=== PATIENT | female | born 1945 | race Caucasian/White ===

== ENCOUNTER 2022-08-21 11:12 | Emergency (ER) | payer OTHER, SELFPAY ==
[2022-08-21 11:15] VITALS: BP 197/92; PULSE 89; RESP 18; TEMP 36.6; O2SAT 97; BMI 41.7
--- NOTE | 2022-08-21 11:22 | ECG_ITS ---
Test Reason : ARRYTHIMA Blood Pressure : / mmHG Vent. Rate : 080 BPM Atrial Rate : 000 BPM P-R Int : 000 ms QRS Dur : 092 ms QT Int : 398 ms P-R-T Axes : 000 039 -26 degrees QTc Int : 459 ms Atrial fibrillation Nonspecific T wave abnormality Abnormal ECG When compared with ECG of 05-MAY-2017 16:01, ST no longer depressed in Anterior leads Referred By: Generic ED Physician Electronically Signed By:Tono Salter
[2022-08-21 11:54] LABS: MANUAL DIFF FLAG NO
[2022-08-21 11:56] LABS: Basophils Percent Auto 0.5 % (0-2); Eosinophils Percent Auto 0.7 % (0-4); Hematocrit 40.3 % (37.0-47.0); Hemoglobin 12.9 g/dl (12.0-16.0); Imm Gran Abs Auto 0.01 X10*3/uL (0.00-0.03); Imm Gran Pct Auto 0.2 % (0.0-0.4); Lymphocytes Absolute Auto 0.7 X10*3/uL (1.2-4.9); Lymphocytes Percent Auto 17.2 % (20-40); Mean Corpuscular Hemoglobin 26.7 pg (27.0-33.0); Mean Corpuscular Volume 83.4 fL (80.0-98.0); Mean Platelet Volume 9.4 fL (9.4-12.3); Monocytes Absolute Auto 0.5 X10*3/uL (0.1-1.2); Monocytes Percent Auto 12.6 % (2-11); Neutrophils Percent Auto 68.8 % (45-73); Platelet Count 212 X10*3/uL (160-400); Red Blood Count 4.83 X10*6/uL (4.20-5.50); Red Cell Distribution Width 15.6 % (11.0-16.0); White Blood Count 4.3 X10*3/uL (4.8-10.8)
[2022-08-21 12:16] LABS: Anion Gap 14 (12-20); Blood Urea Nitrogen 11 mg/dL (9-16); Calcium 9.2 mg/dL (8.4-10.2); Carbon Dioxide 27 mmol/L (22-29); Chloride 103 mmol/L (96-108); Creatinine Clr Calc Pharmacy 67.8; Estimated Glomerular Filt Rate > 60; Glucose Random 98 mg/dL (60-115); Potassium 4.2 mmol/L (3.3-5.1); Sodium 140 mmol/L (135-145)
[2022-08-21 12:17] LABS: Troponin-I High Sensitivity 9.2 ng/L (<3.5-17.0)
[2022-08-21 14:47] VITALS: BP 180/96; PULSE 82; RESP 18; TEMP 36.5; O2SAT 98
--- NOTE | 2022-08-21 14:53 | PC.NURSE ---
Pt alert and oriented, respirations even and unlabored. Placed on quality assurance monitor in afib 70's to 80's, reports this is chronic and normal for her. Takes coumadin for her afib. Denies any pain at this time.
--- NOTE | 2022-08-21 15:10 | ED_ITS ---
HPI - Arrhythmia/Palpitations General Chief Complaint: Arrhythmia/Palpitations Stated Complaint: HBP/Afib Time Seen by Provider: 08/21/22 14:47 Source: patient Mode of arrival: ambulatory Limitations: no limitations History of Present Illness HPI narrative: Patient is a 76-year-old female who presents to emergency department for evaluation of palpitations and hypertension. Patient reports a history of atrial fibrillation for which she is prescribed metoprolol succinate and Coumadin. She states that she is always in atrial fibrillation however she does not always ?feel it?. She reports that over the past weeks she has been having increased sensation of palpitations, she does also endorse that she has been anxious over her blood pressure. 08/08/2022 she was started on lisinopril 10 mg p.o., and that dosage was increased on 08/16/2022 given persistent hypertension, currently she is taking 20 mg p.o. daily. She states at home her blood pressures continue to be 180s systolic, 90s diastolic. She contacted her primary care office and was advised to come to the emergency department. She denies headache, vision changes, dizziness, lightheadedness, neck pain, presyncope, syncope, chest pain, shortness of breath, difficulty breathing, nausea, vomiting, abdominal pain, numbness or tingling of her extremities. Reports pedal edema at baseline, no worse than usual, resolves at night with elevation. She is also prescribed Lasix daily, however she is only taking it about 3-4 times throughout the week reporting that she does not take it when she has to leave in the morning to read [employer] as it causes her to go to the bathroom to frequently. Her primary care office is arranging for her to have a sooner follow-up with Cardiology determine whether she remain on the Lasix. She states she had echocardiogram last year which by her report was normal, denies any history of heart failure. Related Data Allergies Allergy/AdvReac Type Severity Reaction Status Date / Time No Known Allergies Allergy Verified 08/21/22 11:14 [No Known Allergies*] Review of Systems Review of Systems: Constitutional : No Weight loss, No Fever, No Chills ENT/Mouth :? No sore throat, No Rhinorrhea Eyes: No Eye Pain, No Swelling Cardiovascular : pos Chest Pain, pos SOB, no Dyspnea on Exertion, No Orthopnea, No Edema, positive Palpitations Respiratory : No Cough, No Sputum Gastrointestinal : pos Nausea, No Vomiting, No Diarrhea, No abdominal Pain, No Hematochezia, No Melena Genitourinary : No Dysuria, No Urinary Frequency Musculoskeletal : No joint pain, No Myalgias, No Joint Swelling Skin : No Skin Lesions, No rash Neuro : No Weakness, No Numbness, No Dizziness, No Headache Psych : Positive anxiety, No Depression Yes all other systems are reviewed and are negative [facility] Past Medical History Attestation statement: The following information was validated with the patient. Source: old records reviewed Social History Social History Smoked in Last 30 Days: No Advance Directives: No Advance Directives Information Provided: Yes Physical Exam Vital Signs: Vital Signs: Last Vital Signs Temp 97.7 F 08/21/22 14:47 Pulse 82 08/21/22 14:47 Resp 18 08/21/22 14:47 BP 180/96 H 08/21/22 14:47 Pulse Ox 98 08/21/22 14:47 O2 Del Method 08/21/22 14:47 BMI result Body Mass Index 41.7 Appearance: Alert.?Oriented to person, place and time. No acute distress.?Normal affect. Eyes: Pupils equal, round and reactive to light.? ENT: Pharynx normal.?? Neck: Normal inspection.? Neck supple.?? CVS: Heart sounds normal. Irregularly irregular rhythm.? Pulses normal.?? Respiratory: No respiratory distress.? Lung sounds clear to auscultation bilaterally?? Abdomen: Soft and non-tender. Normoactive bowel sounds. Skin: Skin warm and dry.? Normal skin color.? Extremities: 2+ pitting lower extremity edema bilaterally. Neuro: Moves all extremities spontaneously. Sensation intact bilaterally. Ambulates with normal steady gait. Course Reevaluation(s) Reevaluation #1: BNP is mildly elevated, no evidence of overt fluid overload. Discussed with patient plan of care she will follow-up with Cardiology outpatient as her primary care provider is arranging. She will follow-up with Coumadin Clinic in regards to dosage management. Discussed plan of care for increasing dosage of lisinopril to 20 mg twice daily, under the condition that she is keeping a log of blood pressure readings before antihypertensive medication administration and 2 hours after. Given instructions on when to hold evening lisinopril based on blood pressure reading. She is going to contact her primary care provider to arrange for further follow-up and management. Patient feels comfortable with this plan of care for discharge. Time: 17:38 Medical Decision Making Medical Decision Making [facility] Narrative: Patient with a history of atrial fibrillation, currently on Coumadin, hypertension, and ostomy presenting to emergency department for evaluation of palpitations and hypertension. As noted in HPI patient has been recently prescribed lisinopril as a new medication given hypertension despite being on metoprolol and furosemide. However she is not taking the furosemide daily as prescribed by her fitness coach through [facility]. She was advised to come to emergency department by her primary care office given persistent elevated blood pressure readings and palpitations. The palpitations are intermittent, and she also endorses anxiety over her elevated blood pressure readings. She is otherwise without any additional physical complaints. She is overall well- appearing, without evidence of end-organ dysfunction. Reviewed labs obtained from triage, and overall unremarkable CBC and BMP. Troponin 9.2, EKG revealing atrial fibrillation without RVR, no active chest pain or shortness of breath. Will add on BNP, and check INR as she does report that over the past few weeks her INR was elevated but has been coming down she is due to have this rechecked later this week. Lab Data [facility] Lab Attestation statement: I reviewed the patient's lab results. Result Diagrams: 08/21/22 11:50 08/21/22 11:50 Labs: Lab Results 08/21/22 08/21/22 08/21/22 Range/Units 11:49 11:50 11:50 WBC 4.3 L (4.8-10.8) X10*3/uL RBC 4.83 (4.20-5.50) X10*6/uL Hgb 12.9 (12.0-16.0) g/dl Hct 40.3 (37.0-47.0) % MCV 83.4 (80.0-98.0) fL MCH 26.7 L (27.0-33.0) pg MCHC 32.0 (31.0-35.0) g/dl RDW 15.6 (11.0-16.0) % Plt Count 212 (160-400) X10*3/uL MPV 9.4 (9.4-12.3) fL Immature Gran % (Auto) 0.2 (0.0-0.4) % Neut % (Auto) 68.8 (45-73) % Lymph % (Auto) 17.2 L (20-40) % [place] % (Auto) 12.6 H (2-11) % Eos % (Auto) 0.7 (0-4) % Baso % (Auto) 0.5 (0-2) % Lymph # (Auto) 0.7 L (1.2-4.9) X10*3/uL [place] # (Auto) 0.5 (0.1-1.2) X10*3/uL Eos # (Auto) 0.0 (0.0-0.4) X10*3/uL Baso # (Auto) 0.0 (0.0-0.2) X10*3/uL Abs Immat Gran (auto) 0.01 (0.00-0.03) X10*3/uL Absolute Neuts (auto) 3.0 (2.0-8.3) x10*3/uL Absolute Nucleated RBC 0.000 (0.0-0.012) X10*3/uL Nucleated RBC % (auto) 0.0 (0.0-0.2) /100WBC PT (10.0-13.1) SEC INR (0.9-1.1) Sodium 140 (135-145) mmol/L Potassium 4.2 (3.3-5.1) mmol/L Chloride 103 (96-108) mmol/L Carbon Dioxide 27 (22-29) mmol/L Anion Gap 14 (12-20) BUN 11 (9-16) mg/dL Creatinine 0.77 (0.5-1.4) mg/dL Estim Creat Clear Calc 67.8 Estimated GFR > 60 Random Glucose 98 (60-115) mg/dL Calcium 9.2 (8.4-10.2) mg/dL Troponin I High Sens 9.2 (<3.5-17.0) ng/L B-Natriuretic Peptide (<100) pg/mL 08/21/22 08/21/22 Range/Units 15:56 15:56 WBC (4.8-10.8) X10*3/uL RBC (4.20-5.50) X10*6/uL Hgb (12.0-16.0) g/dl Hct (37.0-47.0) % MCV (80.0-98.0) fL MCH (27.0-33.0) pg MCHC (31.0-35.0) g/dl RDW (11.0-16.0) % Plt Count (160-400) X10*3/uL MPV (9.4-12.3) fL Immature Gran % (Auto) (0.0-0.4) % Neut % (Auto) (45-73) % Lymph % (Auto) (20-40) % [place] % (Auto) (2-11) % Eos % (Auto) (0-4) % Baso % (Auto) (0-2) % Lymph # (Auto) (1.2-4.9) X10*3/uL [place] # (Auto) (0.1-1.2) X10*3/uL Eos # (Auto) (0.0-0.4) X10*3/uL Baso # (Auto) (0.0-0.2) X10*3/uL Abs Immat Gran (auto) (0.00-0.03) X10*3/uL Absolute Neuts (auto) (2.0-8.3) x10*3/uL Absolute Nucleated RBC (0.0-0.012) X10*3/uL Nucleated RBC % (auto) (0.0-0.2) /100WBC PT 38.6 H (10.0-13.1) SEC INR 3.2 H (0.9-1.1) Sodium (135-145) mmol/L Potassium (3.3-5.1) mmol/L Chloride (96-108) mmol/L Carbon Dioxide (22-29) mmol/L Anion Gap (12-20) BUN (9-16) mg/dL Creatinine (0.5-1.4) mg/dL Estim Creat Clear Calc Estimated GFR Random Glucose (60-115) mg/dL Calcium (8.4-10.2) mg/dL Troponin I High Sens (<3.5-17.0) ng/L B-Natriuretic Peptide 418 H (<100) pg/mL Independent Interpretation I performed an independent interpretation of an: EKG Interpretation: Rate: 80 Rhythm:? Atrial fibrillation Normal QRS complex.?? ST T wave :??No ST elevation, no ST depression qTC: 459 The study has been interpreted contemporaneously by me. Discharge Plan Discharge Clinical Impression: Atrial fibrillation, Hypertension Patient Disposition: Home, Self-Care Additional Instructions: As we discussed, your INR today is 3.2, please contact your Coumadin clinic tomorrow regarding further management. Regarding your blood pressure; Tonight you should take your lisinopril 20 mg as scheduled. Tomorrow morning check your blood pressure in the morning prior to taking antihypertensives and record this reading as well as the time Take metoprolol and Lasix as prescribed, if your blood pressure is elevated, >140, take an additional dose of lisinopril 20 mg at the same time as your metoprolol. Check your blood pressure 2 hours after taking both medications, and record this reading. At bedtime, check your blood pressure before taking the lisinopril 20 mg. If your blood pressure is greater than 140, take the 2nd dose of lisinopril 20 mg. Please contact your primary care doctor's office tomorrow to arrange for further follow-up and evaluation. Referrals: Eloisa Veronica MD [Primary Care Provider] -
[2022-08-21 16:19] LABS: INTERNATIONAL NORM RATIO 3.2 (0.9-1.1); Prothrombin Time 38.6 SEC (10.0-13.1)
[2022-08-21 16:31] LABS: B Type Natriuretic Peptide 418 pg/mL (<100)
== END 2022-08-21 17:56 | disposition home or self-care (01) ==
PROVIDERS: Nurse Practitioner Family; Emergency Provider Emergency Medicine; PCP Internal Medicine
DX: I48.91 Unspecified atrial fibrillation (principal); I10 Essential (primary) hypertension; R00.2 Palpitations; R06.02 Shortness of breath; R60.0 Localized edema; F41.9 Anxiety disorder, unspecified; Z79.01 Long term (current) use of anticoagulants; Z79.899 Other long term (current) drug therapy
CPT/HCPCS: 36415; 80048; 83880; 84484; 85025; 85610; 93005; 99284; 99285

== ENCOUNTER 2023-10-08 17:16 | Inpatient (IN) | payer OTHER, SELFPAY ==
--- NOTE | ~2023-10-08 | CT_ITS ---
EXAMINATION: CT ANGIOGRAM CHEST CLINICAL INFORMATION: SOB, dizzy, large R opacity on CXR COMPARISON: Chest x-ray from the same day TECHNIQUE: Multiple axial images were obtained through the chest after the administration of 70 mL of Omnipaque 350 intravenous contrast. Extensive vascular post-processing including two-dimensional and three-dimensional reformatted images were created and reviewed on an independent workstation. This CT examination was performed using dose optimization techniques as appropriate, variously including the following: *Automated exposure control *Adjustment of mA and/or kV according to patient size (this includes techniques or standardized protocols for targeted exams where dose is matched to indication/reason for exam; i.e. extremities or head) *Use of iterative reconstruction technique DLP: 392 mGy-cm FINDINGS: There are scattered regions of curvilinear subsegmental atelectasis bilaterally. Mild emphysema is noted. Small right and trace left pleural effusions. No pneumothorax. Thyroid gland appears diminutive. No significant mediastinal lymphadenopathy is seen. There is severe cardiomegaly, including with marked left and right atrial dilation. Mild coronary artery calcification noted. There is a small pericardial effusion. Scattered calcification along the aorta. No evidence of aortic dissection. No axillary lymphadenopathy is present. There is reflux of contrast into the IVC and hepatic veins, suggesting sequelae elevated right heart pressures. Lateral left hepatic cyst noted. Additional partially visualized hypodense lesion in the liver is also favored to represent a cyst. There is trace perisplenic fluid. Scattered degenerative changes in the spine. CT/CT angio chest aorta IMPRESSION: 1. Severe cardiomegaly, including marked left and right atrial dilation. 2. Small right and trace left pleural effusions. 3. Small pericardial effusion. 4. Trace perisplenic fluid.
--- NOTE | ~2023-10-08 | XR_ITS ---
EXAMINATION: CHEST 2 VIEWS CLINICAL INFORMATION: SOB. COMPARISON: 05/05/2017 chest x-ray and 04/18/2017 CT scan. TECHNIQUE: PA and lateral views of the chest obtained. FINDINGS: This is an abnormal study. The cardiac silhouette is significantly enlarged and is a new finding from the prior 2017 study. There is a focal opacity along the right heart border which appears to be more anterior than would be expected for a hiatal hernia. No obvious hiatal hernia seen on the prior 2017 study is either. Tiny bilateral pleural effusions and dependent airspace changes likely due to atelectasis. No overt edema or pneumothorax. Vascular calcification in aorta. XR/XR chest 2V IMPRESSION: 1. Significantly enlarged cardiac silhouette. This is a new finding from the prior 2017 study. Specifically there is now a focal opacity along the right heart border which appears to be more anterior than would be expected for a hiatal hernia. The appearance is new from the 2017 study. Uncertain if this is related to a large paraesophageal hernia, enlarged right atrium, or other masslike opacity in this location. Clinical correlation would be helpful. CT scan of the chest will likely be needed to assess this further if there is clinical concern. This critical result was discussed with Amber Barnes NP at 10/08/2023 7:01 PM and it was ascertained that the content and urgency of the report was understood at the time of direct communication.
--- NOTE | 2023-10-08 17:20 | ED_ITS ---
HPI - General Adult General Chief complaint: Dyspnea Stated complaint: sob,afib Time Seen by Provider: 10/08/23 17:35 Source: patient Mode of arrival: ambulatory Limitations: no limitations History of Present Illness HPI narrative: Patient is an 78-year-old female who presents emergency department for evaluation of shortness of breath. She reports over the past week she was noticing some mild shortness of breath particularly upon exertion. Yesterday and today symptoms were much worse. She also had associated dizziness which prompted her visit to the ED. She has been experiencing bilateral lower extremity edema for the past month that is increasingly worse. Has history of atrial fibrillation, reports compliance with her warfarin, over the past 2 and half weeks has had supratherapeutic levels following closely with her Coumadin Clinic. Denies headache, vision changes, neck pain, chest pain, nausea, vomiting, abdominal pain, numbness or tingling for extremities, dysuria, hematuria, urinary frequency, numbness or tingling of the extremities. Related Data Home Medications Medication Instructions Recorded Confirmed alendronate 70 mg tablet 70 mg PO BLUNT 10/08/23 10/08/23 amlodipine 5 mg tablet 5 mg PO BEDTIME 10/08/23 10/08/23 calcium carbonate 500 mg-vitamin 1 tab PO DAILY 10/08/23 10/08/23 D3 10 mcg (400 unit) tablet (Calcium 500 + D) furosemide 20 mg tablet 20 mg PO DAILY 10/08/23 10/08/23 lisinopril 40 mg tablet 40 mg PO BEDTIME 10/08/23 10/08/23 metoprolol succinate 100 mg 100 mg PO DAILY 10/08/23 10/08/23 tablet,extended release 24 hr potassium chloride 20 mEq 20 meq PO DAILY 10/08/23 10/08/23 tablet,extended release(part/cryst) warfarin 2.5 mg tablet 5 mg PO DAILY@1800 10/08/23 10/08/23 Allergies Allergy/AdvReac Type Severity Reaction Status Date / Time No Known Allergies Allergy Verified 08/21/22 11:14 [No Known Allergies*] Review of Systems 2 Review of Systems: Yes all other systems are reviewed and are negative [facility] Past Medical History Attestation statement: The following information was validated with the patient. Source: old records reviewed Medical History Osteoporosis Hyperlipidemia Hypertension Atrial fibrillation Social History Social History Alcohol intake: former Smoked in Last 30 Days: No Use of substances other than those prescribed or required for medical reasons: No Advance Directives: No Advance Directives Information Provided: No Physical Exam ED Vital Signs: Vital Signs - 24 hr 10/08/23 17:22 10/08/23 18:00 10/08/23 22:06 Temperature 97.1 F Pulse Rate 58 60 92 Respiratory Rate 18 18 20 Blood Pressure 128/48 L 131/65 Pulse Oximetry 95 97 95 Oxygen Delivery Method Room Air Nasal Cannula Nasal Cannula Oxygen Flow Rate 2 2 BMI result Body Mass Index 41.8 Appearance: Alert.?Oriented to person, place and time. No acute distress.?Normal affect. Eyes: Pupils equal, round and reactive to light.? ENT: Pharynx normal.?? Neck: Normal inspection.? Neck supple.?? CVS: Heart sounds normal. Irregularly irregular rhythm.? Pulses normal.?? Respiratory: No respiratory distress.? Lung sounds clear at the apices, diminished at the bases. ? Abdomen: Soft and non-tender. Normoactive bowel sounds. Large mid L abdominal hernia. Ostomy. Skin: Skin warm and dry.? Normal skin color.? Extremities: 3+ bilateral lower extremity edema? No calf ttp? Neuro: Moves all extremities spontaneously. Sensation intact bilaterally. CN II- XII intact. No focal neuro deficits. Ambulates with normal steady gait. Course Course Course Narrative: RME performed by Talya Varela PA-C. Patient is an 78 year old assigned female at presenting to the emergency department with shortness of breath and concern she is in atrial fib. Detailed physical exam and review of systems are deferred to the primary teacher. Labs, imaging, and swabs ordered. Charge nurse made aware of patient. Reevaluation(s) Reevaluation #1: CBC reveals leukopenia, microcytic anemia, mild thrombocytopenia. Electrolytes within normal range. BUN 32 with baseline creatinine 0.85, concerning for dehydration. BNP 245, lower than prior levels in 2021. High sensitive troponin within normal range at 4.7, EKG revealing atrial fibrillation without acute ischemic changes. COVID-19/influenza testing is negative. Received call from radiologist regarding critical finding on CXR, 15 cm larger opacities to the right sternal border, appears to be more anterior than expected if this were secondary to new hiatal hernia, possible enlarged right atria or pericardial effusion. Plan to obtain CT angio aorta for further evaluation, ED attending, Dr. Post at bedside to perform ultrasound, does not appear consistent with large pericardial effusion, concern for enlarged right atria. Stable at this time. Time: 18:59 Reevaluation #2: CT of the chest revealing severe cardiomegaly with marked left and right atrial dilation, small pleural effusions, small pericardial effusion, decompensated heart failure, suspect this is most likely etiology of her shortness of breath. Spoke with hospitalist, Dr. Simon, who accepts patient for admission. Time: 22:32 Medications Administered Generic Name Dose Route Start Last Admin Trade Name Freq PRN Reason Stop Dose Admin Furosemide 40 mg 10/08/23 22:25 10/08/23 22:57 Furosemide 40 Mg/4 Ml Vial IVPUSH 40 mg DAILY LENCHO Administration Protocol Sodium Chloride 3 ml 10/09/23 00:00 10/09/23 01:10 0.9 % Sodium Chloride Flush 3 Ml Syringe IVFLUSH 3 ml QSHIFT LENCHO Administration Discontinued Medications Generic Name Dose Route Start Last Admin Trade Name Freq PRN Reason Stop Dose Admin Sodium Chloride 1,000 mls @ 999 mls/hr 10/08/23 19:45 10/08/23 22:35 Ns IV 10/08/23 20:45 0 mls/hr .Q1H1M LENCHO Infusion Iohexol 70 ml 10/08/23 21:13 10/08/23 21:14 Iohexol 350 Mg/Ml 100 Ml Infus..Btl IV 10/08/23 21:14 70 ml ONCE ONE Administration Medical Decision Making Medical Decision Making MDM Narrative: Patient is an 78-year-old female with past medical history of atrial fibrillation on Coumadin, hypertension who presents emergency department for evaluation of shortness of breath. Lung sounds are clear at the apices but diminished at the bases, 3+ bilateral lower extremity pitting edema. Will obtain CBC to evaluate for leukocytosis/ anemia, CMP and lipase to evaluate for abnormal electrolytes /abnormal renal function/ abnormal hepatic/biliary function, EKG and troponin to evaluate for ischemia/ACS. Chest x-ray to evaluate for consolidation/ infiltrate/ mass/ pulmonary congestion and Urinalysis. Differential Diagnosis Differential Diagnoses: The differential diagnosis associated with the presentation includes (AFib RVR, CHF, URI. Doubt PE, chronic anticoagulation recent supratherapeutic INR.) Admission/Observation Consideration of admission/observation: Escalation of care including admission/observation considered (See course narrative for further detail) Lab Data MDM Lab Attestation statement: I reviewed the patient's lab results. (See course narrative) 10/08/23 17:46 10/08/23 17:46 Labs: Lab Results 10/08/23 Range/Units 17:46 WBC 3.6 L (4.8-10.8) X10*3/uL RBC 4.53 (4.20-5.50) X10*6/uL Hgb 11.6 L (12.0-16.0) g/dl Hct 35.8 L (37.0-47.0) % MCV 79.0 L (80.0-98.0) fL MCH 25.6 L (27.0-33.0) pg MCHC 32.4 (31.0-35.0) g/dl RDW 16.9 H (11.0-16.0) % Plt Count 143 L D (160-400) X10*3/uL MPV 10.4 (9.4-12.3) fL Immature Gran % (Auto) 0.3 (0.0-0.4) % Neut % (Auto) 67.7 (45-73) % Lymph % (Auto) 12.5 L (20-40) % [place] % (Auto) 17.5 H (2-11) % Eos % (Auto) 1.4 (0-4) % Baso % (Auto) 0.6 (0-2) % Lymph # (Auto) 0.5 L (1.2-4.9) X10*3/uL [place] # (Auto) 0.6 (0.1-1.2) X10*3/uL Eos # (Auto) 0.1 (0.0-0.4) X10*3/uL Baso # (Auto) 0.0 (0.0-0.2) X10*3/uL Abs Immat Gran (auto) 0.01 (0.00-0.03) X10*3/uL Absolute Neuts (auto) 2.5 (2.0-8.3) x10*3/uL Absolute Nucleated RBC 0.000 (0.0-0.012) X10*3/uL Nucleated RBC % (auto) 0.0 (0.0-0.2) /100WBC PT 72.0 H (11.1-13.3) SEC INR 5.9 H* D (0.9-1.1) APTT 68.1 H* (26.0-36.8) SEC Sodium 138 (135-145) mmol/L Potassium 3.8 (3.3-5.1) mmol/L Chloride 103 (96-108) mmol/L Carbon Dioxide 25 (22-29) mmol/L Anion Gap 14 (12-20) BUN 32 H (9-16) mg/dL Creatinine 0.85 (0.5-1.4) mg/dL Estim Creat Clear Calc 64.1 Estimated GFR > 60 Random Glucose 112 (60-115) mg/dL Calcium 9.6 (8.4-10.2) mg/dL Magnesium 1.9 (1.6-2.6) mg/dL Iron 33 (30-160) mcg/dL TIBC 367 (228-428) mcg/dL % Saturation 9 L (15-50) % Unsat Iron Binding 334 ug/dL Ferritin 51 (10-250) ng/mL Total Bilirubin 1.0 (0.0-1.0) mg/dL AST 36 H (5-31) U/L ALT 19 (0-31) U/L Alkaline Phosphatase 129 H (39-117) U/L Troponin I High Sens 4.7 (<3.5-17.0) ng/L B-Natriuretic Peptide 245 H (<100) pg/mL Total Protein 7.8 (6.5-8.0) g/dL Albumin 3.6 (3.5-5.0) g/dL COVID-19 (HUGO) Negative (Negative) COVID-19 Clin Com See Note Influenza Type A (LUIS) Negative (Negative) Influenza Type B (LUIS) Negative (Negative) Influenza A & B Note See Note Independent Interpretation I performed an independent interpretation of an: EKG and Plain X-Ray (Right sternal border opacity) Interpretation: Rate:62 Rhythm:? Atrial fibrillation Normal QRS complex.?? ST T wave :??No ST elevation, no ST depression qTC:507 The study has been interpreted contemporaneously by me. Radiology Impression Discussion of test interpretation with radiology: I discussed test interpretation with the radiologist (See course narrative) and I have reviewed the radiologist's reading. Radiologist Impression: XR/XR chest 2V IMPRESSION: 1. Significantly enlarged cardiac silhouette. This is a new finding from the prior 2017 study. Specifically there is now a focal opacity along the right heart border which appears to be more anterior than would be expected for a hiatal hernia. The appearance is new from the 2017 study. Uncertain if this is related to a large paraesophageal hernia, enlarged right atrium, or other masslike opacity in this location. Clinical correlation would be helpful. CT scan of the chest will likely be needed to assess this further if there is clinical concern. CT/CT angio chest aorta IMPRESSION: 1. Severe cardiomegaly, including marked left and right atrial dilation. 2. Small right and trace left pleural effusions. 3. Small pericardial effusion. 4. Trace perisplenic fluid. External Record Review External record reviewed: Outpatient record Critical Care Time Critical Care Time Critical Care Time: Yes Total Critical Care Time: 45 Attestation: I personally attest to this critical care time spent taking care of the patient exclusive of all other billable procedures was approximately 45 minutes including initial evaluation of patient, ordering tests, x-ray interpretation, EKG interpretation, medical consultation, documentation, re-evaluation. Discharge Plan Discharge Clinical Impression: Decompensated heart failure Patient Disposition: Still a Patient
[2023-10-08 17:22] VITALS: BP 128/48; PULSE 58; RESP 18; TEMP 36.2; O2SAT 95; BMI 41.8
--- NOTE | 2023-10-08 17:22 | ECG_ITS ---
Test Reason : AFIB/SOB Blood Pressure : / mmHG Vent. Rate : 062 BPM Atrial Rate : 000 BPM P-R Int : 000 ms QRS Dur : 112 ms QT Int : 500 ms P-R-T Axes : 000 060 062 degrees QTc Int : 507 ms Poor data quality Atrial fibrillation Nonspecific ST and T wave abnormality Abnormal ECG When compared with ECG of 21-AUG-2022 12:00, Poor data quality in current ECG precludes serial comparison Referred By: Talya Varela Electronically Signed By:Tono Salter
[2023-10-08 17:49] LABS: MANUAL DIFF FLAG NO
[2023-10-08 17:51] LABS: Basophils Percent Auto 0.6 % (0-2); Eosinophils Absolute Auto 0.1 X10*3/uL (0.0-0.4); Eosinophils Percent Auto 1.4 % (0-4); Hematocrit 35.8 % (37.0-47.0); Hemoglobin 11.6 g/dl (12.0-16.0); Imm Gran Abs Auto 0.01 X10*3/uL (0.00-0.03); Imm Gran Pct Auto 0.3 % (0.0-0.4); Lymphocytes Absolute Auto 0.5 X10*3/uL (1.2-4.9); Lymphocytes Percent Auto 12.5 % (20-40); Mean Corpuscular HGB Conc 32.4 g/dl (31.0-35.0); Mean Corpuscular Hemoglobin 25.6 pg (27.0-33.0); Mean Platelet Volume 10.4 fL (9.4-12.3); Monocytes Absolute Auto 0.6 X10*3/uL (0.1-1.2); Monocytes Percent Auto 17.5 % (2-11); Neutrophils Absolute Auto 2.5 x10*3/uL (2.0-8.3); Neutrophils Percent Auto 67.7 % (45-73); Platelet Count 143 X10*3/uL (160-400); Red Blood Count 4.53 X10*6/uL (4.20-5.50); Red Cell Distribution Width 16.9 % (11.0-16.0); White Blood Count 3.6 X10*3/uL (4.8-10.8)
[2023-10-08 18:00] VITALS: PULSE 60; RESP 18; O2SAT 97
[2023-10-08 18:06] LABS: Alanine Aminotransferase 19 U/L (0-31); Albumin Level 3.6 g/dL (3.5-5.0); Alkaline Phosphatase 129 U/L (39-117); Anion Gap 14 (12-20); Aspartate Amino Transferase 36 U/L (5-31); Blood Urea Nitrogen 32 mg/dL (9-16); Calcium 9.6 mg/dL (8.4-10.2); Carbon Dioxide 25 mmol/L (22-29); Chloride 103 mmol/L (96-108); Creatinine Clr Calc Pharmacy 64.1; Estimated Glomerular Filt Rate > 60; Glucose Random 112 mg/dL (60-115); Magnesium 1.9 mg/dL (1.6-2.6); Potassium 3.8 mmol/L (3.3-5.1); Sodium 138 mmol/L (135-145); Total Protein 7.8 g/dL (6.5-8.0)
[2023-10-08 18:10] LABS: COVID-19 Test Negative (Negative); IDNOW Serial# 6674DD1D
[2023-10-08 18:13] LABS: B Type Natriuretic Peptide 245 pg/mL (<100); Troponin-I High Sensitivity 4.7 ng/L (<3.5-17.0)
[2023-10-08 18:27] LABS: IDNOW Serial# 08D9AD1C; Influenza A Negative (Negative); Influenza B2 Negative (Negative)
[2023-10-08 18:47] LABS: INTERNATIONAL NORM RATIO 5.9 (0.9-1.1); Partial Thromboplastin Time 68.1 SEC (26.0-36.8)
[2023-10-08] MEDS: iohexoL 350 MG/ML 100 ML INFUS..BTL 70 ML IV (21:14)
[2023-10-08] MEDS: 0.9 % Sodium Chloride 1,000 ML 999 ML IV (21:17)
--- NOTE | 2023-10-08 21:58 | PHA.MEDREC ---
Pharmacy Consult ? Medication Reconciliation Pharmacy has completed the medication reconciliation. Patient reported medications. I kept warfarin as patient has been taking it. Patient has been taking 5 mg daily. Patient was suppose to go to [facility] clinic, if inr was still high he dose was to be decreased to 2.5 mg. While patient is here, INR will be closely monitored an adjusted. Dunia Fernandes ,PharmD
[2023-10-08 22:06] VITALS: BP 131/65; PULSE 92; RESP 20; O2SAT 95
--- NOTE | 2023-10-08 22:08 | PC.NURSE ---
upon return from ct scan ivf hung. lung sounds cta. pt denies cp/n/v/d pt reports continues to feel sob not worsening since arrival. sats 95% on 2L NC. pt has large bruise on L. elbow upon asking pt reports she had woken up from a nap on couch my foot had fallen asleep and I fell pt reports this was couple days ago -headstrike/loc. was able to get self up. pt denied reporting this to MEDICAL RECORDS ASSISTANT, Kermit notified. +ROM pt denies pain. no other complaints regarding fall.
--- NOTE | 2023-10-08 22:22 | P.HPHOSP_ITS ---
History of Present Illness Date of Service: 10/08/23 Attending physician on admission: Nakia Simon Chief Complaint: martins 78 year old with history of paroxysmal afib on coumadin (not always compliant), htn, hld, osteoporosis presented to the ED earlier today for evaluation of dyspnea on exertion and lightheadedness. She reports for the last week, she has been experiencing worsening dyspnea on exertion, greatest yesterday and today with associated lightheadedness. No associated palpitations, chest pain, syncope. She is also noted increase in bilateral lower extremity edema over the last month. She has not always compliant with her furosemide due to increased urinary frequency. She has followed with [facility], last seen 12/2022, but does not believe she has any known history of congestive heart failure. On arrival, patient noted to desaturate to the mid 80s with ambulation and when talking, placed on 2 L supplemental O2, now maintaining oximetry 94% at rest. She has a leukopenia of 3.6. There is a microcytic anemia with H/H 11.6/35.8%, MCV 79. Platelets 143. Renal function normal, electrolyte levels normal. Troponin 4.7. BNP 245. Negative for COVID-19, influenza. Chest x-ray shows significantly enlarged cardiac silhouette with new focal opacity along the right heart border appearing more anterior than would be expected for hiatal hernia new from prior studies. However, follow-up CT of the chest did not reveal any masslike abnormality but does show severe cardiomegaly including marked left and right atrial dilatation and small right and trace left pleural effusions as well as a small pericardial effusion. Review of Systems 2 Review of Systems: General: No fevers, malaise, unintentional weight loss HEENT: No blurred vision, diplopia. No sore throat, nasal congestion, rhinorrhea, sinus pain, ear pain Cardiovascular: +lightheadedness. No chest pain, palpitations, or leg edema Respiratory: +MARTINS. No shortness of breath at rest, orthopnea, PND, wheezing, cough GI: No abdominal pain, nausea, vomiting, diarrhea, constipation, melena, hematochezia : No dysuria, hematuria, increased urinary frequency, decreased urinary output MSK: No myalgia, back pain Neuro: No headaches, weakness, paresthesias Skin: No rashes or lesions PMFSH Medical History Osteoporosis Hyperlipidemia Hypertension Atrial fibrillation Social History Alcohol intake: former Smoked in Last 30 Days: No Use of substances other than those prescribed or required for medical reasons: No Advance Directives: No Advance Directives Information Provided: No Meds Allergies Allergy/AdvReac Type Severity Reaction Status Date / Time No Known Allergies Allergy Verified 08/21/22 11:14 [No Known Allergies*] Active Medications: Current Medications Acetaminophen (Acetaminophen 325 Mg Tablet) 650 mg PO Q6H PRN PRN Reason: Pain, Mild (Pain Scale 1-3) Furosemide (Furosemide 40 Mg/4 Ml Vial) 40 mg IVPUSH DAILY [facility]; Protocol Ondansetron HCl (Ondansetron Hcl 4 Mg/2 Ml Vial) 4 mg IVPUSH Q8H PRN PRN Reason: Nausea and Vomiting Senna (Sennosides 8.6 Mg Tablet) 17.2 mg PO BEDTIME PRN PRN Reason: Constipation Sodium Chloride (0.9 % Sodium Chloride Flush 3 Ml Syringe) 3 ml IVFLUSH QSHIFT [facility] Home Medications Medication Instructions Recorded Confirmed Last Taken Type alendronate 70 mg tablet 70 mg PO BLUNT 10/08/23 10/08/23 10/07/23 History amlodipine 5 mg tablet 5 mg PO BEDTIME 10/08/23 10/08/23 10/07/23 History calcium carbonate 500 mg-vitamin 1 tab PO DAILY 10/08/23 10/08/23 10/08/23 History D3 10 mcg (400 unit) tablet (Calcium 500 + D) furosemide 20 mg tablet 20 mg PO DAILY 10/08/23 10/08/23 10/08/23 History lisinopril 40 mg tablet 40 mg PO BEDTIME 10/08/23 10/08/23 10/07/23 History metoprolol succinate 100 mg 100 mg PO DAILY 10/08/23 10/08/23 10/08/23 History tablet,extended release 24 hr potassium chloride 20 mEq 20 meq PO DAILY 10/08/23 10/08/23 10/08/23 History tablet,extended release(part/cryst) warfarin 2.5 mg tablet 5 mg PO DAILY@1800 10/08/23 10/08/23 10/07/23 History Physical Exam 2 Vital Signs and Narrative: Vital Signs: Last Vital Signs Temp 97.1 F 10/08/23 17:22 Pulse 92 10/08/23 22:06 Resp 20 10/08/23 22:06 BP 131/65 10/08/23 22:06 Pulse Ox 95 10/08/23 22:06 O2 Del Method Nasal Cannula 10/08/23 22:06 O2 Flow Rate 2 10/08/23 22:06 BMI result Body Mass Index 41.8 Constitutional - Awake and Alert, No apparent distress Eyes - PERRLA, EOMI Cardiovascular - S1S2, RRR, 2+ ble edema Respiratory - Normal lung expansion, Normal respiratory effort, No respiratory distress on 2 L supplemental O2, diminished lung sounds bilateral lower lobes Gastrointestinal - NT / ND; +BS; No rebound or guarding Extremities - no calf tenderness bilaterally, no swelling Skin - Warm/Dry Neurological - Alert & oriented x3 Psychological - Appropriate affect Results Labs 10/08/23 17:46 10/08/23 17:46 Labs: Laboratory Results - last 24 hr 10/08/23 17:46 MCV 79.0 L MCH 25.6 L MCHC 32.4 RDW 16.9 H Plt Count 143 L D MPV 10.4 Immature Gran % (Auto) 0.3 Neut % (Auto) 67.7 Lymph % (Auto) 12.5 L [place] % (Auto) 17.5 H Eos % (Auto) 1.4 Baso % (Auto) 0.6 Lymph # (Auto) 0.5 L [place] # (Auto) 0.6 Eos # (Auto) 0.1 Baso # (Auto) 0.0 Abs Immat Gran (auto) 0.01 Absolute Neuts (auto) 2.5 Absolute Nucleated RBC 0.000 Nucleated RBC % (auto) 0.0 PT 72.0 H INR 5.9 H* D APTT 68.1 H* Anion Gap 14 Estim Creat Clear Calc 64.1 Estimated GFR > 60 Random Glucose 112 Calcium 9.6 Magnesium 1.9 Total Bilirubin 1.0 AST 36 H ALT 19 Alkaline Phosphatase 129 H B-Natriuretic Peptide 245 H Total Protein 7.8 Albumin 3.6 COVID-19 (HUGO) Negative COVID-19 Clin Com See Note Influenza Type A (LUIS) Negative Influenza Type B (LUIS) Negative Influenza A & B Note See Note Imaging Radiologist's Impressions: Impressions Chest X-Ray 10/08/23 18:08 IMPRESSION: 1. Significantly enlarged cardiac silhouette. This is a new finding from the prior 2017 study. Specifically there is now a focal opacity along the right heart border which appears to be more anterior than would be expected for a hiatal hernia. The appearance is new from the 2017 study. Uncertain if this is related to a large paraesophageal hernia, enlarged right atrium, or other masslike opacity in this location. Clinical correlation would be helpful. CT scan of the chest will likely be needed to assess this further if there is clinical concern. This critical result was discussed with Amber Barnes NP at 10/08/2023 7:01 PM and it was ascertained that the content and urgency of the report was understood at the time of direct communication. Chest CTA 10/08/23 21:20 IMPRESSION: 1. Severe cardiomegaly, including marked left and right atrial dilation. 2. Small right and trace left pleural effusions. 3. Small pericardial effusion. 4. Trace perisplenic fluid. Assessment and Plan (1) Decompensated heart failure: Status: Acute Plan 78 year old with history of paroxysmal afib on coumadin (not always compliant), htn, hld, osteoporosis admitted for management of decompensated congestive heart failure #Acute hypoxemic respiratory failure due to decompensated heart failure -40mg IV lasix daily -strict I&O -daily weights -cardiac diet -echo -cardiology consult -montior lytes, renal function. trend bnp -continue supplemental O2 to maintain oximetry >92%, wean as tolerated #HTN -continue metoprolol, lisinopril, amlodipine #Paroxysmal atrial fibrillation- rate controlled on admission -hold coumadin due to supratherapeutic INR, resume once therapeutic -monitor inr daily -continue metoprolol for rate dvt prophyalxis- scps due to supratheraeutic inr full code pt requires inpt stay at least 2 midnights for management of decompensated heart failure causing hypoxemic respiratory failure requiring iv diuresis, supplemental o2, I&o monitoring and expert consultation Quality Stroke Does the patient have a stroke diagnosis?: No VTE Prior VTE?: No VTE Risk Level:: Medical - moderate - high VTE Device Contraindication: N/A - Device Ordered VTE Drug Contraindication: Treatment Not Indicated
[2023-10-08] MEDS: Furosemide 40 MG/4 ML VIAL IVPUSH (22:57)
[2023-10-08 23:00] VITALS: BP 123/63; PULSE 58; RESP 18; O2SAT 95
--- NOTE | 2023-10-08 23:01 | PC.NURSE ---
pt medicated per oct. ivf stopped. alba provided to monitor i&o. pt has colostomy LLQ stoma appears beefy red. pt axox4. call [facility] within reach.
[2023-10-08 23:05] LABS: Iron 33 mcg/dL (30-160); Percent Iron Saturation 9 % (15-50); Total Iron Binding Capacity 367 mcg/dL (228-428); Unsaturated Iron Binding 334 ug/dL
[2023-10-08 23:16] LABS: Ferritin 51 ng/mL (10-250)
[2023-10-09] VITALS (9 sets, daily range): BP systolic 112–144; BP diastolic 54–72; PULSE 60–66; RESP 17–18; TEMP 33.4–36.6; O2SAT 93–97; BMI 40.9; BMI 41.8
[2023-10-09 01:04] LABS: Appearance Urine Clear; Color Urine Yellow; Glucose Urine UA Negative (Negative); Leukocyte Esterase Urine Large (3+) (Negative); Nitrite Urine Negative (Negative); UMIC TRIGGER UACC YES; Urine Blood Moderate (2+) (Negative); Urine Ketones Negative (Negative); Urine Protein Negative (Neg-Trace)
[2023-10-09] MEDS: 0.9 % Sodium Chloride Flush 3 ML SYRINGE IVFLUSH ×3 (01:10→21:24)
[2023-10-09 01:17] LABS: Bacteria Urine 1+ (None Seen); Hyaline Casts Urine 0-2 /LPF (0-2); Squamous Epithelial Cell Urine 0-2 /HPF (0-2); UACC Culture Trigger YES
[2023-10-09 05:38] LABS: MANUAL DIFF FLAG NO
[2023-10-09 05:42] LABS: Basophils Percent Auto 0.4 % (0-2); Eosinophils Absolute Auto 0.1 X10*3/uL (0.0-0.4); Eosinophils Percent Auto 2.6 % (0-4); Hematocrit 34.1 % (37.0-47.0); Hemoglobin 11.1 g/dl (12.0-16.0); Lymphocytes Absolute Auto 0.7 X10*3/uL (1.2-4.9); Lymphocytes Percent Auto 25.7 % (20-40); Mean Corpuscular HGB Conc 32.6 g/dl (31.0-35.0); Mean Corpuscular Hemoglobin 25.5 pg (27.0-33.0); Mean Corpuscular Volume 78.4 fL (80.0-98.0); Mean Platelet Volume 10.6 fL (9.4-12.3); Monocytes Absolute Auto 0.5 X10*3/uL (0.1-1.2); Monocytes Percent Auto 18.8 % (2-11); Neutrophils Absolute Auto 1.4 x10*3/uL (2.0-8.3); Neutrophils Percent Auto 52.5 % (45-73); Platelet Count 129 X10*3/uL (160-400); Red Blood Count 4.35 X10*6/uL (4.20-5.50); Red Cell Distribution Width 16.8 % (11.0-16.0); White Blood Count 2.7 X10*3/uL (4.8-10.8)
[2023-10-09 05:59] LABS: Anion Gap 12 (12-20); Blood Urea Nitrogen 27 mg/dL (9-16); Calcium 9.3 mg/dL (8.4-10.2); Carbon Dioxide 27 mmol/L (22-29); Chloride 107 mmol/L (96-108); Creatinine Clr Calc Pharmacy 69.9; Estimated Glomerular Filt Rate > 60; Glucose Random 71 mg/dL (60-115); Potassium 3.6 mmol/L (3.3-5.1); Prothrombin Time 75.7 SEC (11.1-13.3); Sodium 142 mmol/L (135-145)
[2023-10-09 06:01] LABS: INTERNATIONAL NORM RATIO 6.2 (0.9-1.1)
[2023-10-09 06:02] LABS: B Type Natriuretic Peptide 271 pg/mL (<100)
--- NOTE | 2023-10-09 07:00 | CA_ITS ---
Transthoracic Echocardiogram Patient (Last, First, Middle): Janessa Chan, Gender: Female Date of : 1945 Age: 78 Procedure Date: 10/09/2023 Procedure Type: Transthoracic Echocardiogram Location: S3E Height: 162.56 cm Weight: 110.22 kg BSA: 2.12 m2 Heart Rate: bpm BP: 120 / 59 mmHg Guidance Secretary: SB Referring MD: Rosita GIFFORD Symptoms: chf exacerbation Study Quality: Adequate ECG Rhythm: Atrial Fibrillation Conclusions: - Normal left ventricular size and systolic function. There is normal left ventricular wall thickness. The visually estimated ejection fraction is between 55-60%. - There is a flattened septum in systole and diastole consistent with right ventricular pressure and volume overload. - Moderately increased right ventricular cavity size. There is moderately decreased right ventricular systolic function. - The left atrium is severely dilated. The right atrium is severely dilated. - Significantly elevated right atrial pressure. Mild pulmonary hypertension is present. - There is mild dilatation of the ascending aorta measuring 3.50 cm. Findings Left Ventricle Normal left ventricular size and systolic function. There is normal left ventricular wall thickness. The visually estimated ejection fraction is between 55-60%. There is no evidence of regional wall motion abnormalities. There is a flattened septum in systole and diastole consistent with right ventricular pressure and volume overload. Diastolic function is indeterminate on the basis of available data. Right Ventricle Moderately increased right ventricular cavity size. There is moderately decreased right ventricular systolic function. Atria The left atrium is severely dilated. The right atrium is severely dilated. Aortic Valve There is mild calcification of the aortic valve. There is no aortic valve stenosis. There is no aortic valve regurgitation. Mitral Valve The mitral valve appears normal. There is mild mitral annular calcification. There is trace mitral valve regurgitation. There is no mitral valve stenosis. Pulmonic Valve The pulmonic valve is likely normal. There is trace pulmonic valve regurgitation. Tricuspid Valve Normal tricuspid valve structure. There is severe tricuspid valve regurgitation. Significantly elevated right atrial pressure. Mild pulmonary hypertension is present. Great Vessels There is mild dilatation of the ascending aorta measuring 3.50 cm. The visualized portions of the pulmonary artery and branches are normal. Venous The inferior vena cava is dilated and collapses less than 50% with inspiration. Pericardium/Pleural There is a trivial pericardial effusion. Prior Study Comparison No prior study available for comparison. Measurements 2D Linear Measurements IVSd: 1.13 0.6-0.9/0.6-1.0 cm LVIDd: 4.92 3.9-5.3/4.2-5.9 cm LVIDd Index: 2.32 2.4-3.2/2.2-3.1 cm/m2 LVIDs: 3.19 2.0-3.6 cm LVPWd: 0.80 0.7-1.1 cm LA Diam: 6.20 2.7-3.8/3.0-4.0 cm LAIDs Index: 2.92 1.5-2.3 cm/m2 LV Mass: 210.56 67-162/88-224 g LV Mass Index: 99.32 43-95/49-115 g/m2 LVOT Diam: 2.10 3.0+(-)1.3 cm 2D Systolic Function EF 4C: 59.70 >55% EF 2C: 54.40 >55% EF BiP: 54.60 >55% Mitral Valve MV Pk E: 1.12 MV Decel Time: 194.00 E'Lateral: 9.96 E'Medial: 7.35 E/E' Med: 15.20 E/E' Lat: 11.20 PHT: 57.00 MVA PHT: 3.86 Decel [place]: 5.75 MR VTI: 1.62 Aortic Valve AoV Pk Julio César: 1.45 AoV Mn Jul[place]ésar: 0.98 AoV VTI: 0.35 AoV Pk Grad: 8.00 Aov Mn Grad: 4.00 YODIT Cont.VTI: 2.27 LVOT LVOT Pk Julio [place]ésar: 0.96 LVOT Mn Julio César: 0.64 LVOT VTI: 0.23 LVOT Pk Grad: 4.00 LVOT Mn Grad: 2.00 LVOT Diam: 2.10 LVOT Area: 3.46 Diastolic Function MV Pk E: 1.12 E'Medial: 7.35 E/E' Med: 15.20 E' Laterial: 9.96 E/E' Lat: 11.20 Right Ventricle TAPSE (mm): 15.00 TVS' Julio César: 8.00 Tricuspid Valve TR Pk Julio César: 2.62 TR Pk Grad: 27.00 RA Press: 15.00 RVSP: 42.00 Great Vessels Aorta Sinus of Valsalva: 3.50 2.0-3.5 cm Ao Asc: 3.50 2.1-3.4 cm Pulmonary Valve PV Pk Julio César: 0.57 Peak PV Grad: 1.00 Updated in Other Vendor System with Status of Final Tono Salter MD electronically signed on 10/10/2023 11:08:42 AM with status of Final
--- NOTE | 2023-10-09 07:37 | PC.NURSE ---
admission worksheet complete. transport notified at this time.
--- NOTE | 2023-10-09 08:32 | PC.NURSE ---
pt being transported upstairs at this time.
--- NOTE | 2023-10-09 09:10 | P.PNIM_ITS ---
Subjective Subjective Date of Service: 10/09/23 Interval History: Seen and evaluated this morning Feels better overall still on 2L O2 no other overnight events Review of Systems Review of Systems: Yes all other systems are reviewed and are negative Physical Exam 2 Vital Signs: Vital Signs: Last Vital Signs Temp 96.0 F L 10/09/23 08:22 Pulse 60 10/09/23 08:57 Resp 18 10/09/23 08:57 BP 113/54 L 10/09/23 08:57 Pulse Ox 97 10/09/23 08:57 O2 Del Method Nasal Cannula 10/09/23 08:57 O2 Flow Rate 2 10/09/23 08:57 BMI result Body Mass Index 40.9 Const: Other: Constitutional : Awake, interactive, not in distress Neck : Normal inspection, Supple Cardiovascular : RRR, no JVP, trace lower extremity edema Respiratory : good bilateral air entry, no significant crackles, wheezes or rhonchi Gastrointestinal: soft, lax, Normal bowel sounds, Non tender Skin : Warm, Dry Neurological : Alert & oriented x3, No focal deficit Objective Data Active Medications Acetaminophen (Acetaminophen 325 Mg Tablet) 650 mg PO Q6H PRN PRN Reason: Pain, Mild (Pain Scale 1-3) Amlodipine Besylate (Amlodipine Besylate 5 Mg Tablet) 5 mg PO BEDTIME [facility]; Protocol Calcium Carbonate/Cholecalciferol (Calcium + Vitamin D 250 Mg Tablet) 250 mg PO DAILY [facility] Furosemide (Furosemide 40 Mg/4 Ml Vial) 40 mg IVPUSH DAILY [facility]; Protocol Last Admin: 10/08/23 22:57 Dose: 40 mg Documented By: MARCELO Lisinopril (Lisinopril 40 Mg Tablet) 40 mg PO BEDTIME [facility]; Protocol Metoprolol Succinate (Metoprolol Succinate Er 100 Mg Tab.Er.24h) 100 mg PO DAILY [facility]; Protocol Ondansetron HCl (Ondansetron Hcl 4 Mg/2 Ml Vial) 4 mg IVPUSH Q8H PRN PRN Reason: Nausea and Vomiting Potassium Chloride (Potassium Chloride Er 20 Meq Tab.Er.Prt) 20 meq PO DAILY [facility] Senna (Sennosides 8.6 Mg Tablet) 17.2 mg PO BEDTIME PRN PRN Reason: Constipation Sodium Chloride (0.9 % Sodium Chloride Flush 3 Ml Syringe) 3 ml IVFLUSH QSHIFT [facility] Last Admin: 10/09/23 07:17 Dose: Not Given Documented By: GOLDIE Non-Admin Reason: Patient Asleep Labs 10/09/23 05:16 10/09/23 05:16 Labs: Laboratory Results - last 24 hr 10/08/23 10/09/23 10/09/23 17:46 00:58 05:16 MCV 79.0 L 78.4 L MCH 25.6 L 25.5 L MCHC 32.4 32.6 RDW 16.9 H 16.8 H Plt Count 143 L D 129 L MPV 10.4 10.6 Immature Gran % (Auto) 0.3 0.0 Neut % (Auto) 67.7 52.5 Lymph % (Auto) 12.5 L 25.7 [place] % (Auto) 17.5 H 18.8 H Eos % (Auto) 1.4 2.6 Baso % (Auto) 0.6 0.4 Lymph # (Auto) 0.5 L 0.7 L [place] # (Auto) 0.6 0.5 Eos # (Auto) 0.1 0.1 Baso # (Auto) 0.0 0.0 Abs Immat Gran (auto) 0.01 0.00 Absolute Neuts (auto) 2.5 1.4 L Absolute Nucleated RBC 0.000 0.000 Nucleated RBC % (auto) 0.0 0.0 PT 72.0 H 75.7 H INR 5.9 H* D 6.2 H* APTT 68.1 H* Anion Gap 14 12 Estim Creat Clear Calc 64.1 69.9 Estimated GFR > 60 > 60 Random Glucose 112 71 Calcium 9.6 9.3 Magnesium 1.9 Iron 33 TIBC 367 % Saturation 9 L Unsat Iron Binding 334 Ferritin 51 Total Bilirubin 1.0 AST 36 H ALT 19 Alkaline Phosphatase 129 H Troponin I High Sens 4.7 B-Natriuretic Peptide 245 H Total Protein 7.8 Albumin 3.6 Urine Color Yellow Urine Appearance Clear Urine pH 5.0 Ur Specific [place] 1.010 Urine Protein Negative Urine Glucose (UA) Negative Urine Ketones Negative Urine Blood Moderate (2+) H Urine Nitrite Negative Ur Leukocyte Esterase Large (3+) H Urine RBC 3-5 H Urine WBC 11-20 H Ur Squamous Epith Cells 0-2 Urine Bacteria 1+ Hyaline Casts 0-2 COVID-19 (HUGO) Negative COVID-19 Clin Com See Note Influenza Type A (LUIS) Negative Influenza Type B (LUIS) Negative Influenza A & B Note See Note 10/09/23 05:17 MCV MCH MCHC RDW Plt Count MPV Immature Gran % (Auto) Neut % (Auto) Lymph % (Auto) [place] % (Auto) Eos % (Auto) Baso % (Auto) Lymph # (Auto) [place] # (Auto) Eos # (Auto) Baso # (Auto) Abs Immat Gran (auto) Absolute Neuts (auto) Absolute Nucleated RBC Nucleated RBC % (auto) PT INR APTT Anion Gap Estim Creat Clear Calc Estimated GFR Random Glucose Calcium Magnesium Iron TIBC % Saturation Unsat Iron Binding Ferritin Total Bilirubin AST ALT Alkaline Phosphatase Troponin I High Sens B-Natriuretic Peptide 271 H Total Protein Albumin Urine Color Urine Appearance Urine pH Ur Specific [place] Urine Protein Urine Glucose (UA) Urine Ketones Urine Blood Urine Nitrite Ur Leukocyte Esterase Urine RBC Urine WBC Ur Squamous Epith Cells Urine Bacteria Hyaline Casts COVID-19 (HUGO) COVID-19 Clin Com Influenza Type A (LUIS) Influenza Type B (LUIS) Influenza A & B Note Assessment and Plan (1) Decompensated heart failure: Status: Acute (2) Acute respiratory failure with hypoxia: Status: Acute (3) Supratherapeutic INR: Status: Acute Plan 78 year old with history of paroxysmal afib on coumadin (not always compliant), htn, hld, osteoporosis admitted for management of decompensated congestive heart failure #Acute hypoxemic respiratory failure due to decompensated heart failure Pending Echo Continue 40mg IV lasix daily strict I&O, daily weights cardiac diet Pending cardiology consult trend bnp Wean O2 down as tolerated #HTN continue metoprolol, lisinopril, amlodipine #Paroxysmal atrial fibrillation rate controlled continue metoprolol for rate # Supratherapeutic INR hold coumadin due to supratherapeutic INR, resume once therapeutic monitor inr daily dvt prophyalxis- scps due to supratheraeutic inr full code pt requires inpt stay overnight for management of decompensated heart failure causing hypoxemic respiratory failure requiring iv diuresis, supplemental o2, I&o monitoring and expert consultation Quality Stroke Does the patient have a stroke diagnosis?: No VTE Prior VTE?: No VTE Risk Level:: Medical - moderate - high VTE Device Contraindication: N/A - Device Ordered VTE Drug Contraindication: Treatment Not Indicated
[2023-10-09] MEDS: Potassium Chloride ER 20 MEQ TAB.ER.PRT PO (09:15)
[2023-10-09] MEDS: Calcium + Vitamin D 250 MG TABLET PO (09:15)
[2023-10-09] MEDS: Metoprolol Succinate ER 100 MG TAB.ER.24H PO (09:15)
[2023-10-09] MEDS: Furosemide 40 MG/4 ML VIAL IVPUSH (09:16)
--- NOTE | 2023-10-09 09:31 | MHC.CM.PN ---
pt lives alone had no previous serviues is independent, drives does not expect to need servies when dcd dc plan home no servies
--- NOTE | 2023-10-09 10:23 | P.CONCA_ITS ---
History of Present Illness History of Present Illness Date of Service: 10/09/23 Requesting physician: Andreina Vázquez Chief complaint: martins, lightheadedness Narrative: 78-year-old female who has a patient of Dr. Pérez. She is saying that she has history of an enlarged heart and persistent atrial fibrillation. She is on Coumadin and Toprol-XL 100 mg daily. INR is supratherapeutic. She is presenting for shortness of breath ongoing for more than a week but worse over the last 2 days. She is saying that she has significant edema in the lower extremities and was getting breathing problem with walking. She was also getting some dizziness. No chest discomfort. With these symptoms she presented to [facility]. Clinically she was felt to be in congestive heart failure and was admitted for IV diuretics. She is saying that her breathing is little better today. She is on IV Lasix 40 mg daily. She is significant peripheral edema. We do not have any previous echocardiography or testing on her. We will get echo on her today. [facility] Past Medical History Medical History Osteoporosis Hyperlipidemia Hypertension Atrial fibrillation Social History Social History Household Members: None Housing: House Do you presently have visiting nurse or other home services: No Alcohol intake: former Patient Tobacco Use Status: Never used Tobacco Meds Allergies Allergy/AdvReac Type Severity Reaction Status Date / Time No Known Allergies Allergy Verified 08/21/22 11:14 [No Known Allergies*] Active Medications: Current Medications Acetaminophen (Acetaminophen 325 Mg Tablet) 650 mg PO Q6H PRN PRN Reason: Pain, Mild (Pain Scale 1-3) Amlodipine Besylate (Amlodipine Besylate 5 Mg Tablet) 5 mg PO BEDTIME [facility]; Protocol Calcium Carbonate/Cholecalciferol (Calcium + Vitamin D 250 Mg Tablet) 250 mg PO DAILY [facility] Last Admin: 10/09/23 09:15 Dose: 250 mg Furosemide (Furosemide 40 Mg/4 Ml Vial) 40 mg IVPUSH DAILY [facility]; Protocol Last Admin: 10/09/23 09:16 Dose: 40 mg Lisinopril (Lisinopril 40 Mg Tablet) 40 mg PO BEDTIME [facility]; Protocol Metoprolol Succinate (Metoprolol Succinate Er 50 Mg Tab.Er.24h) 50 mg PO DAILY [facility]; Protocol Nystatin (Nystatin Powder 15 Gm Bottle) 1 appl TOPICAL BID [facility]; Protocol Ondansetron HCl (Ondansetron Hcl 4 Mg/2 Ml Vial) 4 mg IVPUSH Q8H PRN PRN Reason: Nausea and Vomiting Potassium Chloride (Potassium Chloride Er 20 Meq Tab.Er.Prt) 20 meq PO DAILY [facility] Last Admin: 10/09/23 09:15 Dose: 20 meq Senna (Sennosides 8.6 Mg Tablet) 17.2 mg PO BEDTIME PRN PRN Reason: Constipation Sodium Chloride (0.9 % Sodium Chloride Flush 3 Ml Syringe) 3 ml IVFLUSH QSHIFT [facility] Last Admin: 10/09/23 07:17 Dose: Not Given Home Medications Medication Instructions Recorded Confirmed Last Taken Type alendronate 70 mg tablet 70 mg PO BLUNT 10/08/23 10/08/23 10/07/23 History amlodipine 5 mg tablet 5 mg PO BEDTIME 10/08/23 10/08/23 10/07/23 History calcium carbonate 500 mg-vitamin 1 tab PO DAILY 10/08/23 10/08/23 10/08/23 History D3 10 mcg (400 unit) tablet (Calcium 500 + D) furosemide 20 mg tablet 20 mg PO DAILY 10/08/23 10/08/23 10/08/23 History lisinopril 40 mg tablet 40 mg PO BEDTIME 10/08/23 10/08/23 10/07/23 History metoprolol succinate 100 mg 100 mg PO DAILY 10/08/23 10/08/23 10/08/23 History tablet,extended release 24 hr potassium chloride 20 mEq 20 meq PO DAILY 10/08/23 10/08/23 10/08/23 History tablet,extended release(part/cryst) warfarin 2.5 mg tablet 5 mg PO DAILY@1800 10/08/23 10/08/23 10/07/23 History Physical Exam 2 Vital Signs: Vital Signs: Last Vital Signs Temp 96.0 F L 10/09/23 08:22 Pulse 60 10/09/23 08:57 Resp 18 10/09/23 08:57 BP 113/54 L 10/09/23 08:57 Pulse Ox 97 10/09/23 08:57 O2 Del Method Nasal Cannula 10/09/23 08:57 O2 Flow Rate 2 10/09/23 08:57 BMI result Body Mass Index 40.9 GENERAL APPEARANCE: in no acute distress, pleasant. NECK: no carotid bruit, ++ jugular venous distention. SKIN: no suspicious lesions, warm and dry. HEART: no murmurs, irregular rate and rhythm. Left parasternal heave LUNGS: clear to auscultation bilaterally. ABDOMEN: soft, nontender. EXTREMITIES: 2+ edema edema. PERIPHERAL PULSES: equal. NEUROLOGIC: No gross deficits, AAO X 3 Objective Labs and Meds 10/09/23 05:16 10/09/23 05:16 Lab results: Laboratory Results - last 24 hr 10/08/23 10/09/23 10/09/23 17:46 00:58 05:16 WBC 3.6 L 2.7 L RBC 4.53 4.35 Hgb 11.6 L 11.1 L Hct 35.8 L 34.1 L MCV 79.0 L 78.4 L MCH 25.6 L 25.5 L MCHC 32.4 32.6 RDW 16.9 H 16.8 H Plt Count 143 L D 129 L MPV 10.4 10.6 Immature Gran % (Auto) 0.3 0.0 Neut % (Auto) 67.7 52.5 Lymph % (Auto) 12.5 L 25.7 [place] % (Auto) 17.5 H 18.8 H Eos % (Auto) 1.4 2.6 Baso % (Auto) 0.6 0.4 Lymph # (Auto) 0.5 L 0.7 L [place] # (Auto) 0.6 0.5 Eos # (Auto) 0.1 0.1 Baso # (Auto) 0.0 0.0 Abs Immat Gran (auto) 0.01 0.00 Absolute Neuts (auto) 2.5 1.4 L Absolute Nucleated RBC 0.000 0.000 Nucleated RBC % (auto) 0.0 0.0 PT 72.0 H 75.7 H INR 5.9 H* D 6.2 H* APTT 68.1 H* Sodium 138 142 Potassium 3.8 3.6 Chloride 103 107 Carbon Dioxide 25 27 Anion Gap 14 12 BUN 32 H 27 H Creatinine 0.85 0.78 Estim Creat Clear Calc 64.1 69.9 Estimated GFR > 60 > 60 Random Glucose 112 71 Calcium 9.6 9.3 Magnesium 1.9 Iron 33 TIBC 367 % Saturation 9 L Unsat Iron Binding 334 Ferritin 51 Total Bilirubin 1.0 AST 36 H ALT 19 Alkaline Phosphatase 129 H Troponin I High Sens 4.7 B-Natriuretic Peptide 245 H Total Protein 7.8 Albumin 3.6 Urine Color Yellow Urine Appearance Clear Urine pH 5.0 Ur Specific [place] 1.010 Urine Protein Negative Urine Glucose (UA) Negative Urine Ketones Negative Urine Blood Moderate (2+) H Urine Nitrite Negative Ur Leukocyte Esterase Large (3+) H Urine RBC 3-5 H Urine WBC 11-20 H Ur Squamous Epith Cells 0-2 Urine Bacteria 1+ Hyaline Casts 0-2 COVID-19 (HUGO) Negative COVID-19 Clin Com See Note Influenza Type A (LUIS) Negative Influenza Type B (LUIS) Negative Influenza A & B Note See Note 10/09/23 05:17 WBC RBC Hgb Hct MCV MCH MCHC RDW Plt Count MPV Immature Gran % (Auto) Neut % (Auto) Lymph % (Auto) [place] % (Auto) Eos % (Auto) Baso % (Auto) Lymph # (Auto) [place] # (Auto) Eos # (Auto) Baso # (Auto) Abs Immat Gran (auto) Absolute Neuts (auto) Absolute Nucleated RBC Nucleated RBC % (auto) PT INR APTT Sodium Potassium Chloride Carbon Dioxide Anion Gap BUN Creatinine Estim Creat Clear Calc Estimated GFR Random Glucose Calcium Magnesium Iron TIBC % Saturation Unsat Iron Binding Ferritin Total Bilirubin AST ALT Alkaline Phosphatase Troponin I High Sens B-Natriuretic Peptide 271 H Total Protein Albumin Urine Color Urine Appearance Urine pH Ur Specific [place] Urine Protein Urine Glucose (UA) Urine Ketones Urine Blood Urine Nitrite Ur Leukocyte Esterase Urine RBC Urine WBC Ur Squamous Epith Cells Urine Bacteria Hyaline Casts COVID-19 (HUGO) COVID-19 Clin Com Influenza Type A (LUIS) Influenza Type B (LUIS) Influenza A & B Note Imaging Radiologist's impression: Impressions Chest X-Ray 10/08/23 18:08 IMPRESSION: 1. Significantly enlarged cardiac silhouette. This is a new finding from the prior 2017 study. Specifically there is now a focal opacity along the right heart border which appears to be more anterior than would be expected for a hiatal hernia. The appearance is new from the 2017 study. Uncertain if this is related to a large paraesophageal hernia, enlarged right atrium, or other masslike opacity in this location. Clinical correlation would be helpful. CT scan of the chest will likely be needed to assess this further if there is clinical concern. This critical result was discussed with Amber Barnes NP at 10/08/2023 7:01 PM and it was ascertained that the content and urgency of the report was understood at the time of direct communication. Chest CTA 10/08/23 21:20 IMPRESSION: 1. Severe cardiomegaly, including marked left and right atrial dilation. 2. Small right and trace left pleural effusions. 3. Small pericardial effusion. 4. Trace perisplenic fluid. Assessment and Plan (1) Supratherapeutic INR: Status: Acute (2) Decompensated heart failure: Status: Acute (3) Permanent atrial fibrillation: Status: Acute Plan Pleasant 78-year-old female who is presenting for shortness of breath due to congestive heart failure. On 40 mg IV Lasix once a day. Monitor I's and O's closely and she should be close to 1.5 L negative today. If urine output is not good then dose should be increased. I am decreasing the Toprol-XL to 50 mg once a day. I suspect that she has RV dysfunction based on examination but we need further assessment with echocardiography. She is saying that she is in atrial fibrillation every time she goes for office visits with Dr. Pérez. I suspect that she has permanent atrial fibrillation and AFib is not the reason she is decompensated currently. Further recommendation after the echocardiography report is back. Thank you for allowing me to participate in the care of your patient. Please feel free to contact me if you have any questions. Procedures Date of Service Date of Service: 10/09/23
[2023-10-09] MEDS: Nystatin Powder 15 GM BOTTLE 1 APPL TOPICAL ×2 (11:18→21:24)
--- NOTE | 2023-10-09 11:26 | PC.NURSE ---
Addendum entered by Debora Sparks RN 10/09/23 12:22: Pt temp recheck at 12:15, 93.6 rectally and 92.9 orally. aware, all other VSS. Warm blankets applied, pt states she feels fine . Original Note: MD Vázquez made aware via tiger text at 0:947 pt has bright red bleeding from rectum, stool in ostomy bag is brown liquid. Pt states she occasionally has bleeding at home from rectum when she wipes. also made aware of pts low temperature. at 10:31 95.6 temporal, 92.1 oral, and 92.8 axillary, attempted to do rectal temp but felt resistance so stopped, aware. Per MD apply warm blankets at this time.
[2023-10-09] MEDS: amLODIPine Besylate 5 MG TABLET PO (21:24)
[2023-10-09] MEDS: lisinopriL 40 MG TABLET PO (21:24)
[2023-10-10 03:19] VITALS: BP 132/78; PULSE 76; RESP 18; TEMP 37; O2SAT 97
[2023-10-10 07:57] VITALS: BP 125/65; PULSE 65; RESP 18; TEMP 36.4; O2SAT 94
[2023-10-10 08:06] LABS: Anion Gap 12 (12-20); Blood Urea Nitrogen 23 mg/dL (9-16); Calcium 9.3 mg/dL (8.4-10.2); Carbon Dioxide 29 mmol/L (22-29); Chloride 103 mmol/L (96-108); Creatinine Clr Calc Pharmacy 67.3; Estimated Glomerular Filt Rate > 60; Glucose Random 60 mg/dL (60-115); Potassium 3.9 mmol/L (3.3-5.1); Sodium 140 mmol/L (135-145)
[2023-10-10 08:08] LABS: B Type Natriuretic Peptide 280 pg/mL (<100)
[2023-10-10 08:22] LABS: TSH reflex Free T4 4.77 uIU/mL (0.32-4.0)
[2023-10-10] MEDS: Potassium Chloride ER 20 MEQ TAB.ER.PRT PO (08:50)
[2023-10-10] MEDS: 0.9 % Sodium Chloride Flush 3 ML SYRINGE IVFLUSH ×3 (08:50→20:35)
[2023-10-10] MEDS: Metoprolol Succinate ER 50 MG TAB.ER.24H PO (08:50)
[2023-10-10] MEDS: Calcium + Vitamin D 250 MG TABLET PO (08:51)
[2023-10-10] MEDS: Furosemide 40 MG/4 ML VIAL IVPUSH ×2 (08:51→17:27)
[2023-10-10] MEDS: Nystatin Powder 15 GM BOTTLE 1 APPL TOPICAL ×2 (08:52→20:35)
[2023-10-10 08:55] LABS: Free T4 (Free Thyroxine) 0.84 ng/dL (0.71-1.85)
--- NOTE | 2023-10-10 09:05 | P.PNIM_ITS ---
Subjective Subjective Date of Service: 10/10/23 Interval History: reports minimal change in sob Physical Exam 2 Vital Signs: Vital Signs: Last Vital Signs Temp 97.5 F 10/10/23 07:57 Pulse 65 10/10/23 07:57 Resp 18 10/10/23 07:57 BP 125/65 10/10/23 07:57 Pulse Ox 94 10/10/23 07:57 O2 Del Method Room Air 10/10/23 07:57 O2 Flow Rate 2 10/09/23 12:21 BMI result Body Mass Index 41.8 General: AO X 3, no acute distress Resp: CTA bilateral, no accessory muscles used CVS: S1,S2,RRR, 2+ bilateral le edema GI: soft, non tender, non distended Neuro: motor grossly intact, alert Psych: appropriate affect, appropriate insight Objective Data Active Medications Acetaminophen (Acetaminophen 325 Mg Tablet) 650 mg PO Q6H PRN PRN Reason: Pain, Mild (Pain Scale 1-3) Amlodipine Besylate (Amlodipine Besylate 5 Mg Tablet) 5 mg PO BEDTIME [facility]; Protocol Last Admin: 10/09/23 21:24 Dose: 5 mg Documented By: HEMANT Calcium Carbonate/Cholecalciferol (Calcium + Vitamin D 250 Mg Tablet) 250 mg PO DAILY [facility] Last Admin: 10/10/23 08:51 Dose: 250 mg Documented By: LENO Furosemide (Furosemide 40 Mg/4 Ml Vial) 40 mg IVPUSH DAILY [facility]; Protocol Last Admin: 10/10/23 08:51 Dose: 40 mg Documented By: LENO Lisinopril (Lisinopril 40 Mg Tablet) 40 mg PO BEDTIME [facility]; Protocol Last Admin: 10/09/23 21:24 Dose: 40 mg Documented By: HEMANT Metoprolol Succinate (Metoprolol Succinate Er 50 Mg Tab.Er.24h) 50 mg PO DAILY [facility]; Protocol Last Admin: 10/10/23 08:50 Dose: 50 mg Documented By: LENO Nystatin (Nystatin Powder 15 Gm Bottle) 1 appl TOPICAL BID [facility]; Protocol Last Admin: 10/10/23 08:52 Dose: 1 appl Documented By: LENO Ondansetron HCl (Ondansetron Hcl 4 Mg/2 Ml Vial) 4 mg IVPUSH Q8H PRN PRN Reason: Nausea and Vomiting Potassium Chloride (Potassium Chloride Er 20 Meq Tab.Er.Prt) 20 meq PO DAILY [facility] Last Admin: 10/10/23 08:50 Dose: 20 meq Documented By: LENO Senna (Sennosides 8.6 Mg Tablet) 17.2 mg PO BEDTIME PRN PRN Reason: Constipation Sodium Chloride (0.9 % Sodium Chloride Flush 3 Ml Syringe) 3 ml IVFLUSH QSHIFT [facility] Last Admin: 10/10/23 08:50 Dose: 3 ml Documented By: LENO Labs 10/09/23 05:16 10/10/23 05:40 Labs: Laboratory Results - last 24 hr 10/10/23 05:40 Anion Gap 12 Estim Creat Clear Calc 67.3 Estimated GFR > 60 Random Glucose 60 Calcium 9.3 B-Natriuretic Peptide 280 H TSH 4.77 H Free T4 0.84 Assessment and Plan (1) Permanent atrial fibrillation: Status: Acute (2) Decompensated heart failure: Status: Acute (3) Acute respiratory failure with hypoxia: Status: Acute (4) Supratherapeutic INR: Status: Acute Plan 78F PMH paroxysmal afib on coumadin (not always compliant), htn, hld, s/p colostomy, osteoporosis presented with sob Acute hypoxic respiratory failure due to acute decompensated heart failure unspecified Pending Echo report Continue 40mg IV lasix daily, reports adequate urine cardiology following Wean O2 down as tolerated HTN continue metoprolol, lisinopril, amlodipine Paroxysmal atrial fibrillation rate controlled continue metoprolol for rate Supratherapeutic INR hold coumadin due to supratherapeutic INR, resume once therapeutic monitor inr daily chronic iron deficiency anemia due to chronic blood loss anemia due to suspected hemorrhoids holding coumadin monitor iron supplement panctypenia ?portal htn due to right chf, follow up echo rule out nutritional deficiencies monitor obesity weight loss recommended dvt prophyalxis- on coumadin - supratheraeutic inr full code reason for continued hospitalization:ongoing iv diuresis, hypoxic Quality Stroke Does the patient have a stroke diagnosis?: No VTE Prior VTE?: No VTE Risk Level:: Medical - moderate - high VTE Device Contraindication: N/A - Device Ordered VTE Drug Contraindication: Treatment Not Indicated
[2023-10-10] MEDS: Ferrous Sulfate 324 MG TABLET.DR PO (09:41)
[2023-10-10 09:50] VITALS: BP 125/65; PULSE 65; O2SAT 94
--- NOTE | 2023-10-10 11:10 | PM.PNCARD ---
Subjective Subjective Date of Service: 10/10/23 Interval history: Seen and examined at bedside. Continues to be short of breath. She is saying she has been urinating a lot but I's and O's have not been recorded well as she is negative 180 mL. Echocardiography reviewed which showed moderate RV dilation and dysfunction with D shaped LV cavity. Physical Exam Vital Signs: Last Vital Signs Temp 97.5 F 10/10/23 07:57 Pulse 65 10/10/23 09:50 Resp 18 10/10/23 07:57 BP 125/65 10/10/23 09:50 Pulse Ox 94 10/10/23 09:50 O2 Del Method Room Air 10/10/23 07:57 O2 Flow Rate 2 10/09/23 12:21 BMI result Body Mass Index 41.8 GENERAL APPEARANCE: in no acute distress, pleasant. NECK: no carotid bruit, ++ jugular venous distention. SKIN: no suspicious lesions, warm and dry. HEART: no murmurs, irregular rate and rhythm. Left parasternal heave LUNGS: clear to auscultation bilaterally. ABDOMEN: soft, nontender. EXTREMITIES: 1+ edema. PERIPHERAL PULSES: equal. NEUROLOGIC: No gross deficits, AAO X 3 Objective Labs and Meds 10/09/23 05:16 10/10/23 05:40 Lab results: Laboratory Results - last 24 hr 10/10/23 05:40 Sodium 140 Potassium 3.9 Chloride 103 Carbon Dioxide 29 Anion Gap 12 BUN 23 H Creatinine 0.81 Estim Creat Clear Calc 67.3 Estimated GFR > 60 Random Glucose 60 Calcium 9.3 B-Natriuretic Peptide 280 H TSH 4.77 H Free T4 0.84 Progress Note: A&P Assessment and plan (1) Permanent atrial fibrillation: Status: Acute (2) Decompensated heart failure: Status: Acute Plan Pleasant 78-year-old female presenting with shortness of breath and clinical heart failure. By exam she has right-sided heart failure and echocardiography is also consistent with severe tricuspid valve regurgitation, moderate RV dilation and moderate dysfunction of the right ventricle with D shaped LV cavity. We decrease the beta-cruz on admission. I think we can continue 50 of Toprol-XL for now. Stop the up oral potassium supplements and add spironolactone 25 mg daily. Increase the Lasix to 40 mg IV b.i.d.. If blood pressure becomes an issue then amlodipine should be discontinued. She has permanent atrial fibrillation. She is on Coumadin with supratherapeutic INRs. This should be monitored closely and Coumadin should be resumed accordingly. Thank you for allowing me to participate in the care of your patient. Please feel free to contact me if you have any questions. Time Spent With Patient Time: Total time managing care of this patient today ____ minutes. Progress Note: Quality Stroke Does the patient have a stroke diagnosis?: No Procedures Date of Service Date of Service: 10/10/23
[2023-10-10] MEDS: Spironolactone 25 MG TABLET PO (11:22)
--- NOTE | 2023-10-10 12:56 | P.CDIM_ITS ---
PROVIDER RESPONSE TEXT: To clarify, the appropriate diagnosis supported by the clinical indicators: Obesity Due to excess calories QUERY TEXT: PHYSICIAN'S DOCUMENTATION REQUEST Date of Query: 10/10/2023 12:50 PM EST Patient Name: Janessa Chan Admit Date: 10/09/2023 Dear Fei Alvarez, A review of the medical record indicates additional documentation may be needed. Please review below and update the documentation accordingly. Clinical Indicators: Height: ( ) 5'4 Weight: ( ) 110.6 kg BMI: ( ) 41.9 Other Clinical Notes Supporting Significance of the BMI: Per Nutritional Risk Assessment 10/09/23: on therapeutic diet If possible, please provide an associated diagnosis related to the abnormal BMI, such as: Overweight Obesity Due to excess calories Obesity Drug induced Obesity Due to other cause Specify the other cause Severe or Morbid Obesity With alveolar hypoventilation Severe or Morbid Obesity Without alveolar hypoventilation BMI is not significant Other (explain) Clinically unable to determine (explain) Thank you, Ai Beltrán RN Use of terms such as suspected, likely, concern for, or probable (associated with a specific diagnosi s that is being evaluated, monitored, or treated as if it exists) are acceptable and can be coded in the inpatient se tting, when documented at the time of discharge. Please use your independent medical judgment in providing your response. THIS QUERY IS PART OF THE PERMANENT MEDICAL RECORD
[2023-10-10 15:28] VITALS: BP 129/67; PULSE 65; RESP 18; TEMP 36; O2SAT 94
[2023-10-10 19:50] VITALS: BP 124/60; PULSE 61; RESP 18; TEMP 36.2; O2SAT 95
[2023-10-10] MEDS: lisinopriL 40 MG TABLET PO (20:34)
[2023-10-10] MEDS: amLODIPine Besylate 5 MG TABLET PO (20:35)
[2023-10-11] VITALS (9 sets, daily range): BP systolic 107–153; BP diastolic 54–74; PULSE 55–97; RESP 16–18; TEMP 36–36.6; O2SAT 63–95; BMI 39.0
[2023-10-11 06:32] LABS: Hematocrit 34.4 % (37.0-47.0); Hemoglobin 11.5 g/dl (12.0-16.0); Mean Corpuscular HGB Conc 33.4 g/dl (31.0-35.0); Mean Corpuscular Hemoglobin 25.8 pg (27.0-33.0); Mean Corpuscular Volume 77.3 fL (80.0-98.0); Mean Platelet Volume 10.4 fL (9.4-12.3); Platelet Count 124 X10*3/uL (160-400); Red Blood Count 4.45 X10*6/uL (4.20-5.50); Red Cell Distribution Width 16.6 % (11.0-16.0); White Blood Count 3.1 X10*3/uL (4.8-10.8)
[2023-10-11 06:41] LABS: INTERNATIONAL NORM RATIO 4.8 (0.9-1.1); Prothrombin Time 58.7 SEC (11.1-13.3)
[2023-10-11 06:43] LABS: Anion Gap 13 (12-20); Blood Urea Nitrogen 20 mg/dL (9-16); Calcium 9.4 mg/dL (8.4-10.2); Carbon Dioxide 33 mmol/L (22-29); Chloride 99 mmol/L (96-108); Creatinine Clr Calc Pharmacy 59.5; Estimated Glomerular Filt Rate > 60; Glucose Fasting 75 mg/dL (60-99); Magnesium 1.6 mg/dL (1.6-2.6); Potassium 3.5 mmol/L (3.3-5.1); Sodium 141 mmol/L (135-145)
[2023-10-11 07:36] LABS: Folate 7.4 ng/mL (> or = 4.0)
[2023-10-11] MEDS: 0.9 % Sodium Chloride Flush 3 ML SYRINGE IVFLUSH ×3 (08:01→20:57)
[2023-10-11] MEDS: Metoprolol Succinate ER 50 MG TAB.ER.24H PO (08:01)
[2023-10-11] MEDS: Ferrous Sulfate 324 MG TABLET.DR PO (08:01)
[2023-10-11] MEDS: Spironolactone 25 MG TABLET PO (08:01)
[2023-10-11] MEDS: Calcium + Vitamin D 250 MG TABLET PO (08:01)
[2023-10-11] MEDS: Furosemide 40 MG/4 ML VIAL IVPUSH ×2 (08:01→17:05)
[2023-10-11] MEDS: Nystatin Powder 15 GM BOTTLE 1 APPL TOPICAL ×2 (08:03→20:59)
--- NOTE | 2023-10-11 08:37 | HO.PM.IMPN ---
Subjective Subjective Date of Service: 10/11/23 Interval History: reports minimal change in sob Physical Exam Vital Signs: Vital Signs: Last Vital Signs Temp 96.8 F 10/11/23 07:52 Pulse 66 10/11/23 07:52 Resp 17 10/11/23 07:52 BP 128/74 10/11/23 07:52 Pulse Ox 92 10/11/23 07:52 O2 Del Method Room Air 10/11/23 07:52 O2 Flow Rate 2 10/09/23 12:21 BMI result Body Mass Index 39.0 GENERAL APPEARANCE: in no acute distress, pleasant. NECK: no carotid bruit, ++ jugular venous distention. SKIN: no suspicious lesions, warm and dry. HEART: no murmurs, irregular rate and rhythm. Left parasternal heave LUNGS: clear to auscultation bilaterally. ABDOMEN: soft, nontender. EXTREMITIES: 1+ edema. PERIPHERAL PULSES: equal. NEUROLOGIC: No gross deficits, AAO X 3 Objective Data Active Medications Acetaminophen (Acetaminophen 325 Mg Tablet) 650 mg PO Q6H PRN PRN Reason: Pain, Mild (Pain Scale 1-3) Amlodipine Besylate (Amlodipine Besylate 5 Mg Tablet) 5 mg PO BEDTIME [facility]; Protocol Last Admin: 10/10/23 20:35 Dose: 5 mg Documented By: LIDIA Calcium Carbonate/Cholecalciferol (Calcium + Vitamin D 250 Mg Tablet) 250 mg PO DAILY [facility] Last Admin: 10/11/23 08:01 Dose: 250 mg Documented By: TRACE Ferrous Sulfate (Ferrous Sulfate 324 Mg Tablet.) 324 mg PO DAILY [facility] Last Admin: 10/11/23 08:01 Dose: 324 mg Documented By: TRACE Furosemide (Furosemide 40 Mg/4 Ml Vial) 40 mg IVPUSH BID@0900,1800 [facility]; Protocol Last Admin: 10/11/23 08:01 Dose: 40 mg Documented By: TRACE Lisinopril (Lisinopril 40 Mg Tablet) 40 mg PO BEDTIME [facility]; Protocol Last Admin: 10/10/23 20:34 Dose: 40 mg Documented By: LIDIA Metoprolol Succinate (Metoprolol Succinate Er 50 Mg Tab.Er.24h) 50 mg PO DAILY [facility]; Protocol Last Admin: 10/11/23 08:01 Dose: 50 mg Documented By: TRACE Nystatin (Nystatin Powder 15 Gm Bottle) 1 appl TOPICAL BID [facility]; Protocol Last Admin: 10/11/23 08:03 Dose: 1 appl Documented By: TRACE Ondansetron HCl (Ondansetron Hcl 4 Mg/2 Ml Vial) 4 mg IVPUSH Q8H PRN PRN Reason: Nausea and Vomiting Senna (Sennosides 8.6 Mg Tablet) 17.2 mg PO BEDTIME PRN PRN Reason: Constipation Sodium Chloride (0.9 % Sodium Chloride Flush 3 Ml Syringe) 3 ml IVFLUSH QSHIFT [facility] Last Admin: 10/11/23 08:01 Dose: 3 ml Documented By: TRACE Spironolactone (Spironolactone 25 Mg Tablet) 25 mg PO DAILY [facility]; Protocol Last Admin: 10/11/23 08:01 Dose: 25 mg Documented By: TRACE Labs 10/11/23 06:19 10/11/23 06:19 Labs: Laboratory Results - last 24 hr 10/10/23 10/11/23 05:40 06:19 MCV 77.3 L MCH 25.8 L MCHC 33.4 RDW 16.6 H Plt Count 124 L MPV 10.4 Absolute Nucleated RBC 0.000 Nucleated RBC % (auto) 0.0 PT 58.7 H D INR 4.8 H Anion Gap 13 Estim Creat Clear Calc 59.5 Estimated GFR > 60 Fasting Glucose 75 Calcium 9.4 Magnesium 1.6 Vitamin B12 855 Folate 7.4 Free T4 0.84 Microbiology Microbiology Results: Microbiology 10/09/23 Unknown Urine Culture - Final Urine clean catch - Urine ham top Assessment and Plan (1) Permanent atrial fibrillation: Status: Acute (2) Decompensated heart failure: Status: Acute (3) Acute respiratory failure with hypoxia: Status: Acute (4) Supratherapeutic INR: Status: Acute Plan 78F PMH paroxysmal afib on coumadin (not always compliant), htn, hld, s/p colostomy, osteoporosis presented with sob Acute hypoxic respiratory failure due to acute decompensated right sided heart failure Continue 40mg IV lasix bid cardiology following Wean O2 down as tolerated toprol decreased to 50, started aldactone 25 HTN continue metoprolol, lisinopril, amlodipine, aldactone Paroxysmal atrial fibrillation rate controlled continue metoprolol for rate Supratherapeutic INR hold coumadin due to supratherapeutic INR, resume once therapeutic monitor inr daily chronic iron deficiency anemia due to chronic blood loss anemia due to suspected hemorrhoids holding coumadin monitor iron supplement panctypenia ? portal htn from right heart failure obesity weight loss recommended dvt prophyalxis- on coumadin - supratheraeutic inr full code reason for continued hospitalization:ongoing iv diuresis, hypoxic Quality Stroke Does the patient have a stroke diagnosis?: No VTE Prior VTE?: No VTE Risk Level:: Medical - moderate - high VTE Device Contraindication: N/A - Device Ordered VTE Drug Contraindication: Treatment Not Indicated
[2023-10-11 09:33] LABS: Vitamin B12 692 pg/mL (200-900)
--- NOTE | 2023-10-11 11:29 | PM.PNCARD ---
Subjective Subjective Date of Service: 10/11/23 Interval history: Seen examined at bedside. On IV diuretics. Feeling little better but still looks quite decompensated. Echocardiography result was discussed with the patient. Physical Exam Vital Signs: Last Vital Signs Temp 96.8 F 10/11/23 07:52 Pulse 66 10/11/23 07:52 Resp 17 10/11/23 07:52 BP 128/74 10/11/23 07:52 Pulse Ox 92 10/11/23 07:52 O2 Del Method Room Air 10/11/23 07:52 O2 Flow Rate 2 10/09/23 12:21 BMI result Body Mass Index 39.0 GENERAL APPEARANCE: in no acute distress, pleasant. NECK: no carotid bruit, ++ jugular venous distention. SKIN: no suspicious lesions, warm and dry. HEART: no murmurs, irregular rate and rhythm. Left parasternal heave LUNGS: clear to auscultation bilaterally. ABDOMEN: soft, nontender. EXTREMITIES: No significant edema. PERIPHERAL PULSES: equal. NEUROLOGIC: No gross deficits, AAO X 3 Objective Labs and Meds 10/11/23 06:19 10/11/23 06:19 Lab results: Laboratory Results - last 24 hr 10/11/23 06:19 WBC 3.1 L RBC 4.45 Hgb 11.5 L Hct 34.4 L MCV 77.3 L MCH 25.8 L MCHC 33.4 RDW 16.6 H Plt Count 124 L MPV 10.4 Absolute Nucleated RBC 0.000 Nucleated RBC % (auto) 0.0 PT 58.7 H D INR 4.8 H Sodium 141 Potassium 3.5 Chloride 99 Carbon Dioxide 33 H Anion Gap 13 BUN 20 H Creatinine 0.88 Estim Creat Clear Calc 59.5 Estimated GFR > 60 Fasting Glucose 75 Calcium 9.4 Magnesium 1.6 Vitamin B12 692 Folate 7.4 Progress Note: A&P Assessment and plan (1) Permanent atrial fibrillation: Status: Acute (2) Decompensated heart failure: Status: Acute Plan Pleasant 78-year-old female with permanent atrial fibrillation and history of congestive heart failure presenting with shortness of breath and volume overload. Echocardiography is showing moderate RV dysfunction with dilation and severe tricuspid valve regurgitation. She has been on IV diuretics. She is saying she is feeling little better but overall has not felt any significant change in symptoms. I's and O's are showing a positive balance of 780 mL although she is developing some contraction alkalosis at the same time. Her BUN is improving every day. I think she is diuresing well and I's and O's are not well documented. I think she should have standing weight daily to have another parameter to monitor her fluid loss. INRs supratherapeutic. Sometimes chronic atrial fibrillation is the issue in order Women and can lead to tricuspid annular dilatation and progressive tricuspid regurgitation which eventually leads to RV dysfunction. She has severe biatrial enlargement and amyloid could be a possibility too. She is known to Dr. Pérez and would recommend further workup as outpatient. Thank you for allowing me to participate in the care of your patient. Please feel free to contact me if you have any questions. Time Spent With Patient Time: Total time managing care of this patient today ____ minutes. Progress Note: Quality Stroke Does the patient have a stroke diagnosis?: No Procedures Date of Service Date of Service: 10/11/23
[2023-10-11] MEDS: lisinopriL 40 MG TABLET PO (22:19)
[2023-10-11] MEDS: amLODIPine Besylate 5 MG TABLET PO (22:19)
[2023-10-12 03:22] VITALS: BP 136/61; PULSE 68; RESP 16; TEMP 36; O2SAT 92
[2023-10-12 05:29] LABS: Hematocrit 36.1 % (37.0-47.0); Hemoglobin 12.1 g/dl (12.0-16.0); Mean Corpuscular HGB Conc 33.5 g/dl (31.0-35.0); Mean Corpuscular Hemoglobin 25.8 pg (27.0-33.0); Mean Platelet Volume 10.6 fL (9.4-12.3); Platelet Count 123 X10*3/uL (160-400); Red Blood Count 4.69 X10*6/uL (4.20-5.50); Red Cell Distribution Width 16.5 % (11.0-16.0); White Blood Count 3.1 X10*3/uL (4.8-10.8)
[2023-10-12 05:37] LABS: INTERNATIONAL NORM RATIO 3.5 (0.9-1.1); Prothrombin Time 42.4 SEC (11.1-13.3)
[2023-10-12 05:45] LABS: Anion Gap 14 (12-20); Blood Urea Nitrogen 18 mg/dL (9-16); Calcium 9.6 mg/dL (8.4-10.2); Carbon Dioxide 35 mmol/L (22-29); Chloride 96 mmol/L (96-108); Creatinine Clr Calc Pharmacy 63.9; Estimated Glomerular Filt Rate > 60; Glucose Fasting 73 mg/dL (60-99); Magnesium 1.6 mg/dL (1.6-2.6); Potassium 3.2 mmol/L (3.3-5.1); Sodium 142 mmol/L (135-145)
[2023-10-12 06:00] VITALS: BMI 37.9
[2023-10-12] MEDS: 0.9 % Sodium Chloride Flush 3 ML SYRINGE IVFLUSH ×3 (07:34→21:12)
[2023-10-12 07:38] VITALS: BP 139/66; PULSE 59; RESP 20; TEMP 35.9; O2SAT 91
[2023-10-12] MEDS: Potassium Chloride ER 20 MEQ TAB.ER.PRT 40 MEQ PO (09:17)
[2023-10-12] MEDS: Metoprolol Succinate ER 50 MG TAB.ER.24H PO (09:18)
[2023-10-12] MEDS: Magnesium Oxide 400 MG TABLET PO ×2 (09:18→17:42)
[2023-10-12] MEDS: Spironolactone 25 MG TABLET PO (09:19)
[2023-10-12] MEDS: Furosemide 40 MG/4 ML VIAL IVPUSH ×2 (09:19→17:42)
[2023-10-12] MEDS: Calcium + Vitamin D 250 MG TABLET PO (09:19)
[2023-10-12] MEDS: Ferrous Sulfate 324 MG TABLET.DR PO (09:19)
--- NOTE | 2023-10-12 09:24 | HO.PM.IMPN ---
Subjective Subjective Date of Service: 10/12/23 Interval History: edema improving Physical Exam Vital Signs: Vital Signs: Last Vital Signs Temp 96.6 F L 10/12/23 07:38 Pulse 59 10/12/23 07:38 Resp 20 10/12/23 07:38 BP 139/66 10/12/23 07:38 Pulse Ox 91 L 10/12/23 07:38 O2 Del Method Room Air 10/12/23 07:38 O2 Flow Rate 2 10/09/23 12:21 BMI result Body Mass Index 37.9 General: AO X 3, no acute distress Resp: CTA bilateral, no accessory muscles used CVS: S1,S2,RRR, edema improved GI: soft, non tender, non distended Neuro: motor grossly intact, alert Psych: appropriate affect, appropriate insight Objective Data Active Medications Acetaminophen (Acetaminophen 325 Mg Tablet) 650 mg PO Q6H PRN PRN Reason: Pain, Mild (Pain Scale 1-3) Amlodipine Besylate (Amlodipine Besylate 5 Mg Tablet) 5 mg PO BEDTIME [facility]; Protocol Last Admin: 10/11/23 22:19 Dose: 5 mg Documented By: LIDIA Calcium Carbonate/Cholecalciferol (Calcium + Vitamin D 250 Mg Tablet) 250 mg PO DAILY [facility] Last Admin: 10/11/23 08:01 Dose: 250 mg Documented By: TRACE Ferrous Sulfate (Ferrous Sulfate 324 Mg Tablet.Dr) 324 mg PO DAILY [facility] Last Admin: 10/11/23 08:01 Dose: 324 mg Documented By: TRACE Furosemide (Furosemide 40 Mg/4 Ml Vial) 40 mg IVPUSH BID@0900,1800 [facility]; Protocol Last Admin: 10/11/23 17:05 Dose: 40 mg Documented By: TRACE Lisinopril (Lisinopril 40 Mg Tablet) 40 mg PO BEDTIME [facility]; Protocol Last Admin: 10/11/23 22:19 Dose: 40 mg Documented By: LIDIA Magnesium Oxide (Magnesium Oxide 400 Mg Tablet) 400 mg PO BIDPC [facility] Metoprolol Succinate (Metoprolol Succinate Er 50 Mg Tab.Er.24h) 50 mg PO DAILY [facility]; Protocol Last Admin: 10/11/23 08:01 Dose: 50 mg Documented By: TRACE Nystatin (Nystatin Powder 15 Gm Bottle) 1 appl TOPICAL BID [facility]; Protocol Last Admin: 10/11/23 20:59 Dose: 1 appl Documented By: LIDIA Ondansetron HCl (Ondansetron Hcl 4 Mg/2 Ml Vial) 4 mg IVPUSH Q8H PRN PRN Reason: Nausea and Vomiting Senna (Sennosides 8.6 Mg Tablet) 17.2 mg PO BEDTIME PRN PRN Reason: Constipation Sodium Chloride (0.9 % Sodium Chloride Flush 3 Ml Syringe) 3 ml IVFLUSH QSHIFT [facility] Last Admin: 10/12/23 07:34 Dose: 3 ml Documented By: LENO Spironolactone (Spironolactone 25 Mg Tablet) 25 mg PO DAILY [facility]; Protocol Last Admin: 10/11/23 08:01 Dose: 25 mg Documented By: TRACE Labs 10/12/23 05:04 10/12/23 05:04 Labs: Laboratory Results - last 24 hr 10/11/23 10/12/23 06:19 05:04 MCV 77.0 L MCH 25.8 L MCHC 33.5 RDW 16.5 H Plt Count 123 L MPV 10.6 Absolute Nucleated RBC 0.000 Nucleated RBC % (auto) 0.0 PT 42.4 H D INR 3.5 H Anion Gap 14 Estim Creat Clear Calc 63.9 Estimated GFR > 60 Fasting Glucose 73 Calcium 9.6 Magnesium 1.6 Vitamin B12 692 Assessment and Plan (1) Permanent atrial fibrillation: Status: Acute (2) Decompensated heart failure: Status: Acute (3) Acute respiratory failure with hypoxia: Status: Acute (4) Supratherapeutic INR: Status: Acute Plan 78F PMH paroxysmal afib on coumadin (not always compliant), htn, hld, s/p colostomy, osteoporosis presented with sob Acute hypoxic respiratory failure due to acute decompensated right sided heart failure Continue 40mg IV lasix bid edema improving cardiology following Wean O2 down as tolerated toprol decreased to 50, started aldactone 25 HTN continue metoprolol, lisinopril, amlodipine, aldactone Paroxysmal atrial fibrillation rate controlled continue metoprolol for rate Supratherapeutic INR hold coumadin due to supratherapeutic INR, resume once therapeutic monitor inr daily chronic iron deficiency anemia due to chronic blood loss anemia due to suspected hemorrhoids holding coumadin monitor iron supplement panctypenia ? portal htn from right heart failure, stable obesity weight loss recommended dvt prophyalxis- on coumadin - supratheraeutic inr full code reason for continued hospitalization:ongoing iv diuresis, hypoxic Quality Stroke Does the patient have a stroke diagnosis?: No VTE Prior VTE?: No VTE Risk Level:: Medical - moderate - high VTE Device Contraindication: N/A - Device Ordered VTE Drug Contraindication: Treatment Not Indicated
[2023-10-12] MEDS: Nystatin Powder 15 GM BOTTLE 1 APPL TOPICAL ×2 (09:30→21:13)
--- NOTE | 2023-10-12 10:36 | P.PNCA_ITS ---
Subjective Subjective Date of Service: 10/12/23 Interval history: Seen and examined at bedside. Clinically stable. Overall improving. Physical Exam Vital Signs: Last Vital Signs Temp 96.6 F L 10/12/23 07:38 Pulse 59 10/12/23 07:38 Resp 20 10/12/23 07:38 BP 139/66 10/12/23 07:38 Pulse Ox 91 L 10/12/23 07:38 O2 Del Method Room Air 10/12/23 07:38 O2 Flow Rate 2 10/09/23 12:21 BMI result Body Mass Index 37.9 GENERAL APPEARANCE: in no acute distress, pleasant. NECK: no carotid bruit, + jugular venous distention. SKIN: no suspicious lesions, warm and dry. HEART: no murmurs, irregular rate and rhythm. LUNGS: clear to auscultation bilaterally. ABDOMEN: soft, nontender. EXTREMITIES: No significant edema. PERIPHERAL PULSES: equal. NEUROLOGIC: No gross deficits, AAO X 3 Objective Labs and Meds 10/12/23 05:04 10/12/23 05:04 Lab results: Laboratory Results - last 24 hr 10/12/23 05:04 WBC 3.1 L RBC 4.69 Hgb 12.1 Hct 36.1 L MCV 77.0 L MCH 25.8 L MCHC 33.5 RDW 16.5 H Plt Count 123 L MPV 10.6 Absolute Nucleated RBC 0.000 Nucleated RBC % (auto) 0.0 PT 42.4 H D INR 3.5 H Sodium 142 Potassium 3.2 L Chloride 96 Carbon Dioxide 35 H Anion Gap 14 BUN 18 H Creatinine 0.82 Estim Creat Clear Calc 63.9 Estimated GFR > 60 Fasting Glucose 73 Calcium 9.6 Magnesium 1.6 Progress Note: A&P Assessment and plan (1) Permanent atrial fibrillation: Status: Acute (2) Decompensated heart failure: Status: Acute Plan 78-year-old female presenting with right-sided heart failure. On IV diuretics and clinically improving. Beta-cruz dose was decreased to 50 mg of Toprol-XL daily. Added spironolactone for hypokalemia. On Coumadin for anticoagulation. 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 Etiology of right-sided failure is unclear but could be related to atrial fibrillation and resulting tricuspid regurgitation in this old lady. She will follow-up with Dr. Pérez after discharge for further management. Time Spent With Patient Time: Total time managing care of this patient today ____ minutes. Progress Note: Quality Stroke Does the patient have a stroke diagnosis?: No Procedures Date of Service Date of Service: 10/12/23
[2023-10-12 10:43] VITALS: BP 139/66; PULSE 59; O2SAT 91
[2023-10-12 15:13] VITALS: BP 129/60; PULSE 57; RESP 17; TEMP 36.1; O2SAT 95
[2023-10-12 19:17] VITALS: BP 103/54; PULSE 61; RESP 22; TEMP 36.1; O2SAT 94
[2023-10-12] MEDS: amLODIPine Besylate 5 MG TABLET PO (21:12)
[2023-10-12] MEDS: lisinopriL 40 MG TABLET PO (21:12)
[2023-10-13 03:38] VITALS: BP 132/66; PULSE 65; RESP 16; TEMP 36.8; O2SAT 95
[2023-10-13 06:35] LABS: Hematocrit 36.8 % (37.0-47.0); Hemoglobin 12.2 g/dl (12.0-16.0); Mean Corpuscular HGB Conc 33.2 g/dl (31.0-35.0); Mean Corpuscular Hemoglobin 25.7 pg (27.0-33.0); Mean Corpuscular Volume 77.5 fL (80.0-98.0); Mean Platelet Volume 10.5 fL (9.4-12.3); Platelet Count 126 X10*3/uL (160-400); Red Blood Count 4.75 X10*6/uL (4.20-5.50); Red Cell Distribution Width 16.2 % (11.0-16.0); White Blood Count 3.1 X10*3/uL (4.8-10.8)
[2023-10-13 07:09] LABS: Anion Gap 13 (12-20); Blood Urea Nitrogen 21 mg/dL (9-16); Calcium 9.7 mg/dL (8.4-10.2); Carbon Dioxide 35 mmol/L (22-29); Chloride 95 mmol/L (96-108); Estimated Glomerular Filt Rate > 60; Glucose Fasting 71 mg/dL (60-99); Magnesium 1.8 mg/dL (1.6-2.6); Potassium 3.5 mmol/L (3.3-5.1); Sodium 139 mmol/L (135-145)
[2023-10-13 07:29] LABS: INTERNATIONAL NORM RATIO 2.6 (0.9-1.1); Prothrombin Time 31.2 SEC (11.1-13.3)
[2023-10-13 08:00] VITALS: BP 126/60; PULSE 64; RESP 16; TEMP 36.4; O2SAT 94
--- NOTE | 2023-10-13 08:28 | PM.DS ---
DS: Providers Provider Date of Service: 10/14/23 Date of admission: 10/08/23 22:15 Primary care physician: Eloisa Veronica MD Consults: 10/08/23 22:20 Consult to Cardiology Routine Consulting Provider: [facility] [place] [facility] Reason for consultation: decompensated heart failure Has provider been notified: Yes 10/13/23 00:14 Consult to Wound Care Routine Reason for consultation: maceration on buttock DS: Diagnosis Discharge Diagnosis (1) Permanent atrial fibrillation: Status: Acute (2) Decompensated heart failure: Status: Acute DS: Summary Hospital Course Hospital Course: from initial hpi: 78 year old with history of paroxysmal afib on coumadin (not always compliant), htn, hld, osteoporosis presented to the ED earlier today for evaluation of dyspnea on exertion and lightheadedness. She reports for the last week, she has been experiencing worsening dyspnea on exertion, greatest yesterday and today with associated lightheadedness. No associated palpitations, chest pain, syncope. She is also noted increase in bilateral lower extremity edema over the last month. She has not always compliant with her furosemide due to increased urinary frequency. She has followed with [facility], last seen 12/2022, but does not believe she has any known history of congestive heart failure. On arrival, patient noted to desaturate to the mid 80s with ambulation and when talking, placed on 2 L supplemental O2, now maintaining oximetry 94% at rest. She has a leukopenia of 3.6. There is a microcytic anemia with H/H 11.6/35.8%, MCV 79. Platelets 143. Renal function normal, electrolyte levels normal. Troponin 4.7. BNP 245. Negative for COVID-19, influenza. Chest x-ray shows significantly enlarged cardiac silhouette with new focal opacity along the right heart border appearing more anterior than would be expected for hiatal hernia new from prior studies. However, follow-up CT of the chest did not reveal any masslike abnormality but does show severe cardiomegaly including marked left and right atrial dilatation and small right and trace left pleural effusions as well as a small pericardial effusion. hospital course: Patient was admitted for acute hypoxic respiratory failure due to acute decompensated right-sided heart failure. She was given IV Lasix and diuresed well. Edema significantly improved. She was weaned off oxygen. Shortness of breath improved. She was seen by Cardiology who decrease Toprol to 50 mg daily and started Aldactone 25 mg daily. Maintenance Lasix will be increased from 20 mg daily to 40 mg daily. For hypertension she was continued on metoprolol, lisinopril, amlodipine, Aldactone. For paroxysmal atrial fibrillation was continued on metoprolol, will restart Coumadin on discharge as INR has decreased to 2.6. Noted to have supratherapeutic INR and Coumadin was held, no evidence of bleeding. For chronic iron deficiency anemia due to chronic blood loss anemia due to suspected hemorrhoids she was started on p.o. iron. She can follow up outpatient for further management. Patient noted to have pancytopenia. Possibly due to portal hypertension from right-sided heart failure versus primary hematological condition. This should be monitored and consider Hematology eval as outpatient. For obesity weight loss is recommended. Patient is feeling better will be discharged home with VNA and home PT. Time Attestation Discharge coordination time: Greater than 30 minutes Quality: Safe Use of Opioids Does Pt have an Active Cancer Diagnosis on the Problem List?: No Quality: Stroke Does the patient have a stroke diagnosis?: No Physical Exam Vital Signs: Vital Signs: Last Vital Signs Temp 97.5 F 10/13/23 08:00 Pulse 64 10/13/23 08:00 Resp 16 10/13/23 08:00 BP 126/60 10/13/23 08:00 Pulse Ox 94 10/13/23 08:00 O2 Del Method Room Air 10/13/23 08:00 O2 Flow Rate 2 10/09/23 12:21 BMI result Body Mass Index 37.9 GENERAL APPEARANCE: in no acute distress, pleasant. NECK: no carotid bruit, + jugular venous distention. SKIN: no suspicious lesions, warm and dry. HEART: no murmurs, irregular rate and rhythm. LUNGS: clear to auscultation bilaterally. ABDOMEN: soft, nontender. EXTREMITIES: No significant edema. PERIPHERAL PULSES: equal. NEUROLOGIC: No gross deficits, AAO X 3 DS: Data Data Completed and Pending Labs on day of discharge: Laboratory Results - last 24 hr 10/13/23 06:12 WBC 3.1 L RBC 4.75 Hgb 12.2 Hct 36.8 L MCV 77.5 L MCH 25.7 L MCHC 33.2 RDW 16.2 H Plt Count 126 L MPV 10.5 Absolute Nucleated RBC 0.000 Nucleated RBC % (auto) 0.0 PT 31.2 H D INR 2.6 H Sodium 139 Potassium 3.5 Chloride 95 L Carbon Dioxide 35 H Anion Gap 13 BUN 21 H Creatinine 0.89 Estim Creat Clear Calc 58.0 Estimated GFR > 60 Fasting Glucose 71 Calcium 9.7 Magnesium 1.8 Discharge Plan Discharge Anticipated Discharge Date/Time: 10/13/23 08:25 Patient Disposition: Home Health Service Discharge Diagnosis: chf Referrals: Bobby WHITING [Outside] Eloisa Veronica MD [Primary Care Provider] - 1 Week Discharge Medications: New ferrous sulfate 324 mg (65 mg iron) Tablet,Delayed Release (Dr/Ec) 324 mg PO DAILY Qty: 90 0RF furosemide 40 mg Tablet 40 mg PO DAILY Qty: 90 0RF Protocol: Hold for SBP< HOLD for SBP < : 90 metoprolol succinate 50 mg Tablet Extended Release 24 Hr 50 mg PO DAILY Qty: 90 0RF Protocol: Hold for SBP/HR < HOLD for SBP < : 90 HOLD for HR < : 60 spironolactone 25 mg Tablet 25 mg PO DAILY Qty: 90 0RF Protocol: Hold for SBP< HOLD for SBP < : 90 magnesium oxide 400 mg (241.3 mg magnesium) Tablet 400 mg PO BIDPC Qty: 180 0RF Continued alendronate 70 mg tablet 70 mg PO BLUNT warfarin 2.5 mg tablet 5 mg PO DAILY@1800 amlodipine 5 mg tablet 5 mg PO BEDTIME potassium chloride 20 mEq tablet,ER particles/crystals 20 meq PO DAILY lisinopril 40 mg tablet 40 mg PO BEDTIME calcium carbonate-vitamin D3 [Calcium 500 + D] 500 mg-10 mcg (400 unit) Tablet 1 tab PO DAILY Discontinued metoprolol succinate 100 mg tablet extended release 24 hr 100 mg PO DAILY furosemide 20 mg tablet 20 mg PO DAILY Discharge Orders: Discharge Order (Routine); Ordered 10/14/23 Ordered By: Fei Alvarez Diet: Low salt diet Activity on Discharge: As tolerated Stand Alone Forms: Patient Portal Discharge page Care Plan Goals: recovery Health Concerns: chf Plan of Treatment: med changes as prescribed, monitor weight, INR Assessment: see above
--- NOTE | 2023-10-13 08:31 | W.MHC.F2F ---
Service Date Service Date: 10/14/23 Encounter Date of encounter: 10/14/23 Reasons for Services Signs and symptoms assessed: weakness Reason for retirement: monitoring of PT/INR, medication management, medication treatment and teach disease management Reason for physical therapy: home safety and mobility and therapeutic exercises Homebound: Leaving the home is medically contraindicated at this time without the asist of a device and/or another person due th the listed conditions above and below. Reason homebound: unsteady gait / fall risk Certification: Based on the above findings, I certify that this patient is confined to the home and needs intermittent retirement care, physical therapy and/or speech therapy, or continues to need occupational therapy. The patient is under my care, and I have initiated the establishment of the plan of care. The patient will be followed by a physician who will periodically review the plan of care. Time Spent With Patient Time: Total time managing care of this patient today ____ minutes.
[2023-10-13] MEDS: Calcium + Vitamin D 250 MG TABLET PO (09:01)
[2023-10-13] MEDS: Metoprolol Succinate ER 50 MG TAB.ER.24H PO (09:01)
[2023-10-13] MEDS: Spironolactone 25 MG TABLET PO (09:01)
[2023-10-13] MEDS: Magnesium Oxide 400 MG TABLET PO ×2 (09:02→17:15)
[2023-10-13] MEDS: Furosemide 40 MG TABLET PO (09:02)
[2023-10-13] MEDS: Ferrous Sulfate 324 MG TABLET.DR PO (09:02)
[2023-10-13] MEDS: 0.9 % Sodium Chloride Flush 3 ML SYRINGE IVFLUSH ×3 (09:02→20:46)
[2023-10-13] MEDS: Nystatin Powder 15 GM BOTTLE 1 APPL TOPICAL ×2 (09:04→20:47)
--- NOTE | 2023-10-13 09:38 | MHC.CM.PN ---
PT WILL DC HOME TODAY WITH [facility]
--- NOTE | 2023-10-13 10:44 | PM.PNCARD ---
Subjective Subjective Date of Service: 10/13/23 Interval history: Seen and examined at bedside. Feeling better. In a negative fluid balance. Physical Exam Vital Signs: Last Vital Signs Temp 97.5 F 10/13/23 08:00 Pulse 64 10/13/23 08:00 Resp 16 10/13/23 08:00 BP 126/60 10/13/23 08:00 Pulse Ox 94 10/13/23 08:00 O2 Del Method Room Air 10/13/23 08:00 O2 Flow Rate 2 10/09/23 12:21 BMI result Body Mass Index 37.9 GENERAL APPEARANCE: in no acute distress, pleasant. NECK: no carotid bruit, mild jugular venous distention. SKIN: no suspicious lesions, warm and dry. HEART: no murmurs, irregular rate and rhythm. LUNGS: clear to auscultation bilaterally. ABDOMEN: soft, nontender. EXTREMITIES: No significant edema. PERIPHERAL PULSES: equal. NEUROLOGIC: No gross deficits, AAO X 3 Objective Labs and Meds 10/13/23 06:12 10/13/23 06:12 Lab results: Laboratory Results - last 24 hr 10/13/23 06:12 WBC 3.1 L RBC 4.75 Hgb 12.2 Hct 36.8 L MCV 77.5 L MCH 25.7 L MCHC 33.2 RDW 16.2 H Plt Count 126 L MPV 10.5 Absolute Nucleated RBC 0.000 Nucleated RBC % (auto) 0.0 PT 31.2 H D INR 2.6 H Sodium 139 Potassium 3.5 Chloride 95 L Carbon Dioxide 35 H Anion Gap 13 BUN 21 H Creatinine 0.89 Estim Creat Clear Calc 58.0 Estimated GFR > 60 Fasting Glucose 71 Calcium 9.7 Magnesium 1.8 Progress Note: A&P Assessment and plan (1) Permanent atrial fibrillation: Status: Acute (2) Decompensated heart failure: Status: Acute Plan Pleasant 78-year-old female presenting with congestive heart failure, right more than left-sided. ECHO showing moderate RV dysfunction. Diuresed and improving. I think she should continue IV diuretics today and get transitioned to 40 mg p.o. b.i.d. Lasix tomorrow. Spironolactone 25 mg daily. Blood pressure well controlled. Follow-up with Dr. Pérez. Time Spent With Patient Time: Total time managing care of this patient today ____ minutes. Progress Note: Quality Stroke Does the patient have a stroke diagnosis?: No Procedures Date of Service Date of Service: 10/13/23
--- NOTE | 2023-10-13 10:50 | HO.PM.IMPN ---
Subjective Subjective Date of Service: 10/13/23 Interval History: improving Physical Exam Vital Signs: Vital Signs: Last Vital Signs Temp 97.5 F 10/13/23 08:00 Pulse 64 10/13/23 08:00 Resp 16 10/13/23 08:00 BP 126/60 10/13/23 08:00 Pulse Ox 94 10/13/23 08:00 O2 Del Method Room Air 10/13/23 08:00 O2 Flow Rate 2 10/09/23 12:21 BMI result Body Mass Index 37.9 GENERAL APPEARANCE: in no acute distress, pleasant. NECK: no carotid bruit, mild jugular venous distention. SKIN: no suspicious lesions, warm and dry. HEART: no murmurs, irregular rate and rhythm. LUNGS: clear to auscultation bilaterally. ABDOMEN: soft, nontender. EXTREMITIES: No significant edema. PERIPHERAL PULSES: equal. NEUROLOGIC: No gross deficits, AAO X 3 Objective Data Active Medications Acetaminophen (Acetaminophen 325 Mg Tablet) 650 mg PO Q6H PRN PRN Reason: Pain, Mild (Pain Scale 1-3) Amlodipine Besylate (Amlodipine Besylate 5 Mg Tablet) 5 mg PO BEDTIME [facility]; Protocol Last Admin: 10/12/23 21:12 Dose: 5 mg Documented By: LIDIA Calcium Carbonate/Cholecalciferol (Calcium + Vitamin D 250 Mg Tablet) 250 mg PO DAILY [facility] Last Admin: 10/13/23 09:01 Dose: 250 mg Documented By: SUE Ferrous Sulfate (Ferrous Sulfate 324 Mg Tablet.) 324 mg PO DAILY [facility] Last Admin: 10/13/23 09:02 Dose: 324 mg Documented By: SUE Furosemide (Furosemide 40 Mg Tablet) 40 mg PO DAILY [facility]; Protocol Last Admin: 10/13/23 09:02 Dose: 40 mg Documented By: SUE Lisinopril (Lisinopril 40 Mg Tablet) 40 mg PO BEDTIME [facility]; Protocol Last Admin: 10/12/23 21:12 Dose: 40 mg Documented By: LIDIA Magnesium Oxide (Magnesium Oxide 400 Mg Tablet) 400 mg PO BIDPC [facility] Last Admin: 10/13/23 09:02 Dose: 400 mg Documented By: SUE Metoprolol Succinate (Metoprolol Succinate Er 50 Mg Tab.Er.24h) 50 mg PO DAILY [facility]; Protocol Last Admin: 10/13/23 09:01 Dose: 50 mg Documented By: SUE Nystatin (Nystatin Powder 15 Gm Bottle) 1 appl TOPICAL BID [facility]; Protocol Last Admin: 10/13/23 09:04 Dose: 1 appl Documented By: SUE Ondansetron HCl (Ondansetron Hcl 4 Mg/2 Ml Vial) 4 mg IVPUSH Q8H PRN PRN Reason: Nausea and Vomiting Senna (Sennosides 8.6 Mg Tablet) 17.2 mg PO BEDTIME PRN PRN Reason: Constipation Sodium Chloride (0.9 % Sodium Chloride Flush 3 Ml Syringe) 3 ml IVFLUSH QSHIFT [facility] Last Admin: 10/13/23 09:02 Dose: 3 ml Documented By: SUE Spironolactone (Spironolactone 25 Mg Tablet) 25 mg PO DAILY [facility]; Protocol Last Admin: 10/13/23 09:01 Dose: 25 mg Documented By: SUE Labs 10/13/23 06:12 10/13/23 06:12 Labs: Laboratory Results - last 24 hr 10/13/23 06:12 MCV 77.5 L MCH 25.7 L MCHC 33.2 RDW 16.2 H Plt Count 126 L MPV 10.5 Absolute Nucleated RBC 0.000 Nucleated RBC % (auto) 0.0 PT 31.2 H D INR 2.6 H Anion Gap 13 Estim Creat Clear Calc 58.0 Estimated GFR > 60 Fasting Glucose 71 Calcium 9.7 Magnesium 1.8 Assessment and Plan (1) Permanent atrial fibrillation: Status: Acute (2) Decompensated heart failure: Status: Acute (3) Acute respiratory failure with hypoxia: Status: Acute (4) Supratherapeutic INR: Status: Acute Plan 78F PMH paroxysmal afib on coumadin (not always compliant), htn, hld, s/p colostomy, osteoporosis presented with sob Acute hypoxic respiratory failure due to acute decompensated right sided heart failure Continue 40mg IV lasix bid edema improving cardiology following Wean O2 down as tolerated toprol decreased to 50, started aldactone 25 HTN continue metoprolol, lisinopril, amlodipine, aldactone Paroxysmal atrial fibrillation rate controlled continue metoprolol for rate coumadin Supratherapeutic INR resolved restart coumadin monitor inr daily chronic iron deficiency anemia due to chronic blood loss anemia due to suspected hemorrhoids monitor iron supplement panctypenia ? portal htn from right heart failure, stable obesity weight loss recommended dvt prophyalxis- on coumadin full code reason for continued hospitalization:ongoing iv diuresis Quality Stroke Does the patient have a stroke diagnosis?: No VTE Prior VTE?: No VTE Risk Level:: Medical - moderate - high VTE Device Contraindication: N/A - Device Ordered VTE Drug Contraindication: Treatment Not Indicated
[2023-10-13] MEDS: Furosemide 40 MG/4 ML VIAL IVPUSH ×2 (11:15→17:15)
[2023-10-13 15:40] VITALS: BP 126/70; PULSE 63; RESP 17; O2SAT 95
[2023-10-13] MEDS: Warfarin Sodium 2 MG TABLET PO (17:15)
[2023-10-13 19:58] VITALS: BP 109/59; PULSE 67; RESP 17; TEMP 36.8; O2SAT 93
[2023-10-13] MEDS: amLODIPine Besylate 5 MG TABLET PO (20:46)
[2023-10-13] MEDS: lisinopriL 40 MG TABLET PO (20:46)
[2023-10-14 01:27] VITALS: BP 130/67; PULSE 73; RESP 17; TEMP 36.7; O2SAT 93
[2023-10-14 06:00] VITALS: BMI 33.8
[2023-10-14 06:11] LABS: INTERNATIONAL NORM RATIO 1.9 (0.9-1.1); Prothrombin Time 22.7 SEC (11.1-13.3)
[2023-10-14 07:04] VITALS: BP 140/74; PULSE 74; RESP 16; TEMP 36.4; O2SAT 92
[2023-10-14] MEDS: 0.9 % Sodium Chloride Flush 3 ML SYRINGE IVFLUSH (08:17)
[2023-10-14] MEDS: Spironolactone 25 MG TABLET PO (08:17)
[2023-10-14] MEDS: Magnesium Oxide 400 MG TABLET PO (08:17)
[2023-10-14] MEDS: Ferrous Sulfate 324 MG TABLET.DR PO (08:17)
[2023-10-14] MEDS: Furosemide 40 MG/4 ML VIAL IVPUSH (08:17)
[2023-10-14] MEDS: Metoprolol Succinate ER 50 MG TAB.ER.24H PO (08:17)
[2023-10-14] MEDS: Calcium + Vitamin D 250 MG TABLET PO (08:17)
[2023-10-14] MEDS: Nystatin Powder 15 GM BOTTLE 1 APPL TOPICAL (08:23)
--- NOTE | 2023-10-14 10:30 | MHC.CM.PN ---
PT WILL DC HOME TODAY WITH [facility] VIA PRIVATE TRANSPORT
== END 2023-10-14 14:55 | disposition home health service (06) | DRG 291 ==
LOC: HO.ED 17:46 → HO.EDOVER 22:42 → HO.S3 10-09 07:15
PROVIDERS: Physician Assistant Medical; Student in an Organized Health Care Education/Training Program; Admitting Provider Physician Assistant; Emergency Provider Emergency Medicine; PCP Internal Medicine; Visit Provider Internal Medicine
DX: I11.0 Hypertensive heart disease with heart failure (principal); J96.01 Acute respiratory failure with hypoxia; D61.818 Other pancytopenia; I48.21 Permanent atrial fibrillation; K76.6 Portal hypertension; K64.9 Unspecified hemorrhoids; I27.29 Other secondary pulmonary hypertension; I07.1 Rheumatic tricuspid insufficiency; E66.09 Other obesity due to excess calories; Z68.33 Body mass index [BMI] 33.0-33.9, adult; I50.813 Acute on chronic right heart failure; D50.0 Iron deficiency anemia secondary to blood loss (chronic); R79.1 Abnormal coagulation profile; Z71.3 Dietary counseling and surveillance; Z20.822 Contact with and (suspected) exposure to COVID-19; Z79.01 Long term (current) use of anticoagulants; Z79.899 Other long term (current) drug therapy
CPT/HCPCS: 36415; 71046; 71275; 80048; 80053; 81001; 82607; 82728; 82746; 83540; 83735; 83880; 84439; 84443; 84484; 85025; 85027; 85610; 85730; 87086; 87502; 87635; 93005; 93306; 97110; 97116; 97162; 99285; J1940; Q9957; Q9967

== ENCOUNTER 2023-10-08 22:15 | Outpatient (BNV) | payer OTHER, SELFPAY | END 2023-10-09 07:00 | PROVIDERS: Admitting Provider Physician Assistant; Emergency Provider Emergency Medicine; PCP Internal Medicine; Visit Provider Internal Medicine Cardiovascular Disease | DX: I36.1 Nonrheumatic tricuspid (valve) insufficiency (principal); I34.81 Nonrheumatic mitral (valve) annulus calcification | CPT/HCPCS: 93306 ==

== ENCOUNTER → 2023-10-08 22:15 | Outpatient (BNV) | payer OTHER, SELFPAY | PROVIDERS: Admitting Provider Physician Assistant; Emergency Provider Emergency Medicine; PCP Internal Medicine; Visit Provider Physician Assistant | DX: I48.21 Permanent atrial fibrillation (principal); I50.9 Heart failure, unspecified; J96.01 Acute respiratory failure with hypoxia; R79.1 Abnormal coagulation profile | CPT/HCPCS: 99223; 99232; 99233; 99238; G0180 ==

== ENCOUNTER → 2023-10-08 22:15 | Outpatient (BNV) | payer OTHER, SELFPAY | PROVIDERS: Admitting Provider Physician Assistant; Emergency Provider Emergency Medicine; PCP Internal Medicine; Visit Provider Internal Medicine Cardiovascular Disease | DX: I48.21 Permanent atrial fibrillation (principal); I50.9 Heart failure, unspecified | CPT/HCPCS: 93010; 99223; 99232; 99233 ==

== ENCOUNTER 2023-11-01 16:15 | Inpatient (IN) | payer OTHER, SELFPAY ==
--- NOTE | ~2023-11-01 | XR_ITS ---
EXAMINATION: XR CHEST CLINICAL INFORMATION: Dyspnea. COMPARISON: Chest radiograph dated 10/08/2023. TECHNIQUE: 2 views of the chest were obtained. FINDINGS: Cardiac silhouette has decreased in size when compared with the 10/08/2023 chest radiograph. It is still marginally enlarged, however. There is calcific atherosclerotic disease of the aorta. The lungs are clear. There is no pleural effusion or pneumothorax. No acute osseous abnormality. XR/XR chest 2V IMPRESSION: No acute cardiopulmonary disease. The cardiac silhouette has decreased in size compared with the 08/07/2024 chest radiograph, however, remains marginally enlarged.
[2023-11-01 16:20] VITALS: BP 73/45; PULSE 101; RESP 20; TEMP 35.9; O2SAT 99; BMI 34.4
--- NOTE | 2023-11-01 16:20 | ED_ITS ---
HPI - General Adult General Chief complaint: Nausea/Vomiting/Diarrhea Stated complaint: black stool, afib,sob Time Seen by Provider: 11/01/23 16:50 Source: patient Mode of arrival: ambulatory Limitations: no limitations History of Present Illness HPI narrative: Patient comes to the emergency room complaining of diarrhea for approximately 5 days. Patient states that she has an ostomy bag and noticed today that the stool was black. Patient was concerned that this was blood because she takes Coumadin for atrial fibrillation. Patient denies chest pain or shortness of breath. Patient denies nausea vomiting, no abdominal pain, no fever or chills. Related Data Home Medications Medication Instructions Recorded Confirmed alendronate 70 mg tablet 70 mg PO BLUNT 10/08/23 10/08/23 amlodipine 5 mg tablet 5 mg PO BEDTIME 10/08/23 10/08/23 calcium carbonate 500 mg-vitamin 1 tab PO DAILY 10/08/23 10/08/23 D3 10 mcg (400 unit) tablet (Calcium 500 + D) lisinopril 40 mg tablet 40 mg PO BEDTIME 10/08/23 10/08/23 potassium chloride 20 mEq 20 meq PO DAILY 10/08/23 10/08/23 tablet,extended release(part/cryst) warfarin 2.5 mg tablet 5 mg PO DAILY@1800 10/08/23 10/08/23 Previous Rx's Medication Instructions Recorded ferrous sulfate 324 mg (65 mg 324 mg PO DAILY #90 tabs 10/13/23 iron) tablet,delayed release furosemide 40 mg tablet 40 mg PO DAILY #90 tabs 10/13/23 magnesium oxide 400 mg (241.3 mg 400 mg PO BIDPC #180 tabs 10/13/23 magnesium) tablet metoprolol succinate 50 mg 50 mg PO DAILY #90 tabs 10/13/23 tablet,extended release 24 hr spironolactone 25 mg tablet 25 mg PO DAILY #90 tabs 10/13/23 Allergies Allergy/AdvReac Type Severity Reaction Status Date / Time No Known Allergies Allergy Verified 08/21/22 11:14 [No Known Allergies*] Review of Systems 2 Review of Systems: Constitutional : No Weight loss, No Fever, No Chills, No Night Sweats, No Fatigue, No Malaise ENT/Mouth : No Hearing loss, No Ear Pain, No Nasal Congestion, No Sinus Pain, No Hoarseness, No sore throat, No Rhinorrhea, No Swallowing Difficulty Eyes: No Eye Pain, No Swelling, No Redness, No Foreign Body, No Discharge, No Vision Changes Cardiovascular : No Chest Pain, No SOB, No Dyspnea on Exertion, No Orthopnea, No Edema, No Palpitations Respiratory : No Cough, No Sputum, No Wheezing, No Smoke Exposure, No Dyspnea Gastrointestinal : No Nausea, No Vomiting, complaining of large amount of diarrhea,, No Constipation, No abdominal Pain, No Hematochezia, No Melena Genitourinary : no irregular bleeding, No Dysuria, No Urinary Frequency, No Hematuria, No Urinary Incontinence, No Urgency, No Flank Pain, No Urinary Flow Changes, No Hesitancy Musculoskeletal : No joint pain, No Myalgias, No Joint Swelling Skin : No Skin Lesions, No rash Neuro : No Weakness, No Numbness, No Paresthesias, No Loss of Consciousness, No Dizziness, No Headache Psych : No Anxiety/Panic, No Depression, No SI/HI/AH/VH, No Social Issues, Heme/Lymph: No Bruising, No Bleeding,No Lymphadenopathy Endocrine : No Polyuria, No Polydipsia, No Temperature Intolerance [facility] Past Medical History Medical History Osteoporosis Hyperlipidemia Hypertension Atrial fibrillation Social History Social History Household Members: None Housing: House Do you presently have visiting nurse or other home services: No Alcohol intake: former Patient Tobacco Use Status: Never used Tobacco Smoked in Last 30 Days: No Use of substances other than those prescribed or required for medical reasons: No Advance Directives: Yes Advance Directives Information Provided: No Advance Directives on File: No Physical Exam ED Vital Signs: Vital Signs - 24 hr 11/01/23 16:20 11/01/23 17:05 11/01/23 19:23 Temperature 96.7 F L 97.6 F 97.6 F Pulse Rate 101 H 76 75 Respiratory Rate 20 16 16 Blood Pressure 73/45 L 96/57 L 118/69 Pulse Oximetry 99 96 97 Oxygen Delivery Method Room Air Room Air Room Air 11/01/23 19:40 Temperature Pulse Rate 74 Respiratory Rate 18 Blood Pressure Pulse Oximetry Oxygen Delivery Method BMI result Body Mass Index 34.4 Course Course Course Narrative: This is a rapid medical exam: Additional HPI, ROS, PE not included below will be deferred to primary provider. Patient is an 78-year-old female with history of permanent afib on coumadin presenting to the ED with complaint of dark diarrhea in ostomy, states was black, today more normal but still watery. Also complains of shortness of breath and feeling lightheaded. Denies abdominal pain. States visiting nurse checked vitals this morning and they were normal. Hypotensive in triage, 86/36 left arm, 73/45 on right. Plan: EKG, labs including T&S, UA Medications Administered Discontinued Medications Generic Name Dose Route Start Last Admin Trade Name Freq PRN Reason Stop Dose Admin Albuterol Sulfate 10 mg 11/01/23 19:19 11/01/23 19:39 Albuterol Sulfate (0.083%) 2.5 Mg/3 Ml Vial.Neb INHALE 11/01/23 19:20 10 mg ONCE ONE Administration Dextrose 50 gm 11/01/23 19:19 11/01/23 19:38 Dextrose 50 % 25 Gm/50 Ml Syringe IVPUSH 11/01/23 19:20 50 gm ONCE ONE Administration Sodium Chloride 1,000 mls @ 999 mls/hr 11/01/23 19:19 11/01/23 20:45 Ns IVCONT 11/01/23 20:19 Infused .Q1H1M ONE Infusion Calcium Gluconate 2 gm in 100 mls @ 50 mls/hr 11/01/23 19:19 11/01/23 21:47 Calcium Gluconate IV 11/01/23 21:18 Infused ONCE ONE Infusion Insulin Human Regular 5 unit 11/01/23 19:19 11/01/23 19:38 Insulin Regular, Human 100 Unit/Ml 3 Ml Vial IVPUSH 11/01/23 19:20 5 unit ONCE ONE Administration Medical Decision Making Medical Decision Making MDM Narrative: -it was reported that on arrival patient's blood pressure was in the low 80s. When I check the patient's blood pressure, patient's blood pressure was 107 systolic. -my interpretation of labs: White blood cell count within normal limits, patient has acute kidney injury with a creatinine of 1.86, baseline 0.8. Patient's potassium 6.2. Wake test was Heme negative -patient was treated with IV calcium gluconate, D50, 5 units of insulin and albuterol -my interpretation of EKG: No peaked T-waves, atrial fibrillation, rate control, heart rate 81, no ST segment depression or elevation, no T-wave inversion, QTC 432 -patient was giving IV fluids and loperamide. -after IV fluids and the above-mentioned treatment patient's chemistry was repeated, patient's creatinine improved but not as expected. -I discussed the patient with Dr. Hayden from the hospitalist team, admission pending for ALPHONSO/dehydration Differential Diagnosis Differential Diagnoses: The differential diagnosis associated with the presentation includes (Gastroenteritis, viral syndrome, colitis) Admission/Observation Consideration of admission/observation: Escalation of care including admission/observation considered Consult Healthcare Provider Management of the patient was discussed with: Hospitalist Lab Data MDM Lab Attestation statement: I reviewed the patient's lab results. 11/01/23 19:12 11/01/23 21:29 Labs: Lab Results 11/01/23 11/01/23 11/01/23 Range/Units 17:11 17:18 18:19 WBC (4.8-10.8) X10*3/uL RBC (4.20-5.50) X10*6/uL Hgb (12.0-16.0) g/dl Hct (37.0-47.0) % MCV (80.0-98.0) fL MCH (27.0-33.0) pg MCHC (31.0-35.0) g/dl RDW (11.0-16.0) % Plt Count (160-400) X10*3/uL MPV (9.4-12.3) fL Immature Gran % (Auto) (0.0-0.4) % Neut % (Auto) (45-73) % Lymph % (Auto) (20-40) % Robertson % (Auto) (2-11) % Eos % (Auto) (0-4) % Baso % (Auto) (0-2) % Lymph # (Auto) (1.2-4.9) X10*3/uL Robertson # (Auto) (0.1-1.2) X10*3/uL Eos # (Auto) (0.0-0.4) X10*3/uL Baso # (Auto) (0.0-0.2) X10*3/uL Abs Immat Gran (auto) (0.00-0.03) X10*3/uL Absolute Neuts (auto) (2.0-8.3) x10*3/uL Absolute Nucleated RBC (0.0-0.012) X10*3/uL Nucleated RBC % (auto) (0.0-0.2) /100WBC PT 29.5 H D (11.1-13.3) SEC INR 2.4 H (0.9-1.1) Sodium 132 L (135-145) mmol/L Potassium 6.2 H* D (3.3-5.1) mmol/L Chloride 100 (96-108) mmol/L Carbon Dioxide 24 (22-29) mmol/L Anion Gap 14 (12-20) BUN 56 H (9-16) mg/dL Creatinine 1.86 H (0.5-1.4) mg/dL Estim Creat Clear Calc 25.3 Estimated GFR 26 POC Glucose (60-115) mg/dL Random Glucose 109 (60-115) mg/dL Calcium 9.9 (8.4-10.2) mg/dL Magnesium 2.2 (1.6-2.6) mg/dL Total Bilirubin 1.5 H (0.0-1.0) mg/dL AST 33 H (5-31) U/L ALT 22 (0-31) U/L Alkaline Phosphatase 97 (39-117) U/L Troponin I High Sens 15.8 D (<3.5-17.0) ng/L Total Protein 8.1 H (6.5-8.0) g/dL Albumin 3.4 L (3.5-5.0) g/dL Urine Color Urine Appearance Urine pH (5.0-9.0) Ur Specific [place] (1.005-1.025) Urine Protein (Neg-Trace) mg/dL Urine Glucose (UA) (Negative) mg/dL Urine Ketones (Negative) mg/dL Urine Blood (Negative) Urine Nitrite (Negative) Ur Leukocyte Esterase (Negative) Urine RBC (0-2) /HPF Urine WBC (0-5) /HPF Ur Squamous Epith Cells (0-2) /HPF Urine Bacteria (None Seen) Hyaline Casts (0-2) /LPF Stool Occult Blood NEGATIVE (NEGATIVE) C. difficile Tox B Gene (Negative) Influenza Type A (PCR) NEGATIVE (Negative) Influenza Type B (PCR) NEGATIVE (Negative) RSV RNA Qual (PCR) NEGATIVE (Negative) SARS-CoV-2 RNA (RT-PCR) NEGATIVE (Negative) Blood Type O Positive Antibody Screen NEGATIVE 11/01/23 11/01/23 11/01/23 Range/Units 18:33 19:12 19:40 WBC 5.1 (4.8-10.8) X10*3/uL RBC 5.53 H (4.20-5.50) X10*6/uL Hgb 14.1 (12.0-16.0) g/dl Hct 42.9 (37.0-47.0) % MCV 77.6 L (80.0-98.0) fL MCH 25.5 L (27.0-33.0) pg MCHC 32.9 (31.0-35.0) g/dl RDW 18.1 H (11.0-16.0) % Plt Count 357 D (160-400) X10*3/uL MPV 9.5 (9.4-12.3) fL Immature Gran % (Auto) 0.4 (0.0-0.4) % Neut % (Auto) 67.1 (45-73) % Lymph % (Auto) 17.5 L (20-40) % Robertson % (Auto) 13.6 H (2-11) % Eos % (Auto) 0.4 (0-4) % Baso % (Auto) 1.0 (0-2) % Lymph # (Auto) 0.9 L (1.2-4.9) X10*3/uL [place] # (Auto) 0.7 (0.1-1.2) X10*3/uL Eos # (Auto) 0.0 (0.0-0.4) X10*3/uL Baso # (Auto) 0.1 (0.0-0.2) X10*3/uL Abs Immat Gran (auto) 0.02 (0.00-0.03) X10*3/uL Absolute Neuts (auto) 3.4 (2.0-8.3) x10*3/uL Absolute Nucleated RBC 0.000 (0.0-0.012) X10*3/uL Nucleated RBC % (auto) 0.0 (0.0-0.2) /100WBC PT (11.1-13.3) SEC INR (0.9-1.1) Sodium (135-145) mmol/L Potassium (3.3-5.1) mmol/L Chloride (96-108) mmol/L Carbon Dioxide (22-29) mmol/L Anion Gap (12-20) BUN (9-16) mg/dL Creatinine (0.5-1.4) mg/dL Estim Creat Clear Calc Estimated GFR POC Glucose (60-115) mg/dL Random Glucose (60-115) mg/dL Calcium (8.4-10.2) mg/dL Magnesium (1.6-2.6) mg/dL Total Bilirubin (0.0-1.0) mg/dL AST (5-31) U/L ALT (0-31) U/L Alkaline Phosphatase (39-117) U/L Troponin I High Sens (<3.5-17.0) ng/L Total Protein (6.5-8.0) g/dL Albumin (3.5-5.0) g/dL Urine Color Yellow Urine Appearance Clear Urine pH 5.0 (5.0-9.0) Ur Specific [place] 1.010 (1.005-1.025) Urine Protein Negative (Neg-Trace) mg/dL Urine Glucose (UA) Negative (Negative) mg/dL Urine Ketones Negative (Negative) mg/dL Urine Blood Negative (Negative) Urine Nitrite Negative (Negative) Ur Leukocyte Esterase Small (1+) H (Negative) Urine RBC 0-2 (0-2) /HPF Urine WBC 6-10 H (0-5) /HPF Ur Squamous Epith Cells 3-5 (0-2) /HPF Urine Bacteria None Seen (None Seen) Hyaline Casts 3-5 (0-2) /LPF Stool Occult Blood (NEGATIVE) C. difficile Tox B Gene NEGATIVE (Negative) Influenza Type A (PCR) (Negative) Influenza Type B (PCR) (Negative) RSV RNA Qual (PCR) (Negative) SARS-CoV-2 RNA (RT-PCR) (Negative) Blood Type Antibody Screen 11/01/23 11/01/23 Range/Units 20:24 21:29 WBC (4.8-10.8) X10*3/uL RBC (4.20-5.50) X10*6/uL Hgb (12.0-16.0) g/dl Hct (37.0-47.0) % MCV (80.0-98.0) fL MCH (27.0-33.0) pg MCHC (31.0-35.0) g/dl RDW (11.0-16.0) % Plt Count (160-400) X10*3/uL MPV (9.4-12.3) fL Immature Gran % (Auto) (0.0-0.4) % Neut % (Auto) (45-73) % Lymph % (Auto) (20-40) % Robertson % (Auto) (2-11) % Eos % (Auto) (0-4) % Baso % (Auto) (0-2) % Lymph # (Auto) (1.2-4.9) X10*3/uL [place] # (Auto) (0.1-1.2) X10*3/uL Eos # (Auto) (0.0-0.4) X10*3/uL Baso # (Auto) (0.0-0.2) X10*3/uL Abs Immat Gran (auto) (0.00-0.03) X10*3/uL Absolute Neuts (auto) (2.0-8.3) x10*3/uL Absolute Nucleated RBC (0.0-0.012) X10*3/uL Nucleated RBC % (auto) (0.0-0.2) /100WBC PT (11.1-13.3) SEC INR (0.9-1.1) Sodium 135 (135-145) mmol/L Potassium 4.4 D (3.3-5.1) mmol/L Chloride 105 (96-108) mmol/L Carbon Dioxide 19 L (22-29) mmol/L Anion Gap 15 (12-20) BUN 49 H (9-16) mg/dL Creatinine 1.58 H (0.5-1.4) mg/dL Estim Creat Clear Calc 29.8 Estimated GFR 31 POC Glucose 233 H (60-115) mg/dL Random Glucose 128 H (60-115) mg/dL Calcium 9.8 (8.4-10.2) mg/dL Magnesium (1.6-2.6) mg/dL Total Bilirubin (0.0-1.0) mg/dL AST (5-31) U/L ALT (0-31) U/L Alkaline Phosphatase (39-117) U/L Troponin I High Sens (<3.5-17.0) ng/L Total Protein (6.5-8.0) g/dL Albumin (3.5-5.0) g/dL Urine Color Urine Appearance Urine pH (5.0-9.0) Ur Specific [place] (1.005-1.025) Urine Protein (Neg-Trace) mg/dL Urine Glucose (UA) (Negative) mg/dL Urine Ketones (Negative) mg/dL Urine Blood (Negative) Urine Nitrite (Negative) Ur Leukocyte Esterase (Negative) Urine RBC (0-2) /HPF Urine WBC (0-5) /HPF Ur Squamous Epith Cells (0-2) /HPF Urine Bacteria (None Seen) Hyaline Casts (0-2) /LPF Stool Occult Blood (NEGATIVE) C. difficile Tox B Gene (Negative) Influenza Type A (PCR) (Negative) Influenza Type B (PCR) (Negative) RSV RNA Qual (PCR) (Negative) SARS-CoV-2 RNA (RT-PCR) (Negative) Blood Type Antibody Screen Independent Interpretation I performed an independent interpretation of an: EKG Critical Care Time Critical Care Time Critical Care Time: Yes Total Critical Care Time: 75 Attestation: I have personally provided critical care time. Time includes review of lab data, radiology results, discussion with consultants, and monitoring for potential decompensation. Intervention performed as documented. Discharge Plan Discharge Clinical Impression: Diarrhea, ALPHONSO (acute kidney injury), Acute dehydration Patient Disposition: Admitted As Inpatient Prescriptions: No Action alendronate 70 mg tablet 70 mg PO BLUNT warfarin 2.5 mg tablet 5 mg PO DAILY@1800 amlodipine 5 mg tablet 5 mg PO BEDTIME potassium chloride 20 mEq tablet,ER particles/crystals 20 meq PO DAILY lisinopril 40 mg tablet 40 mg PO BEDTIME calcium carbonate-vitamin D3 [Calcium 500 + D] 500 mg-10 mcg (400 unit) Tablet 1 tab PO DAILY ferrous sulfate 324 mg (65 mg iron) Tablet,Delayed Release (Dr/Ec) 324 mg PO DAILY Qty: 90 0RF furosemide 40 mg Tablet 40 mg PO DAILY Qty: 90 0RF Protocol: Hold for SBP< HOLD for SBP < : 90 metoprolol succinate 50 mg Tablet Extended Release 24 Hr 50 mg PO DAILY Qty: 90 0RF Protocol: Hold for SBP/HR < HOLD for SBP < : 90 HOLD for HR < : 60 spironolactone 25 mg Tablet 25 mg PO DAILY Qty: 90 0RF Protocol: Hold for SBP< HOLD for SBP < : 90 magnesium oxide 400 mg (241.3 mg magnesium) Tablet 400 mg PO BIDPC Qty: 180 0RF
--- NOTE | 2023-11-01 16:24 | ECG_ITS ---
Test Reason : N/V Blood Pressure : / mmHG Vent. Rate : 081 BPM Atrial Rate : 000 BPM P-R Int : 000 ms QRS Dur : 090 ms QT Int : 372 ms P-R-T Axes : 000 070 004 degrees QTc Int : 432 ms Atrial fibrillation Artifact Abnormal ECG When compared with ECG of 08-OCT-2023 17:38, QT has shortened Referred By: Dina Zavala Electronically Signed By:Tono Salter
[2023-11-01 17:05] VITALS: BP 96/57; PULSE 76; RESP 16; TEMP 36.4; O2SAT 96
--- NOTE | 2023-11-01 17:20 | PC.NURSE ---
20gIV placed in the right forearm - labs obtained/sent to lab. pt seen by ED provider. plan of care ongoing. call sewell placed within reach.
[2023-11-01 17:38] LABS: OBS Int Ctl Valid YES; OBS1 NEGATIVE (NEGATIVE)
[2023-11-01 17:45] LABS: INTERNATIONAL NORM RATIO 2.4 (0.9-1.1); Prothrombin Time 29.5 SEC (11.1-13.3)
[2023-11-01 18:15] LABS: Influenza A PCR NEGATIVE (Negative); Influenza B PCR NEGATIVE (Negative); Resp Syncy Virus RNA Qual PCR NEGATIVE (Negative); SARS COV2 PCR INHOUSE NEGATIVE (Negative)
[2023-11-01 18:46] LABS: Troponin-I High Sensitivity 15.8 ng/L (<3.5-17.0)
[2023-11-01 18:58] LABS: Alanine Aminotransferase 22 U/L (0-31); Albumin Level 3.4 g/dL (3.5-5.0); Alkaline Phosphatase 97 U/L (39-117); Anion Gap 14 (12-20); Aspartate Amino Transferase 33 U/L (5-31); Bilirubin Total 1.5 mg/dL (0.0-1.0); Blood Urea Nitrogen 56 mg/dL (9-16); Calcium 9.9 mg/dL (8.4-10.2); Carbon Dioxide 24 mmol/L (22-29); Chloride 100 mmol/L (96-108); Creatinine Clr Calc Pharmacy 25.3; Estimated Glomerular Filt Rate 26; Glucose Random 109 mg/dL (60-115); Magnesium 2.2 mg/dL (1.6-2.6); Potassium 6.2 mmol/L (3.3-5.1); Sodium 132 mmol/L (135-145); Total Protein 8.1 g/dL (6.5-8.0)
[2023-11-01 19:14] LABS: MANUAL DIFF FLAG NO
[2023-11-01 19:15] LABS: Basophils Absolute Auto 0.1 X10*3/uL (0.0-0.2); Eosinophils Percent Auto 0.4 % (0-4); Hematocrit 42.9 % (37.0-47.0); Hemoglobin 14.1 g/dl (12.0-16.0); Imm Gran Abs Auto 0.02 X10*3/uL (0.00-0.03); Imm Gran Pct Auto 0.4 % (0.0-0.4); Lymphocytes Absolute Auto 0.9 X10*3/uL (1.2-4.9); Lymphocytes Percent Auto 17.5 % (20-40); Mean Corpuscular HGB Conc 32.9 g/dl (31.0-35.0); Mean Corpuscular Hemoglobin 25.5 pg (27.0-33.0); Mean Corpuscular Volume 77.6 fL (80.0-98.0); Mean Platelet Volume 9.5 fL (9.4-12.3); Monocytes Absolute Auto 0.7 X10*3/uL (0.1-1.2); Monocytes Percent Auto 13.6 % (2-11); Neutrophils Absolute Auto 3.4 x10*3/uL (2.0-8.3); Neutrophils Percent Auto 67.1 % (45-73); Platelet Count 357 X10*3/uL (160-400); Red Blood Count 5.53 X10*6/uL (4.20-5.50); Red Cell Distribution Width 18.1 % (11.0-16.0); White Blood Count 5.1 X10*3/uL (4.8-10.8)
[2023-11-01 19:23] VITALS: BP 118/69; PULSE 75; RESP 16; TEMP 36.4; O2SAT 97
[2023-11-01] MEDS: 0.9 % Sodium Chloride 1,000 ML 999 ML IVCONT (19:37)
[2023-11-01] MEDS: Insulin Regular, Human 100 UNIT/ML 3 ML VIAL IVPUSH (19:38)
[2023-11-01] MEDS: Dextrose 50 % 25 GM/50 ML SYRINGE IVPUSH (19:38)
[2023-11-01] MEDS: Calcium Gluconate/NaCl,Iso-Osm 2 GM/100 ML PLAST..BAG IV (19:38)
[2023-11-01] MEDS: Albuterol Sulfate (0.083%) 2.5 MG/3 ML VIAL.NEB 10 MG INHALE (19:39)
[2023-11-01 19:40] VITALS: PULSE 74; RESP 18
[2023-11-01 19:44] LABS: CDiff Gene PCR NEGATIVE (Negative)
[2023-11-01 19:47] LABS: Appearance Urine Clear; Color Urine Yellow; Glucose Urine UA Negative (Negative); Leukocyte Esterase Urine Small (1+) (Negative); Nitrite Urine Negative (Negative); UMIC TRIGGER UACC YES; Urine Blood Negative (Negative); Urine Ketones Negative (Negative); Urine Protein Negative (Neg-Trace)
[2023-11-01 19:52] LABS: Bacteria Urine None Seen (None Seen); RBC Urine 0-2 /HPF (0-2); UACC Culture Trigger YES
[2023-11-01 20:27] LABS: Glucose, Whole Blood 233 mg/dL (60-115)
[2023-11-01 21:51] LABS: Anion Gap 15 (12-20); Blood Urea Nitrogen 49 mg/dL (9-16); Calcium 9.8 mg/dL (8.4-10.2); Carbon Dioxide 19 mmol/L (22-29); Chloride 105 mmol/L (96-108); Creatinine Clr Calc Pharmacy 29.8; Estimated Glomerular Filt Rate 31; Glucose Random 128 mg/dL (60-115); Potassium 4.4 mmol/L (3.3-5.1); Sodium 135 mmol/L (135-145)
--- NOTE | 2023-11-01 22:23 | P.HPHOSP_ITS ---
History of Present Illness Date of Service: 11/01/23 Attending physician on admission: Jitendra Chin Chief Complaint: Black stools Janessa Ribeiro is 78 years old woman with past medical history significant for atrial fibrillation on chronic anticoagulation with warfarin, status post colostomy, hyperlipidemia and hypertension presents to emergency department complaining of increased output from her colostomy. She noted that the stools are black (initially stool was very watery). She denied any associated abdominal pain, nausea or vomiting. She also denied any headache, palpitations, dizziness, chest pain, shortness on breath, cough, fever or chills. Patient denied alcohol abuse, illicit drug use tobacco smoking. In the ED, vital signs are remarkable for initial blood pressure 70/45, tachycardia and temperature 96.7 degrees. Oxygen saturation is normal on room air. There is no tachypnea. Is not tachycardic. Hyperkalemia of 6.2 was noted as well as a creatinine of 1.86. CXR is negative. ECG showed atrial fibrillation with heart rate of 81 beats per minutes. ED tx: NS 1 L bolus, calcium gluconate 2 g IV, albuterol neb, D50 1 amp, insulin R 5 units and Imodium 4 mg p.o. Review of Systems 2 Review of Systems: All 12 systems were reviewed and normal except as noted in HPI. [facility] Medical History Osteoporosis Hyperlipidemia Hypertension Atrial fibrillation Social History Household Members: None Housing: House Do you presently have visiting nurse or other home services: No Alcohol intake: former Patient Tobacco Use Status: Never used Tobacco Smoked in Last 30 Days: No Use of substances other than those prescribed or required for medical reasons: No Advance Directives: Yes Advance Directives Information Provided: No Advance Directives on File: No Meds Allergies Allergy/AdvReac Type Severity Reaction Status Date / Time No Known Allergies Allergy Verified 08/21/22 11:14 [No Known Allergies*] Active Medications: Current Medications Acetaminophen (Acetaminophen 325 Mg Tablet) 650 mg PO Q6H PRN PRN Reason: Pain, Mild (Pain Scale 1-3) Sodium Chloride (Ns) 1,000 mls @ 75 mls/hr IVCONT .[id number] LENCHO Pantoprazole Sodium (Pantoprazole Sodium 40 Mg/10 Ml Vial) 40 mg IVPUSH BID LENCHO Sodium Chloride (0.9 % Sodium Chloride Flush 3 Ml Syringe) 3 ml IVFLUSH QSHIFT [facility] Home Medications Medication Instructions Recorded Confirmed Last Taken Type alendronate 70 mg tablet 70 mg PO BLUNT 10/08/23 11/01/23 10/28/23 History amlodipine 5 mg tablet 5 mg PO BEDTIME 10/08/23 11/01/23 10/31/23 History calcium carbonate 500 mg-vitamin 1 tab PO DAILY 10/08/23 11/01/23 11/01/23 History D3 10 mcg (400 unit) tablet (Calcium 500 + D) lisinopril 40 mg tablet 40 mg PO BEDTIME 10/08/23 11/01/23 10/31/23 History potassium chloride 20 mEq 20 meq PO DAILY 10/08/23 11/01/23 11/01/23 History tablet,extended release(part/cryst) warfarin 2.5 mg tablet 5 mg PO Blunt@1800 10/08/23 11/01/23 10/28/23 History warfarin 2.5 mg tablet 2.5 mg PO MOTUWETHFRSA@1800 11/01/23 11/01/23 10/31/23 History Physical Exam 2 Vital Signs and Narrative: Vital Signs: Last Vital Signs Temp 97.6 F 11/01/23 19:23 Pulse 74 11/01/23 19:40 Resp 18 11/01/23 19:40 BP 118/69 11/01/23 19:23 Pulse Ox 97 11/01/23 19:23 O2 Del Method Room Air 11/01/23 19:23 BMI result Body Mass Index 34.4 Constitutional - Awake and Alert, No apparent distress. Pleasant. Cooperative. HEENT - normocephalic. Atraumatic. Dry oral mucosa. Heart - irregular rhythm. Normal rate. No murmurs. Lungs- Normal lung expansion, Normal respiratory effort, No respiratory distress, CTA bilaterally Abdomen - Nondistended. Increased bowel sounds. Colostomy bag in place (watery dark fecal material). Nontenderness. Extremities - no calf tenderness bilaterally, no swelling Musculoskeletal - Normal inspection, normal ROM Skin - Warm/Dry Neurological - Alert & oriented x3. No focal weakness grossly noted. Normal speech. Psychological - Appropriate affect Results Labs 11/01/23 19:12 11/01/23 21:29 Labs: Laboratory Results - last 24 hr 11/01/23 11/01/23 11/01/23 17:11 17:18 18:19 MCV MCH MCHC RDW Plt Count MPV Immature Gran % (Auto) Neut % (Auto) Lymph % (Auto) [place] % (Auto) Eos % (Auto) Baso % (Auto) Lymph # (Auto) [place] # (Auto) Eos # (Auto) Baso # (Auto) Abs Immat Gran (auto) Absolute Neuts (auto) Absolute Nucleated RBC Nucleated RBC % (auto) PT 29.5 H D INR 2.4 H Anion Gap 14 Estim Creat Clear Calc 25.3 Estimated GFR 26 POC Glucose Random Glucose 109 Calcium 9.9 Magnesium 2.2 Total Bilirubin 1.5 H AST 33 H ALT 22 Alkaline Phosphatase 97 Troponin I High Sens 15.8 D Total Protein 8.1 H Albumin 3.4 L Urine Color Urine Appearance Urine pH Ur Specific [place] Urine Protein Urine Glucose (UA) Urine Ketones Urine Blood Urine Nitrite Ur Leukocyte Esterase Urine RBC Urine WBC Ur Squamous Epith Cells Urine Bacteria Hyaline Casts Stool Occult Blood NEGATIVE C. difficile Tox B Gene Influenza Type A (PCR) NEGATIVE Influenza Type B (PCR) NEGATIVE RSV RNA Qual (PCR) NEGATIVE SARS-CoV-2 RNA (RT-PCR) NEGATIVE Blood Type O Positive Antibody Screen NEGATIVE 11/01/23 11/01/23 11/01/23 18:33 19:12 19:40 MCV 77.6 L MCH 25.5 L MCHC 32.9 RDW 18.1 H Plt Count 357 D MPV 9.5 Immature Gran % (Auto) 0.4 Neut % (Auto) 67.1 Lymph % (Auto) 17.5 L [place] % (Auto) 13.6 H Eos % (Auto) 0.4 Baso % (Auto) 1.0 Lymph # (Auto) 0.9 L [place] # (Auto) 0.7 Eos # (Auto) 0.0 Baso # (Auto) 0.1 Abs Immat Gran (auto) 0.02 Absolute Neuts (auto) 3.4 Absolute Nucleated RBC 0.000 Nucleated RBC % (auto) 0.0 PT INR Anion Gap Estim Creat Clear Calc Estimated GFR POC Glucose Random Glucose Calcium Magnesium Total Bilirubin AST ALT Alkaline Phosphatase Troponin I High Sens Total Protein Albumin Urine Color Yellow Urine Appearance Clear Urine pH 5.0 Ur Specific [place] 1.010 Urine Protein Negative Urine Glucose (UA) Negative Urine Ketones Negative Urine Blood Negative Urine Nitrite Negative Ur Leukocyte Esterase Small (1+) H Urine RBC 0-2 Urine WBC 6-10 H Ur Squamous Epith Cells 3-5 Urine Bacteria None Seen Hyaline Casts 3-5 Stool Occult Blood C. difficile Tox B Gene NEGATIVE Influenza Type A (PCR) Influenza Type B (PCR) RSV RNA Qual (PCR) SARS-CoV-2 RNA (RT-PCR) Blood Type Antibody Screen 11/01/23 11/01/23 20:24 21:29 MCV MCH MCHC RDW Plt Count MPV Immature Gran % (Auto) Neut % (Auto) Lymph % (Auto) [place] % (Auto) Eos % (Auto) Baso % (Auto) Lymph # (Auto) [place] # (Auto) Eos # (Auto) Baso # (Auto) Abs Immat Gran (auto) Absolute Neuts (auto) Absolute Nucleated RBC Nucleated RBC % (auto) PT INR Anion Gap 15 Estim Creat Clear Calc 29.8 Estimated GFR 31 POC Glucose 233 H Random Glucose 128 H Calcium 9.8 Magnesium Total Bilirubin AST ALT Alkaline Phosphatase Troponin I High Sens Total Protein Albumin Urine Color Urine Appearance Urine pH Ur Specific [place] Urine Protein Urine Glucose (UA) Urine Ketones Urine Blood Urine Nitrite Ur Leukocyte Esterase Urine RBC Urine WBC Ur Squamous Epith Cells Urine Bacteria Hyaline Casts Stool Occult Blood C. difficile Tox B Gene Influenza Type A (PCR) Influenza Type B (PCR) RSV RNA Qual (PCR) SARS-CoV-2 RNA (RT-PCR) Blood Type Antibody Screen Imaging Radiologist's Impressions: Impressions Chest X-Ray 11/01/23 17:40 IMPRESSION: No acute cardiopulmonary disease. The cardiac silhouette has decreased in size compared with the 08/07/2024 chest radiograph, however, remains marginally enlarged. Assessment and Plan (1) ALPHONSO (acute kidney injury): Status: Acute (2) Diarrhea: Status: Acute (3) Acute dehydration: Status: Acute (4) Permanent atrial fibrillation: Status: Acute (5) Hyperkalemia: Status: Acute Plan Janessa Ribeiro is 78 years old woman with past medical history significant for atrial fibrillation on chronic anticoagulation with warfarin and s/p colostomy admitted with: * Acute kidney injury likely secondary to multiple events of diarrhea/loose stools/dehydration + potassium pill, diuretics and lisinopril use; renal function improving. Admit to hospitalist service. NPO. Continue IV fluids. Avoid nephrotoxic agents. Hold spironolactone, potassium pills, furosemide and lisinopril. * Hyperkalemia likely secondary to above + spironolactone use and lisinopril use. Resolved. Home spironolactone and lisinopril. Continue to monitor K+ above. * Dark stools (stool for occult blood negative); Hgb is 14.1 (likely hemoconcentration) ? GI bleeding. Continue to monitor H&H. Start treatment with Protonix 40 mg IV twice daily. Hold Coumadin for now. GI consult. * Hypotension and tachycardia secondary to dehydration, resolved. No fever. No evidence of acute infection. Doubt sepsis. Lactic acid not available -will order. Continue IV fluids. Continue to monitor vital signs. * Essential hypertension. Continue metoprolol if BP allows. * Hyperlipidemia. Not taking meds for this. DVT prophylaxis: SCDs (INR is currently therapeutic). Code status: Full Patient will need hospitalization for at least 2 midnights for diarrhea and ALPHONSO treatment with IV fluids and close blood workup monitoring as well as evaluation by subspecialty. Quality Stroke Does the patient have a stroke diagnosis?: No VTE Prior VTE?: No VTE Risk Level:: Medical - moderate - high VTE Device Contraindication: N/A - Device Ordered VTE Drug Contraindication: Treatment Not Indicated
--- NOTE | 2023-11-01 22:23 | PHA.MEDREC ---
Pharmacy Consult ? Medication Reconciliation Pharmacy has completed the medication reconciliation. Patient received new list from the A this weekend that match claim history. Dunia Fernandes, WalterD
[2023-11-01] MEDS: Loperamide HCl 2 MG CAPSULE 4 MG PO (22:46)
[2023-11-01] MEDS: Pantoprazole Sodium 40 MG/10 ML VIAL IVPUSH (22:46)
[2023-11-01] MEDS: 0.9 % Sodium Chloride 1,000 ML 75 ML IVCONT (22:47)
[2023-11-02 02:19] LABS: Lactic Acid 1.3 mmol/L (0.5-2.0)
[2023-11-02 02:23] LABS: Anion Gap 13 (12-20); Blood Urea Nitrogen 49 mg/dL (9-16); Calcium 9.4 mg/dL (8.4-10.2); Carbon Dioxide 18 mmol/L (22-29); Chloride 109 mmol/L (96-108); Creatinine Clr Calc Pharmacy 31.9; Estimated Glomerular Filt Rate 34; Glucose Random 80 mg/dL (60-115); Magnesium 1.9 mg/dL (1.6-2.6); Potassium 4.8 mmol/L (3.3-5.1); Sodium 135 mmol/L (135-145)
[2023-11-02 05:49] LABS: MANUAL DIFF FLAG NO
[2023-11-02 05:53] LABS: Basophils Percent Auto 0.7 % (0-2); Eosinophils Absolute Auto 0.1 X10*3/uL (0.0-0.4); Eosinophils Percent Auto 1.3 % (0-4); Hematocrit 39.2 % (37.0-47.0); Hemoglobin 12.9 g/dl (12.0-16.0); Imm Gran Abs Auto 0.02 X10*3/uL (0.00-0.03); Imm Gran Pct Auto 0.4 % (0.0-0.4); Lymphocytes Percent Auto 18.6 % (20-40); Mean Corpuscular HGB Conc 32.9 g/dl (31.0-35.0); Mean Corpuscular Hemoglobin 25.9 pg (27.0-33.0); Mean Corpuscular Volume 78.6 fL (80.0-98.0); Mean Platelet Volume 9.8 fL (9.4-12.3); Monocytes Absolute Auto 0.6 X10*3/uL (0.1-1.2); Monocytes Percent Auto 11.9 % (2-11); Neutrophils Absolute Auto 3.6 x10*3/uL (2.0-8.3); Neutrophils Percent Auto 67.1 % (45-73); Platelet Count 313 X10*3/uL (160-400); Red Blood Count 4.99 X10*6/uL (4.20-5.50); Red Cell Distribution Width 18.3 % (11.0-16.0); White Blood Count 5.4 X10*3/uL (4.8-10.8)
[2023-11-02 06:03] LABS: INTERNATIONAL NORM RATIO 2.5 (0.9-1.1); Prothrombin Time 30.4 SEC (11.1-13.3)
[2023-11-02 06:10] LABS: Alanine Aminotransferase 17 U/L (0-31); Alkaline Phosphatase 87 U/L (39-117); Anion Gap 12 (12-20); Aspartate Amino Transferase 27 U/L (5-31); Bilirubin Total 1.5 mg/dL (0.0-1.0); Blood Urea Nitrogen 49 mg/dL (9-16); Calcium 9.4 mg/dL (8.4-10.2); Carbon Dioxide 20 mmol/L (22-29); Chloride 110 mmol/L (96-108); Creatinine Clr Calc Pharmacy 35.7; Estimated Glomerular Filt Rate 39; Glucose Random 81 mg/dL (60-115); Potassium 5.1 mmol/L (3.3-5.1); Sodium 137 mmol/L (135-145)
--- NOTE | 2023-11-02 06:39 | PC.NURSE ---
pt ambulates to and from bathroom with a steady gait with one person standby assist. Pt resting comfortably on stretcher in no apparent distress, offers no current complaints. call sewell within reach. iv fluids running at 75ml/hr. plan of care ongoing
[2023-11-02 06:49] VITALS: BP 105/40; PULSE 80; RESP 14; TEMP 36.6; O2SAT 95
--- NOTE | 2023-11-02 07:50 | PM.GICN ---
History of Present Illness Data of Consult Service Date: 11/02/23 Requesting physician: Jitendra Chin Primary Care Provider: Eloisa Veronica MD HPI Reason for consult: Black stools in colostomy bag 78 YF with atrial fibrillation on chronic anticoagulation with warfarin, status post colostomy, hyperlipidemia and hypertension seen at [facility] ED on 11/01/23 with increased output from her colostomy. Pt reports she had diarrhea with increased colostomy output since the past week. Since 11/01/23, she noted that the stools were black (initially stool was very watery). Patient denies taking any Pepto-Bismol, admits to being on oral iron. Pt states diarrhea has resolved today Pt reports having a colostomy 15 years ago at [facility] (? for abd pain versus diverticulitis) - pt denies a hx of colon cancer. Reversal of colostomy was not offered to her due to age, AF and anticipated technical difficulty. Pt denies symptoms of heartburn, dysphagia, recent change in appetite or weight. She denied abdominal pain, nausea, vomiting, headache, palpitations, dizziness, chest pain, SOB, cough, fever or chills. She denied alcohol abuse, illicit drug use tobacco smoking. Pt is single and lives alone. She lives in a three family home and her landlords provide some assistance in her care. Patient denies known family history of colon polyps or GI malignancy. She denies having an upper endoscopy or colonoscopy in the past. In the ED, vital signs are remarkable for initial blood pressure 70/45, tachycardia and temperature 96.7 degrees. Oxygen saturation is normal on room air. Labs showed hyperkalemia of 6.2 and a creatinine of 1.86. CXR is negative. ECG showed atrial fibrillation with heart rate of 81 beats per minutes. ED tx: NS 1 L bolus, calcium gluconate 2 g IV, albuterol neb, D50 1 amp, insulin R 5 units and Imodium 4 mg p.o. Patient was admitted for further management. Review of Systems Review of Systems: All 12 systems were reviewed and normal except as noted in HPI. [facility] Past Medical History Medical History Osteoporosis Hyperlipidemia Hypertension Atrial fibrillation Social History Social History Household Members: None Housing: House Do you presently have visiting nurse or other home services: Yes Alcohol intake: former Patient Tobacco Use Status: Never used Tobacco Advance Directives Date on File: 11/02/23 service: No Meds Allergies Allergy/AdvReac Type Severity Reaction Status Date / Time No Known Allergies Allergy Verified 08/21/22 11:14 [No Known Allergies*] Active Medications: Current Medications Acetaminophen (Acetaminophen 325 Mg Tablet) 650 mg PO Q6H PRN PRN Reason: Pain, Mild (Pain Scale 1-3) Sodium Chloride (Ns) 1,000 mls @ 75 mls/hr IVCONT .[id number] ON LICENSE OF [facility] Last Admin: 11/01/23 22:47 Dose: 75 mls/hr Magnesium Oxide (Magnesium Oxide 400 Mg Tablet) [facility] Metoprolol Succinate (Metoprolol Succinate Er 50 Mg Tab.Er.24h) 50 mg PO DAILY ON LICENSE OF [facility]; Protocol Pantoprazole Sodium (Pantoprazole Sodium 40 Mg/10 Ml Vial) 40 mg IVPUSH BID@0630,1630 ON LICENSE OF [facility] Last Admin: 11/01/23 22:46 Dose: 40 mg Sodium Chloride (0.9 % Sodium Chloride Flush 3 Ml Syringe) 3 ml IVFLUSH QSHIFT ON LICENSE OF [facility] Last Admin: 11/02/23 01:57 Dose: Not Given Home Medications Medication Instructions Recorded Confirmed Last Taken Type alendronate 70 mg tablet 70 mg PO BLUNT 10/08/23 11/01/23 10/28/23 History calcium carbonate 500 mg-vitamin 1 tab PO DAILY 10/08/23 11/01/23 11/01/23 History D3 10 mcg (400 unit) tablet (Calcium 500 + D) warfarin 2.5 mg tablet 5 mg PO Blunt@1800 10/08/23 11/01/23 10/28/23 History warfarin 2.5 mg tablet 2.5 mg PO MOTUWETHFRSA@1800 11/01/23 11/01/23 10/31/23 History Physical Exam Vital Signs: Vital Signs: Last Vital Signs Temp 98 F 11/02/23 06:49 Pulse 80 11/02/23 06:49 Resp 14 11/02/23 06:49 BP 105/40 L 11/02/23 06:49 Pulse Ox 95 11/02/23 06:49 O2 Del Method Room Air 11/02/23 06:49 BMI result Body Mass Index 34.4 Const: Other: General awake alert x3, resting comfortably in no acute distress. Neck supple no JVD. CVS regular rate rhythm, Respiratory lungs clear to auscultation, no respiratory distress, no wheeze, no rhonchi. Gastrointestinal abdomen soft, non tender, bowel sounds audible, colostomy bag with gas, no guarding , no rigidity. Extremities no , edema. Neuro non focal Skin no rash Psych appropriate affect Results Labs 11/07/23 06:18 11/07/23 06:18 Labs: Short CBC 11/01/23 11/02/23 Range/Units 19:12 05:34 WBC 5.1 5.4 (4.8-10.8) X10*3/uL Hgb 14.1 12.9 (12.0-16.0) g/dl Hct 42.9 39.2 (37.0-47.0) % Plt Count 357 D 313 (160-400) X10*3/uL BMP 11/01/23 11/01/23 11/02/23 18:19 21:29 01:58 Sodium 132 L 135 135 Potassium 6.2 H* D 4.4 D 4.8 Chloride 100 105 109 H Carbon Dioxide 24 19 L 18 L BUN 56 H 49 H 49 H Creatinine 1.86 H 1.58 H 1.48 H Calcium 9.9 9.8 9.4 11/02/23 05:34 Sodium 137 Potassium 5.1 Chloride 110 H Carbon Dioxide 20 L BUN 49 H Creatinine 1.32 Calcium 9.4 Liver Function 11/01/23 11/02/23 Range/Units 18:19 05:34 Total Bilirubin 1.5 H 1.5 H (0.0-1.0) mg/dL AST 33 H 27 (5-31) U/L ALT 22 17 (0-31) U/L Alkaline Phosphatase 97 87 (39-117) U/L Albumin 3.4 L 3.0 L (3.5-5.0) g/dL Urine 11/01/23 Range/Units 19:40 Urine Color Yellow Urine Appearance Clear Urine pH 5.0 (5.0-9.0) Ur Specific [place] 1.010 (1.005-1.025) Urine Protein Negative (Neg-Trace) mg/dL Urine Glucose (UA) Negative (Negative) mg/dL Assessment and Plan (1) Colostomy status: Status: Acute (2) Dark stools: Status: Acute Plan 78 YF with atrial fibrillation on chronic anticoagulation with warfarin, status post colostomy, hyperlipidemia and hypertension seen at [facility] ED on 11/01/23 with increased output from her colostomy. Pt reports she had diarrhea with increased colostomy output since the past week. Since 11/01/23, she noted that the stools were black (initially stool was very watery). Patient denies taking any Pepto-Bismol, admits to being on oral iron - likely cause of black stools Pt reports having a colostomy 15 years ago at [facility] (? for abd pain versus diverticulitis) - pt denies a hx of colon cancer. Labs showed H & H of 14.1 & 42.9 yesterday and 12.9 & 39.2 today Stool Hemoccult x 2 was negative. RECOMMENDATIONS: 1. Agree with IV PPI and antiemetics. 2. Check CBC daily (remained stable) and repeat stool hemoccult testing (negative) . 3. If H & H remains stable and stool hemoccults are negative, pt can be discharged home in the am. 4. If pt has overt GI bleeding, further evaluation with EGD and colonoscopy can be scheduled. Procedures Date of Service Date of Service: 11/14/23
[2023-11-02 08:00] VITALS: BP 117/52; PULSE 82; RESP 18; O2SAT 97
[2023-11-02] MEDS: Pantoprazole Sodium 40 MG/10 ML VIAL IVPUSH ×2 (08:03→16:35)
[2023-11-02] MEDS: Magnesium Oxide 400 MG TABLET PO ×2 (08:03→16:35)
--- NOTE | 2023-11-02 08:14 | PC.NURSE ---
alert and oriented, respirations even and unlabored. patient denies any diarrhea throughout the night. medicated per the MAR, held metoprolol d/t low blood pressures/NPO status. GI in meeting with patient, repositioned in bed at this time. call sewell within reach.
--- NOTE | 2023-11-02 09:20 | MHC.CM.PN ---
Janessa lives alone and is active with [facility]; home/resume said services is the goal. CM has initiated and will follow for dc planning. PCP is Dr. Eloisa Veronica.CM is attempting to get a copy of the HCP.
[2023-11-02 09:23] VITALS: BP 104/59; PULSE 92; RESP 20; TEMP 36.5; O2SAT 96
[2023-11-02 11:38] VITALS: BP 103/56; PULSE 80; RESP 20; TEMP 36.5; O2SAT 95
[2023-11-02] MEDS: 0.9 % Sodium Chloride 1,000 ML 75 ML IVCONT (12:25)
--- NOTE | 2023-11-02 12:32 | MHC.CM.PN ---
CM has assisted Patient with the completion of a HCP; it has been uploaded into [facility] and placed on the chart as well.
[2023-11-02 12:47] LABS: OBS Int Ctl Valid YES; OBS1 NEGATIVE (NEGATIVE)
--- NOTE | 2023-11-02 14:07 | P.PNIM_ITS ---
Subjective Subjective Date of Service: 11/02/23 Interval History: Offers no acute complaints being followed for black stools, had no recurrent stools this morning, has gas and colostomy bag, denies nausea, no vomiting, no abdominal pain, no fevers, no chills, blood pressure improved. No acute events overnight. Review of Systems All other system reviewed and negative Physical Exam 2 Vital Signs: Vital Signs: Last Vital Signs Temp 97.7 F 11/02/23 11:38 Pulse 80 11/02/23 11:38 Resp 20 11/02/23 11:38 BP 103/56 L 11/02/23 11:38 Pulse Ox 95 11/02/23 11:38 O2 Del Method Room Air 11/02/23 11:38 BMI result Body Mass Index 34.4 Const: Other: General awake alert x3, resting comfortably in no acute distress. Neck supple no JVD. CVS regular rate rhythm, Respiratory lungs clear to auscultation, no respiratory distress, no wheeze, no rhonchi. Gastrointestinal abdomen soft, non tender, bowel sounds audible, colostomy bag with gas, no guarding , no rigidity. Extremities no , edema. Neuro non focal Skin no rash Psych appropriate affect Objective Data Active Medications Acetaminophen (Acetaminophen 325 Mg Tablet) 650 mg PO Q6H PRN PRN Reason: Pain, Mild (Pain Scale 1-3) Sodium Chloride (Ns) 1,000 mls @ 75 mls/hr IVCONT .[id number] [facility] Last Admin: 11/02/23 12:25 Dose: 75 mls/hr Documented By: MARGY Magnesium Oxide (Magnesium [facility]ide 400 Mg Tablet) [facility] Last Admin: 11/02/23 08:03 Dose: 400 mg Documented By: ANSELMO Metoprolol Succinate (Metoprolol Succinate Er 50 Mg Tab.Er.24h) 50 mg PO DAILY [facility]; Protocol Last Admin: 11/02/23 08:03 Dose: Not Given Documented By: ANSELMO Non-Admin Reason: Decreased Blood Pressure Pantoprazole Sodium (Pantoprazole Sodium 40 Mg/10 Ml Vial) 40 mg IVPUSH BID@0630,1630 [facility] Last Admin: 11/02/23 08:03 Dose: 40 mg Documented By: ANSELMO Sodium Chloride (0.9 % Sodium Chloride Flush 3 Ml Syringe) 3 ml IVFLUSH QSHIFT [facility] Last Admin: 11/02/23 08:02 Dose: Not Given Documented By: ANSELMO Non-Admin Reason: IV Running Labs 11/02/23 05:34 11/02/23 05:34 Labs: Laboratory Results - last 24 hr 11/01/23 11/01/23 11/01/23 17:11 17:18 18:19 MCV MCH MCHC RDW Plt Count MPV Immature Gran % (Auto) Neut % (Auto) Lymph % (Auto) [place] % (Auto) Eos % (Auto) Baso % (Auto) Lymph # (Auto) [place] # (Auto) Eos # (Auto) Baso # (Auto) Abs Immat Gran (auto) Absolute Neuts (auto) Absolute Nucleated RBC Nucleated RBC % (auto) PT 29.5 H D INR 2.4 H Anion Gap 14 Estim Creat Clear Calc 25.3 Estimated GFR 26 POC Glucose Random Glucose 109 Lactic Acid Calcium 9.9 Magnesium 2.2 Total Bilirubin 1.5 H AST 33 H ALT 22 Alkaline Phosphatase 97 Troponin I High Sens 15.8 D Total Protein 8.1 H Albumin 3.4 L Urine Color Urine Appearance Urine pH Ur Specific [place] Urine Protein Urine Glucose (UA) Urine Ketones Urine Blood Urine Nitrite Ur Leukocyte Esterase Urine RBC Urine WBC Ur Squamous Epith Cells Urine Bacteria Hyaline Casts Stool Occult Blood NEGATIVE C. difficile Tox B Gene Influenza Type A (PCR) NEGATIVE Influenza Type B (PCR) NEGATIVE RSV RNA Qual (PCR) NEGATIVE SARS-CoV-2 RNA (RT-PCR) NEGATIVE Blood Type O Positive Antibody Screen NEGATIVE 11/01/23 11/01/23 11/01/23 18:33 19:12 19:40 MCV 77.6 L MCH 25.5 L MCHC 32.9 RDW 18.1 H Plt Count 357 D MPV 9.5 Immature Gran % (Auto) 0.4 Neut % (Auto) 67.1 Lymph % (Auto) 17.5 L [place] % (Auto) 13.6 H Eos % (Auto) 0.4 Baso % (Auto) 1.0 Lymph # (Auto) 0.9 L [place] # (Auto) 0.7 Eos # (Auto) 0.0 Baso # (Auto) 0.1 Abs Immat Gran (auto) 0.02 Absolute Neuts (auto) 3.4 Absolute Nucleated RBC 0.000 Nucleated RBC % (auto) 0.0 PT INR Anion Gap Estim Creat Clear Calc Estimated GFR POC Glucose Random Glucose Lactic Acid Calcium Magnesium Total Bilirubin AST ALT Alkaline Phosphatase Troponin I High Sens Total Protein Albumin Urine Color Yellow Urine Appearance Clear Urine pH 5.0 Ur Specific [place] 1.010 Urine Protein Negative Urine Glucose (UA) Negative Urine Ketones Negative Urine Blood Negative Urine Nitrite Negative Ur Leukocyte Esterase Small (1+) H Urine RBC 0-2 Urine WBC 6-10 H Ur Squamous Epith Cells 3-5 Urine Bacteria None Seen Hyaline Casts 3-5 Stool Occult Blood C. difficile Tox B Gene NEGATIVE Influenza Type A (PCR) Influenza Type B (PCR) RSV RNA Qual (PCR) SARS-CoV-2 RNA (RT-PCR) Blood Type Antibody Screen 11/01/23 11/01/23 11/02/23 20:24 21:29 01:58 MCV MCH MCHC RDW Plt Count MPV Immature Gran % (Auto) Neut % (Auto) Lymph % (Auto) [place] % (Auto) Eos % (Auto) Baso % (Auto) Lymph # (Auto) [place] # (Auto) Eos # (Auto) Baso # (Auto) Abs Immat Gran (auto) Absolute Neuts (auto) Absolute Nucleated RBC Nucleated RBC % (auto) PT INR Anion Gap 15 13 Estim Creat Clear Calc 29.8 31.9 Estimated GFR 31 34 POC Glucose 233 H Random Glucose 128 H 80 Lactic Acid 1.3 Calcium 9.8 9.4 Magnesium 1.9 Total Bilirubin AST ALT Alkaline Phosphatase Troponin I High Sens Total Protein Albumin Urine Color Urine Appearance Urine pH Ur Specific [place] Urine Protein Urine Glucose (UA) Urine Ketones Urine Blood Urine Nitrite Ur Leukocyte Esterase Urine RBC Urine WBC Ur Squamous Epith Cells Urine Bacteria Hyaline Casts Stool Occult Blood C. difficile Tox B Gene Influenza Type A (PCR) Influenza Type B (PCR) RSV RNA Qual (PCR) SARS-CoV-2 RNA (RT-PCR) Blood Type Antibody Screen 11/02/23 11/02/23 05:34 11:20 MCV 78.6 L MCH 25.9 L MCHC 32.9 RDW 18.3 H Plt Count 313 MPV 9.8 Immature Gran % (Auto) 0.4 Neut % (Auto) 67.1 Lymph % (Auto) 18.6 L [place] % (Auto) 11.9 H Eos % (Auto) 1.3 Baso % (Auto) 0.7 Lymph # (Auto) 1.0 L [place] # (Auto) 0.6 Eos # (Auto) 0.1 Baso # (Auto) 0.0 Abs Immat Gran (auto) 0.02 Absolute Neuts (auto) 3.6 Absolute Nucleated RBC 0.000 Nucleated RBC % (auto) 0.0 PT 30.4 H INR 2.5 H Anion Gap 12 Estim Creat Clear Calc 35.7 Estimated GFR 39 POC Glucose Random Glucose 81 Lactic Acid Calcium 9.4 Magnesium Total Bilirubin 1.5 H AST 27 ALT 17 Alkaline Phosphatase 87 Troponin I High Sens Total Protein 7.0 Albumin 3.0 L Urine Color Urine Appearance Urine pH Ur Specific [place] Urine Protein Urine Glucose (UA) Urine Ketones Urine Blood Urine Nitrite Ur Leukocyte Esterase Urine RBC Urine WBC Ur Squamous Epith Cells Urine Bacteria Hyaline Casts Stool Occult Blood NEGATIVE C. difficile Tox B Gene Influenza Type A (PCR) Influenza Type B (PCR) RSV RNA Qual (PCR) SARS-CoV-2 RNA (RT-PCR) Blood Type Antibody Screen Microbiology Microbiology Results: Microbiology 11/01/23 19:56 Urine Culture - Preliminary Urine clean catch - Urine ham top Culture too young to evaluate. Assessment and Plan (1) Hyperkalemia: Status: Acute (2) ALPHONSO (acute kidney injury): Status: Acute (3) Diarrhea: Status: Acute Plan Janessa Ribeiro is 78 years old woman with past medical history significant for atrial fibrillation on chronic anticoagulation with warfarin and s/p colostomy admitted with: Acute kidney injury Likely due to GI loss from diarrhea with concomitant use of diuretics, Lasix, Aldactone and lisinopril Renal function significantly improved creatinine 1.86 on admission down to 1.32 continue to hold Lasix, spironolactone and lisinopril Follow BMP, avoid nephrotoxins continue IV fluids Hyperkalemia likely secondary to spironolactone , potassium and lisinopril use. Potassium normalized will DC potassium supplement and hold spironolactone Dark stools (stool for occult blood negative), no recurrent dark stools this morning, hematocrit dropped but remained stable, continue Protonix, Seen by GI they place on clear liquid diet, additional stool sent for guaiac, hold Coumadin for now, follow PT INR and CBC Hypotension and tachycardia secondary to dehydration, resolved. No fever. No evidence of acute infection. Doubt sepsis. Lactic acid normal, Continue IV fluids. Continue to monitor vital signs. Essential hypertension. Continue metoprolol if BP allows. Class 1 obesity weight loss recommended Paroxysmal atrial fibrillation rate control continue metoprolol, Coumadin on hold History of right-sided heart failure, appears euvolemic hold diuretics due to hypotension and ALPHONSO. DVT prophylaxis: SCDs (INR is currently therapeutic). Code status: Full Patient will need continued inpatient hospitalization for monitoring of black stools while on Coumadin requires expert consultation and close electrolyte and CBC monitoring . Quality Stroke Does the patient have a stroke diagnosis?: No VTE Prior VTE?: No VTE Risk Level:: Medical - moderate - high VTE Device Contraindication: N/A - Device Ordered VTE Drug Contraindication: Treatment Not Indicated
[2023-11-02 15:26] VITALS: BP 115/59; PULSE 75; RESP 18; TEMP 36.6; O2SAT 96
[2023-11-02] MEDS: 0.9 % Sodium Chloride Flush 3 ML SYRINGE IVFLUSH (16:35)
[2023-11-02 19:28] VITALS: BP 116/66; PULSE 76; RESP 18; TEMP 36.1; O2SAT 95
[2023-11-03] VITALS: BP 118/56; PULSE 91; RESP 20; TEMP 36.4; O2SAT 96
[2023-11-03] MEDS: 0.9 % Sodium Chloride Flush 3 ML SYRINGE IVFLUSH ×3 (00:14→17:32)
[2023-11-03 03:23] VITALS: BP 120/68; PULSE 89; RESP 18; TEMP 36.6; O2SAT 93
[2023-11-03] MEDS: Pantoprazole Sodium 40 MG/10 ML VIAL IVPUSH (05:54)
[2023-11-03 06:44] LABS: Anion Gap 10 (12-20); Blood Urea Nitrogen 29 mg/dL (9-16); Calcium 9.5 mg/dL (8.4-10.2); Carbon Dioxide 24 mmol/L (22-29); Chloride 111 mmol/L (96-108); Creatinine Clr Calc Pharmacy 42.5; Estimated Glomerular Filt Rate 47; Glucose Random 80 mg/dL (60-115); Potassium 4.7 mmol/L (3.3-5.1); Sodium 140 mmol/L (135-145)
[2023-11-03 06:48] LABS: Hematocrit 40.6 % (37.0-47.0); Hemoglobin 13.4 g/dl (12.0-16.0); Mean Corpuscular Volume 78.8 fL (80.0-98.0); Mean Platelet Volume 9.6 fL (9.4-12.3); Platelet Count 317 X10*3/uL (160-400); Red Blood Count 5.15 X10*6/uL (4.20-5.50); Red Cell Distribution Width 18.5 % (11.0-16.0); White Blood Count 3.7 X10*3/uL (4.8-10.8)
[2023-11-03 07:03] LABS: INTERNATIONAL NORM RATIO 2.4 (0.9-1.1); Prothrombin Time 29.8 SEC (11.1-13.3)
[2023-11-03 07:16] VITALS: BP 142/64; PULSE 81; RESP 18; TEMP 36.3; O2SAT 95
[2023-11-03] MEDS: Metoprolol Succinate ER 50 MG TAB.ER.24H PO (10:02)
[2023-11-03] MEDS: Magnesium Oxide 400 MG TABLET PO ×2 (10:02→17:32)
[2023-11-03 11:17] VITALS: BP 99/54; PULSE 73; RESP 18; TEMP 36.1; O2SAT 96
--- NOTE | 2023-11-03 12:56 | HO.PM.IMPN ---
Subjective Subjective Date of Service: 11/03/23 Interval History: Complaining of lightheadedness with ambulation never had similar symptoms in the past, denies headache, no chest pain, denies palpitations, hematocrit stable, normal renal function and electrolytes Tolerated breakfast, no nausea, no vomiting, no abdominal pain, no diarrhea, no urinary symptoms. Review of Systems All other system reviewed and negative. Physical Exam Vital Signs: Vital Signs: Last Vital Signs Temp 97.0 F 11/03/23 11:17 Pulse 73 11/03/23 11:17 Resp 18 11/03/23 11:17 BP 99/54 L 11/03/23 11:17 Pulse Ox 96 11/03/23 11:17 O2 Del Method Room Air 11/03/23 11:17 BMI result Body Mass Index 34.4 Const: Other: General awake alert x3, resting comfortably in no acute distress. Neck supple no JVD. CVS regular rate rhythm, Respiratory lungs clear to auscultation, no respiratory distress, no wheeze, no rhonchi. Gastrointestinal abdomen soft, non tender, bowel sounds audible, colostomy bag with gas, no guarding , no rigidity. Extremities no , edema. Neuro non focal Skin no rash Psych appropriate affect Objective Data Active Medications Acetaminophen (Acetaminophen 325 Mg Tablet) 650 mg PO Q6H PRN PRN Reason: Pain, Mild (Pain Scale 1-3) Magnesium Oxide (Magnesium Oxide 400 Mg Tablet) 400 mg PO BIDPC [facility] Last Admin: 11/03/23 10:02 Dose: 400 mg Documented By: EVON Metoprolol Succinate (Metoprolol Succinate Er 50 Mg Tab.Er.24h) 50 mg PO DAILY [facility]; Protocol Last Admin: 11/03/23 10:02 Dose: 50 mg Documented By: EVON Pantoprazole Sodium (Pantoprazole Sodium 40 Mg/10 Ml Vial) 40 mg IVPUSH BID@0630,1630 [facility] Last Admin: 11/03/23 05:54 Dose: 40 mg Documented By: DRU Sodium Chloride (0.9 % Sodium Chloride Flush 3 Ml Syringe) 3 ml IVFLUSH QSHIFT [facility] Last Admin: 11/03/23 10:02 Dose: 3 ml Documented By: EVON Labs 11/03/23 05:52 11/03/23 05:52 Labs: Laboratory Results - last 24 hr 11/02/23 11/03/23 11:20 05:52 MCV 78.8 L MCH 26.0 L MCHC 33.0 RDW 18.5 H Plt Count 317 MPV 9.6 Absolute Nucleated RBC 0.000 Nucleated RBC % (auto) 0.0 PT 29.8 H INR 2.4 H Anion Gap 10 L Estim Creat Clear Calc 42.5 Estimated GFR 47 Random Glucose 80 Calcium 9.5 Stool Collect Date Cancelled Stool Occult Blood Cancelled Stool 2 Collect Date Cancelled Stool Occult Blood #2 Cancelled Stool 3 Collect Date Cancelled Stool Occult Blood #3 Cancelled Microbiology Microbiology Results: Microbiology 11/01/23 19:56 Urine Culture - Final Urine clean catch - Urine ham top Assessment and Plan (1) Hyperkalemia: Status: Acute (2) ALPHONSO (acute kidney injury): Status: Acute (3) Diarrhea: Status: Acute Plan Janessa Ribeiro is 78 years old woman with past medical history significant for atrial fibrillation on chronic anticoagulation with warfarin and s/p colostomy admitted with: Acute kidney injury Resolved was likely due to GI loss from diarrhea with concomitant use of diuretics, Lasix, Aldactone and lisinopril Renal function normalized, continue to hold Lasix, spironolactone and lisinopril Follow BMP, avoid nephrotoxins s/p ivf, recommend by mouth fluids Hyperkalemia likely secondary to spironolactone , potassium and lisinopril use. Potassium normalized , potassium supplement and spironolactone discontinued Dark stools (stool for occult blood negative), no recurrent dark stools this morning, hematocrit stable, dc iv Protonix, Diet advanced, stool guaiac x2 negative, will resume Coumadin,follow PT INR and CBC Case discussed with Gastroenterology Hypotension and tachycardia secondary to dehydration, continue beta-blockers, No evidence of acute infection,Lactic acid normal, Continue to monitor vital signs. Persistent lightheadedness with ambulation recommend by mouth fluids monitor BP Essential hypertension. on metoprolol XL 50 mg daily home dose, all other antihypertensive on hold noted to have drop in blood pressure 99/54, patient is symptomatic will give albumin ,avoid fluids with history of right-sided heart failure. Class 1 obesity weight loss recommended Paroxysmal atrial fibrillation rate control continue metoprolol, Coumadin for AC History of right-sided heart failure, appears euvolemic hold diuretics due to hypotension and ALPHONSO. DVT prophylaxis: SCDs (INR is currently therapeutic). Code status: Full Patient will need continued inpatient hospitalization for monitoring of black stools while on Coumadin /symptomatic mild hypotension, requires CBC monitoring . Quality Stroke Does the patient have a stroke diagnosis?: No VTE Prior VTE?: No VTE Risk Level:: Medical - moderate - high VTE Device Contraindication: N/A - Device Ordered VTE Drug Contraindication: Treatment Not Indicated
[2023-11-03] MEDS: Albumin Human 25 % 100 ML IV ×2 (14:30→18:42)
[2023-11-03 15:21] VITALS: BP 91/54; PULSE 78; RESP 18; TEMP 36.2; O2SAT 96
[2023-11-03] MEDS: Warfarin Sodium 2.5 MG TABLET PO ×2 (17:32→17:40)
[2023-11-03 20:00] VITALS: BP 120/70; PULSE 88; RESP 16; TEMP 36.2; O2SAT 96
[2023-11-04] VITALS (7 sets, daily range): BP systolic 96–147; BP diastolic 52–88; PULSE 71–94; RESP 16–18; TEMP 36.1–36.4; O2SAT 95–97
[2023-11-04 08:43] LABS: Hematocrit 40.1 % (37.0-47.0); Hemoglobin 13.2 g/dl (12.0-16.0); Mean Corpuscular HGB Conc 32.9 g/dl (31.0-35.0); Mean Corpuscular Hemoglobin 26.1 pg (27.0-33.0); Mean Corpuscular Volume 79.4 fL (80.0-98.0); Mean Platelet Volume 9.7 fL (9.4-12.3); Platelet Count 284 X10*3/uL (160-400); Red Blood Count 5.05 X10*6/uL (4.20-5.50); Red Cell Distribution Width 18.3 % (11.0-16.0); White Blood Count 4.6 X10*3/uL (4.8-10.8)
[2023-11-04 08:47] LABS: INTERNATIONAL NORM RATIO 2.2 (0.9-1.1); Prothrombin Time 26.4 SEC (11.1-13.3)
[2023-11-04 09:06] LABS: Anion Gap 13 (12-20); Blood Urea Nitrogen 29 mg/dL (9-16); Calcium 9.8 mg/dL (8.4-10.2); Carbon Dioxide 26 mmol/L (22-29); Chloride 106 mmol/L (96-108); Creatinine Clr Calc Pharmacy 40.6; Estimated Glomerular Filt Rate 45; Glucose Random 70 mg/dL (60-115); Potassium 4.5 mmol/L (3.3-5.1); Sodium 140 mmol/L (135-145)
[2023-11-04] MEDS: Metoprolol Succinate ER 25 MG TAB.ER.24H PO (09:35)
[2023-11-04] MEDS: Magnesium Oxide 400 MG TABLET PO ×2 (09:35→18:09)
[2023-11-04] MEDS: 0.9 % Sodium Chloride Flush 3 ML SYRINGE IVFLUSH ×3 (09:35→21:56)
--- NOTE | 2023-11-04 11:28 | P.CONCA_ITS ---
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 She has a chronic colostomy and noticed significant output from colostomy with loose stools. She presented to the emergency department because the stools were black in color. She was on iron supplements. No significant bleeding has been noted. But she was noticed to have kidney injury with hyperkalemia. Her diuretics were held. She also noticed some dizziness while walking and her blood pressure was noted to be borderline. She has RV dysfunction previously and presented with significant volume overload previously and was diuresed with adjustment of her diuretics as well as addition of spironolactone. Currently she appears to be somewhat dehydrated. [facility] Past Medical History Medical History Osteoporosis Hyperlipidemia Hypertension Atrial fibrillation Social History Social History Household Members: None Housing: House Do you presently have visiting nurse or other home services: Yes Alcohol intake: former Patient Tobacco Use Status: Never used Tobacco Advance Directives Date on File: 11/02/23 service: No Meds Allergies Allergy/AdvReac Type Severity Reaction Status Date / Time No Known Allergies Allergy Verified 08/21/22 11:14 [No Known Allergies*] Active Medications: Current Medications Acetaminophen (Acetaminophen 325 Mg Tablet) 650 mg PO Q6H PRN PRN Reason: Pain, Mild (Pain Scale 1-3) Magnesium Oxide (Magnesium Oxide 400 Mg Tablet) 400 mg PO BIDPC [facility] Last Admin: 11/04/23 09:35 Dose: 400 mg Metoprolol Succinate (Metoprolol Succinate Er 25 Mg Tab.Er.24h) 25 mg PO DAILY [facility]; Protocol Last Admin: 11/04/23 09:35 Dose: 25 mg Sodium Chloride (0.9 % Sodium Chloride Flush 3 Ml Syringe) 3 ml IVFLUSH QSHIFT [facility] Last Admin: 11/04/23 09:35 Dose: 3 ml Warfarin Sodium (Warfarin Sodium 2.5 Mg Tablet) 2.5 mg PO MOTUWETHFRSA@1800 [facility] Last Admin: 11/03/23 17:40 Dose: 2.5 mg Home Medications Medication Instructions Recorded Confirmed Last Taken Type alendronate 70 mg tablet 70 mg PO BLUNT 10/08/23 11/01/23 10/28/23 History amlodipine 5 mg tablet 5 mg PO BEDTIME 10/08/23 11/01/23 10/31/23 History calcium carbonate 500 mg-vitamin 1 tab PO DAILY 10/08/23 11/01/23 11/01/23 History D3 10 mcg (400 unit) tablet (Calcium 500 + D) lisinopril 40 mg tablet 40 mg PO BEDTIME 10/08/23 11/01/23 10/31/23 History potassium chloride 20 mEq 20 meq PO DAILY 10/08/23 11/01/23 11/01/23 History tablet,extended release(part/cryst) warfarin 2.5 mg tablet 5 mg PO Blunt@1800 10/08/23 11/01/23 10/28/23 History warfarin 2.5 mg tablet 2.5 mg PO MOTUWETHFRSA@1800 11/01/23 11/01/23 10/31/23 History Physical Exam 2 Vital Signs: Vital Signs: Last Vital Signs Temp 97.6 F 11/04/23 08:00 Pulse 72 11/04/23 08:00 Resp 18 11/04/23 08:00 BP 119/88 11/04/23 08:00 Pulse Ox 96 11/04/23 08:00 O2 Del Method Room Air 11/04/23 08:00 BMI result Body Mass Index 34.4 GENERAL APPEARANCE: in no acute distress, pleasant. NECK: no carotid bruit, no jugular venous distention. SKIN: no suspicious lesions, warm and dry. HEART: no murmurs, irregular rate and rhythm. LUNGS: clear to auscultation bilaterally. ABDOMEN: soft, nontender. EXTREMITIES: no edema. PERIPHERAL PULSES: equal. NEUROLOGIC: No gross deficits, AAO X 3 Objective Labs and Meds 11/04/23 06:27 11/04/23 06:27 Lab results: Laboratory Results - last 24 hr 11/04/23 06:27 WBC 4.6 L RBC 5.05 Hgb 13.2 Hct 40.1 MCV 79.4 L MCH 26.1 L MCHC 32.9 RDW 18.3 H Plt Count 284 MPV 9.7 Absolute Nucleated RBC 0.000 Nucleated RBC % (auto) 0.0 PT 26.4 H INR 2.2 H Sodium 140 Potassium 4.5 Chloride 106 Carbon Dioxide 26 Anion Gap 13 BUN 29 H Creatinine 1.16 Estim Creat Clear Calc 40.6 Estimated GFR 45 Random Glucose 70 Calcium 9.8 Assessment and Plan (1) Acute dehydration: Status: Acute (2) Permanent atrial fibrillation: Status: Acute Plan Pleasant 78-year-old female with permanent atrial fibrillation and RV dysfunction who recently was admitted to [facility] with decompensated right-sided heart failure who is now presenting with dehydration in the setting of diarrhea and black stools. No significant bleeding had been noticed and this could be all related to iron supplements. Only differences that iron usually would cause constipation or then diarrhea. She has been noticed to be hypotensive and complained of dizziness. Diuretics have been held appropriately. Her metoprolol succinate dose was decreased to 25 mg daily. If she continues to have dizziness I think metoprolol should be discontinued for now. Clinically she is still dehydrated. I would gently hydrate her at 75 cc/hour x3 100 mL only and reassess her orthostatics. Based on blood pressure we will resume her home medications. We will follow along with you. Thank you for allowing me to participate in the care of your patient. Please feel free to contact me if you have any questions. Procedures Date of Service Date of Service: 11/04/23
--- NOTE | 2023-11-04 11:45 | P.PNIM_ITS ---
Subjective Subjective Date of Service: 11/04/23 Interval History: Feeling better this morning less lightheaded, blood pressure improved , denies dizziness, no shortness of breath, no chest pain, tolerating diet no nausea no vomiting no abdominal pain, no diarrhea, denies PND, no orthopnea. Review of Systems All other system reviewed and negative. Physical Exam 2 Vital Signs: Vital Signs: Last Vital Signs Temp 97.4 F 11/04/23 11:25 Pulse 76 11/04/23 11:25 Resp 18 11/04/23 11:25 BP 96/52 L 11/04/23 11:25 Pulse Ox 95 11/04/23 11:25 O2 Del Method Room Air 11/04/23 11:25 BMI result Body Mass Index 34.4 Const: Other: General awake alert x3, resting comfortably in no acute distress. Neck supple no JVD. CVS regular rate rhythm, Respiratory lungs clear to auscultation, no respiratory distress, no wheeze, no rhonchi. Gastrointestinal abdomen soft, non tender, bowel sounds audible, colostomy functioning well, no guarding , no rigidity. Extremities no , edema. Groin rash consistent with Natalie intertrigo Neuro non focal Skin no rash Psych appropriate affect Objective Data Active Medications Acetaminophen (Acetaminophen 325 Mg Tablet) 650 mg PO Q6H PRN PRN Reason: Pain, Mild (Pain Scale 1-3) Magnesium Oxide (Magnesium [facility] 400 Mg Tablet) [facility] Last Admin: 11/04/23 09:35 Dose: 400 mg Documented By: EVON Metoprolol Succinate (Metoprolol Succinate Er 25 Mg Tab.Er.24h) 25 mg PO DAILY [facility]; Protocol Last Admin: 11/04/23 09:35 Dose: 25 mg Documented By: EVON Sodium Chloride (0.9 % Sodium Chloride Flush 3 Ml Syringe) 3 ml IVFLUSH QSHIFT [facility] Last Admin: 11/04/23 09:35 Dose: 3 ml Documented By: EVON Warfarin Sodium (Warfarin Sodium 2.5 Mg Tablet) 2.5 mg PO MOTUWETHFRSA@1800 [facility] Last Admin: 11/03/23 17:40 Dose: 2.5 mg Documented By: EVON Labs 11/04/23 06:27 11/04/23 06:27 Labs: Laboratory Results - last 24 hr 11/04/23 06:27 MCV 79.4 L MCH 26.1 L MCHC 32.9 RDW 18.3 H Plt Count 284 MPV 9.7 Absolute Nucleated RBC 0.000 Nucleated RBC % (auto) 0.0 PT 26.4 H INR 2.2 H Anion Gap 13 Estim Creat Clear Calc 40.6 Estimated GFR 45 Random Glucose 70 Calcium 9.8 Microbiology Microbiology Results: Microbiology 11/01/23 19:56 Urine Culture - Final Urine clean catch - Urine ham top Assessment and Plan (1) Hyperkalemia: Status: Acute (2) ALPHONSO (acute kidney injury): Status: Acute (3) Diarrhea: Status: Acute Plan Janessa Ribeiro is 78 years old woman with past medical history significant for atrial fibrillation on chronic anticoagulation with warfarin and s/p colostomy admitted with: Acute kidney injury Resolved was likely due to GI loss from diarrhea with concomitant use of diuretics, Lasix, Aldactone and lisinopril Renal function normalized, continue to hold Lasix, spironolactone and lisinopril Follow BMP, avoid nephrotoxins , give additional IV fluids due to persistent lightheadedness Hyperkalemia likely secondary to spironolactone , potassium and lisinopril use. Potassium normalized , potassium supplement and spironolactone discontinued Dark stools (stool for occult blood negative), no recurrent dark stools this morning, hematocrit stable, dc iv Protonix, Diet advanced, stool guaiac x2 negative, continue Coumadin,follow PT INR and CBC Case discussed with Gastroenterology Hypotension and tachycardia secondary to dehydration, continue low-dose beta- blockers, No evidence of acute infection,Lactic acid normal, Continue to monitor vital signs. Persistent lightheadedness with ambulation , give IV fluids, monitor BP Essential hypertension. on metoprolol XL 50 mg daily home dose, will reduced to metoprolol XL 25 mg daily due to soft blood pressures all other antihypertensive on hold Due to soft blood pressure. Class 1 obesity weight loss recommended Paroxysmal atrial fibrillation rate control continue metoprolol, Coumadin for AC History of right-sided heart failure, appears euvolemic hold diuretics due to hypotension and ALPHONSO. Obtained Cardiology consultation case discussed with Dr. Salter recommend to give IV fluid 300 mL total and agree with above treatment plan. DVT prophylaxis: SCDs (INR is currently therapeutic). Code status: Full Patient will need continued inpatient hospitalization for monitoring of black stools while on Coumadin /symptomatic mild hypotension, requires CBC monitoring . Quality Stroke Does the patient have a stroke diagnosis?: No VTE Prior VTE?: No VTE Risk Level:: Medical - moderate - high VTE Device Contraindication: N/A - Device Ordered VTE Drug Contraindication: Treatment Not Indicated
[2023-11-04] MEDS: Warfarin Sodium 5 MG TABLET PO (18:09)
[2023-11-04] MEDS: 0.9 % Sodium Chloride 500 ML 75 ML IVCONT (19:06)
[2023-11-05] VITALS (9 sets, daily range): BP systolic 56–130; BP diastolic 40–69; PULSE 65–83; RESP 16–18; TEMP 36.3–36.6; O2SAT 95–98
[2023-11-05 07:08] LABS: INTERNATIONAL NORM RATIO 1.7 (0.9-1.1); Prothrombin Time 20.4 SEC (11.1-13.3)
[2023-11-05 07:43] LABS: Anion Gap 11 (12-20); Blood Urea Nitrogen 28 mg/dL (9-16); Calcium 9.7 mg/dL (8.4-10.2); Carbon Dioxide 25 mmol/L (22-29); Chloride 108 mmol/L (96-108); Creatinine Clr Calc Pharmacy 46.7; Estimated Glomerular Filt Rate 53; Glucose Random 84 mg/dL (60-115); Potassium 4.3 mmol/L (3.3-5.1); Sodium 140 mmol/L (135-145)
[2023-11-05] MEDS: Magnesium Oxide 400 MG TABLET PO ×2 (09:50→17:38)
[2023-11-05] MEDS: 0.9 % Sodium Chloride Flush 3 ML SYRINGE IVFLUSH (09:51)
--- NOTE | 2023-11-05 11:03 | PM.PNCARD ---
Subjective Subjective Date of Service: 11/05/23 Principal diagnosis: Lightheadedness Interval history: Patient says she continues to feel lightheadedness when she was standing in the bathroom. No syncopal episodes. Does not feel well. No shortness of breath, orthopnea, PND, leg edema. Received some IV fluids yesterday. Hematocrit is stable. Noted orthostatic vitals Review of Systems Constitutional: Reports weakness Cardiovascular: Denies chest pain, Denies pedal edema, Denies leg edema, Reports lightheadedness, Denies palpitations and Denies dyspnea Respiratory: Reports no additional respiratory complaints and Denies dyspnea Gastrointestinal: Reports no additional gastrointestinal complaints Genitourinary: Reports no additional female genitourinary complaints Reports system reviewed and no additional complaints, except as documented and Reports weakness Psychiatric: Reports no additional psychiatric complaints Endocrine: Denies palpitations Physical Exam Vital Signs: Last Vital Signs Temp 97.6 F 11/05/23 07:25 Pulse 80 11/05/23 07:25 Resp 16 11/05/23 07:25 BP 130/69 11/05/23 07:25 Pulse Ox 97 11/05/23 07:25 O2 Del Method Room Air 11/05/23 07:25 BMI result Body Mass Index 34.4 GENERAL APPEARANCE: in no acute distress, pleasant. NECK: no carotid bruit, no jugular venous distention. SKIN: no suspicious lesions, warm and dry. HEART: no murmurs, irregular rate and rhythm. LUNGS: clear to auscultation bilaterally. ABDOMEN: soft, nontender. EXTREMITIES: no edema. PERIPHERAL PULSES: equal. NEUROLOGIC: No gross deficits, AAO X 3 Objective Labs and Meds 11/04/23 06:27 11/05/23 06:16 Lab results: Laboratory Results - last 24 hr 11/05/23 06:16 PT 20.4 H D INR 1.7 H Sodium 140 Potassium 4.3 Chloride 108 Carbon Dioxide 25 Anion Gap 11 L BUN 28 H Creatinine 1.01 Estim Creat Clear Calc 46.7 Estimated GFR 53 Random Glucose 84 Calcium 9.7 Progress Note: A&P Assessment and plan (1) Lightheaded: Status: Acute Assessment and Plan: Lightheadedness with significant orthostasis noted on today's exam. Still appears to be related to significant volume depletion with reduction preload and RV dysfunction. I would continue to hydrate her with IV normal saline at 100 cc an hour can give her 1 L and reassess with orthostatic vitals. Hold off on diuretics. Discontinue lisinopril in the long run. Hold off on metoprolol for now, her rate is well controlled. There is no obvious signs of bleeding and hematocrit has remained stable. Will continue monitor and will follow with you. Time Spent With Patient Time: Total time managing care of this patient today ____ minutes. Progress Note: Quality Stroke Does the patient have a stroke diagnosis?: No Procedures Date of Service Date of Service: 11/05/23
[2023-11-05] MEDS: 0.9 % Sodium Chloride 1,000 ML 100 ML IVCONT (11:11)
--- NOTE | 2023-11-05 11:52 | MHC.CM.PN ---
PT NOT YET CLEARED TO DC DCP REMAINS HOME VIA PRIVATE TRANSPORT CM FOLLOWING FOR CHANGING DC NEEDS
--- NOTE | 2023-11-05 12:44 | P.PNIM_ITS ---
Subjective Subjective Date of Service: 11/05/23 Interval History: Continued to feel lightheaded with ambulation noted to have significant drop in blood pressure with standing , stable colostomy output, tolerating diet no nausea, no vomiting, no abdominal pain, no urinary symptoms, no acute events overnight. Review of Systems All other system reviewed and negative. Physical Exam 2 Vital Signs: Vital Signs: Last Vital Signs Temp 97.4 F 11/05/23 11:33 Pulse 73 11/05/23 11:33 Resp 18 11/05/23 11:33 BP 100/52 L 11/05/23 11:33 Pulse Ox 97 11/05/23 11:33 O2 Del Method Room Air 11/05/23 11:33 BMI result Body Mass Index 34.4 Const: Other: General awake alert x3, resting comfortably in no acute distress. Neck supple no JVD. CVS regular rate rhythm, Respiratory lungs clear to auscultation, no respiratory distress, no wheeze, no rhonchi. Gastrointestinal abdomen soft, non tender, bowel sounds audible, colostomy functioning well, no guarding , no rigidity. Extremities no , edema. Groin rash consistent with Natalie intertrigo Neuro non focal Skin no rash Psych appropriate affect Objective Data Active Medications Acetaminophen (Acetaminophen 325 Mg Tablet) 650 mg PO Q6H PRN PRN Reason: Pain, Mild (Pain Scale 1-3) Sodium Chloride (Ns) 1,000 mls @ 100 mls/hr IVCONT .Q10H [facility] Stop: 11/05/23 21:14 Last Admin: 11/05/23 11:11 Dose: 100 mls/hr Documented By: TASNEEM Magnesium Oxide (Magnesium Oxide 400 Mg Tablet) 400 mg PO BIDPC [facility] Last Admin: 11/05/23 09:50 Dose: 400 mg Documented By: TASNEEM Sodium Chloride (0.9 % Sodium Chloride Flush 3 Ml Syringe) 3 ml IVFLUSH QSHIFT [facility] Last Admin: 11/05/23 09:51 Dose: 3 ml Documented By: TASNEEM Warfarin Sodium (Warfarin Sodium 5 Mg Tablet) 5 mg PO [email or web address]@1800 [facility] Last Admin: 11/04/23 18:09 Dose: 5 mg Documented By: EVON Warfarin Sodium (Warfarin Sodium 2.5 Mg Tablet) 2.5 mg PO [email or web address]@1800 [facility] Labs 11/04/23 06:27 03/11/24 06:16 Labs: Laboratory Results - last 24 hr 11/05/23 06:16 PT 20.4 H D INR 1.7 H Anion Gap 11 L Estim Creat Clear Calc 46.7 Estimated GFR 53 Random Glucose 84 Calcium 9.7 Assessment and Plan (1) Hyperkalemia: Status: Acute (2) ALPHONSO (acute kidney injury): Status: Acute (3) Diarrhea: Status: Acute Plan Janessa Ribeiro is 78 years old woman with past medical history significant for atrial fibrillation on chronic anticoagulation with warfarin and s/p colostomy admitted with: Acute kidney injury Resolved was likely due to GI loss from diarrhea with concomitant use of diuretics, Lasix, Aldactone and lisinopril Renal function normalized, continue to hold Lasix, spironolactone and lisinopril Follow BMP, avoid nephrotoxins , give additional IV fluids due to persistent lightheadedness Hyperkalemia likely secondary to spironolactone , potassium and lisinopril use. Potassium normalized , potassium supplement and spironolactone discontinued Dark stools (stool for occult blood negative), no recurrent dark stools this morning, hematocrit stable, dc iv Protonix, Diet advanced, stool guaiac x2 negative, continue Coumadin,follow PT INR and CBC Case discussed with Gastroenterology Orthostatic Hypotension symptomatic, will treat with IV fluid x1 L, No evidence of acute infection,Lactic acid normal, stable heart rate will DC beta-blockers Essential hypertension. Hold all blood pressure medications due to persistent orthostatic hypotension. Class 1 obesity weight loss recommended Paroxysmal atrial fibrillation rate control continue metoprolol, Coumadin for AC, INR 1.7 will give additional 2.5 mg today and follow PT INR. History of right-sided heart failure, appears euvolemic hold diuretics due to hypotension and ALPHONSO. Obtained Cardiology consultation case discussed with Dr. Salter recommend to Hold all diuretics and close clinical follow-up. DVT prophylaxis: SCDs (INR is currently therapeutic). Code status: Full Patient will need continued inpatient hospitalization for monitoring of black stools while on Coumadin /symptomatic mild hypotension, requires CBC monitoring . Quality Stroke Does the patient have a stroke diagnosis?: No VTE Prior VTE?: No VTE Risk Level:: Medical - moderate - high VTE Device Contraindication: N/A - Device Ordered VTE Drug Contraindication: Treatment Not Indicated
[2023-11-05] MEDS: Warfarin Sodium 2.5 MG TABLET PO ×2 (17:38)
[2023-11-05] MEDS: Nystatin Powder 15 GM BOTTLE 1 APPL TOPICAL (23:05)
[2023-11-06] VITALS (10 sets, daily range): BP systolic 95–148; BP diastolic 53–85; PULSE 80–99; RESP 15–20; TEMP 36.1–36.8; O2SAT 96–97
[2023-11-06 07:11] LABS: INTERNATIONAL NORM RATIO 1.9 (0.9-1.1); Prothrombin Time 22.6 SEC (11.1-13.3)
[2023-11-06 07:23] LABS: Anion Gap 11 (12-20); Blood Urea Nitrogen 23 mg/dL (9-16); Calcium 9.4 mg/dL (8.4-10.2); Carbon Dioxide 25 mmol/L (22-29); Chloride 110 mmol/L (96-108); Creatinine Clr Calc Pharmacy 54.8; Estimated Glomerular Filt Rate > 60; Glucose Random 80 mg/dL (60-115); Potassium 4.1 mmol/L (3.3-5.1); Sodium 142 mmol/L (135-145)
[2023-11-06] MEDS: Magnesium Oxide 400 MG TABLET PO ×2 (09:15→17:44)
[2023-11-06] MEDS: 0.9 % Sodium Chloride Flush 3 ML SYRINGE IVFLUSH (09:15)
[2023-11-06] MEDS: Nystatin Powder 15 GM BOTTLE 1 APPL TOPICAL ×2 (09:16→20:04)
--- NOTE | 2023-11-06 10:13 | HO.WOUND ---
Wound Consult: Initial 78yr old?F admitted to [facility] on 11/01/23 - See progress notes and H&P for detailed history.? Wound consult placed for Buttock and groin assessment.? Patient agreeable to assessment and photo documentation.? Patient reports she has had rash to groin and umbilical area for a few months - she reports she has had fungal dermatitis in the past and has treated and resolved with nystatin powder. Nystain powder was started yesterday - pt educated to use for 10-14 days past clinical clears to eradicate fungal spore from skin. Patient is noted to have Colostomy pouch in place - no leaking or evidence of leaking noted - pt reports she has no issues of concerns with pouch. The Patient is noted to be in brief - significant education provided and encourage d/c of brief while inpatient since she is less active and should only be applied when up and out of bed. She reports understanding and is agreeable to mesh underwear and peripad for urinary leaking. Buttock was assessed and intergluteal pattern of MASD Intertrigo noted - There is red pink moist blanchable tissue noted scattered areas of small epidermal lifting noted - educated on barrier cream use while inpatient and at home. Demonstrates understanding. There is a dried crusted rash to the right buttock at appears to be shingles - notified Dr. Sim as chart review does not show history. There is no topical treatment needed at this time as they are crusted and resolving. The patient states there was not pain with the site but there was itching. She reports the site started as small intact red macular papluar rash then crusted and not to dried. She was advised this was shingles. Right buttock Shingles Rash - crusted and dried - resolving Intergluteal Buttock Right Groin Umbilical skin fold - Recommendations: 1. Turn and Reposition every 2 hours and as needed for patient comfort.? Use pillows or wedges to support off loading positions. 2. Off Load all bony prominences with use of pillows and heel boots if needed.? Apply Preventative foams where needed. ? 3. Monitor for incontinence and moisture control, use barrier creams when needed for prevention and treatment. 4. Provide adequate and supplemental nutrition.? 5. Order low air loss mattress. 6. Umbilical and Groin - Cleanse with PH balance wipes, pat dry with soft cloth.? Apply antifungal power to assist with moisture management.? Be sure to dust of excess powder to prevent caking on skin and in folds. Apply per provider orders. Apply barrier cream to open areas twice daily. 7. Buttocks - Off Load Pressure - Cleanse with PH balance spray or wipes, pat dry. ?Apply thin layer of barrier cream to wound bed. Reapply thin layer PRN after each episode of incontinence. Re-consult wound care Nurse for wound deterioration or wound changes.
--- NOTE | 2023-11-06 11:50 | P.PNIM_ITS ---
Subjective Subjective Date of Service: 11/06/23 Interval History: Complaining of persistent lightheadedness with standing and ambulation, no fevers, no chills, no dizziness, no chest pain, no shortness of breath slept well last night, noted to have dry crusted lesions extending from right buttock to rt. thigh noted by wound nurse patient denies pain or itching. Complaining of right groin discomfort. Review of Systems All other system reviewed and negative Physical Exam 2 Vital Signs: Vital Signs: Last Vital Signs Temp 97.0 F 11/06/23 10:59 Pulse 80 11/06/23 10:59 Resp 18 11/06/23 10:59 BP 95/53 L 11/06/23 10:59 Pulse Ox 97 11/06/23 10:59 O2 Del Method Room Air 11/06/23 10:59 BMI result Body Mass Index 34.4 Const: Other: General awake alert x3, resting comfortably in no acute distress. Neck supple, no JVD. CVS regular rate rhythm, Respiratory lungs clear to auscultation, no respiratory distress, no wheeze, no rhonchi. Gastrointestinal abdomen soft, non tender, bowel sounds audible, colostomy functioning well, no guarding , no rigidity. Extremities no , edema. Groin rash consistent with Natalie intertrigo Right buttock rash consistent with herpes zoster, no active lesion ,crusted and dry scabs Neuro non focal Skin no rash Psych appropriate affect Objective Data Active Medications Acetaminophen (Acetaminophen 325 Mg Tablet) 650 mg PO Q6H PRN PRN Reason: Pain, Mild (Pain Scale 1-3) Sodium Chloride (Ns) 1,000 mls @ 80 mls/hr IVCONT .[id number] [facility] Stop: 11/06/23 23:59 Magnesium Oxide (Magnesium Oxide 400 Mg Tablet) 400 mg PO BIDPC [facility] Last Admin: 11/06/23 09:15 Dose: 400 mg Documented By: TASNEEM Midodrine (Midodrine Hcl 2.5 Mg Tablet) 2.5 mg PO TID [facility] Nystatin (Nystatin Powder 15 Gm Bottle) 1 appl TOPICAL BID [facility]; Protocol Last Admin: 11/06/23 09:16 Dose: 1 appl Documented By: TASNEEM Sodium Chloride (0.9 % Sodium Chloride Flush 3 Ml Syringe) 3 ml IVFLUSH QSHIFT [facility] Last Admin: 11/06/23 09:15 Dose: 3 ml Documented By: TASNEEM Warfarin Sodium (Warfarin Sodium 5 Mg Tablet) 5 mg PO [email or web address]@1800 [facility] Last Admin: 11/04/23 18:09 Dose: 5 mg Documented By: EVON Warfarin Sodium (Warfarin Sodium 2.5 Mg Tablet) 2.5 mg PO [email or web address]@1800 [facility] Last Admin: 11/05/23 17:38 Dose: 2.5 mg Documented By: TASNEEM Labs 11/04/23 06:27 11/06/23 06:13 Labs: Laboratory Results - last 24 hr 11/06/23 06:13 Hold Purple Top SEE NOTE PT 22.6 H INR 1.9 H Anion Gap 11 L Estim Creat Clear Calc 54.8 Estimated GFR > 60 Random Glucose 80 Calcium 9.4 Assessment and Plan (1) Hyperkalemia: Status: Acute (2) ALPHONSO (acute kidney injury): Status: Acute (3) Diarrhea: Status: Acute Plan Janessa Ribeiro is 78 years old woman with past medical history significant for atrial fibrillation on chronic anticoagulation with warfarin and s/p colostomy admitted with: Acute kidney injury Resolved was likely due to GI loss from diarrhea with concomitant use of diuretics, Lasix, Aldactone and lisinopril Renal function normalized, continue to hold Lasix, spironolactone and lisinopril Follow BMP, avoid nephrotoxins Hyperkalemia likely secondary to spironolactone , potassium and lisinopril use. Potassium normalized , potassium supplement and spironolactone discontinued Dark stools (stool for occult blood negative), no recurrent dark stools , hematocrit stable, s/p iv Protonix, Diet advanced, stool guaiac x2 negative, continue Coumadin,follow PT INR and CBC Case discussed with Gastroenterology they agree with above managed Orthostatic Hypotension symptomatic, persisting orthostatic blood pressures today Will repeat IV fluid x1 L, start midodrine 2.5 mg t.i.d. No evidence of acute infection,Lactic acid normal, stable heart rate ,beta- blockers discontinued. Case discussed with Dr. Epps Essential hypertension. Hold all blood pressure medications due to persistent orthostatic hypotension. Class 1 obesity weight loss recommended Paroxysmal atrial fibrillation rate control continu Coumadin for AC, INR 1.9, follow PT INR. History of right-sided heart failure no acute exacerbation, hold diuretics due to hypotension and ALPHONSO. Being followed by Cardiology Natalie intertrigo rash of rt. groin/intergluteal buttock seen by wound nurse she recommended air loss mattress, and fungal powder, frequent position change every 2 hours. Recommend to avoid using briefs. Herpes zoster rash, seems old and crusted, patient asymptomatic, no precautions needed. DVT prophylaxis: On Coumadin Code status: Full Patient will need continued inpatient hospitalization for monitoring of symptomatic orthostatic hypotension requiring IV fluids Quality Stroke Does the patient have a stroke diagnosis?: No VTE Prior VTE?: No VTE Risk Level:: Medical - moderate - high VTE Device Contraindication: N/A - Device Ordered VTE Drug Contraindication: Treatment Not Indicated
--- NOTE | 2023-11-06 12:04 | PM.PNCARD ---
Subjective Subjective Date of Service: 11/06/23 Principal diagnosis: Lightheadedness Interval history: Patient continues to have symptoms of lightheadedness especially getting up and while she comes back from the bathroom. She still has orthostatic hypertension despite receiving 1 L of fluid since yesterday. Denies any prolonged palpitations or chest pain. No worsening shortness of breath, orthopnea, PND. Review of Systems Constitutional: Reports no additional constitutional complaints Cardiovascular: Denies chest pain, Reports lightheadedness, Denies palpitations and Denies dyspnea Respiratory: Reports no additional respiratory complaints and Denies dyspnea Gastrointestinal: Reports no additional gastrointestinal complaints Genitourinary: Reports no additional female genitourinary complaints Psychiatric: Reports no additional psychiatric complaints Endocrine: Denies palpitations Physical Exam Vital Signs: Last Vital Signs Temp 97.0 F 11/06/23 10:59 Pulse 80 11/06/23 10:59 Resp 18 11/06/23 10:59 BP 95/53 L 11/06/23 10:59 Pulse Ox 97 11/06/23 10:59 O2 Del Method Room Air 11/06/23 10:59 BMI result Body Mass Index 34.4 GENERAL APPEARANCE: in no acute distress, pleasant. NECK: no carotid bruit, no jugular venous distention. SKIN: no suspicious lesions, warm and dry. HEART: no murmurs, irregular rate and rhythm. LUNGS: clear to auscultation bilaterally. ABDOMEN: soft, nontender. EXTREMITIES: no edema. PERIPHERAL PULSES: equal. NEUROLOGIC: No gross deficits, AAO X 3 Objective Labs and Meds 11/04/23 06:27 11/06/23 06:13 Lab results: Laboratory Results - last 24 hr 11/06/23 06:13 Hold Purple Top SEE NOTE PT 22.6 H INR 1.9 H Sodium 142 Potassium 4.1 Chloride 110 H Carbon Dioxide 25 Anion Gap 11 L BUN 23 H Creatinine 0.86 Estim Creat Clear Calc 54.8 Estimated GFR > 60 Random Glucose 80 Calcium 9.4 Progress Note: A&P Assessment and plan (1) Lightheaded: Status: Acute Assessment and Plan: Orthostatic lightheadedness still persistent most likely related to RV systolic dysfunction and relative hypovolemia and volume loss. Continue IV hydration for 1 more day. I would add midodrine 2.5 mg t.i.d. to her regimen to improve her symptoms and functionality. Continue monitor orthostatic vitals later in the day and tomorrow morning. May need to uptitrate midodrine as need be. Management was discussed with her in details. She is still very symptomatic and can not be safely discharged home. (2) Permanent atrial fibrillation: Status: Acute Assessment and Plan: Permanent atrial fibrillation, still rate control despite of metoprolol therapy. If rate increases can switch to metoprolol 25 mg at nighttime. Continue full oral anticoagulation, on warfarin therapy. Will follow with you Time Spent With Patient Time: Total time managing care of this patient today ____ minutes. Progress Note: Quality Stroke Does the patient have a stroke diagnosis?: No Procedures Date of Service Date of Service: 11/06/23
[2023-11-06] MEDS: 0.9 % Sodium Chloride 1,000 ML 80 ML IVCONT (12:36)
[2023-11-06] MEDS: Warfarin Sodium 2.5 MG TABLET PO (17:44)
[2023-11-06] MEDS: Midodrine HCl 2.5 MG TABLET PO (20:03)
[2023-11-07] VITALS (9 sets, daily range): BP systolic 88–136; BP diastolic 50–78; PULSE 80–104; RESP 16–18; TEMP 36.1–36.7; O2SAT 96–97
--- NOTE | 2023-11-07 00:32 | PC.NURSE ---
Patient HR Afib 120s-150s when ambulating to the bathroom, VSS, no SOB, no dizziness. HR afib 80s-90s when at rest. Dr. Simon made aware. Per Dr. Simon no action needed unless patient is sustaining Afib HR over 140s.
[2023-11-07 06:38] LABS: Hematocrit 40.3 % (37.0-47.0); Hemoglobin 13.5 g/dl (12.0-16.0); Mean Corpuscular HGB Conc 33.5 g/dl (31.0-35.0); Mean Corpuscular Hemoglobin 26.6 pg (27.0-33.0); Mean Corpuscular Volume 79.5 fL (80.0-98.0); Mean Platelet Volume 9.7 fL (9.4-12.3); Platelet Count 221 X10*3/uL (160-400); Red Blood Count 5.07 X10*6/uL (4.20-5.50); Red Cell Distribution Width 18.5 % (11.0-16.0); White Blood Count 3.7 X10*3/uL (4.8-10.8)
[2023-11-07 06:50] LABS: INTERNATIONAL NORM RATIO 2.3 (0.9-1.1); Prothrombin Time 28.5 SEC (11.1-13.3)
[2023-11-07 06:51] LABS: INTERNATIONAL NORM RATIO 2.4 (0.9-1.1); Prothrombin Time 28.8 SEC (11.1-13.3)
[2023-11-07 06:52] LABS: Anion Gap 10 (12-20); Blood Urea Nitrogen 21 mg/dL (9-16); Calcium 9.2 mg/dL (8.4-10.2); Carbon Dioxide 25 mmol/L (22-29); Chloride 109 mmol/L (96-108); Creatinine Clr Calc Pharmacy 60.4; Estimated Glomerular Filt Rate > 60; Glucose Random 82 mg/dL (60-115); Sodium 140 mmol/L (135-145)
[2023-11-07] MEDS: Midodrine HCl 2.5 MG TABLET PO (08:10)
[2023-11-07] MEDS: Magnesium Oxide 400 MG TABLET PO ×2 (08:10→17:40)
[2023-11-07] MEDS: Nystatin Powder 15 GM BOTTLE 1 APPL TOPICAL ×2 (08:12→20:39)
[2023-11-07] MEDS: 0.9 % Sodium Chloride Flush 3 ML SYRINGE IVFLUSH ×3 (08:13→20:33)
--- NOTE | 2023-11-07 10:22 | PM.PNCARD ---
Subjective Subjective Date of Service: 11/07/23 Principal diagnosis: Orthostatic hypotension, atrial fibrillation. Interval history: Patient still remains symptomatic and has orthostatic low blood pressure. Atrial fibrillation rate has been increasing. No other symptoms. Review of Systems Constitutional: Reports weakness Cardiovascular: Denies chest pain, Denies syncope, Reports lightheadedness and Denies dyspnea Respiratory: Reports no additional respiratory complaints and Denies dyspnea Gastrointestinal: Reports no additional gastrointestinal complaints Musculoskeletal: Reports no additional musculoskeletal complaints Reports system reviewed and no additional complaints, except as documented, Denies syncope and Reports weakness Physical Exam Vital Signs: Last Vital Signs Temp 97.6 F 11/07/23 07:13 Pulse 104 H 11/07/23 09:21 Resp 18 11/07/23 07:13 BP 88/50 L 11/07/23 09:21 Pulse Ox 96 11/07/23 07:13 O2 Del Method Room Air 11/07/23 07:13 BMI result Body Mass Index 34.4 GENERAL APPEARANCE: in no acute distress, pleasant. NECK: no carotid bruit, no jugular venous distention. SKIN: no suspicious lesions, warm and dry. HEART: no murmurs, irregular rate and rhythm. LUNGS: clear to auscultation bilaterally. ABDOMEN: soft, nontender. EXTREMITIES: no edema. PERIPHERAL PULSES: equal. NEUROLOGIC: No gross deficits, AAO X 3 Objective Labs and Meds 11/07/23 06:18 11/07/23 06:18 Lab results: Laboratory Results - last 24 hr 11/07/23 11/07/23 11/07/23 06:18 06:18 06:18 WBC 3.7 L RBC 5.07 Hgb 13.5 Hct 40.3 MCV 79.5 L MCH 26.6 L MCHC 33.5 RDW 18.5 H Plt Count 221 MPV 9.7 Absolute Nucleated RBC 0.000 Nucleated RBC % (auto) 0.0 PT 28.5 H D 28.8 H INR 2.3 H 2.4 H Sodium 140 Potassium 4.0 Chloride 109 H Carbon Dioxide 25 Anion Gap 10 L BUN 21 H Creatinine 0.78 Estim Creat Clear Calc 60.4 Estimated GFR > 60 Random Glucose 82 Calcium 9.2 Progress Note: A&P Assessment and plan (1) Lightheaded: Status: Acute Assessment and Plan: Lightheadedness due to persistent orthostatic low blood pressure, remaining symptomatic despite IV fluids and midodrine. Further increase midodrine to 5 mg t.i.d. and continue to maintain oral hydration. Continue to hold all antihypertensives as well as Lasix for now. Orthostatic precautions were discussed. Orthostatic hypertension most likely related to autonomic dysfunction as well as RV dysfunction with reduced preload. (2) Permanent atrial fibrillation: Status: Acute Assessment and Plan: Permanent atrial fibrillation with rate now increasing. Patient asymptomatic. Will is digoxin loading 0.25 mg IV push q.6 hours for rate control. Hold off on metoprolol for now. Once blood pressure improves and if heart rate remains elevated can add metoprolol long-acting at nighttime. Continue full oral anticoagulation warfarin. Will follow with you Time Spent With Patient Time: Total time managing care of this patient today ____ minutes. Progress Note: Quality Stroke Does the patient have a stroke diagnosis?: No Procedures Date of Service Date of Service: 11/07/23
[2023-11-07] MEDS: Digoxin 0.5 MG/2 ML AMPUL 0.25 MG IVPUSH ×2 (11:29→17:40)
--- NOTE | 2023-11-07 12:46 | P.PNIM_ITS ---
Subjective Subjective Date of Service: 11/07/23 Interval History: still orthostatic, BP 111/51 lying -> 88/50 standing AF as high as 147, feels palpitations Review of Systems Review of Systems: Yes all other systems are reviewed and are negative Physical Exam 2 Vital Signs: Vital Signs: Last Vital Signs Temp 97.2 F 11/07/23 10:55 Pulse 83 11/07/23 10:55 Resp 18 11/07/23 10:55 BP 114/53 L 11/07/23 10:55 Pulse Ox 96 11/07/23 10:55 O2 Del Method Room Air 11/07/23 10:55 BMI result Body Mass Index 34.4 Gen: in no acute distress HEENT: sclera anicteric, moist mucus membranes Neck: supple Lungs: clear to auscultation bilaterally Heart: irregular, no murmurs Abd: soft, non-tender, non-distended Ext: no edema Skin: warm/well-perfused Neuro: alert and oriented x3, no focal findings Psych: appropriate affect Objective Data Active Medications Acetaminophen (Acetaminophen 325 Mg Tablet) 650 mg PO Q6H PRN PRN Reason: Pain, Mild (Pain Scale 1-3) Digoxin (Digoxin 0.5 Mg/2 Ml Ampul) 0.25 mg IVPUSH Q6H [facility] Stop: 11/07/23 17:01 Last Admin: 11/07/23 11:29 Dose: 0.25 mg Documented By: ZARI Magn[facility] ([facility] 400 Mg [facility]) [facility] Last Admin: 11/07/23 08:10 Dose: 400 mg Documented By: ZARI Midodrine (Midodrine Hcl 5 Mg Tablet) 5 mg PO TID [facility] Nystatin (Nystatin Powder 15 Gm Bottle) 1 appl TOPICAL BID [facility]; Protocol Last Admin: 11/07/23 08:12 Dose: 1 appl Documented By: ZARI Sodium Chloride (0.9 % Sodium Chloride Flush 3 Ml Syringe) 3 ml IVFLUSH QSHIFT [facility] Last Admin: 11/07/23 08:13 Dose: 3 ml Documented By: ZARI Warfarin Sodium (Warfarin Sodium 5 Mg Tablet) 5 mg PO [email or web address]@1800 [facility] Last Admin: 11/04/23 18:09 Dose: 5 mg Documented By: EVON Warfarin Sodium (Warfarin Sodium 2.5 Mg Tablet) 2.5 mg PO [email or web address]@1800 [facility] Last Admin: 11/06/23 17:44 Dose: 2.5 mg Documented By: TASNEEM Labs 11/07/23 06:18 11/07/23 06:18 Labs: Laboratory Results - last 24 hr 11/07/23 11/07/23 11/07/23 06:18 06:18 06:18 MCV 79.5 L MCH 26.6 L MCHC 33.5 RDW 18.5 H Plt Count 221 MPV 9.7 Absolute Nucleated RBC 0.000 Nucleated RBC % (auto) 0.0 PT 28.5 H D 28.8 H INR 2.3 H 2.4 H Anion Gap 10 L Estim Creat Clear Calc 60.4 Estimated GFR > 60 Random Glucose 82 Calcium 9.2 Assessment and Plan (1) Hyperkalemia: Status: Acute (2) ALPHONSO (acute kidney injury): Status: Acute (3) Diarrhea: Status: Acute Plan d7 78yo F with AF on warfarin, HTN, HLD, colostomy 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 indications presenting with increased black output from colostomy, found to have ALPHONSO + orthostasis chronic AF with RVR - will give IV digoxin; holding metoprolol due to hypotension; resume once hypotension resolves - on warfarin; INR therapeutic ALPHONSO - resolved; likely due to GI loss from diarrhea along with use of diuretics [furosemide + spironolactone] and lisinopril orthostatic hypotension - due to autonomic dysfunction + RV dysfunction with reduced preload - stopped diuretics, lisinopril, and metoprolol succinate - increase midodrine today - Cardiology following hyperK - resolved, was likely due to potassium supplement, spironolactone, and lisinopril use [all discontinued] increased output from colostomy; black stools - FOBT x2 negative; GI consulted; H+H stable hx R-sided CHF - was volume depleted; diuretics on hold candidal intertrigo [groin, gluteal cleft] - airloss mattress, nystatin powder history zoster - dry crusted lesions extending from right buttock to thigh appear old, no treatment needed VTE ppx - warfarin dispo - AIR recommended In my clinical judgment, the patient requires continued inpatient hospitalization for the following reasons: orthostasis, RVR Total time managing care of this patient today: 45 minutes. Quality Stroke Does the patient have a stroke diagnosis?: No VTE Prior VTE?: No VTE Risk Level:: Medical - moderate - high VTE Device Contraindication: N/A - Device Ordered VTE Drug Contraindication: Treatment Not Indicated
--- NOTE | 2023-11-07 12:59 | MHC.CM.PN ---
EMR reviewed and per MD rounds, pt is not medically cleared for D/C due to management of orthostasis and RVR.
[2023-11-07] MEDS: Midodrine HCl 5 MG TABLET PO ×2 (14:43→20:34)
[2023-11-07] MEDS: Warfarin Sodium 2.5 MG TABLET PO (17:40)
[2023-11-08] VITALS (9 sets, daily range): BP systolic 91–144; BP diastolic 53–71; PULSE 66–134; RESP 16–18; TEMP 36.3–36.6; O2SAT 95–96
[2023-11-08 07:17] LABS: INTERNATIONAL NORM RATIO 2.3 (0.9-1.1); Prothrombin Time 27.7 SEC (11.1-13.3)
[2023-11-08] MEDS: Magnesium Oxide 400 MG TABLET PO ×2 (09:16→17:51)
[2023-11-08] MEDS: 0.9 % Sodium Chloride Flush 3 ML SYRINGE IVFLUSH ×3 (09:16→20:14)
[2023-11-08] MEDS: Midodrine HCl 5 MG TABLET PO (09:16)
[2023-11-08] MEDS: Nystatin Powder 15 GM BOTTLE 1 APPL TOPICAL ×2 (09:18→21:46)
--- NOTE | 2023-11-08 11:11 | PM.PNCARD ---
Subjective Subjective Date of Service: 11/08/23 Principal diagnosis: Orthostatic hypotension, atrial fibrillation. Interval history: Patient's orthostatic blood pressures have improved although still has some orthostasis but not significant symptoms as yesterday. Atrial fibrillation rates have gone up. She did receive digoxin load yesterday. Denies any palpitations. No shortness of breath, orthopnea, PND. Review of Systems Constitutional: Reports weakness Cardiovascular: Reports no additional cardiovascular complaints Respiratory: Reports no additional respiratory complaints Gastrointestinal: Reports no additional gastrointestinal complaints Genitourinary: Reports no additional female genitourinary complaints Musculoskeletal: Reports no additional musculoskeletal complaints Reports system reviewed and no additional complaints, except as documented and Reports weakness Physical Exam Vital Signs: Last Vital Signs Temp 97.4 F 11/08/23 11:01 Pulse 80 11/08/23 11:01 Resp 18 11/08/23 11:01 BP 108/59 L 11/08/23 11:01 Pulse Ox 96 11/08/23 11:01 O2 Del Method Room Air 11/08/23 11:01 BMI result Body Mass Index 34.4 GENERAL APPEARANCE: in no acute distress, pleasant. NECK: no carotid bruit, no jugular venous distention. SKIN: no suspicious lesions, warm and dry. HEART: no murmurs, irregular rate and rhythm. LUNGS: clear to auscultation bilaterally. ABDOMEN: soft, nontender. EXTREMITIES: no edema. PERIPHERAL PULSES: equal. NEUROLOGIC: No gross deficits, AAO X 3 Cardio Rate: tachycardic Objective Labs and Meds 11/07/23 06:18 11/07/23 06:18 Lab results: Laboratory Results - last 24 hr 11/08/23 06:27 Hold Purple Top SEE NOTE PT 27.7 H INR 2.3 H Progress Note: A&P Assessment and plan (1) Permanent atrial fibrillation: Status: Acute Assessment and Plan: Permanent atrial fibrillation with elevated rate due to withdrawal of her rate control medication with metoprolol due to orthostatic low blood pressure. Resume digoxin and start digoxin 0.125 mg daily. Continue full oral anticoagulation warfarin. Can resume metoprolol at 25 mg b.i.d.. (2) Lightheaded: Status: Acute Assessment and Plan: Lightheadedness due to orthostasis which has improved significantly with midodrine therapy and IV fluids. Hold off on lisinopril and Lasix therapy for now. Lasix can be used on a p.r.n. basis. Continue midodrine therapy. Orthostatic precautions discussed. Physical therapy to evaluate patient for placement. Will continue to follow with you Time Spent With Patient Time: Total time managing care of this patient today ____ minutes. Progress Note: Quality Stroke Does the patient have a stroke diagnosis?: No Procedures Date of Service Date of Service: 11/08/23
--- NOTE | 2023-11-08 11:59 | HO.PM.IMPN ---
Subjective Subjective Date of Service: 11/08/23 Interval History: AF/RVR into 120s c/o palpitations BP 132/66 sitting -> 111/58 standing no chest pain no dyspnea Review of Systems Review of Systems: Yes all other systems are reviewed and are negative Physical Exam Vital Signs: Vital Signs: Last Vital Signs Temp 97.4 F 11/08/23 11:01 Pulse 80 11/08/23 11:01 Resp 18 11/08/23 11:01 BP 108/59 L 11/08/23 11:01 Pulse Ox 96 11/08/23 11:01 O2 Del Method Room Air 11/08/23 11:01 BMI result Body Mass Index 34.4 Gen: in no acute distress HEENT: sclera anicteric, moist mucus membranes Neck: supple Lungs: clear to auscultation bilaterally Heart: irregular, no murmurs Abd: soft, non-tender, non-distended Ext: no edema Skin: warm/well-perfused Neuro: alert and oriented x3, no focal findings Psych: appropriate affect Objective Data Active Medications Acetaminophen (Acetaminophen 325 Mg Tablet) 650 mg PO Q6H PRN PRN Reason: Pain, Mild (Pain Scale 1-3) Digoxin (Digoxin 0.125 Mg Tablet) 0.125 mg PO DAILY [facility] Magnesium Oxide ([facility]esium [facility]ide 400 Mg Tablet) [facility] Last Admin: 11/08/23 09:16 Dose: 400 mg Documented By: ZARI Metoprolol Tartrate (Metoprolol Tartrate 25 Mg Tablet) 25 mg PO BID [facility]; Protocol Midodrine (Midodrine Hcl 5 Mg Tablet) 5 mg PO TID [facility] Last Admin: 11/08/23 09:16 Dose: 5 mg Documented By: ZARI Nystatin (Nystatin Powder 15 Gm Bottle) 1 appl TOPICAL BID [facility]; Protocol Last Admin: 11/08/23 09:18 Dose: 1 appl Documented By: ZARI Sodium Chloride (0.9 % Sodium Chloride Flush 3 Ml Syringe) 3 ml IVFLUSH QSHIFT [facility] Last Admin: 11/08/23 09:16 Dose: 3 ml Documented By: ZARI Warfarin Sodium (Warfarin Sodium 5 Mg Tablet) 5 mg PO [email or web address]@1800 [facility] Last Admin: 11/04/23 18:09 Dose: 5 mg Documented By: EVON Warfarin Sodium (Warfarin Sodium 2.5 Mg Tablet) 2.5 mg PO [email or web address]@1800 [facility] Last Admin: 11/07/23 17:40 Dose: 2.5 mg Documented By: ZARI Labs 11/07/23 06:18 11/07/23 06:18 Labs: Laboratory Results - last 24 hr 11/08/23 06:27 Hold Purple Top SEE NOTE PT 27.7 H INR 2.3 H Assessment and Plan (1) Hyperkalemia: Status: Acute (2) ALPHONSO (acute kidney injury): Status: Acute (3) Diarrhea: Status: Acute Plan d8 78yo F with AF on warfarin, HTN, HLD, colostomy 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 indications presenting with increased black output from colostomy, found to have ALPHONSO + orthostasis chronic AF with RVR - needs better rate control. loaded with IV digoxin 11/07/23 and will start 0.125 mg PO daily today; also resume metoprolol 25 mg bid - on warfarin; INR therapeutic ALPHONSO - resolved; likely due to GI loss from diarrhea along with use of diuretics [furosemide + spironolactone] and lisinopril orthostatic hypotension - due to autonomic dysfunction + RV dysfunction with reduced preload - stopped diuretics and lisinopril - increase midodrine today - Cardiology following hyperK - resolved, was likely due to potassium supplement, spironolactone, and lisinopril use [all discontinued] increased output from colostomy; black stools - FOBT x2 negative; GI consulted; H+H stable hx R-sided CHF - was volume depleted; diuretics on hold candidal intertrigo [groin, gluteal cleft] - airloss mattress, nystatin powder history zoster - dry crusted lesions extending from right buttock to thigh appear old, no treatment needed VTE ppx - warfarin dispo - AIR recommended In my clinical judgment, the patient requires continued inpatient hospitalization for the following reasons: orthostasis, RVR Total time managing care of this patient today: 45 minutes. Quality Stroke Does the patient have a stroke diagnosis?: No VTE Prior VTE?: No VTE Risk Level:: Medical - moderate - high VTE Device Contraindication: N/A - Device Ordered VTE Drug Contraindication: Treatment Not Indicated
[2023-11-08] MEDS: Metoprolol Tartrate 25 MG TABLET PO ×2 (12:23→20:13)
[2023-11-08] MEDS: Digoxin 0.125 MG TABLET PO (12:24)
[2023-11-08] MEDS: Midodrine HCl 2.5 MG TABLET 7.5 MG PO ×2 (14:48→20:13)
--- NOTE | 2023-11-08 15:23 | MHC.CM.PN ---
PT rec acute rehab. This CM met with pt to discuss, pt is agreeable to going to [place] once she is medically cleared. Referrals placed in [facility] interested and following.
[2023-11-08] MEDS: Warfarin Sodium 2.5 MG TABLET PO (17:51)
[2023-11-09] VITALS (11 sets, daily range): BP systolic 82–134; BP diastolic 42–70; PULSE 59–80; RESP 16–18; TEMP 36.1–36.8; O2SAT 94–97
[2023-11-09 06:17] LABS: INTERNATIONAL NORM RATIO 2.1 (0.9-1.1); Prothrombin Time 25.7 SEC (11.1-13.3)
[2023-11-09] MEDS: 0.9 % Sodium Chloride Flush 3 ML SYRINGE IVFLUSH ×2 (08:30→16:02)
[2023-11-09] MEDS: Midodrine HCl 2.5 MG TABLET 7.5 MG PO (08:31)
[2023-11-09] MEDS: Digoxin 0.125 MG TABLET PO (08:31)
[2023-11-09] MEDS: Metoprolol Tartrate 25 MG TABLET PO (08:31)
[2023-11-09] MEDS: Magnesium Oxide 400 MG TABLET PO ×2 (08:31→17:37)
[2023-11-09] MEDS: Nystatin Powder 15 GM BOTTLE 1 APPL TOPICAL ×2 (08:37→20:22)
--- NOTE | 2023-11-09 09:54 | HO.PM.IMPN ---
Subjective Subjective Date of Service: 11/09/23 Interval History: Rate control improved; generally in 70s-90s However, still orthostatic with standing BP 82/42 Review of Systems Review of Systems: Yes all other systems are reviewed and are negative Physical Exam Vital Signs: Vital Signs: Last Vital Signs Temp 97.2 F 11/09/23 07:16 Pulse 80 11/09/23 08:49 Resp 18 11/09/23 07:16 BP 82/42 L 11/09/23 08:49 Pulse Ox 96 11/09/23 07:16 O2 Del Method Room Air 11/09/23 07:16 BMI result Body Mass Index 34.4 Gen: in no acute distress HEENT: sclera anicteric, moist mucus membranes Neck: supple Lungs: clear to auscultation bilaterally Heart: irregular, no murmurs Abd: soft, non-tender, non-distended Ext: no edema Skin: warm/well-perfused Neuro: alert and oriented x3, no focal findings Psych: appropriate affect Objective Data Active Medications Acetaminophen (Acetaminophen 325 Mg Tablet) 650 mg PO Q6H PRN PRN Reason: Pain, Mild (Pain Scale 1-3) Digoxin (Digoxin 0.125 Mg Tablet) 0.125 mg PO DAILY [facility] Last Admin: 11/09/23 08:31 Dose: 0.125 mg Documented By: SHIRLEY Magnesium Oxide (Magnesium Oxide 400 Mg Tablet) 400 mg PO BIDPC [facility] Last Admin: 11/09/23 08:31 Dose: 400 mg Documented By: SHIRLEY Metoprolol Tartrate (Metoprolol Tartrate 25 Mg Tablet) 25 mg PO BID [facility]; Protocol Last Admin: 11/09/23 08:31 Dose: 25 mg Documented By: SHIRLEY Midodrine (Midodrine Hcl 2.5 Mg Tablet) 7.5 mg PO TID [facility] Last Admin: 11/09/23 08:31 Dose: 7.5 mg Documented By: SHIRLEY Nystatin (Nystatin Powder 15 Gm Bottle) 1 appl TOPICAL BID [facility]; Protocol Last Admin: 11/09/23 08:37 Dose: 1 appl Documented By: SHIRLEY Sodium Chloride (0.9 % Sodium Chloride Flush 3 Ml Syringe) 3 ml IVFLUSH QSHIFT [facility] Last Admin: 11/09/23 08:30 Dose: 3 ml Documented By: SHIRLEY Warfarin Sodium (Warfarin Sodium 5 Mg Tablet) 5 mg PO [email or web address]@1800 [facility] Last Admin: 11/04/23 18:09 Dose: 5 mg Documented By: EVON Warfarin Sodium (Warfarin Sodium 2.5 Mg Tablet) 2.5 mg PO [email or web address]@1800 [facility] Last Admin: 11/08/23 17:51 Dose: 2.5 mg Documented By: ZARI Labs 11/07/23 06:18 11/07/23 06:18 Labs: Laboratory Results - last 24 hr 11/09/23 05:29 PT 25.7 H INR 2.1 H Assessment and Plan (1) Hyperkalemia: Status: Acute (2) ALPHONSO (acute kidney injury): Status: Acute (3) Diarrhea: Status: Acute Plan d9 78yo F with AF on warfarin, HTN, HLD, colostomy 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 Rate is under much better control. - on warfarin; INR therapeutic ALPHONSO - resolved; likely due to GI loss from diarrhea along with use of diuretics [furosemide + spironolactone] and lisinopril orthostatic hypotension - due to autonomic dysfunction + RV dysfunction with reduced preload - stopped diuretics and lisinopril - increase midodrine to 10 mg tid today - Cardiology following hyperK - resolved, was likely due to potassium supplement, spironolactone, and lisinopril use [all discontinued] increased output from colostomy; black stools - FOBT x2 negative; GI consulted; H+H stable hx R-sided CHF - was volume depleted; diuretics on hold candidal intertrigo [groin, gluteal cleft] - airloss mattress, nystatin powder history zoster - dry crusted lesions extending from right buttock to thigh appear old, no treatment needed VTE ppx - warfarin dispo - AIR recommended In my clinical judgment, the patient requires continued inpatient hospitalization for the following reasons: orthostasis Total time managing care of this patient today: 45 minutes. Quality Stroke Does the patient have a stroke diagnosis?: No VTE Prior VTE?: No VTE Risk Level:: Medical - moderate - high VTE Device Contraindication: N/A - Device Ordered VTE Drug Contraindication: Treatment Not Indicated
--- NOTE | 2023-11-09 10:06 | PM.PNCARD ---
Subjective Subjective Date of Service: 11/09/23 Principal diagnosis: Orthostatic hypotension, atrial fibrillation. Interval history: Patient still having orthostatics positive today with symptoms of lightheadedness when she is upright and walking for some distance. She is symptomatic with it. Her heart rate is better controlled on current medications. She is still having diarrhea. Review of Systems Constitutional: Reports no additional constitutional complaints Cardiovascular: Denies rapid heart rate, Reports lightheadedness and Denies palpitations Gastrointestinal: Reports no additional gastrointestinal complaints Reports system reviewed and no additional complaints, except as documented Endocrine: Denies palpitations Physical Exam Vital Signs: Last Vital Signs Temp 97.2 F 11/09/23 07:16 Pulse 80 11/09/23 08:49 Resp 18 11/09/23 07:16 BP 82/42 L 11/09/23 08:49 Pulse Ox 96 11/09/23 07:16 O2 Del Method Room Air 11/09/23 07:16 BMI result Body Mass Index 34.4 GENERAL APPEARANCE: in no acute distress, pleasant. NECK: no carotid bruit, no jugular venous distention. SKIN: no suspicious lesions, warm and dry. HEART: no murmurs, irregular rate and rhythm. LUNGS: clear to auscultation bilaterally. ABDOMEN: soft, nontender. EXTREMITIES: no edema. PERIPHERAL PULSES: equal. NEUROLOGIC: No gross deficits, AAO X 3 Cardio Rate: tachycardic Objective Labs and Meds 11/07/23 06:18 11/07/23 06:18 Lab results: Laboratory Results - last 24 hr 11/09/23 05:29 PT 25.7 H INR 2.1 H Progress Note: A&P Assessment and plan (1) Lightheaded: Status: Acute Assessment and Plan: Patient still lightheaded and orthostatic. I think it is probably still not repleting enough oral fluids given that she is diarrhea. Unknown cause for diarrhea. Continue to push fluids. Increase midodrine to 10 mg t.i.d.. Hold off on lisinopril and Lasix at this point in time. (2) Permanent atrial fibrillation: Status: Acute Assessment and Plan: Permanent atrial fibrillation which is rate control at this point time. Continue rate control with metoprolol and digoxin. Continue full oral anticoagulation warfarin. Will sign of the case. Patient probably can be discharged to acute rehab with instructions. Time Spent With Patient Time: Total time managing care of this patient today ____ minutes. Progress Note: Quality Stroke Does the patient have a stroke diagnosis?: No Procedures Date of Service Date of Service: 11/09/23
--- NOTE | 2023-11-09 11:05 | PC.NURSE ---
500cc LR IVF 50ml/hr administered at 1050. IV fluid bag unable to scan. Unable to choose given for an option on medication screen.
--- NOTE | 2023-11-09 13:27 | MHC.CM.PN ---
EMR reviewed and per MD rounds, pt is not medically cleared for D/C due to orthostasis, anticipate pt will likely be medically cleared for D/C tomorrow. [facility] offered a bed and have gone for auth in anticipation of D/C over the weekend. Pt aware and in agreement with plan.
[2023-11-09] MEDS: Midodrine HCl 10 MG TABLET PO ×2 (14:19→20:19)
[2023-11-09] MEDS: Warfarin Sodium 2.5 MG TABLET PO (17:37)
[2023-11-10] VITALS (9 sets, daily range): BP systolic 86–136; BP diastolic 53–67; PULSE 58–84; RESP 18–20; TEMP 36.1–36.7; O2SAT 94–98
[2023-11-10 06:11] LABS: INTERNATIONAL NORM RATIO 1.9 (0.9-1.1); Prothrombin Time 23.4 SEC (11.1-13.3)
[2023-11-10] MEDS: 0.9 % Sodium Chloride Flush 3 ML SYRINGE IVFLUSH ×4 (08:30→21:59)
--- NOTE | 2023-11-10 09:12 | P.PNIM_ITS ---
Subjective Subjective Date of Service: 11/10/23 Interval History: BP dropped to 86/53 with standing AF rate much better controlled, rate in the 70s-90s minimal dizziness no chest pain or dyspnea Review of Systems Review of Systems: Yes all other systems are reviewed and are negative Physical Exam 2 Vital Signs: Vital Signs: Last Vital Signs Temp 97.7 F 11/10/23 08:00 Pulse 84 11/10/23 08:29 Resp 20 11/10/23 08:00 BP 86/53 L 11/10/23 08:29 Pulse Ox 97 11/10/23 08:00 O2 Del Method Room Air 11/10/23 08:00 BMI result Body Mass Index 34.4 Gen: in no acute distress HEENT: sclera anicteric, moist mucus membranes Neck: supple Lungs: clear to auscultation bilaterally Heart: irregular, no murmurs Abd: soft, non-tender, non-distended Ext: no edema Skin: warm/well-perfused Neuro: alert and oriented x3, no focal findings Psych: appropriate affect Objective Data Active Medications Acetaminophen (Acetaminophen 325 Mg Tablet) 650 mg PO Q6H PRN PRN Reason: Pain, Mild (Pain Scale 1-3) Digoxin (Digoxin 0.125 Mg Tablet) 0.125 mg PO DAILY [facility] Last Admin: 11/09/23 08:31 Dose: 0.125 mg Documented By: SHIRLEY Magnesium Oxide (Magnesium Oxide 400 Mg Tablet) 400 mg PO BIDPC [facility] Last Admin: 11/09/23 17:37 Dose: 400 mg Documented By: REVA Metoprolol Tartrate (Metoprolol Tartrate 25 Mg Tablet) 25 mg PO BID [facility]; Protocol Last Admin: 11/09/23 21:30 Dose: Not Given Documented By: AXEL Non-Admin Reason: Patient Condition Contraindication Midodrine (Midodrine Hcl 10 Mg Tablet) 10 mg PO TID [facility] Last Admin: 11/09/23 20:19 Dose: 10 mg Documented By: AXEL Nystatin (Nystatin Powder 15 Gm Bottle) 1 appl TOPICAL BID [facility]; Protocol Last Admin: 11/09/23 20:22 Dose: 1 appl Documented By: AXEL Sodium Chloride (0.9 % Sodium Chloride Flush 3 Ml Syringe) 3 ml IVFLUSH QSHIFT [facility] Last Admin: 11/10/23 00:00 Dose: 3 ml Documented By: AXEL Warfarin Sodium (Warfarin Sodium 5 Mg Tablet) 5 mg PO [email or web address]@1800 [facility] Last Admin: 11/04/23 18:09 Dose: 5 mg Documented By: EVON Warfarin Sodium (Warfarin Sodium 2.5 Mg Tablet) 2.5 mg PO [email or web address]@1800 [facility] Last Admin: 11/09/23 17:37 Dose: 2.5 mg Documented By: REVA Labs 11/07/23 06:18 11/07/23 06:18 Labs: Laboratory Results - last 24 hr 11/10/23 05:28 PT 23.4 H INR 1.9 H Assessment and Plan (1) Hyperkalemia: Status: Acute (2) ALPHONSO (acute kidney injury): Status: Acute (3) Diarrhea: Status: Acute Plan d10 78yo F with AF on warfarin, HTN, HLD, colostomy 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 Rate is under much better control. - on warfarin; INR 1.9 today, recheck level tomorrow ALPHONSO - resolved; likely due to GI loss from diarrhea along with use of diuretics [furosemide + spironolactone] and lisinopril, which have been stopped orthostatic hypotension - due to autonomic dysfunction + RV dysfunction with reduced preload - stopped diuretics and lisinopril - increased midodrine to 10 mg tid 11/09/23. will also give 500 mL of LR - Cardiology consulted hyperK - resolved, was likely due to potassium supplement, spironolactone, and lisinopril use [all discontinued] increased output from colostomy; black stools - FOBT x2 negative; GI consulted; H+H stable hx R-sided CHF - was volume depleted; diuretics discontinued due to orthostasis candidal intertrigo [groin, gluteal cleft] - airloss mattress, nystatin powder history zoster - dry crusted lesions extending from right buttock to thigh appear old, no treatment needed VTE ppx - warfarin dispo - AIR recommended In my clinical judgment, the patient requires continued inpatient hospitalization for the following reasons: orthostasis Total time managing care of this patient today: 35 minutes. Quality Stroke Does the patient have a stroke diagnosis?: No VTE Prior VTE?: No VTE Risk Level:: Medical - moderate - high VTE Device Contraindication: N/A - Device Ordered VTE Drug Contraindication: Treatment Not Indicated
[2023-11-10] MEDS: Magnesium Oxide 400 MG TABLET PO ×2 (09:16→17:08)
[2023-11-10] MEDS: Digoxin 0.125 MG TABLET PO (09:17)
[2023-11-10] MEDS: Midodrine HCl 10 MG TABLET PO ×3 (09:18→21:58)
[2023-11-10] MEDS: Lactated Ringers 500 ML 50 ML IVCONT (13:36)
[2023-11-10] MEDS: Warfarin Sodium 2.5 MG TABLET PO (17:08)
[2023-11-10] MEDS: Nystatin Powder 15 GM BOTTLE 1 APPL TOPICAL (21:56)
[2023-11-11] VITALS (8 sets, daily range): BP systolic 103–136; BP diastolic 58–66; PULSE 66–106; RESP 18–20; TEMP 36.1–37.1; O2SAT 95–97
[2023-11-11 05:54] LABS: INTERNATIONAL NORM RATIO 1.7 (0.9-1.1); Prothrombin Time 21.1 SEC (11.1-13.3)
[2023-11-11] MEDS: Magnesium Oxide 400 MG TABLET PO ×2 (08:50→17:36)
[2023-11-11] MEDS: Metoprolol Tartrate 25 MG TABLET PO ×2 (08:50→20:41)
[2023-11-11] MEDS: Digoxin 0.125 MG TABLET PO (08:50)
[2023-11-11] MEDS: 0.9 % Sodium Chloride Flush 3 ML SYRINGE IVFLUSH (08:55)
[2023-11-11] MEDS: Midodrine HCl 10 MG TABLET PO ×3 (10:42→20:41)
--- NOTE | 2023-11-11 11:26 | P.PNIM_ITS ---
Subjective Subjective Date of Service: 11/11/23 Interval History: BP dropped to 107/59 sitting; did not tolerate standing- very dizzy AF rate 60s-70s with short bursts in to 120s no chest pain Review of Systems Review of Systems: Yes all other systems are reviewed and are negative Physical Exam 2 Vital Signs: Vital Signs: Last Vital Signs Temp 97.0 F 11/11/23 11:08 Pulse 66 11/11/23 11:08 Resp 20 11/11/23 11:08 BP 112/66 11/11/23 11:08 Pulse Ox 97 11/11/23 11:08 O2 Del Method Room Air 11/11/23 11:08 BMI result Body Mass Index 34.4 Gen: in no acute distress HEENT: sclera anicteric, moist mucus membranes Neck: supple Lungs: clear to auscultation bilaterally Heart: irregular, no murmurs Abd: soft, non-tender, non-distended Ext: no edema Skin: warm/well-perfused Neuro: alert and oriented x3, no focal findings Psych: appropriate affect Objective Data Active Medications Acetaminophen (Acetaminophen 325 Mg Tablet) 650 mg PO Q6H PRN PRN Reason: Pain, Mild (Pain Scale 1-3) Digoxin (Digoxin 0.125 Mg Tablet) 0.125 mg PO DAILY [facility] Last Admin: 11/11/23 08:50 Dose: 0.125 mg Documented By: TASNEEM Magnesium Oxide (Magnesium Oxide 400 Mg Tablet) [facility] Last Admin: 11/11/23 08:50 Dose: 400 mg Documented By: TASNEEM Metoprolol Tartrate (Metoprolol Tartrate 25 Mg Tablet) 25 mg PO BID [facility]; Protocol Last Admin: 11/11/23 08:50 Dose: 25 mg Documented By: TASNEEM Midodrine (Midodrine Hcl 10 Mg Tablet) 10 mg PO TID [facility] Last Admin: 11/11/23 10:42 Dose: 10 mg Documented By: TASNEEM Nystatin (Nystatin Powder 15 Gm Bottle) 1 appl TOPICAL BID [facility]; Protocol Last Admin: 11/11/23 08:56 Dose: Not Given Documented By: TASNEEM Non-Admin Reason: Previously Administered Sodium Chloride (0.9 % Sodium Chloride Flush 3 Ml Syringe) 3 ml IVFLUSH QSHIFT [facility] Last Admin: 11/11/23 08:55 Dose: 3 ml Documented By: TASNEEM Warfarin Sodium (Warfarin Sodium 5 Mg Tablet) 5 mg PO Velasquez@1800 [facility] Last Admin: 11/04/23 18:09 Dose: 5 mg Documented By: EVON Warfarin Sodium (Warfarin Sodium 2.5 Mg Tablet) 2.5 mg PO MOTUWETHFRSA@1800 [facility] Last Admin: 11/10/23 17:08 Dose: 2.5 mg Documented By: PODMORP Labs 11/07/23 06:18 11/07/23 06:18 Labs: Laboratory Results - last 24 hr 11/11/23 05:28 PT 21.1 H INR 1.7 H Assessment and Plan (1) Hyperkalemia: Status: Acute (2) ALPHONSO (acute kidney injury): Status: Acute (3) Diarrhea: Status: Acute Plan d11 78yo F with AF on warfarin, HTN, HLD, colostomy 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 Rate is under much better control but she has severe orthostasis; will decrease AM metoprolol to 12.5 mg and keep 25 mg at hs. - on warfarin; INR 1.7 today, recheck level tomorrow ALPHONSO - resolved; likely due to GI loss from diarrhea along with use of diuretics [furosemide + spironolactone] and lisinopril, which have been stopped orthostatic hypotension - due to autonomic dysfunction + RV dysfunction with reduced preload - stopped diuretics and lisinopril - increased midodrine to 10 mg tid 11/09/23. will give 1L LR today. - check AM cortisol tomorrow - Cardiology consulted. should have outpt follow-up; ?droxidopa hyperK - resolved, was likely due to potassium supplement, spironolactone, and lisinopril use [all discontinued] increased output from colostomy; black stools - FOBT x2 negative; GI consulted; H+H stable hx R-sided CHF - was volume depleted; diuretics discontinued due to orthostasis candidal intertrigo [groin, gluteal cleft] - airloss mattress, nystatin powder history zoster - dry crusted lesions extending from right buttock to thigh appear old, no treatment needed VTE ppx - warfarin dispo - AIR recommended, Rudy Nguyen following In my clinical judgment, the patient requires continued inpatient hospitalization for the following reasons: orthostasis Total time managing care of this patient today: 45 minutes. Quality Stroke Does the patient have a stroke diagnosis?: No VTE Prior VTE?: No VTE Risk Level:: Medical - moderate - high VTE Device Contraindication: N/A - Device Ordered VTE Drug Contraindication: Treatment Not Indicated
[2023-11-11] MEDS: Lactated Ringers 1,000 ML 100 ML IVCONT (14:01)
[2023-11-11] MEDS: Warfarin Sodium 5 MG TABLET PO (17:36)
[2023-11-11] MEDS: Nystatin Powder 15 GM BOTTLE 1 APPL TOPICAL (20:44)
[2023-11-12] MEDS: 0.9 % Sodium Chloride Flush 3 ML SYRINGE IVFLUSH ×4 (00:54→20:39)
[2023-11-12 03:21] VITALS: BP 138/67; PULSE 67; RESP 18; TEMP 36.2; O2SAT 95
[2023-11-12 06:55] VITALS: BP 129/65; PULSE 65; RESP 20; TEMP 35.7; O2SAT 96
[2023-11-12 07:25] LABS: INTERNATIONAL NORM RATIO 1.7 (0.9-1.1); Prothrombin Time 20.7 SEC (11.1-13.3)
[2023-11-12 07:59] LABS: Cortisol Random 13.4 ug/dL
[2023-11-12] MEDS: Midodrine HCl 10 MG TABLET PO ×3 (08:10→20:39)
[2023-11-12] MEDS: Digoxin 0.125 MG TABLET PO (08:10)
[2023-11-12] MEDS: Magnesium Oxide 400 MG TABLET PO ×2 (08:11→17:46)
[2023-11-12] MEDS: Metoprolol Tartrate 12.5 MG HALFTAB PO (08:11)
[2023-11-12 11:08] VITALS: BP 112/59; PULSE 62; RESP 18; TEMP 36.4; O2SAT 98
--- NOTE | 2023-11-12 11:12 | MHC.CM.PN ---
Per ROUNDS discussion, Patient is medically cleared for dc today to Acute Rehab; CM awaits [facility] auth and will continue to follow.
[2023-11-12 14:58] VITALS: BP 111/57; PULSE 68; RESP 18; TEMP 36.3; O2SAT 97
--- NOTE | 2023-11-12 15:24 | P.PNIM_ITS ---
Subjective Subjective Date of Service: 11/12/23 Interval History: Doing excellent overall. Markedly improved since admit Review of Systems Denies chest pain Denies shortness of breath Denies nausea vomiting diarrhea Denies fever chills Physical Exam 2 Vital Signs: Vital Signs: Last Vital Signs Temp 97.3 F 11/12/23 14:58 Pulse 68 11/12/23 14:58 Resp 18 11/12/23 14:58 BP 111/57 L 11/12/23 14:58 Pulse Ox 97 11/12/23 14:58 O2 Del Method Room Air 11/12/23 14:58 BMI result Body Mass Index 34.4 Const: Other: Awake alert no acute distress Resp: Other: Clear to auscultation bilaterally no rales rhonchi or wheezes Cardio: Other: No S4; positive S1-S2; no S3 murmurs rubs or gallops GI: Other: Soft nontender nondistended normoactive bowel sounds Extrem: Other: No edema bilaterally Objective Data Active Medications Acetaminophen (Acetaminophen 325 Mg Tablet) 650 mg PO Q6H PRN PRN Reason: Pain, Mild (Pain Scale 1-3) Digoxin (Digoxin 0.125 Mg Tablet) 0.125 mg PO DAILY [facility] Last Admin: 11/12/23 08:10 Dose: 0.125 mg Documented By: TASNEEM Magnesium Oxide (Magnesium Oxide 400 Mg Tablet) 400 mg PO BIDPC [facility] Last Admin: 11/12/23 08:11 Dose: 400 mg Documented By: TASNEEM Metoprolol Tartrate (Metoprolol Tartrate 12.5 Mg Halftab) 12.5 mg PO DAILY [facility]; Protocol Last Admin: 11/12/23 08:11 Dose: 12.5 mg Documented By: TASNEEM Metoprolol Tartrate (Metoprolol Tartrate 25 Mg Tablet) 25 mg PO BEDTIME [facility] [place]; Protocol Last Admin: 11/11/23 20:41 Dose: 25 mg Documented By: JONES Midodrine (Midodrine Hcl 10 Mg Tablet) 10 mg PO TID [facility] [place] Last Admin: 11/12/23 15:16 Dose: 10 mg Documented By: ZARI Nystatin (Nystatin Powder 15 Gm Bottle) 1 appl TOPICAL BID [facility]; Protocol Last Admin: 11/12/23 08:14 Dose: Not Given Documented By: HO.DOBROB Non-Admin Reason: Previously Administered Sodium Chloride (0.9 % Sodium Chloride Flush 3 Ml Syringe) 3 ml IVFLUSH QSHIFT [facility] Last Admin: 11/12/23 15:17 Dose: 3 ml Documented By: PHANLYM Warfarin Sodium (Warfarin Sodium 5 Mg Tablet) 5 mg PO Velasquez@1800 [facility] Last Admin: 11/11/23 17:36 Dose: 5 mg Documented By: DOBROB Warfarin Sodium (Warfarin Sodium 2.5 Mg Tablet) 2.5 mg PO MOTUWETHFRSA@1800 [facility] Last Admin: 11/10/23 17:08 Dose: 2.5 mg Documented By: PODMORP Warfarin Sodium (Warfarin Sodium 5 Mg Tablet) 5 mg PO ONCE@1800 ONE Stop: 11/12/23 18:01 Labs 11/07/23 06:18 11/07/23 06:18 Labs: Laboratory Results - last 24 hr 11/12/23 11/12/23 07:01 07:02 Hold Purple Top SEE NOTE PT 20.7 H INR 1.7 H Random Cortisol 13.4 Assessment and Plan (1) Permanent atrial fibrillation: Status: Acute (2) ALPHONSO (acute kidney injury): Status: Acute (3) Orthostatic hypotension: Status: Acute Plan 78yo F with AF on warfarin, HTN, HLD, colostomy 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 indications presenting with increased black output from colostomy, found to have ALPHONSO + orthostasis. 1.Chronic AF with RVR -loaded with IV digoxin 11/07/23 and started 0.125 mg PO daily 11/08/23; resumed metoprolol 25 mg bid 11/08/23. -acceptable rate control -decrease AM metoprolol to 12.5 mg and keep 25 mg at hs. -on warfarin; INR 1.7 today.. Dose adjusted -hemoglobin stable. 2.ALPHONSO -resolved with volume -furosemide/spironolactone/lisinopril on hold 3.Orthostatic hypotension - due to autonomic dysfunction + RV dysfunction with reduced preload - stopped diuretics and lisinopril - increased midodrine to 10 mg tid 11/09/23. will give 1L LR today. - check AM cortisol tomorrow - Cardiology consulted. should have outpt follow-up; ?droxidopa warfarin Full code dispo - AIR recommended, Rudy Nguyen following In my clinical judgment, the patient requires continued inpatient hospitalization for the following reasons: orthostasis Quality Stroke Does the patient have a stroke diagnosis?: No VTE Prior VTE?: No VTE Risk Level:: Medical - moderate - high VTE Device Contraindication: N/A - Device Ordered VTE Drug Contraindication: Treatment Not Indicated
[2023-11-12] MEDS: Warfarin Sodium 5 MG TABLET PO (17:46)
[2023-11-12] MEDS: Warfarin Sodium 2.5 MG TABLET PO (17:46)
[2023-11-12 19:09] VITALS: BP 103/55; PULSE 68; RESP 18; TEMP 36.7; O2SAT 97
[2023-11-12] MEDS: Metoprolol Tartrate 25 MG TABLET PO (20:39)
[2023-11-12] MEDS: Nystatin Powder 15 GM BOTTLE 1 APPL TOPICAL (20:40)
[2023-11-13] VITALS: BP 136/80; PULSE 73; RESP 19; TEMP 37.1; O2SAT 96
[2023-11-13 03:44] VITALS: BP 130/69; PULSE 66; RESP 20; TEMP 36.5; O2SAT 94
[2023-11-13 06:32] LABS: Prothrombin Time 24.4 SEC (11.1-13.3)
[2023-11-13 07:14] VITALS: BP 153/74; PULSE 72; RESP 18; TEMP 36.3; O2SAT 94
[2023-11-13] MEDS: Midodrine HCl 10 MG TABLET PO ×2 (08:49→14:11)
[2023-11-13] MEDS: Digoxin 0.125 MG TABLET PO (08:49)
[2023-11-13] MEDS: 0.9 % Sodium Chloride Flush 3 ML SYRINGE IVFLUSH ×2 (08:49→14:11)
[2023-11-13] MEDS: Metoprolol Tartrate 12.5 MG HALFTAB PO (08:49)
[2023-11-13] MEDS: Magnesium Oxide 400 MG TABLET PO (08:50)
[2023-11-13] MEDS: Nystatin Powder 15 GM BOTTLE 1 APPL TOPICAL (08:51)
[2023-11-13 11:07] VITALS: BP 107/58; PULSE 64; RESP 18; TEMP 36.4; O2SAT 98
[2023-11-13 13:32] VITALS: PULSE 94
--- NOTE | 2023-11-13 14:13 | MHC.CM.PN ---
Per MD, Patient is medically cleared for dc to Acute Rehab today. Patient will dc to [facility] today at 4:30 PM, via [facility]. CM left a detailed message for HCP/Re @ [phone], informing her of the dc plan.
--- NOTE | 2023-11-13 14:22 | P.DS_ITS ---
DS: Providers Provider Date of Service: 11/13/23 Date of admission: 11/01/23 22:18 Date of discharge: 11/13/23 Primary care physician: Eloisa Veronica MD Consults: 11/01/23 23:05 Consult to Gastroenterology Routine Consulting Provider: Randall Johns Reason for consultation: Colostomy bag. On warfarin.Black stools Has provider been notified: No 11/04/23 09:57 Consult to Cardiology Routine Consulting Provider: [facility] Reason for consultation: rt sided hf/low bp Has provider been notified: No 11/05/23 01:03 Consult to Wound Care Routine Reason for consultation: Buttocks/coccyx, fungal rash khai area and thighs DS: Diagnosis Discharge Diagnosis (1) Permanent atrial fibrillation: Status: Acute (2) ALPHONSO (acute kidney injury): Status: Acute (3) Orthostatic hypotension: Status: Acute DS: Summary Hospital Course Hospital Course: 78 years old woman with past medical history significant for atrial fibrillation on chronic anticoagulation with warfarin, status post colostomy, hyperlipidemia and hypertension presents to emergency department complaining of increased output from her colostomy. She noted that the stools are black (initially stool was very watery). She denied any associated abdominal pain, nausea or vomiting. She also denied any headache, palpitations, dizziness, chest pain, shortness on breath, cough, fever or chills. Patient denied alcohol abuse, illicit drug use tobacco smoking. In the ED, vital signs are remarkable for initial blood pressure 70/45, tachycardia and temperature 96.7 degrees. Oxygen saturation is normal on room air. There is no tachypnea. Is not tachycardic. Hyperkalemia of 6.2 was noted as well as a creatinine of 1.86. CXR is negative. ECG showed atrial fibrillation with heart rate of 81 beats per minutes. ED tx: NS 1 L bolus, calcium gluconate 2 g IV, albuterol neb, D50 1 amp, insulin R 5 units and Imodium 4 mg p.o. Hospital Course Chronic AF with RVR -loaded with IV digoxin 11/07/23 and started 0.125 mg PO daily 11/08/23; resumed metoprolol 25 mg bid 11/08/23. Rate is under much better control but she has severe orthostasis; will decrease AM metoprolol to 12.5 mg and keep 25 mg at hs. -on warfarin; INR 2.0 today, recheck level tomorrow ALPHONSO - resolved; likely due to GI loss from diarrhea along with use of diuretics [furosemide + spironolactone] and lisinopril, which have been stopped secondary to orthostasis. Can be resumed at discretion of receiving facility Orthostatic hypotension - due to autonomic dysfunction + RV dysfunction with reduced preload - stopped diuretics and lisinopril - increased midodrine to 10 mg tid 11/09/23. Volume repleted -AM cortisol normal -outpatient follow-up HyperK - resolved, was likely due to potassium supplement, spironolactone, and lisinopril use [all discontinued] Heme-positive stool -discussed with GI; no intervention as hemoglobin has remained stable throughout hospitalization Seen by Physical therapy and acute rehab recommended. At this point in time she is medically acceptable for same Time Attestation Discharge Coordination Time (in mins): 35 Quality: Safe Use of Opioids Does Pt have an Active Cancer Diagnosis on the Problem List?: No Quality: Stroke Does the patient have a stroke diagnosis?: No Physical Exam Vital Signs: Vital Signs: Last Vital Signs Temp 97.5 F 11/13/23 11:07 Pulse 94 11/13/23 13:32 Resp 18 11/13/23 11:07 BP 107/58 L 11/13/23 11:07 Pulse Ox 98 11/13/23 11:07 O2 Del Method Room Air 11/13/23 11:07 BMI result Body Mass Index 34.4 Const: Other: Awake alert no acute distress Resp: Other: Clear to auscultation bilaterally no rales rhonchi or wheezes Cardio: Other: No S4; positive S1-S2; no S3 murmurs rubs or gallops GI: Other: Soft nontender nondistended normoactive bowel sounds Extrem: Other: No edema bilaterally DS: Data Data Completed and Pending Labs on day of discharge: Laboratory Results - last 24 hr 11/13/23 05:37 Hold Purple Top SEE NOTE PT 24.4 H INR 2.0 H Discharge Plan Discharge Anticipated Discharge Date/Time: 11/13/23 14:11 Patient Disposition: Xfer Inpatient Rehab Fac Discharge Diagnosis: Lower GI bleed Referrals: [facility] [Outside] - 1 Week Eloisa Veronica MD [Primary Care Provider] - 1 Week Discharge Medications: New metoprolol tartrate 25 mg Tablet 25 mg PO BEDTIME Qty: 30 0RF Protocol: Hold for SBP/HR < HOLD for SBP < : 90 HOLD for HR < : 60 digoxin 125 mcg (0.125 mg) tablet 125 mcg PO DAILY Qty: 30 0RF metoprolol tartrate 25 mg tablet 12.5 mg PO DAILY Qty: 30 0RF Continued alendronate 70 mg tablet 70 mg PO BLUNT warfarin 2.5 mg tablet 5 mg PO Blunt@1800 calcium carbonate-vitamin D3 [Calcium 500 + D] 500 mg-10 mcg (400 unit) Tablet 1 tab PO DAILY ferrous sulfate 324 mg (65 mg iron) Tablet,Delayed Release (Dr/Ec) 324 mg PO DAILY Qty: 90 0RF furosemide 40 mg Tablet 40 mg PO DAILY Qty: 90 0RF Protocol: Hold for SBP< HOLD for SBP < : 90 magnesium oxide 400 mg (241.3 mg magnesium) Tablet 400 mg PO BIDPC Qty: 180 0RF warfarin 2.5 mg tablet 2.5 mg PO MOTUWETHFRSA@1800 Discontinued amlodipine 5 mg tablet 5 mg PO BEDTIME potassium chloride 20 mEq tablet,ER particles/crystals 20 meq PO DAILY lisinopril 40 mg tablet 40 mg PO BEDTIME metoprolol succinate 50 mg Tablet Extended Release 24 Hr 50 mg PO DAILY Qty: 90 0RF Protocol: Hold for SBP/HR < HOLD for SBP < : 90 HOLD for HR < : 60 spironolactone 25 mg Tablet 25 mg PO DAILY Qty: 90 0RF Protocol: Hold for SBP< HOLD for SBP < : 90 Discharge Orders: Discharge Order (Routine); Ordered 11/13/23 Ordered By: Renato Hernandez Diet: Advance to usual diet Activity on Discharge: As tolerated Stand Alone Forms: Patient Portal Discharge page Care Plan Goals: Continue all medicines as outlined on transfer sheet Health Concerns: Continue warfarin to maintain an INR of 2.0 or greater Plan of Treatment: As per receiving facility Assessment: See discharge summary
[2023-11-13 15:29] VITALS: BP 136/69; PULSE 68; RESP 18; TEMP 36.4; O2SAT 96
== END 2023-11-13 16:44 | DRG 683 ==
LOC: HO.ED 22:03 → HO.EDOVER 22:32 → HO.IMC 11-02 07:57
PROVIDERS: Family Medicine; Hospitalist; Registered Nurse Emergency; Admitting Provider Internal Medicine; Emergency Provider Emergency Medicine; PCP Internal Medicine; Visit Provider Hospitalist
DX: N17.9 Acute kidney failure, unspecified (principal); I48.19 Other persistent atrial fibrillation; I11.0 Hypertensive heart disease with heart failure; E78.5 Hyperlipidemia, unspecified; E86.0 Dehydration; B37.2 Candidiasis of skin and nail; I95.1 Orthostatic hypotension; T50.0X5A Adverse effect of mineralocorticoids and their antagonists, initial encounter; E87.5 Hyperkalemia; E66.09 Other obesity due to excess calories; R19.5 Other fecal abnormalities; I50.812 Chronic right heart failure; Z68.34 Body mass index [BMI] 34.0-34.9, adult; Z20.822 Contact with and (suspected) exposure to COVID-19; Z93.3 Colostomy status; Z79.01 Long term (current) use of anticoagulants; Z79.899 Other long term (current) drug therapy
CPT/HCPCS: 0241U; 36415; 71046; 80048; 80053; 81001; 82272; 82533; 82947; 83605; 83735; 84484; 85025; 85027; 85610; 86850; 86900; 86901; 87086; 87493; 93005; 94640; 97110; 97112; 97116; 97162; 97166; 97530; 97535; 99285; C9113; J0613; J1160; J7120; P9047

== ENCOUNTER → 2023-11-01 16:24 | Outpatient (BNV) | payer OTHER, SELFPAY | PROVIDERS: Admitting Provider Internal Medicine; Emergency Provider Emergency Medicine; PCP Internal Medicine; Visit Provider Internal Medicine Cardiovascular Disease | DX: I48.91 Unspecified atrial fibrillation (principal) | CPT/HCPCS: 93010 ==

== ENCOUNTER → 2023-11-01 22:18 | Outpatient (BNV) | payer OTHER, SELFPAY | PROVIDERS: Admitting Provider Internal Medicine; Emergency Provider Emergency Medicine; PCP Internal Medicine; Visit Provider Internal Medicine | DX: N17.9 Acute kidney failure, unspecified (principal); R19.7 Diarrhea, unspecified; E86.0 Dehydration; I48.21 Permanent atrial fibrillation; E87.5 Hyperkalemia | CPT/HCPCS: 99223; 99232; 99233; 99239 ==

== ENCOUNTER → 2023-11-01 22:18 | Outpatient (BNV) | payer OTHER, SELFPAY | PROVIDERS: Admitting Provider Internal Medicine; Emergency Provider Emergency Medicine; PCP Internal Medicine; Visit Provider Internal Medicine Cardiovascular Disease | DX: R42 Dizziness and giddiness (principal); I48.21 Permanent atrial fibrillation | CPT/HCPCS: 99223; 99233 ==

== ENCOUNTER → 2023-11-01 22:18 | Outpatient (BNV) | payer OTHER, SELFPAY | PROVIDERS: Admitting Provider Internal Medicine; Emergency Provider Emergency Medicine; PCP Internal Medicine; Visit Provider Internal Medicine Gastroenterology | DX: R19.5 Other fecal abnormalities (principal); Z93.3 Colostomy status | CPT/HCPCS: 99222 ==

== ENCOUNTER → 2024-03-13 19:30 | Outpatient (REF) | payer OTHER, SELFPAY | LOC: HO.SL 19:30 | PROVIDERS: PCP Internal Medicine; Visit Provider Nurse Practitioner Family | DX: Z13.89 Encounter for screening for other disorder (principal) ==

== ENCOUNTER 2025-01-27 14:25 | Outpatient (AMB) | payer OTHER, SELFPAY ==
--- NOTE | 2025-01-27 14:27 | AM.OFFWIN_ITS ---
Intake Vital Signs 01/27/25 14:29 Height 5 ft 3 in Weight 180 lb BMI 31.9 BP 126/60 Blood Pressure Location Lt brachial Position Sitting Pulse 94 Pulse Source Pulse Oximeter Temp 97.5 F Temp Source Oral Pulse Oximetry (%) 95 Oxygen Delivery Method Room Air Intake Visit Reasons: EP Ear flushing Intake Note: Pt is here today c/o bilateral ear ear blocked Patient Tobacco Use Status: Never used Tobacco Allergies No Known Allergies [No Known Allergies*] Allergy (Verified 01/27/25 14:27) Medication List - Last Reconciled 01/27/25 by Roberto Jones MD alendronate 70 mg PO BLUNT calcium carbonate-vitamin D3 500 mg-10 mcg (400 unit) (Calcium 500 + D) 1 tab PO DAILY dapagliflozin propanediol (Farxiga) 10 mg PO DAILY ferrous sulfate 324 mg PO DAILY levothyroxine 25 mcg PO DAILY potassium chloride ER mEq PO torsemide 20 mg PO DAILY warfarin 2.5 mg PO MOTUWETHFRSA@1800 HPI EP Ear flushing HPI Details History - The patient is an 79-year-old female p resenting with hearing loss. Bilateral - The hearing loss has been noticed inte rmittently over the last month, with symptoms worsening yesterday morning. - The patient reports that she is unable to hear her phone ringing or her neighbor knocking on the door. - She describes the inability to hear th e television clearly. - The patient applies ear drops (likely cerumenolytics) yesterday, resulting in slight improvement in hearing today. - The patient believes both ears are blo cked with wax, a belief supported by the improved hearing after using ear drops. Problem List - Hearing loss - Impacted cerumen in both ears Both ears were irrigated with partial clearing of ear canal patient's hearing did improve however not optimal Patient Instructions - Use ear drops as instructed to soften the ear wax. - Follow up if hearing loss does not imp rove or worsens. Review of Systems - General: No fever no chills - Neurological: No headaches no dizziness - Ear nose throat: No sore throat no hearing difficulty no ear pain - Cardiovascular: No syncope, no chest pain, no palpitations - Gastrointestinal: No nausea vomiting or diarrhea Physical Exam General: No acute distress HEENT: Ears blocked with wax, difficulty hearing Neck: Supple Respiratory system: Able to talk in full sentences, no audible wheeze Extremities: No new findings DIRECTOR WRITING: Alert awake oriented x3 motor sensory intact Skin: Normal turgor PFSH Medical History Osteoporosis Hyperlipidemia Hypertension Atrial fibrillation Social History Household Members: None Housing: House Do you presently have visiting nurse or other home services: Yes Alcohol intake: former Patient Tobacco Use Status: Never used Tobacco Advance Directives Date on File: 11/02/23 service: No Physical Exam Vital Signs: Last Vital Signs Temp 97.5 F 01/27/25 14:29 Pulse 94 01/27/25 14:29 BP 126/60 01/27/25 14:29 Pulse Ox 95 01/27/25 14:29 Oxygen Delivery Method Room Air 01/27/25 14:29 BMI result Body Mass Index 31.9 Office Procedures Cerumen Removal From which ear canal was the cerumen removed: bilateral Removal: irrigation and cerumen loop/spoon Notes: patient tolerated procedure well and no complications [id number] Irrigation/Lavage Assessment & Plan Assessment & Plan (1) Hearing difficulty of both ears: Code(s): H91.93 - Unspecified hearing loss, bilateral (2) Impacted cerumen of both ears: Code(s): H61.23 - Impacted cerumen, bilateral Plan History - The patient is an 79-year-old female presenting with hearing loss. Bilateral - The hearing loss has been noticed intermittently over the last month, with symptoms worsening yesterday morning. - The patient reports that she is unable to hear her phone ringing or her neighbor knocking on the door. - She describes the inability to hear the television clearly. - The patient applies ear drops (likely cerumenolytics) yesterday, resulting in slight improvement in hearing today. - The patient believes both ears are blocked with wax, a belief supported by the improved hearing after using ear drops. Problem List - Hearing loss - Impacted cerumen in both ears Both ears were irrigated with partial clearing of ear canal patient's hearing did improve however not optimal Patient Instructions - Use ear drops as instructed to soften the ear wax. - Follow up if hearing loss does not improve or worsens. Coding Level of Care Code Est Pt Level 3 (16939) Diagnoses Hearing difficulty of both ears H91.93 Impacted cerumen of both ears H61.23 CPT Codes Office Procedure - CPT: 40018-Xxo Irrigation/Lavage ([id number])
[2025-01-27 14:29] VITALS: BP 126/60; PULSE 94; TEMP 36.4; O2SAT 95; BMI 31.9
--- OUTSIDE RECORDS SUMMARY | 2025-01-27 16:15 | XMS_ITS | Clinical Summary ---
Author Organization [facility] Address [address] [place] [phone] Phone Care Team Providers Care Genomics Scientist Name Role Phone Eloisa Veronica MD Primary Care Provider [phone] Allergies No known active allergies Medications amoxicillin (AMOXIL) 500 mg capsule Take 4 Capsules by mouth Once. (1 hr prior to dental exam) 4 Active nystatin (MYCOSTATIN) 100,000 unit/gram powder Apply bid to rash 4 Active ostomy supplies [facility]OM[facility] (COLOPLAST BARRIER RING) [facility] Coloplast elastic barrier strips #399267 2 boxes per month--30 per box Refills 11 ICD 10: Z93.3 0 Active alendronate (FOSAMAX) 70 mg tablet Take 1 tablet (70 mg total) by mouth every 7 (seven) days. Take in the morning with a full glass of water, on an empty stomach, and do not take anything else by mouth or lie down for the next 30 min. 90 tablet 1 4 Active Farxiga 10 mg tablet Take 1 tablet (10 mg total) by mouth 1 (one) time each day. 5 Active torsemide (DEMADEX) 20 mg tablet Take 1 tablet (20 mg total) by mouth 1 (one) time each day. 90 tablet 1 5 Active ferrous sulfate 325 mg (65 mg iron) EC tablet Take 1 tablet (325 mg total) by mouth 1 (one) time each day. Do not crush, chew, or split. 90 tablet 1 5 Active calcium citrate-vitami n D (CITRACAL+D) 315 mg-5 mcg (200 unit) per tablet Take 1 tablet by mouth 1 (one) time each day. Active warfarin (COUMADIN) 2.5 mg tablet Take 1-3 tablets (2.5-7.5 mg total) by mouth 1 (one) time each day. Managed by [facility] Coumadin [facility] 270 tablet 1 5 Active potassium chloride (KLOR-CON M20) 20 mEq CR tablet Tablet may be swallowed whole (do not crush/chew/suc k on) OR broken in half and each half swallowed separately OR dissolved (whole tablet) in ~4 ounces of water (allow ~2 minutes to dissolve, stir well and administer immediately). Please take 20 MEQ 2 tabs Sunday01/16/25, 01/17/25 then 20 meq daily thereafter. 94 tablet 5 Active levothyroxine (SYNTHROID, LEVOTHROID) 25 mcg tablet Take 1 tablet (25 mcg total) by mouth 1 (one) time each day. 90 tablet 3 5 Active levothyroxine (SYNTHROID, LEVOTHROID) 25 mcg tablet Take 1 tablet (25 mcg total) by mouth 1 (one) time each day. 5 01/22/20 25 Discontinu ed(Reorder ) warfarin (COUMADIN) 2.5 mg tablet Take by mouth. Managed by [facility] Coumadin [facility] 01/07/20 25 Discontinu ed(Reorder ) Active Problems Problem Noted Date Diagnosed Date Orthostatic hypotension 12/06/2023 Vitamin D deficiency 03/02/2023 Venous insufficiency 01/11/2023 Assessment & Plan (12/15/2024 1:18 PM EDT): Chronic. Patient's lower extremity edema is improved. Continue with the torsemide. Elevate legs when able. Limit sodium consumption. CKD (chronic kidney disease) stage 3, GFR 30-59 ml/min (CMS/HCC V24, CMS/HCC V28) 04/19/2020 Parastomal hernia without obstruction or gangren e 09/09/[address] (CMS/HCC V24, [facility] V28) Colovesical fistula 08/15/2018 Chronic diarrhea 05/27/2018 Diverticulitis of large inte josephine with perforation and abscess without bleeding 02/18/2018 (HFpEF) heart failure with p reserved ejection fraction ([facility] V24, [facility] V28) 06/17/2014 Overview (11/05/2024): On 09/23/2024 patient had an echocardiogram at [facility] while hospitalized. This revealed the left ventricle is dilated. The left ventricular wall thickness is mildly increased. The LV systolic function is mildly reduced LVEF is 45%. The basal to mid inferior wall is akinetic. Apical views are foreshortened, limited wall motion analysis. There is diastolic dysfunction with indeterminate left atrial pressure. The left atrium is severely dilated. The right atrium is severely dilated. There is apical tethering of both leaflets of the mitral valve. The mitral valve appears mildly thickened. There is mild mitral annular calcification. There is mild functional mitral regurgitation. There is moderate to severe functional tricuspid valve regurgitation. Assessment & Plan (12/15/2024 1:18 PM EDT): HFpEF. Patient was placed on Farxiga while in the hospital has not had any problems with that medication. Appears mostly euvolemic on exam. Does have some chronic venous insufficiency so his edema is not completely gone however she reports this is back to her baseline. She tries to avoid sodium is much as possible however she eats out often and it is difficult to completely avoid sodium at that point. She checks her weights daily. Dyspnea on exertion has resolved. She should continue to check her weights daily and reach out to the office if she gains more than 2 pounds in a day or 5 pounds in a week. PFO (patent foramen ovale) 06/17/2014 Cardiomyopathy ([facility] V24, [facility] V28) 2012 Osteoporosis 10/29/2008 Overview (06/24/2024): 10/2008: T-1.1 spine -1.1 hip 04/06 T score spine -1.1 hip -1.4 FRAX 14% 04/09 T score spine -1.8 hip -1.7 femoral neck -3.0 12/11 T score spine -0.9 hip -2.8 06/14 T score spine -1.1 hip -2.8 08/2021: T-score lumbar (-0.6); hip (-3.9) Atrial fibrillation (CMS/HCC V24, CMS/HCC V28) 0 12/15/2005 Assessment & Plan (12/15/2024 1:18 PM EDT): Patient is chronically in A-fib. I am going to be following up to make sure she gets a Holter monitor because I want to have see what her average heart rates are off of the metoprolol. She is reporting no increase in symptoms. She denies any abnormal bleeding. Continue with the warfarin for CVA prophylaxis. Patient should remain anticoagulated due to elevated [id number] score. Orders: ECG 12 lead Hypertension 12/15/2005 Assessment & Plan (12/15/2024 1:18 PM EDT): Well-controlled the appointment today. Patient should continue on current regimen. She has a BMP ordered from primary care I will check on this to make sure patient's electrolyte and kidney status remained stable. Obesity (BMI 30.0-34.9) 12/15/2005 Osteoarthrosis, localized, secondary, involving lower leg 12/15/2005 Overview (06/24/2024): Osteoarthrosis involving lower leg IMO Update Fall 2015 Hypothyroidism Encounters Date Type Department Care Team Description 01/20/2025 2:30 PM EDT Anticoagulation - Warfarin Visit [facility]in Clinic - [address] [phone] Longstanding persistent atrial fibrillation (CMS/HCC V24, CMS/HCC V28) (Primary Dx) 01/20/2025 Telephone Adult Medicine [address] [phone] Ana Gallagher MA Provider Call Back 01/16/2025 Telephone [facility] - [address] [place] [address] Flora Peña MA Looping Strips 01/06/2025 1:40 PM EDT Anticoagulation - Warfarin Visit Coumadin Clinic [address] [phone] Longstanding persistent atrial fibrillation (CMS/HCC V24, CMS/HCC V28) (Primary Dx) 12/30/2024 Telephone Adult Medicine [address] [phone] Eloisa Veronica MD faxed orders ([facility] order # [id number] ) 12/29/2024 Telephone Adult [address] [phone] Eloisa Veronica MD VNA 12/29/2024 Anticoagulation - Warfarin Visit Coumadin [address] [phone] Emeli Choudhury LPN Longstanding persistent atrial fibrillation (CMS/HCC V24, CMS/HCC V28) (Primary Dx) 12/26/2024 11:00 AM EDT Ancillary Procedure [facility] - [facility] [address] [facility] [address] [place] [id number] Longstanding persistent atrial fibrillation (CMS/HCC V24, CMS/HCC V28); Bradycardia 12/25/2024 Telephone Adult Medicine [address] [phone] Gunjan Gray LPN Fitting for DME (Faxed message from [facility] pulmonary ) 12/24/2024 Telephone Adult Medicine [address] [phone] Eloisa Veronica MD faxed order ([facility] order # [id number]) 12/22/2024 Anticoagulation - Warfarin Visit Coumadin [address] [phone] Jenna Sparrow LPN Longstanding persistent atrial fibrillation (CMS/HCC V24, CMS/HCC V28) (Primary Dx) 12/18/2024 Billing Patient Not Present Adult Medicine [address] [phone] Eloisa Veronica MD 12/16/2024 Telephone Adult Medicine [address] [phone] Eloisa Veroinca MD faxed order ([facility] order # [id number]) 12/15/2024 12:40 PM EDT Office Visit [facility] - [address] [place] [address] Darian Vazquez NP Atrial fibrillation, unspecified type (CMS/HCC V24, CMS/HCC V28) (Primary Dx); Chronic heart failure with preserved ejection fraction (CMS/HCC V24, CMS/HCC V28); Venous insufficiency; Primary hypertension 12/15/2024 Anticoagulation - Warfarin Visit Coumadin [address] [phone] Jenna Sparrow LPN Longstanding persistent atrial fibrillation (CMS/HCC V24, CMS/HCC V28) (Primary Dx) 12/11/2024 Telephone Adult Medicine [address] [phone] Gunjan Gray LPN Fitting for DME 12/10/2024 1:30 PM EDT Office Visit Adult [address] [phone] Eloisa Veronica MD Acute on chronic right-sided congestive heart failure (CMS/HCC V24, CMS/HCC V28) (Primary Dx); Longstanding persistent atrial fibrillation (CMS/HCC V24, CMS/HCC V28); Stage 3 chronic kidney disease, unspecified whether stage 3a or 3b CKD (CMS/HCC V24, CMS/HCC V28); Primary hypertension; Acquired hypothyroidism 12/09/2024 Anticoagulation - Warfarin Visit Coumadin [address] [phone] Emeli Choudhury LPN Longstanding persistent atrial fibrillation (CMS/HCC V24, CMS/HCC V28) (Primary Dx) 12/08/2024 Telephone Adult [address] [phone] Eloisa Veronica MD Hospital Follow-up 12/05/2024 Anticoagulation - Warfarin Visit [facility] Clinic [address] [phone] Jenna Sparrow LPN Longstanding persistent atrial fibrillation (CMS/HCC V24, CMS/HCC V28) (Primary Dx) 12/01/2024 Anticoagulation - Warfarin Visit Coumadin [address] [phone] Jenna Sparrow LPN Longstanding persistent atrial fibrillation (CMS/HCC V24, CMS/HCC V28) (Primary Dx) 11/26/2024 Telephone [facility] [address] [facility] [address] [place] [address] Viri Robledo MD lyrica (lyrica) 11/26/2024 Anticoagulation - Warfarin Visit Coumadin [address] [phone] Emeli Choudhury LPN Longstanding persistent atrial fibrillation (CMS/HCC V24, CMS/HCC V28) (Primary Dx) 11/26/2024 Telephone Adult [address] [phone] Eloisa Veronica MD vna ([facility] ) 11/24/2024 Telephone [facility] [address] [facility] [address] [place] [address] Viri Robledo MD Loop - [phone] (Ok to Book); Loop Enrollment (Enrolling patient for 30 day Loop) 11/21/2024 Telephone [facility] [address] [place] [address] Zofia Cox NP 11/21/2024 Telephone [facility] - [address] [facility] [address] [place] [phone] Darian Vazquez NP No Show (Patient was in the hospital NOT A NO SHOW) 11/11/2024 1:40 PM EDT Anticoagulation - Warfarin Visit Cou[facility]in Clinic [address] [phone] Longstanding persistent atrial fibrillation (CMS/HCC V24, CMS/HCC V28) (Primary Dx) 11/10/2024 Telephone Adult Medicine [address] [phone] More Mahoney, RN Faxed Order ([facility] order# [id number]) 11/07/2024 11:10 AM EDT Anticoagulation - Warfarin Visit Coumadin [address] [phone] Longstanding persistent atrial fibrillation (CMS/HCC V24, CMS/HCC V28) (Primary Dx) 11/03/2024 Telephone Adult Medicine [address] [phone] More Mahoney, RN Faxed Order ([facility] order# [id number]) 11/03/2024 Anticoagulation - Warfarin Visit Coumadin [address] [phone] Jenna Sparrow LPN Longstanding persistent atrial fibrillation (CMS/HCC V24, CMS/HCC V28) (Primary Dx) 10/27/2024 Telephone Adult Medicine [address] [phone] More Mahoney, RN Faxed Order ([facility] Order# [id number]) 10/27/2024 Telephone Adult Medicine [address] [phone] More Mahoney, RN Faxed Order ([facility] Order# [id number]) 10/27/2024 Anticoagulation - Warfarin Visit Coumadin [address] [phone] Emeli Choudhury LPN Longstanding persistent atrial fibrillation ([facility] V24, [facility] V28) (Primary Dx) from Last 3 Months Immunizations Name Administration Dates Next Due Pneumococcal conjugate 13 va lent (Prevnar 13, PCV13) 2mo and older 08/11/2015 Pneumococcal polysaccharide 23 valent (Pneumovax 23) 2yo and older 10/16/2008 Td Tetanus diptheria (Tdvax) 7yo and older 02/06,03/16/2011,07/16/2001 Zoster Live 04/16/2012 Surgical History Surgery Date Site/Laterality Comments APPENDECTOMY TONSILLECTOMY CATARACT EXTRACTION bilateral 2011 BOWEL RESECTION 08/2018 : sigmoid resection for obstruction and diverticulitis Medical History Medical History Date Comments Atrial fibrillation ([facility] V24, [facility] V28) Ostium secundum type atrial septal defect Essential hypertension, benign Obesity, unspecified Diverticulitis 05/21/[address] ([facility] V24, [facility] V28) 09/30/2018 Orthostatic hypotension 12/06/2023 (HFpEF) heart failure with p reserved ejection fraction ([facility] V24, [facility] V28) 06/17/2014 Cardiomyopathy ([facility] V24, [facility] V28) 05/02/2013 Chronic diarrhea 05/27/2018 CKD (chronic kidney disease) stage 3, GFR 30-59 ml/min ([facility] V24, [facility] V28) 04/19/2020 Colovesical fistula 08/15/2018 Osteoporosis 10/29/200810/2008: T-1.1 s pine -1.1 hip 04/06 T score spine -1.1 hip -1.4 FRAX 14% 04/09 T score spine -1.8 hip -1.7 femoral neck -3.0 12/11 T score spine -0.9 hip -2.8 06/14 T score spine -1.1 hip -2.8 08/2021: T-score lumbar (-0.6); hip (-3.9) Parastomal hernia without ob struction or gangrene 09/09/2019 PFO (patent foramen ovale) 06/17/2014 Venous insufficiency 01/11/2023 Vitamin D deficiency 03/02/2023 Osteoarthrosis, localized, s econdary, involving lower leg 12/15/2005 Hypothyroidism Family History Medical History Relation Name Comments Heart failure Mother Relation Name Status Comments Father Mother Social History Tobacco Use Types Packs/Day Years Used Date Smoking Tobacco: Never Smokeless Tobacco: Never Tobacco Cessation:Counseling Given: Not Answered Alcohol Use Standard Drinks/Week Comments No 0 (1 standard drink = 0.6 oz pur e alcohol) Comments Unknown Sex and Gender Information Value Date Recorded Sex Assigned at Not on file Legal Sex Female 2:03 AM EST Gender Identity Not on file Sexual Orientation Not on file Obstetrics History Last Filed Vital Signs Vital Sign Reading Time Taken Comments Blood Pressure 122/74 12/15/2024 12:39 PM EDT Pulse 82 12/15/2024 12:39 PM EDT Temperature 35.8 ??C (96.5 ??F) 12/10/2024 1:34 PM ED T Respiratory Rate 16 12/10/2024 1:34 PM EDT Oxygen Saturation 98% 12/15/2024 12: 39 PM EDT Inhaled Oxygen Concentration - - Weight 80.2 kg (176 lb 12.8 oz) 025 12:39 PM EDT Height 160 cm (5' 3 ) 12/15/2024 12:39 PM EDT Body Mass Index 31.32 12/15/2024 12:39 PM EDT Plan of Treatment Upcoming Encounters Date Type Department Care Team (Late st Contact Info) Description 02/02/2025 10:40 AM EDT Anticoagulation - Warfarin Visit Coumadin [address] [phone] 02/02/2025 11:15 AM EDT Office Visit Adult Medicine [address] [phone] Maureen Winston PA [address] [place], [place] Health Maintenance Due Date Last Done Comments Zoster Vaccines (2 of 3) 06/11/2012 04/16/2012 RSV Immunization Adult Patients (1 - 1-dose 75+ series) 2018 COVID-19 Vaccine (3 - Pfizer risk series) 11/26/2020 10/29/2020, 10/08/2020 Depression Screening 08/05/2022 Falls Risk Assessment 08/05/2022 Social Influencers of Health Screening 08/05/2022 Influenza Vaccine (Season Ended) 2025 Hypertension/CHF/CAD Annual BMP Blood Test 01/22/2026 01/22/2025, 01/08/2025, 06/20/2024, Additional history exists Cholesterol Screening (Lipid Panel) 06/20/2029 06/20/2024, 06/20/2024 DTaP,Tdap,and Td Vaccines (4 - Td or Tdap) 02/07/2032 02/06/2022, 03/16/2011, 07/16/2001 Osteoporosis Screening (Bone Density Screening) 08/05/2034 08/05/2024, 09/16/2021, 06/20/2019, Additional history exists Pneumococcal Vaccine: 50+ Years Completed 08/11/2015, 10/16/2008 HIB Vaccines Aged Out No longer eligi ble based on patient's age to complete this topic HPV Vaccines Aged Out No longer eligi ble based on patient's age to complete this topic Hepatitis A Vaccines Aged Out No long er eligible based on patient's age to complete this topic Hepatitis B Vaccines Aged Out No long er eligible based on patient's age to complete this topic IPV Vaccines Aged Out No longer eligi ble based on patient's age to complete this topic MMR Vaccines Aged Out No longer eligi ble based on patient's age to complete this topic Meningococcal ACWY Vaccine Aged Out N o longer eligible based on patient's age to complete this topic Meningococcal B Vaccine Aged Out No l onger eligible based on patient's age to complete this topic RSV Immunization Patients Under 20 months Aged Out No longer eligible based on patient's age to complete this topic Varicella Vaccines Aged Out No longer eligible based on patient's age to complete this topic Procedures Procedure Name Priority Date/Time Associated Diagnosis Comments BASIC METABOLIC PANEL Routine 01/22/2025 1:36 PM EDT Hypokalemia POC PROTIME INR BLOOD Routine 01/20/2025 Longstanding persistent atrial fibrillation (CMS/HCC V24, CMS/HCC V28) THYROID STIMULATING HORMONE Routine 01/08/2025 2:04 PM EDT Acquired hypothyroidism BASIC METABOLIC PANEL Routine 01/08/2025 2:04 PM EDT Acute on chronic right-sided congestive heart failure (CMS/HCC V24, CMS/HCC V28) Stage 3 chronic kidney disease, unspecified whether stage 3a or 3b CKD (CMS/HCC V24, CMS/HCC V28) Primary hypertension POC PROTIME INR BLOOD Routine 01/06/2025 Longstanding persistent atrial fibrillation (CMS/HCC V24, CMS/HCC V28) PROTHROMBIN TIME WITH INR Routine 12/29/2024 PROTHROMBIN TIME WITH INR Routine 12/22/2024 ECG 12-LEAD Routine 12/15/2024 1:18 PM EDT Atrial fibrillation, unspecified type (CMS/HCC V24, CMS/HCC V28) PROTHROMBIN TIME WITH INR Routine 12/15/2024 PROTHROMBIN TIME WITH INR Routine 12/09/2024 PROTHROMBIN TIME WITH INR Routine 12/05/2024 PROTHROMBIN TIME WITH INR Routine 12/01/2024 PROTHROMBIN TIME WITH INR Routine 11/26/2024 EXTERNAL ULTRASOUND REPORT 11/14/2024 POC PROTIME INR BLOOD Routine 11/11/2024 Longstanding persistent atrial fibrillation (CMS/HCC V24, CMS/HCC V28) POC PROTIME INR BLOOD Routine 11/07/2024 Longstanding persistent atrial fibrillation (CMS/HCC V24, CMS/HCC V28) HOME HEALTH ORDER 11/03/2024 PROTHROMBIN TIME WITH INR Routine 11/03/2024 PROTHROMBIN TIME WITH INR Routine 10/27/2024 BD BONE DENSITY DXA AXIAL SKELETON Routine 08/05/2024 1:44 PM EST Vitamin D deficiency, unspecified Age-related osteoporosis without current pathological fracture LIPID PANEL Routine 06/20/2024 from Last 3 Months or Most Recently Relevant to Health Maintenance Results * Basic metabolic panel (01/22/2025 1:36 PM EDT) Only the most recent of2 resultswithin the time period is included. Sodium 138 133 - 145 mmol/L LAB CHEMISTRY METHOD 01/22/2025 5:31 PM [facility] Potassium 4.3 3.5 - 5.5 mmol/L LAB CHEMISTRY METHOD 01/22/2025 5:31 PM [facility] Chloride 105 96 - 110 mmol/L LAB CHEMISTRY METHOD 01/22/2025 5:31 PM [facility] CO2 26 21 - 32 mmol/L LAB CHEMISTRY METHOD 01/22/2025 5:31 PM [facility] Anion Gap 7 3 - 11 LAB CHEMISTRY METHOD 01/22/2025 5:31 PM [facility] Glucose 80 70 - 100 mg/dL LAB CHEMISTRY METHOD 01/22/2025 5:31 PM [facility] BUN 20 5 - 25 mg/dL LAB CHEMISTRY METHOD 01/22/2025 5:31 PM [facility] Creatinine 0.82 0.50 - 1.10 mg/dL LAB CHEMISTRY METHOD 01/22/2025 5:31 PM [facility] eGFR 72 >=60 mL/min/1. 73m2 LAB CHEMISTRY METHOD 01/22/2025 5:31 PM [facility] Comment:Calculation based on the Chronic Kidney Disease Epidemiology Collaboration (CKD-EPI) equation refit without adjustment for race. BUN/Creatinine Ratio 24.4 LAB CHEMISTRY METHOD 01/22/2025 5:31 PM EDT [facility] Calcium 9.5 8.5 - 10.5 mg/dL LAB CHEMISTRY METHOD 01/22/2025 5:31 PM EDT [facility] Blood Venous blood specimen / Unknown Venipuncture / Unknown 01/22/2025 1:36 PM EDT 01/22/2025 1:36 PM EDT Viri Robledo MD LAB BLOOD ORDERABLES Final Resu lt Performing Organization Address [facility]/ZIP Co de Phone Number [facility] [address] [place] [address], [place] [phone] * POC Protime INR Blood (01/20/2025) Only the most recent of4 resultswithin the time period is included. Lot Number INR POC 2.4 Prothrombin Time POC Exp Date Blood 01/20/2025 us Eloisa Veronica MD POINT OF CARE TEST ENTER/EDIT OR DERABLES Final Result * Thyroid stimulating hormone (01/08/2025 2:04 PM EDT) TSH 1.90 0.40 - 4.00 mcIU/mL LAB CHEMISTRY METHOD 01/08/2025 6:40 PM EDT [facility] Blood Venous blood specimen / Unknown Venipuncture / Unknown 01/08/2025 2:04 PM EDT 01/08/2025 2:04 PM EDT us Eloisa Veronica MD LAB BLOOD ORDERABLES Final Resul t Performing Organization Address City/[facility]/ZIP Co de Phone Number [facility] [address] [place] [address], [place] [phone] * Prothrombin time with INR (12/29/2024) Only the most recent of9 resultswithin the time period is included. INR 2.5 Comment:bsvna Prothrombin Time POC Blood Venous blood specimen / Unknown 12/29/2024 us Eloisa Veronica MD LAB BLOOD ORDERABLES Final Resul t * ECG 12 lead (12/15/2024 1:18 PM EDT) Ventricular Rate ECG 82 BPM GEMUSE Atrial Rate 72 BPM GEMUSE QRS Duration 98 ms GEMUSE Q-T Interval 406 ms GEMUSE QTc 474 ms GEMUSE R Rew 72 degrees GEMUSE T Rew -7 degrees GEMUSE ECG Interpretation Atrial fibrillation Nonspecific ST abnormality Abnormal ECG When compared with ECG of 06-SEP-2018 19:52, Nonspecific T wave abnormality no longer evident in Lateral leads Confirmed by VIRI ROBLEDO ([id number]) on 01/08/2025 9:33:05 AM GEMUSE 12/15/2024 12:4 4 PM EDT 01/08/2025 9:33 AM EDT us Darian Vazquez NP ECG ORDERABLES Edited Result - Final GEMUSE * External Ultrasound Report (11/14/2024) Anatomical Region Laterality Modality Ultrasound us Provider [facility] IMG US PROCEDURES Final Result * Home Health Order (11/03/2024) us Provider [facility] NURSING ASSESSMENTS Ingrid l Result * BD Bone Density DXA Axial Skeleton (08/05/2024 1:44 PM EST) Anatomical Region Laterality Modality Wrist, Hip, L-spine Bone Densito metry 08/05/2024 2:15 PM EST Impressions 08/05/2024 2:17 PM EST Impression: This patient is considered to have osteoporosis by WHO criteria. The [facility] Department of Internal Medicine recommends using National Osteoporosis Foundation (NOF) guidelines in treatment decisions related to osteoporosis. NOF guidelines suggest considering treatment for postmenopausal women and men aged 50 or older presenting with the following: History of hip or vertebral fracture. T-score = -2.5 (DXA) at the femoral neck, total hip, or spine, after appropriate evaluation to exclude secondary causes. Low bone mass (T-score between -1.0 and -2.5 at the femoral neck or spine) AND a 10-year probability of a hip fracture = 3% OR a 10-year probability of a major osteoporosis-related fracture = 20% based on the [place]-adapted WHO algorithm Please note that all treatment decisions require clinical judgment and consideration of individual patient factors, including patient preferences, co-morbidities, previous drug use, risk factors not captured in the FRAX model (e.g., frailty, falls, vitamin D deficiency, increased bone turnover, interval significant decline in bone density) and possible under- or over-estimation of fracture risk by FRAX. Optional alternative screening schedule based on frankie Jara., [facility] September 14, 2011 for patients with osteopenia (based on hip BMD T-score) is as follows: * ??advanced osteopenia (T scores -2.00 to -2.49), BMD testing every year * ??moderate osteopenia (T scores -1.50 to -1.99), BMD testing every 5 years mild osteopenia or normal BMD (T scores -1.50 and higher), BMD testing every 15 years -------- FINAL REPORT -------- Dictated By: Jackelin Allen Dictated Date: 08/05/2024 14:15 ET Assigned Physician: Jackelin Allen Reviewed and Electronically Signed By: Jackelin Allen Signed Date: 08/05/2024 14:17 ET Workstation ID: [id number] Transcribed By: Self Edit Transcribed Date: 08/05/2024 14:15 ET Narrative 08/05/2024 2:17 PM EST BONE DENSITY (DEXA) ? Lumbar Spine T-score is -0.1. ?? (SD relative to 20-29 y/o adult) Z-score is 2.6. ??(SD relative to age matched peers) This is considered normal by WHO criteria. Left Hip T-score is -3.5. Z-score is -1.1. This is considered osteoporosis by WHO criteria. Lateral view of the spine demonstrates vertebral heights to be maintained. There is grade 1 spondylolisthesis at L4-5. Procedure Note Jackelin Allen MD - 08/05/2024 BONE DENSITY (DEXA) Lumbar Spine T-score is -0.1. (SD relative to 20-29 y/o adult) Z-score is 2.6. (SD relative to age matched peers) This is considered normal by WHO criteria. Left Hip T-score is -3.5. Z-score is -1.1. This is considered osteoporosis by WHO criteria. Lateral view of the spine demonstrates vertebral heights to bemaintained. There is grade 1 spondylolisthesis at L4-5. IMPRESSION: Impression: This patient is considered to have osteoporosis by WHO criteria. The [facility] Department of Internal Medicine recommendsusing National Osteoporosis Foundation (NOF) guidelines in treatmentdecisions related to osteoporosis. NOF guidelines suggest consideringtreatment for postmenopausal women and men aged 50 or older presentingwith the following: History of hip or vertebral fracture. T-score = -2.5 (DXA) at the femoral neck, total hip, or spine, afterappropriate evaluation to exclude secondary causes. Low bone mass (T-score between -1.0 and -2.5 at the femoral neck or spine)AND a 10-year probability of a hip fracture = 3% OR a 10-year probabilityof a major osteoporosis-related fracture = 20% based on the [place]-adapted WHOalgorithm Please note that all treatment decisions require clinical judgment andconsideration of individual patient factors, including patientpreferences, co-morbidities, previous drug use, risk factors not capturedin the FRAX model (e.g., frailty, falls, vitamin D deficiency, increasedbone turnover, interval significant decline in bone density) and possibleunder- or over-estimation of fracture risk by FRAX. Optional alternative screening schedule based on frankie Jara., NEJMJanuary 2011 for patients with osteopenia (based on hip BMD T-score)is as follows: * advanced osteopenia (T scores -2.00 to -2.49), BMD testing every year * moderate osteopenia (T scores -1.50 to -1.99), BMD testing every 5years mild osteopenia or normal BMD (T scores -1.50 and higher), BMD testingevery 15 years -------- FINAL REPORT -------- Dictated By: Jackelin Allen Dictated Date: 08/05/2024 14:15 ET Assigned Physician: Jackelin Allen Reviewed and Electronically Signed By: Jackelin Allen Signed Date: 08/05/2024 14:17 ET Workstation ID: [id number] Transcribed By: Self Edit Transcribed Date: 08/05/2024 14:15 ET Maureen GIFFORD IMG DXA PROCEDURES Final Resu lt * Lipid panel (06/20/2024) LDL/HDL Ratio 2 0 - 4 Triglycerides 71 0 - 150 mg/dL Cholesterol 158 0 - 200 mg/dL HDL 89 >=40 mg/dL LDL Cholesterol 55 0 - 100 mg/dL Blood Venous blood specimen / Unknown Historical Provider LAB BLOOD ORDERABLES Ingrid l Result from Last 3 Months or Most Recently Relevant to Health Maintenance Insurance [employer] Care Teams Genomics Scientist Relationship Specialty Start Date End Date Eloisa Veronica MD [address] [place] [address] PCP - General 05/26/04
== END 2025-01-27 15:12 | disposition home or self-care (01) ==
PROVIDERS: PCP Internal Medicine; Visit Provider Internal Medicine
DX: H91.93 Unspecified hearing loss, bilateral (principal); H61.23 Impacted cerumen, bilateral

== ENCOUNTER → 2025-01-27 14:25 | Outpatient (BNVA) | payer OTHER, SELFPAY | PROVIDERS: PCP Internal Medicine; Visit Provider Internal Medicine | DX: H61.23 Impacted cerumen, bilateral (principal) | CPT/HCPCS: 69210 ==

== ENCOUNTER 2025-02-03 13:11 | Outpatient (REF) | payer OTHER, SELFPAY ==
--- NOTE | ~2025-02-03 | XR_ITS ---
EXAMINATION: XR CHEST CLINICAL INFORMATION: R05.9 - Cough, unspecified COMPARISON: 11/01/2023. TECHNIQUE: 2 views of the chest were obtained. FINDINGS: There is mild to moderate cardiac enlargement. Mediastinal and hilar contours appear normal. Aortic mural calcifications. Lungs are clear bilaterally. There is no pneumothorax or pleural effusion. There is no focal osseous or soft tissue abnormality. There are degenerative changes throughout the spine. XR/XR chest 2V IMPRESSION: 1. Mild to moderate cardiac enlargement. 2. No active pulmonary disease. Electronically signed by: Guru Sorto MD 02/03/2025 02:40 PM EDT
== END 2025-02-03 13:12 | disposition home or self-care (01) ==
LOC: HO.HMGCX 13:11
PROVIDERS: PCP Internal Medicine; Visit Provider Physician Assistant
DX: R05.9 Cough, unspecified (principal)
CPT/HCPCS: 71046

== ENCOUNTER 2025-02-03 13:11 | Outpatient (AMB) | payer OTHER, SELFPAY ==
--- NOTE | 2025-02-03 13:33 | AM.OFFWIN_ITS ---
Intake Vital Signs 02/03/25 13:36 Weight 178 lb BP 116/80 Blood Pressure Location Rt brachial Position Sitting Pulse 83 Pulse Source Pulse Oximeter Temp 98.2 F Temp Source Oral Pulse Oximetry (%) 93 Oxygen Delivery Method Room Air Intake Visit Reasons: EP Cold, congestion, mucus Intake Note: Patient here for chest congestion, mucus and cough that has been present since sunday night Patient Tobacco Use Status: Never used Tobacco Allergies No Known Allergies [No Known Allergies*] Allergy (Verified 02/03/25 13:37) Do you need a note to return to daycare/school/sports/work: No HPI HPI Comments History of Present Illness Details History - The patient is an 79 year old female w ith a past med hx of afib on warfarin presenting w/sore throat, congestion, and runny nose. - Symptoms started with a sore throat 4d ago and had worsened to include significant congestion by 3d ago - Took Mucinex which provided some relie f in loosening, but cough persists, and difficulty in expectorating continues. - Potential nocturnal fever was inferred from heavy sweating at night; no fever was recorded subsequently. - Continuous involvement of runny nose a nd cough is reported. - Patient denies sinus discomfort, heada jaime, wheezing, or any breathing difficulties. - Denies any chronic respiratory conditi ons such as asthma or COPD is noted. - Utilizes Flonase to manage nasal sympt oms. - Recently had ear cleaning and is apply ing prescribed ear drops for ten days. Physical Exam General: Cooperative, healthy appearing, comfortable and no acute distress Orientation/consciousness: Patient oriented x3 Limitations: No limitations Head: Normal to inspection Ears: Hearing grossly normal bilaterally, external ears normal and TM's with cerumen impaction Nose: Normal external nose present, Normal nares present and clear discharge noted Face and sinus: Normal facial exam and Yes sinuses nontender Mouth: Normal oral and palatal mucosa present and moist mucous membranes Throat: Yes tonsils normal, Yes uvula midline. Posterior oropharynx erythema, no exudates Eyes: Appearance normal, both eyes and all related structures Neck: Normal visual inspection Respiratory: rhonchi bilaterally, no wheezes. Normal respiratory effort, able to speak in complete sentences, Actively coughing, no respiratory distress, not tachypneic, no tripod positioning and no use of accessory muscles Cardiovascular: Irregular rhythm and regular rate. Normal S1 and S2 Skin: No rashes or lesions noted Neuro: Patient oriented x3 Extremities: Normal to inspection and Yes no clubbing, cyanosis or edema PFSH Medical History Osteoporosis Hyperlipidemia Hypertension Atrial fibrillation Social History Household Members: None Housing: House Do you presently have visiting nurse or other home services: Yes Alcohol intake: former Patient Tobacco Use Status: Never used Tobacco Advance Directives Date on File: 11/02/23 service: No Review of Systems Const All systems reviewed & are unremarkable except as noted in HPI and below Physical Exam Vital Signs: Last Vital Signs Temp 98.2 F 02/03/25 13:36 Pulse 83 02/03/25 13:36 BP 116/80 02/03/25 13:36 Pulse Ox 93 02/03/25 13:36 Oxygen Delivery Method Room Air 02/03/25 13:36 Assessment & Plan Assessment & Plan (1) Lower respiratory infection (e.g., bronchitis, pneumonia, pneumonitis, pulmonitis): Code(s): J22 - Unspecified acute lower respiratory infection Plan: - O2 sat 93%, pt well appearing, PE remarkable for rhochi bilaterally - Perform a chest x-ray to investigate the presence of pneumonia. - Review potential antibiotic therapy, avoiding those contraindicated with warfarin such as azithromycin, tentative consideration for doxycycline as an alternative. Would add Augmentin with her age. - Address congestive symptoms, avoiding oral decongestants due to anticoagulation concerns, re-evaluation post-x-ray to align symptom relief medications appropriately. - Instruct patient to go for imaging immediately and await call for further instructions post-evaluation. Patient was informed and verbally consented to the use of an ambient scribe for clinic note documentation during this visit Orders: Orders XR chest 2V Today R05.9 - Cough, unspecified Coding Level of Care Code New Pt Level 4 (74456) Diagnoses Lower respiratory infection (e.g., bronchitis, pneumonia, pneumonitis, pulmonitis) J22
[2025-02-03 13:36] VITALS: BP 116/80; PULSE 83; TEMP 36.8; O2SAT 93
--- OUTSIDE RECORDS SUMMARY | 2025-02-03 15:33 | XMS_ITS | Clinical Summary ---
Author Organization [facility] Address [address] [place] [phone] Phone Care Team Providers Care Parts Cleaner Name Role Phone Eloisa Veronica MD Primary Care Provider [phone] Allergies No known active allergies Medications amoxicillin (AMOXIL) 500 mg capsule Take 4 Capsules by mouth Once. (1 hr prior to dental exam) 4 Active nystatin (MYCOSTATIN) 100,000 unit/gram powder Apply bid to rash 4 Active ostomy supplies [facility] OSTOMY SUPPLIES (COLOPLAST BARRIER RING) [facility] Coloplast elastic barrier strips #[id number] 2 boxes per month--30 per box Refills [...] 1 (one) time each day. Managed by [facility] Coumadin [facility] 270 tablet 1 5 Active potassium chloride [...] mg tablet Take by mouth. Managed by [facility] Coumadin [facility] 01/07/20 25 Discontinu ed(Reorder ) Active Problems [...] e 09/09/[address] (CMS/HCC V24, CMS/[facility] V28) Colovesical fistula 08/15/2018 Chronic diarrhea 05/27/2018 Diverticulitis of large inte josephine with perforation and abscess without bleeding 02/18/2018 (HFpEF) heart failure with p reserved ejection fraction ([facility] V24, [facility] V28) 06/17/2014 Overview (11/05/2024): On 09/23/2024 patient had an echocardiogram at [facility] while hospitalized. This revealed the left [...] week. PFO (patent foramen ovale) 06/17/2014 Cardiomyopathy ([facility] V24, [facility] V28) 2012 Osteoporosis 10/29/2008 Overview (06/24/2024): [...] Patient should remain anticoagulated due to elevated [id number] score. Orders: ECG 12 lead Hypertension 12/15/2005 [...] Encounters Date Type Department Care Team Description 01/28/2025 Telephone [facility] - [facility] 154 [address] [facility] 154 [place] [address] Viri Pérez MD Scheduling 01/20/2025 2:30 PM EDT Anticoagulation - Warfarin Visit [facility] - [address] [phone] Longstanding persistent atrial fibrillation (CMS/HCC V24, CMS/HCC V28) (Primary Dx) 01/20/2025 Telephone Adult Medicine [place] - [address] [phone] Ana Gallagher MA Provider Call Back 01/16/2025 Telephone [facility] - [facility] 154 300 [facility] 154 [place] [phone] Flora Peña MA Looping Strips 01/06/2025 1:40 PM EDT Anticoagulation - Warfarin Visit Coumadin [address] [phone] Longstanding persistent atrial fibrillation (CMS/HCC V24, CMS/HCC V28) (Primary Dx) 12/30/2024 Telephone Adult Medicine [address] [phone] Eloisa Veronica MD faxed orders ([facility] order # [id number] ) 12/29/2024 Telephone Adult [address] [phone] Eloisa Veronica MD VNA 12/29/2024 Anticoagulation - Warfarin Visit Coumadin [address] [phone] Emeli Choudhury LPN Longstanding persistent atrial fibrillation (CMS/HCC V24, CMS/HCC V28) (Primary Dx) 12/26/2024 11:00 AM EDT Ancillary Procedure [facility] - [facility] 154 300 [facility] 154 [place] [phone] Longstanding persistent atrial fibrillation (CMS/HCC V24, CMS/HCC V28); Bradycardia 12/25/2024 Telephone Adult Medicine [address] [phone] Gunjan Gray LPN Fitting for DME (Faxed message from [facility] pulmonary ) 12/24/2024 Telephone Adult Medicine [address] [phone] Eloisa Veronica MD faxed order ([facility] order # [id number]) 12/22/2024 Anticoagulation - Warfarin Visit Coumadin [address] [phone] Jenna Sparrow LPN Longstanding persistent atrial fibrillation (CMS/HCC V24, CMS/HCC V28) (Primary Dx) 12/18/2024 Billing Patient Not Present Adult Medicine [address] [phone] Eloisa Veronica MD 12/16/2024 Telephone Adult Medicine [address] [phone] Eloisa Veronica MD faxed order ([facility] order # [id number]) 12/15/2024 12:40 PM EDT Office Visit [facility] - [address] [place] [address] Darian Vazquez NP Atrial fibrillation, unspecified type (CMS/HCC V24, CMS/HCC V28) (Primary Dx); Chronic heart failure with preserved ejection fraction (CMS/HCC V24, CMS/HCC V28); Venous insufficiency; Primary hypertension 12/15/2024 Anticoagulation - Warfarin Visit Coumadin [address] [phone] Jenna Sparrow LPN Longstanding persistent atrial fibrillation (CMS/HCC V24, CMS/HCC V28) (Primary Dx) 12/11/2024 Telephone Adult Medicine [address] [phone] Gunjan Gray LPN Fitting for DME 12/10/2024 1:30 PM EDT Office Visit Adult [address] [phone] Eloisa Veronica MD Acute on chronic right-sided congestive heart failure (CMS/HCC V24, CMS/HCC V28) (Primary Dx); Longstanding persistent atrial fibrillation (CMS/HCC V24, CMS/HCC V28); Stage 3 chronic kidney disease, unspecified whether stage 3a or 3b CKD (CMS/HCC V24, CMS/HCC V28); Primary hypertension; Acquired hypothyroidism 12/09/2024 Anticoagulation - Warfarin Visit [facility] [address] [phone] Emeli Choudhury LPN Longstanding persistent atrial fibrillation (CMS/HCC V24, CMS/HCC V28) (Primary Dx) 12/08/2024 Telephone Adult Medicine [address] [phone] Eloisa Veronica MD Hospital Follow-up 12/05/2024 Anticoagulation - Warfarin Visit [facility] [address] [phone] Jenna Sparrow LPN Longstanding persistent atrial fibrillation (CMS/HCC V24, CMS/HCC V28) (Primary Dx) 12/01/2024 Anticoagulation - Warfarin Visit Coumadin [address] [phone] Jenna Sparrow LPN Longstanding persistent atrial fibrillation (CMS/HCC V24, CMS/HCC V28) (Primary Dx) 11/26/2024 Telephone [facility] - [facility] [address] [phone] Viri Pérez MD lyrica (lyrica) 11/26/2024 Anticoagulation - Warfarin Visit Coumadin [address] [phone] Emeli Choudhury LPN Longstanding persistent atrial fibrillation (CMS/HCC V24, CMS/HCC V28) (Primary Dx) 11/26/2024 Telephone Adult Medicine [address] [phone] Eloisa Veronica MD vna ([facility] ) 11/24/2024 Telephone [facility] - [facility] 154 300 [facility] 154 [place] [address] Viri Pérez MD Loop - [id number] (Ok to Book); Loop Enrollment (Enrolling patient for 30 day Loop) 11/21/2024 Telephone [facility] - [address] [place] [address] Zofia Cox NP 11/21/2024 Telephone [facility] [address] [place] [address] Darian Vazquez NP No Show (Patient was in the hospital NOT A NO SHOW) 11/11/2024 1:40 PM EDT Anticoagulation - Warfarin Visit [facility] [address] [phone] Longstanding persistent atrial fibrillation (CMS/HCC V24, CMS/HCC V28) (Primary Dx) 11/10/2024 Telephone Adult Medicine [address] [phone] More Mahoney, RN Faxed Order ([facility] order# [id number]) 11/07/2024 11:10 AM EDT Anticoagulation - Warfarin Visit Coumadin [address] [phone] Longstanding persistent atrial fibrillation (CMS/HCC V24, CMS/HCC V28) (Primary Dx) 11/03/2024 Telephone Adult Medicine [address] [phone] More Mahoney, SUZETTE Faxed Order ([facility] order# [id number]) 11/03/2024 Anticoagulation - Warfarin Visit [facility] [address] [phone] Jenna Sparrow LPN Longstanding persistent atrial fibrillation (CMS/HCC V24, CMS/HCC V28) (Primary Dx) from Last 3 Months Immunizations Name Administration Dates Next Due Pneumococcal conjugate 13 va lent (Prevnar 13, PCV13) 2mo and older 08/11/2015 Pneumococcal polysaccharide 23 valent (Pneumovax 23) 2yo and older 10/16/2008 Td Tetanus diptheria (Tdvax) 7yo and older 02/06,03/16/2011,07/16/2001 Zoster Live 04/16/2012 Surgical History Surgery Date Site/Laterality Comments APPENDECTOMY TONSILLECTOMY CATARACT EXTRACTION bilateral 2012 BOWEL RESECTION 08/2018 : sigmoid resection for obstruction and diverticulitis Medical History Medical History Date Comments Atrial fibrillation ([facility] V24, [facility] V28) Ostium secundum type atrial septal defect Essential hypertension, benign Obesity, unspecified Diverticulitis 05/21/[address] ([facility] V24, [facility] V28) 09/30/2018 Orthostatic hypotension 12/06/2023 (HFpEF) heart failure with p reserved ejection fraction ([facility] V24, [facility] V28) 06/17/2014 Cardiomyopathy ([facility] V24, [facility] V28) 05/02/2013 Chronic diarrhea 05/27/2018 CKD (chronic kidney disease) stage 3, GFR 30-59 ml/min ([facility] V24, [facility] V28) 04/19/2020 Colovesical fistula 08/15/2018 Osteoporosis 10/29/200810/2008: [...] Care Team (Late st Contact Info) Description 02/10/2025 1:40 PM EDT Anticoagulation - Warfarin Visit [facility] [address] [phone] 02/17/2025 11:10 AM EDT Office Visit [facility] - [facility] [address] [facility] 154 [place] [phone] Darian Vazquez NP [address] [place] [address] Health Maintenance Due Date Last Done Comments [...] persistent atrial fibrillation (CMS/HCC V24, CMS/HCC V28) CARDIAC EVENT MONITOR W/ CONNECTION Routine 12/29/2024 7:59 AM EDT Longstanding persistent atrial fibrillation (CMS/HCC V24, CMS/HCC V28) Bradycardia PROTHROMBIN TIME WITH INR Routine 12/29/2024 PROTHROMBIN [...] 11/03/2024 PROTHROMBIN TIME WITH INR Routine 11/03/2024 BD BONE DENSITY DXA AXIAL SKELETON Routine [...] mmol/L LAB CHEMISTRY METHOD 01/22/2025 5:31 PM [facility] Potassium 4.3 3.5 - 5.5 mmol/L LAB CHEMISTRY METHOD 01/22/2025 5:31 PM [facility] Chloride 105 96 - 110 mmol/L LAB CHEMISTRY METHOD 01/22/2025 5:31 PM [facility] CO2 26 21 - 32 mmol/L LAB CHEMISTRY METHOD 01/22/2025 5:31 PM [facility] Anion Gap 7 3 - 11 LAB CHEMISTRY METHOD 01/22/2025 5:31 PM [facility] Glucose 80 70 - 100 mg/dL LAB CHEMISTRY METHOD 01/22/2025 5:31 PM [facility] BUN 20 5 - 25 mg/dL LAB CHEMISTRY METHOD 01/22/2025 5:31 PM [facility] Creatinine 0.82 0.50 - 1.10 mg/dL LAB CHEMISTRY METHOD 01/22/2025 5:31 PM [facility] eGFR 72 >=60 mL/min/1. 73m2 LAB CHEMISTRY METHOD 01/22/2025 5:31 PM [facility] Comment:Calculation based on the Chronic Kidney Disease Epidemiology Collaboration (CKD-EPI) equation refit without adjustment for race. BUN/Creatinine Ratio 24.4 LAB CHEMISTRY METHOD 01/22/2025 5:31 PM [facility] Calcium 9.5 8.5 - 10.5 mg/dL LAB CHEMISTRY METHOD 01/22/2025 5:31 PM [facility] Blood Venous blood specimen / Unknown Venipuncture / Unknown 01/22/2025 1:36 PM EDT 01/22/2025 1:36 PM EDT Vrii Pérez MD LAB BLOOD ORDERABLES Final Resu lt Performing Organization Address [facility] Co de Phone Number [facility] [address] [place] [address], [place] [phone] * POC Protime INR Blood (01/20/2025) Only the most recent of4 resultswithin the time period is included. Lot Number INR POC 2.4 Prothrombin Time POC Exp Date Blood 01/20/2025 Eloisa Veronica MD POINT OF CARE TEST ENTER/EDIT OR DERABLES Final Result * Thyroid stimulating hormone (01/08/2025 2:04 PM EDT) Pathologist [facility] TSH 1.90 0.40 - 4.00 mcIU/mL LAB CHEMISTRY METHOD 01/08/2025 6:40 PM EDT [facility] Blood Venous blood specimen / Unknown Venipuncture / Unknown 01/08/2025 2:04 PM EDT 01/08/2025 2:04 PM EDT Eloisa Veronica MD LAB BLOOD ORDERABLES Final Resul t Performing Organization Address [facility] Co de Phone Number [facility] [address] [place] [address], [place] [phone] * CARDIAC EVENT MONITOR W/ CONNECTION (12/29/2024 7:59 AM EDT) Anatomical Region Laterality Modality Cardiac Diagnost ic Impressions 01/28/2025 3:40 PM EDT 1. ??Patient's symptoms mainly correlate to atrial fibrillation with heart rates in the low 100s and isolated PVCs. 2. ??No significant pauses or even instances of bradycardia were noted on the symptom triggered monitor. 3. ??13 beats of nonsustained VT. ??This was asymptomatic. Narrative 01/28/2025 3:40 PM EDT [facility]ING DEPARTMENT [address] [facility], [id number] [address] TEL: FAX: TYPE OF TEST: 30 day Looping monitor. DATES OF MONITORIN12/26/2024- 01/25/2025 REQUESTING PHYSICIAN: Zofia Cox NP PRIMARY CARE PROVIDER: Eloisa Veronica MD INDICATION: Longstanding persistent atrial fibrillation; Bradycardia PRELIMINARY FINDINGS FROM FIRST CALL MEDICAL: 1. The predominant rhythm was Atrial Fibrillation representing 100.0 % arrhythmia burden. 2. ??There was a 13 beat run of nonsustained VT. ??There were also a few isolated PVCs noted. ??Interestingly, the patient was asymptomatic with the ventricular tachycardia. ??This is a symptom triggered monitor and therefore cannot give the burden of overall ventricular ectopy. 3. ??There were 11 patient triggered symptomatic events. ??They mainly correlated to atrial fibrillation with ventricular response rate in the low 100s with isolated PVCs. ??A few episodes suggest correlated to atrial fibrillation with heart rates in the low 100s. 4. ??There are no significant pauses noted on the symptom triggered monitor. Zofia Cox NP [facility] PROCEDURES Final Result * Prothrombin time with INR (12/29/2024) Only the most recent of8 resultswithin the time period is included. INR 2.5 Comment:bsvna Prothrombin Time POC Blood Venous blood specimen / Unknown 12/29/2024 Eloisa Veronica MD LAB BLOOD ORDERABLES Final Resul t * ECG 12 lead (12/15/2024 1:18 PM EDT) Ventricular Rate ECG 82 BPM GEMUSE Atrial Rate 72 BPM GEMUSE QRS Duration 98 ms GEMUSE Q-T Interval 406 ms GEMUSE QTc 474 ms GEMUSE R [place] 72 degrees GEMUSE T [place] -7 degrees GEMUSE ECG Interpretation Atrial fibrillation Nonspecific ST abnormality Abnormal ECG When compared with ECG of 06-SEP-2018 19:52, Nonspecific T wave abnormality no longer evident in Lateral leads Confirmed by VIRI PÉREZ ([id number]) on 01/08/2025 9:33:05 AM GEMUSE 12/15/2024 [...] to have osteoporosis by WHO criteria. The [facility] Department of Internal Medicine recommends using National [...] alternative screening schedule based on frankie Jara., [facility] September 14, 2011 for patients with osteopenia [...] Signed Date: 08/05/2024 14:17 ET Workstation ID: [id number] Transcribed By: Self Edit Transcribed Date: 08/05/2024 [...] to have osteoporosis by WHO criteria. The [facility] Department of Internal Medicine recommendsusing National Osteoporosis [...] alternative screening schedule based on frankie Jara., [facility] for patients with osteopenia (based on hip BMD T-score)is as follows: * advanced osteopenia (T scores -2.00 to -2.49), BMD testing every year * moderate osteopenia (T scores -1.50 to -1.99), BMD testing every 5years mild osteopenia or normal BMD (T scores -1.50 and higher), BMD testingevery 15 years -------- FINAL REPORT -------- Dictated By: Jaceklin Allen Dictated Date: 08/05/2024 14:15 ET Assigned Physician: Jackelin Allen Reviewed and Electronically Signed By: Jackelin Allen Signed Date: 08/05/2024 14:17 ET Workstation ID: [id number] Transcribed By: Self Edit Transcribed Date: 08/05/2024 14:15 ET us Maureen GIFFORD IMG DXA PROCEDURES Final Resu lt * Lipid panel (06/20/2024) LDL/HDL Ratio 2 0 - 4 Triglycerides 71 0 - 150 mg/dL Cholesterol 158 0 - 200 mg/dL HDL 89 >=40 mg/dL LDL Cholesterol 55 0 - 100 mg/dL Blood Venous blood specimen / Unknown us Historical Provider LAB BLOOD ORDERABLES Ingrid l Result from Last 3 Months or Most Recently Relevant to Health Maintenance Insurance [facility] Care Teams Parts Cleaner Relationship Specialty Start Date End Date Eloisa Veronica MD [address] [place] [id number] PCP - General 05/26/04
== END 2025-02-03 15:23 | disposition home or self-care (01) ==
PROVIDERS: PCP Internal Medicine; Visit Provider Physician Assistant
DX: J22 Unspecified acute lower respiratory infection (principal)

== ENCOUNTER → 2025-02-03 14:21 | Outpatient (BNV) | payer OTHER, SELFPAY | PROVIDERS: PCP Internal Medicine; Visit Provider Radiology Diagnostic Radiology | DX: I51.7 Cardiomegaly (principal) | CPT/HCPCS: 71046 ==

== ENCOUNTER 2025-05-27 13:34 | Outpatient (AMB) | payer OTHER, SELFPAY ==
[2025-05-27 13:38] VITALS: BP 118/76; PULSE 79; TEMP 36.2; O2SAT 97; BMI 32.8
--- NOTE | 2025-05-27 13:38 | AM.OFFWIN_ITS ---
Intake Vital Signs 05/27/25 13:38 Height 5 ft 3 in Weight 185 lb BMI 32.8 BP 118/76 Blood Pressure Location Lt brachial Position Sitting Pulse 79 Pulse Source Pulse Oximeter Temp 97.2 F Temp Source Oral Pulse Oximetry (%) 97 Oxygen Delivery Method Room Air Intake Visit Reasons: EP Bilat ear block Patient Tobacco Use Status: Never used Tobacco Allergies No Known Allergies (No Known Allergies*) Allergy (Verified 05/27/25 13:41) HPI HPI Comments History of Present Illness Details History - The patient is an 79-year-old female p resenting with blocked ears. - The patient reported waking up with bl ocked ears and an inability to hear, which slightly improved over time. - No associated pain was reported with t he blockage. - She has no cold symptoms, fever, chill s, sore throat, cough, CASTANEDA, or dizziness. Physical Exam General: Cooperative, healthy appearing, comfortable, no acute distress and well developed Head: Normal to inspection Ears: External ears normal bilaterally. No tragus or mastoid tenderness noted. Cerumen noted in the canal bilaterally. TM's not visualized. Face and sinus: Normal facial exam. No TTP of the sinuses. Neck: Normal visual inspection. Full ROM. No lymphadenopathy noted. Respiratory: Normal respiratory effort and able to speak in complete sentences. Clear to auscultation bilaterally. No w/r/r noted. Cardiac: RRR, no m/r/g noted. Normal S1 and S2 noted. Skin: No rashes or lesions noted Neuro: Patient oriented x3 Patient was informed and verbally consented to the use of an ambient scribe for clinic note documentation during this visit. [facility] Medical History Osteoporosis Hyperlipidemia Hypertension Atrial fibrillation Social History Household Members: None Housing: House Do you presently have visiting nurse or other home services: Yes Alcohol intake: former Patient Tobacco Use Status: Never used Tobacco Advance Directives Date on File: 11/02/23 service: No Review of Systems Const All systems reviewed & are unremarkable except as noted in HPI and below Physical Exam Vital Signs: Last Vital Signs Temp 97.2 F 05/27/25 13:38 Pulse 79 05/27/25 13:38 BP 118/76 05/27/25 13:38 Pulse Ox 97 05/27/25 13:38 Oxygen Delivery Method Room Air 05/27/25 13:38 BMI result Body Mass Index 32.8 Office Procedures Cerumen Removal From which ear canal was the cerumen removed: bilateral Removal: irrigation Notes: patient tolerated procedure well, no complications and ear canal clear [id number] Irrigation/Lavage Assessment & Plan Assessment & Plan (1) Cerumen impaction: Code(s): H61.20 - Impacted cerumen, unspecified ear Qualifiers: Laterality: bilateral Qualified Code(s): H61.23 - Impacted cerumen, stacy ateral Plan Plan - Ear irrigation planned to remove cerumen impaction. - avoid q-tips - can use Debrox drops for wax - follow up with PCP Orders: Orders AMB Cerumen Removal Today H61.23 - Impacted cerumen, bilateral Coding Level of Care Code Est Pt Level 3 (54544) Diagnoses Bilateral impacted cerumen H61.23 Laterality: bilateral CPT Codes Office Procedure - CPT: 97520-Bku Irrigation/Lavage ([id number])
--- OUTSIDE RECORDS SUMMARY | 2025-05-27 14:47 | XMS_ITS | Encounter Summary ---
Author Organization [facility] Address [address] [place] [address] Care Team Providers Care Inspector And Unloader Name Role Phone Eloisa Veronica MD Primary Care Provider Encounter Details Date Type Department Care Team (Late Contact Info) Description 10/21/2024 Billing Patient Not Present Adult Medicine [address] [phone] Eloisa Veronica MD [address] [place] [address] Social History Tobacco Use Types Packs/Day Years Used Date Smoking Tobacco: Never Smokeless Tobacco: Never Alcohol Use Standard Drinks/Week Comments No 0 (1 standard drink = 0.6 oz pur e alcohol) Comments Unknown Sex and Gender Information Value Date Recorded Sex Assigned at Not on file Legal Sex Female 2:03 AM EST Gender Identity Not on file Sexual Orientation Not on file documented as of this encounter Plan of Treatment Upcoming Encounters Date Type Department Care Team (Late Contact Info) Description 05/28/2025 1:40 PM EDT Anticoagulation - [facility]in [facility] [address] [phone] 09/21/2025 11:00 AM EST Office Visit Adult Medicine [address] [phone] Eloisa Veronica MD [address] [place] [address] documented as of this encounter Visit Diagnoses Not on filedocumented in this encounter Care Teams Inspector And Unloader Relationship Specialty Start Date End Date Eloisa Veronica MD [address] [place], [place] PCP - General 05/26/04 documented as of this encounter
--- OUTSIDE RECORDS SUMMARY | 2025-05-27 14:47 | XMS_ITS | Encounter Summary ---
Author Organization [facility] Address [address] [place] [address] Care Team Providers Care Nurse Case Management Name Role Phone Eloisa Veronica MD Primary Care Provider [phone] Encounter Details Date Type Department Care Team (Late Contact Info) Description 10/22/2024 Billing Patient Not Present Adult Medicine [address] [phone] Eloisa Veronica MD [address] [place] [address] Social History Tobacco Use Types Packs/Day Years [...] EDT Anticoagulation - Warfarin Visit [facility] [address] [phone] 09/21/2025 11:00 AM EST Office Visit Adult Medicine [address] [phone] Eloisa Veronica MD [address] [place] [address] documented as of this encounter Visit Diagnoses Not on filedocumented in this encounter Care Teams Nurse Case Management Relationship Specialty Start Date End Date Eloisa Veronica MD [address] [place], [place] PCP - General 05/26/04 documented as of this encounter
--- OUTSIDE RECORDS SUMMARY | 2025-05-27 14:47 | XMS_ITS | Encounter Summary ---
Author Organization [facility] Address [address] [place] [address] Care Team Providers Care Health Information Assistant Name Role Phone Eloisa Veronica MD Primary Care Provider [phone] Reason for Visit * Reason Comments HOME HEALTH CERT Encounter Details Date Type Department Care Team (Late Contact Info) Description 10/15/2024 Billing Patient Not Present [address] [phone] Eloisa Veronica MD [address] [place] [address] Other pancytopenia (CMS/HCC V24, CMS/HCC V28) (Primary Dx) Social History Tobacco Use Types Packs/Day Years [...] Upcoming Encounters Date Type Department Care Team ([facility] Contact Info) Description 05/28/2025 1:40 PM EDT Anticoagulation - Warfarin Visit [facility] [address] [phone] 09/21/2025 11:00 AM EST Office Visit Adult [address] [phone] Eloisa Veronica MD [address] [place], [place] documented as of this encounter Visit Diagnoses Diagnosis Other pancytopenia (CMS/HCC V24, CMS/HCC V28)- Primary Other pancytopenia documented in this encounter Care Teams Health Information Assistant Relationship Specialty Start Date End Date Eloisa Veronica MD [address] [place], [place] PCP - General 05/26/04 documented as of this encounter
--- OUTSIDE RECORDS SUMMARY | 2025-05-27 14:47 | XMS_ITS | Encounter Summary ---
Author Organization [facility] Address [address] [place] [address] Care Team Providers Care Phlebotomy Technician Name Role Phone Eloisa Veronica MD Primary Care Provider [phone] Encounter Details Date Type Department Care Team (Late Contact Info) Description 10/23/2024 Billing Patient Not Present Adult Medicine [address] [phone] Eloisa Veronica MD [address] [place] [address] Social History Tobacco Use Types Packs/Day Years [...] EDT Anticoagulation - Warfarin Visit [facility] [address] [phone] 09/21/2025 11:00 AM EST Office Visit Adult Medicine [address] [phone] Eloisa Veronica MD [address] [place] [address] documented as of this encounter Visit Diagnoses Not on filedocumented in this encounter Care Teams Phlebotomy Technician Relationship Specialty Start Date End Date Eloisa Veronica MD [address] [place], [place] PCP - General 05/26/04 documented as of this encounter
--- OUTSIDE RECORDS SUMMARY | 2025-05-27 14:47 | XMS_ITS | Clinical Summary ---
Author Organization [facility] [address] [facility] Address [address] [place] [phone] Phone Care Team Providers Care Social Science Manager Name Role Phone Eloisa Veronica MD Primary Care Provider [phone] Allergies No known active allergies Medications amoxicillin (AMOXIL) 500 mg capsule Take 4 Capsules by mouth Once. (1 hr prior to dental exam) 10/18/2023 Active nystatin (MYCOSTATIN) 100,000 unit/gram powder Apply bid to rash 12/06/2023 Active ostomy supplies [facility] OSTOMY SUPPLIES (COLOPLAST BARRIER RING) [facility] Coloplast elastic barrier strips #[id number] 2 boxes per month--30 per box Refills 11 ICD 10: Z93.3 10/20/2019 Active alendronate (FOSAMAX) 70 mg tablet Take 1 tablet (70 mg total) by mouth every 7 (seven) days. Take in the morning with a full glass of water, on an empty stomach, and do not take anything else by mouth or lie down for the next 30 min. 90 tablet 1 08/04/2024 Active torsemide (DEMADEX) 20 mg tablet Take 1 tablet (20 mg total) by mouth 1 (one) time each day. 90 tablet 1 2024 Active ferrous sulfate 325 mg (65 mg iron) EC tablet Take 1 tablet (325 mg total) by mouth 1 (one) time each day. Do not crush, chew, or split. 90 tablet 1 10/02/2024 Active warfarin (COUMADIN) 2.5 mg tablet Take 1-3 tablets (2.5-7.5 mg total) by mouth 1 (one) time each day. Managed by [facility] Coumadin [facility] 270 tablet 1 01/06/2025 Active levothyroxine (SYNTHROID, LEVOTHROID) 25 mcg tablet Take 1 tablet (25 mcg total) by mouth 1 (one) time each day. 90 tablet 3 01/21/2025 Active metoprolol succinate (TOPROL-XL) 25 mg 24 hr tablet Take 0.5 tablets (12.5 mg total) by mouth 1 (one) time each day. Do not crush or chew. 90 each 1 02/04/2025 02/05/20 26 Active Farxiga 10 mg tablet Take 1 tablet (10 mg total) by mouth 1 (one) time each day. 90 tablet 1 02/17/2025 Active spironolactone (ALDACTONE) 25 mg tablet Take 1 tablet (25 mg total) by mouth 1 (one) time each day. 90 each 1 02/17/2025 02/18/20 26 Active Active Problems Problem Noted Date Diagnosed Date Orthostatic hypotension 12/06/2023 Vitamin D deficiency 03/02/2023 Venous insufficiency 01/11/2023 Assessment & Plan (02/17/2025 11:37 AM EDT): Patient should elevate legs keep him out of dependent position when able. Could utilize compression stockings. Should limit sodium consumption. Assessment & Plan (12/15/2024 1:18 PM EDT): Chronic. Patient's lower extremity edema is improved. Continue with the torsemide. Elevate legs when able. Limit sodium consumption. CKD (chronic kidney disease) stage 3, GFR 30-59 ml/min ([facility] V24, [facility] V28) 04/19/2020 Parastomal hernia without obstruction or gangren e 09/09/[address] ([facility] V24, [facility] V28) Colovesical fistula 08/15/2018 Chronic diarrhea 05/27/2018 Diverticulitis of large inte josephine with perforation and abscess without bleeding 02/18/2018 (HFpEF) heart failure with p reserved ejection fraction ([facility] V24, [facility] V28) 06/17/2014 Overview (11/05/2024): On 09/23/2024 patient had an echocardiogram at [facility] while hospitalized. This revealed the left [...] functional tricuspid valve regurgitation. Assessment & Plan (02/17/2025 11:36 AM EDT): Patient appears to be slightly fluid overloaded on exam. She should start weighing herself daily and reaching out to the office if she gains more than 2 pounds in a day or 5 pounds in a week. Of note she had ran out of Farxiga and had not taken it for several days and I will refill this. We are also going to be starting her on spironolactone and discontinuing her potassium supplement. I am going to have her redraw a BMP and 7 days. She should limit her sodium consumption. Assessment & Plan (12/15/2024 1:18 PM EDT): [...] week. PFO (patent foramen ovale) 06/17/2014 Cardiomyopathy (CMS/HCC V24, CMS/HCC V28) 2012 Osteoporosis 10/29/2008 Overview (06/24/2024): 10/2008: T-1.1 spine -1.1 hip 04/06 T score spine -1.1 hip -1.4 FRAX 14% 04/09 T score spine -1.8 hip -1.7 femoral neck -3.0 12/11 T score spine -0.9 hip -2.8 06/14 T score spine -1.1 hip -2.8 08/2021: T-score lumbar (-0.6); hip (-3.9) Atrial fibrillation ([facility] V24, [facility] V28) 0 12/15/2005 Assessment & Plan (02/17/2025 11:37 AM EDT): Rate controlled metoprolol 25 mg p.o. daily, on warfarin for CVA prophylaxis. Should remain anticoagulated due to an elevated CHADS2 Vascor for sex, age, heart failure, hypertension Assessment & Plan (12/15/2024 1:18 PM EDT): [...] Patient should remain anticoagulated due to elevated [id number] score. Orders: ECG 12 lead Hypertension 12/15/2005 Assessment & Plan (02/17/2025 11:37 AM EDT): Well-controlled. I am adding in spironolactone 25 mg p.o. daily to her current regimen, she should check blood pressure measurements at home. Assessment & Plan (12/15/2024 1:18 PM EDT): [...] Encounters Date Type Department Care Team Description 05/12/2025 1:50 PM EDT Anticoagulation - Warfarin Visit Coumadin [address] [phone] Longstanding persistent atrial fibrillation (CMS/HCC V24, CMS/HCC V28) (Primary Dx) 05/05/2025 1:50 PM EDT Anticoagulation - Warfarin Visit Coumadin [address] [phone] Longstanding persistent atrial fibrillation (CMS/HCC V24, CMS/HCC V28) (Primary Dx) 04/07/2025 1:40 PM EDT [facility] - [facility] [address] [phone] Longstanding persistent atrial fibrillation (CMS/HCC V24, CMS/HCC V28) (Primary Dx) 03/20/2025 11:15 AM EDT Office Visit Adult Medicine [address] [phone] Maureen Winston PA Primary hypertension (Primary Dx); Osteoporosis, unspecified osteoporosis type, unspecified pathological fracture presence; Vitamin D deficiency; Obesity (BMI 30.0-34.9); Hypothyroidism, unspecified type; Stage 3a chronic kidney disease (CMS/HCC V24, CMS/HCC V28); Longstanding persistent atrial fibrillation (CMS/HCC V24, CMS/HCC V28); Chronic heart failure with preserved ejection fraction (CMS/HCC V24, CMS/HCC V28); Cardiomyopathy, unspecified type (CMS/HCC V24, CMS/HCC V28) 03/10/2025 1:40 PM EDT Anticoagulation - Warfarin Visit Coumadin [address] [phone] Longstanding persistent atrial fibrillation (CMS/HCC V24, CMS/HCC V28) (Primary Dx) 03/04/2025 Telephone [facility] [address] [place] [address] Darian Vazquez NP from Last 3 Months Immunizations Immunization Administration Dates Next Due Pneumococcal conjugate 13 [...] History Medical History Date Comments Atrial fibrillation ([facility]24, [facility] [place]28) Ostium secundum type atrial septal defect Essential hypertension, benign Obesity, unspecified Diverticulitis 05/21/[address] [place] [place], [facility] V28) 09/30/2018 Orthostatic hypotension 12/06/2023 (HFpEF) heart failure with p reserved ejection fraction ([facility] [place]24, [facility] V28) 06/17/2014 Cardiomyopathy ([facility] [place]24, [facility] V28) 05/02/2013 Chronic diarrhea 05/27/2018 CKD (chronic kidney disease) stage 3, GFR 30-59 ml/min ([facility] [place]24, [facility] V28) 04/19/2020 Colovesical fistula 08/15/2018 Osteoporosis 10/29/200810/2008: [...] Sign Reading Time Taken Comments Blood Pressure 106/68 03/20/2025 11:02 AM EDT Pulse 67 03/20/2025 11:02 AM EDT Temperature 35.6 C (96.1 F) 03/20/2025 11:02 AM EDT Respiratory Rate 16 03/20/2025 11:02 AM EDT Oxygen Saturation 96% 03/20/2025 11:02 AM EDT Inhaled Oxygen Concentration - - Weight 80.3 kg (177 lb) 03/20/2025 11:02 AM EDT Height 160 cm (5' 3 ) 03/20/2025 11:02 AM EDT Body Mass Index 31.35 03/20/2025 11:02 AM EDT Plan of Treatment Upcoming Encounters Date Type Department Care Team (Late st Contact Info) Description 05/28/2025 1:40 PM EDT Anticoagulation - Warfarin Visit Coumadin [address] [phone] 09/21/2025 11:00 AM EST Office Visit Adult Medicine [address] [phone] Eloisa Veronica MD [address] [place] [address] Health Maintenance Due Date Last Done Comments Zoster Vaccines (1 of 2) 06/11/2012 04/16/2012 RSV Immunization Adult Patients (1 - 1-dose 75+ series) 2018 COVID-19 Vaccine (3 - Pfizer risk series) 11/26/2020 10/29/2020, 10/08/2020 Falls Risk Assessment 08/05/2022 Social Influencers of Health Screening 08/05/2022 Depression Screening 08/27/2024 Influenza Vaccine (#1) 2025 Hypertension/CHF/CAD Annual BMP Blood Test 02/26/2026 02/26/2025, 01/22/2025, 01/08/2025, Additional history exists Cholesterol Screening (Lipid Panel) [...] Procedure Name Priority Date/Time Associated Diagnosis Comments POC PROTIME INR BLOOD Routine 05/12/2025 Longstanding persistent atrial fibrillation ([facility]/HCC V24, [facility] V28) POC PROTIME INR BLOOD Routine 05/05/2025 Longstanding persistent atrial fibrillation (CMS/HCC V24, CMS/HCC V28) POC PROTIME INR BLOOD Routine 04/07/2025 Longstanding persistent atrial fibrillation (CMS/HCC V24, CMS/HCC V28) POC PROTIME INR BLOOD Routine 03/10/2025 Longstanding persistent atrial fibrillation (CMS/HCC V24, CMS/HCC V28) BASIC METABOLIC PANEL Routine 02/26/2025 1:32 PM EDT Chronic heart failure with preserved ejection fraction (CMS/HCC V24, CMS/HCC V28) BD BONE DENSITY DXA AXIAL SKELETON Routine 08/05/2024 1:44 PM EST Vitamin D deficiency, unspecified Age-related osteoporosis without current pathological fracture LIPID PANEL Routine 06/20/2024 from Last 3 Months or Most Recently Relevant to Health Maintenance Results * POC Protime INR Blood (05/12/2025) Only the most recent of4 resultswithin the time period is included. Lot Number INR POC 2.7 Prothrombin Time POC Exp Date Blood 05/12/2025 Eloisa Veronica MD POINT OF CARE TEST ENTER/EDIT OR DERABLES Final Result * (ABNORMAL) Basic metabolic panel (02/26/2025 1:32 PM EDT) Sodium 142 133 - 145 mmol/L LAB CHEMISTRY METHOD 02/26/2025 4:53 PM EDT [facility] Potassium 3.5 3.5 - 5.5 mmol/L LAB CHEMISTRY METHOD 02/26/2025 4:53 PM EDT [facility] Chloride 103 96 - 110 mmol/L LAB CHEMISTRY METHOD 02/26/2025 4:53 PM EDT [facility] CO2 32 21 - 32 mmol/L LAB CHEMISTRY METHOD 02/26/2025 4:53 PM EDT [facility] Anion Gap 7 3 - 11 LAB CHEMISTRY METHOD 02/26/2025 4:53 PM EDT [facility] Glucose 83 70 - 100 mg/dL LAB CHEMISTRY METHOD 02/26/2025 4:53 PM EDT [facility] BUN 24 5 - 25 mg/dL LAB CHEMISTRY METHOD 02/26/2025 4:53 PM EDT [facility] Creatinine 1.02 0.50 - 1.10 mg/dL LAB CHEMISTRY METHOD 02/26/2025 4:53 PM EDT [facility] eGFR 55(L) >=60 mL/min/1. 73m2 LAB CHEMISTRY METHOD 02/26/2025 4:53 PM EDT [facility] Comment:Calculation based on the Chronic Kidney Disease Epidemiology Collaboration (CKD-EPI) equation refit without adjustment for race. BUN/Creatinine Ratio 23.5 LAB CHEMISTRY METHOD 02/26/2025 4:53 PM EDT [facility] Calcium 9.4 8.5 - 10.5 mg/dL LAB CHEMISTRY METHOD 02/26/2025 4:53 PM EDT [facility] Blood Venous blood specimen / Unknown Venipuncture / Unknown 02/26/2025 1:32 PM EDT 02/26/2025 1:32 PM EDT us Darian Vazquez NP LAB BLOOD ORDERABLES Final Resul t [facility] [address] [place] [address], * BD Bone Density DXA Axial Skeleton (08/05/2024 1:44 PM EST) Anatomical Region Laterality Modality Wrist, Hip, L-spine Bone Densito metry 08/05/2024 2:15 PM EST Impressions 08/05/2024 2:17 PM EST Impression: This patient is considered to have osteoporosis by WHO criteria. [facility] Department of Internal Medicine recommends using National [...] alternative screening schedule based on frankie Jara., [facility] September 14, 2011 for patients with osteopenia (based on hip BMD T-score) is as follows: * advanced osteopenia (T scores [...] Signed Date: 08/05/2024 14:17 ET Workstation ID: [id number] Transcribed By: Self Edit Transcribed Date: 08/05/2024 14:15 ET Narrative 08/05/2024 2:17 PM EST BONE DENSITY (DEXA) Lumbar Spine T-score is [...] to have osteoporosis by WHO criteria. [facility] Department of Internal Medicine recommendsusing National Osteoporosis [...] Signed Date: 08/05/2024 14:17 ET Workstation ID: [id number] Transcribed By: Self Edit Transcribed Date: 08/05/2024 [...] Most Recently Relevant to Health Maintenance Insurance [facility] Care Teams Social Science Manager Relationship Specialty Start Date End Date Eloisa Veronica MD [address] [place] [address] PCP - General 05/26/04
== END 2025-05-27 14:34 | disposition home or self-care (01) ==
PROVIDERS: PCP Internal Medicine; Visit Provider Physician Assistant Medical
DX: H61.23 Impacted cerumen, bilateral (principal)

== ENCOUNTER → 2025-05-27 13:34 | Outpatient (BNVA) | payer OTHER, SELFPAY | PROVIDERS: PCP Internal Medicine; Visit Provider Physician Assistant Medical | DX: H61.23 Impacted cerumen, bilateral (principal) | CPT/HCPCS: 69209 ==

== ENCOUNTER 2025-07-02 09:37 | Emergency (ER) | payer OTHER, SELFPAY ==
[2025-07-02] VITALS (7 sets, daily range): BP systolic 140–154; BP diastolic 62–85; PULSE 68–88; RESP 14–20; TEMP 36.2–36.4; O2SAT 96–99; BMI 31.9
--- NOTE | 2025-07-02 10:30 | ED.EPISTAXIS ---
History of Present Illness General Chief Complaint: Epistaxis Stated Complaint: NOSEBLEED,+THINNER PER EMS Time Seen by Provider: 07/02/25 10:28 Source: patient, EMS, RN notes reviewed and old records reviewed Mode of arrival: EMS Limitations: no limitations History of Present Illness ED Provider: ITZ Sheridan HPI Narrative: 79-year-old female with medical history of HTN, HLD, osteoporosis, atrial fibrillation on warfarin presents to the ED due to epistaxis. Patient states she was in her bathroom when the right side of her nostril started bleeding. Patient states she was packing the nostril with tissue, but the tissues kept getting consistently saturated over a 15 minute time period, when the patient became worried that the bleeding was not stopping, and called EMS. Denies headache, visual changes, dizziness, lightheadedness, Related Data Home Medications ?Medication ?Instructions ?Recorded ?Confirmed alendronate 70 mg tablet 70 mg PO BLUNT 10/08/23 01/27/25 calcium 500 mg (as 1 tab PO DAILY 10/08/23 01/27/25 carbonate)-vitamin D3 10 mcg (400 unit) tablet (Calcium 500 + D) warfarin 2.5 mg tablet 2.5 mg PO MOTUWETHFRSA@1800 11/01/23 01/27/25 dapagliflozin propanediol 10 mg 10 mg PO DAILY 01/27/25 01/27/25 tablet (Farxiga) levothyroxine 25 mcg tablet 25 mcg PO DAILY 01/27/25 01/27/25 potassium chloride 20 mEq meq PO 01/27/25 01/27/25 tablet,extended release(part/cryst) torsemide 20 mg tablet 20 mg PO DAILY 01/27/25 01/27/25 metoprolol succinate 25 mg 25 mg PO DAILY 05/27/25 tablet,extended release 24 hr spironolactone 25 mg tablet 25 mg PO DAILY 05/27/25 Previous Rx's ?Medication ?Instructions ?Recorded ferrous sulfate 324 mg (65 mg 324 mg PO DAILY #90 tabs 10/13/23 iron) tablet,delayed release dextromethorphan-guaifenesin 10 10 ml PO Q4-6H PRN cough #100 mL 02/03/25 mg-100 mg/5 mL oral liquid Allergies Allergy/AdvReac Type Severity Reaction Status Date / Time No Known Allergies (No Known Allergy Verified 07/02/25 09:46 Allergies*) Review of Systems Review of Systems: CONST: Negative for fever, body aches and chills. HENT: Negative for neck pain/stiffness, headache, congestion, sore throat, swelling. POS R side nostril bleeding EYES: Negative for discharge/pain or vision changes. RESP: Negative for cough/hemoptysis and shortness of breath. CV: Negative chest pain, difficulty breathing, palpitations. ABD: Negative pain, nausea, vomiting. : Negative increase frequency, dysuria, blood in urine or stool. MUSC: Negative for muscle aches, edema. SKIN: Negative rash, lesions/sores. NEURO: Negative headache, dizziness, weakness. Yes all other systems are reviewed and are negative PMFSH Past Medical History Medical History Osteoporosis Hyperlipidemia Hypertension Atrial fibrillation Social History Social History Household Members: None Housing: House Do you presently have visiting nurse or other home services: Yes Alcohol intake: former Patient Tobacco Use Status: Never used Tobacco Smoked in Last 30 Days: No Use of substances other than those prescribed or required for medical reasons: No Advance Directives: Yes Advance Directives on File: Yes Advance Directives Date on File: 11/02/23 service: No Physical Exam Vital Signs: Vital Signs: Last Vital Signs Temp 97.6 F 07/02/25 16:15 Pulse 75 07/02/25 16:15 Resp 14 07/02/25 16:15 BP 146/83 H 07/02/25 16:15 Pulse Ox 96 07/02/25 16:15 O2 Del Method Room Air 07/02/25 16:15 BMI result Body Mass Index 31.9 GENERAL APPEARANCE: ?AxOx4, nontoxic appearing, no acute distress. HEENT: ?NC, AT. MMM. EOMI, clear conjunctiva, blood visualized in the posterior oropharynx, right nare with mild bleeding NECK: ?Supple without lymphadenopathy.? No stiffness or restricted ROM. HEART:? Normal rate and regular rhythm, normal S1/S2, no m/r/g LUNGS:? CTAB, moving air well. No crackles or wheezes are heard. ABDOMEN: ?Soft, nontender, nondistended with good bowel sounds heard. BACK: No CVAT, no obvious deformity. EXTREMITIES: ?Without cyanosis, clubbing or edema. NEUROLOGICAL: ?Grossly nonfocal. Alert and oriented, moving all 4 extremities. Observed to ambulate with normal gait. Skin: ?Warm and dry without any rash. Medications Administered Discontinued Medications Generic Name Dose Route Start Last Admin Trade Name Shantel PRN Reason Stop Dose Admin Cocaine HCl 4 ml 07/02/25 13:04 07/02/25 13:27 Cocaine Hcl 4 % 4 Ml Solution TOPICAL 07/02/25 13:05 4 ml ONCE ONE Administration Protocol Oxymetazoline HCl 2 spray 07/02/25 10:35 07/02/25 11:00 Oxymetazoline Hcl 0.05 % Nasal 15 Ml [place] NOSTRIL-B 07/02/25 10:36 2 spray ONCE ONE Administration Silver Nitrate 1 appl 07/02/25 14:35 07/02/25 15:30 Silver Nitrate Applicator Stick..Ea. TOPICAL 07/02/25 14:36 1 appl ONCE ONE Administration Medical Decision Making Medical Decision Making MDM Narrative: 79-year-old female with medical history of HTN, HLD, osteoporosis, atrial fibrillation on warfarin presents to the ED due to epistaxis. Patient states she was in her bathroom when the right side of her nostril started bleeding. Patient states she was packing the nostril with tissue, but the tissues kept getting consistently saturated over a 15 minute time period, when the patient became worried that the bleeding was not stopping, and called EMS. Denies headache, visual changes, dizziness, lightheadedness VS on initial observation-BP 140/62, pulse rate of 68, respiratory rate of 20, afebrile with an oral temp of 97.1?, O2 saturation 97% on room air. On physical exam blood visualized in the posterior oropharynx, right side nostril bleeding. Labs without leukocytosis/leukopenia, no evidence of anemia, H&H stable, no electrolyte abnormalities. INR is at 3.0. Patient arrived to the department with mild oozing of the right Nare with blood visualized in the posterior oropharynx, there is a very small area of the anterior near that looks to be the cause of bleeding. Significant pressure was applied, Afrin applied. Bleeding continued through this. Liquid cocaine was used and the nose was clamped for 30 minutes. There was very scant bleeding after this and cautery with silver nitrate was performed to the small area of the right Nare with cessation of bleeding. Patient states therapeutic INR is between 2.0 and 2.9, patient is 3.0, we will recommend patient to hold her nightly dose of warfarin at this time and we continue her dose tomorrow. I counseled patient to follow up with her primary care doctor. I counseled patient on strict return precautions. Patient feels well enough to go home for self-care, and is in agreement with the plan. Differential Diagnosis Differential Diagnoses: The differential diagnosis associated with the presentation includes Anterior epistaxis Posterior epistaxis Anticoagulation related epistaxis Admission/Observation Consideration of admission/observation: Escalation of care including admission/observation considered Lab Data MDM Lab Attestation statement: I reviewed the patient's lab results. 07/02/25 12:47 07/02/25 12:47 Labs: Lab Results 07/02/25 Range/Units 12:47 WBC 5.6 (4.8-10.8) X10*3/uL RBC 4.93 (4.20-5.50) X10*6/uL Hgb 14.1 (12.0-16.0) g/dl Hct 43.2 (37.0-47.0) % MCV 87.6 (80.0-98.0) fL MCH 28.6 (27.0-33.0) pg MCHC 32.6 (31.0-35.0) g/dl RDW 14.2 (11.0-16.0) % Plt Count 199 (160-400) X10*3/uL MPV 9.6 (9.4-12.3) fL Immature Gran % (Auto) 0.4 (0.0-0.4) % Neut % (Auto) 77.0 H (45-73) % Lymph % (Auto) 10.4 L (20-40) % [place] % (Auto) 10.4 (2-11) % Eos % (Auto) 1.3 (0-4) % Baso % (Auto) 0.5 (0-2) % Lymph # (Auto) 0.6 L (1.2-4.9) X10*3/uL [place] # (Auto) 0.6 (0.1-1.2) X10*3/uL Eos # (Auto) 0.1 (0.0-0.4) X10*3/uL Baso # (Auto) 0.0 (0.0-0.2) X10*3/uL Abs Immat Gran (auto) 0.02 (0.00-0.03) X10*3/uL Absolute Neuts (auto) 4.3 (2.0-8.3) x10*3/uL Absolute Nucleated RBC 0.000 (0.0-0.012) X10*3/uL Nucleated RBC % (auto) 0.0 (0.0-0.2) /100WBC PT 36.0 H (11.2-13.5) SEC INR 3.0 H (0.9-1.1) Sodium 141 (135-145) mmol/L Potassium 4.1 (3.3-5.1) mmol/L Chloride 107 (96-108) mmol/L Carbon Dioxide 27 (22-29) mmol/L Anion Gap 11 L (12-20) BUN 24 H (9-16) mg/dL Creatinine 0.90 (0.5-1.4) mg/dL Estim Creat Clear Calc 49.6 Estimated GFR > 60 Random Glucose 95 (60-115) mg/dL Calcium 9.5 (8.4-10.2) mg/dL Magnesium 1.9 (1.6-2.6) mg/dL Total Bilirubin 1.0 (0.0-1.0) mg/dL AST 31 (5-31) U/L ALT 12 (0-31) U/L Alkaline Phosphatase 65 (39-117) U/L Total Protein 7.5 (6.5-8.0) g/dL Albumin 3.9 (3.5-5.0) g/dL External Record Review External record reviewed: Inpatient record, Office record and Outpatient record Chronic Conditions Patient?s care impacted by: Hypertension and Other (HLD, AFib on warfarin) Discharge Plan Discharge Clinical Impression: Acute anterior epistaxis Patient Disposition: Home, Self-Care Additional Instructions: You were evaluated in the ED after experiencing a nosebleed at home. Significant pressure was applied, Afrin was used, liquid cocaine was used, and eventually cautery with silver nitrate was used to control the bleeding with good effect. Your blood work shows an INR of 3.0. We discussed that your therapeutic range was between 2.0 and 2.9. Because of this I recommend that you hold your warfarin dose tonight, and continue with your regular scheduled warfarin dosing tomorrow. If the right nostril is uncomfortable dry you can use saline spray, or apply a very thin layer of Vaseline over the scabbing. Please do not blow your nose, pick the scabbing, and tried to sneeze with your mouth open to decrease pressure within the nose. Please return to the emergency department if you experience a nosebleed lasting longer than 10 minutes, chest pain, shortness of breath, fevers over 100.4?, headaches, dizziness, or any new/worsening/concerning symptoms. Prescriptions: No Action dextromethorphan-guaifenesin 10-100 mg/5 mL liquid 10 ml PO Q4-6H PRN (Reason: cough) Qty: 100 0RF alendronate 70 mg tablet 70 mg PO BLUNT calcium carbonate-vitamin D3 [Calcium 500 + D] 500 mg-10 mcg (400 unit) Tablet 1 tab PO DAILY ferrous sulfate 324 mg (65 mg iron) Tablet,Delayed Release (Dr/Ec) 324 mg PO DAILY Qty: 90 0RF warfarin 2.5 mg tablet 2.5 mg PO MOTUWETHFRSA@1800 dapagliflozin propanediol [Farxiga] 10 mg tablet 10 mg PO DAILY levothyroxine 25 mcg tablet 25 mcg PO DAILY torsemide 20 mg tablet 20 mg PO DAILY potassium chloride 20 mEq tablet,ER particles/crystals PO spironolactone 25 mg tablet 25 mg PO DAILY metoprolol succinate 25 mg tablet extended release 24 hr 25 mg PO DAILY Print Language: Somali
[2025-07-02] MEDS: Oxymetazoline HCl 0.05 % Nasal 15 ML SPRAY 2 SPRAY NOSTRIL-B (11:00)
--- OUTSIDE RECORDS SUMMARY | 2025-07-02 11:54 | XMS_ITS | Clinical Summary ---
Author Organization [facility] [address] [facility] Address [address] [place] [phone] Phone Care Team Providers Care Fuel Efficient Aircraft Designer Name Role Phone Eloisa Veronica MD Primary Care Provider [phone] Allergies No known active allergies Medications amoxicillin (AMOXIL) 500 mg capsule Take 4 Capsules by mouth Once. (1 hr prior to dental exam) 4 Active nystatin (MYCOSTATIN) 100,000 unit/gram powder Apply bid to rash 4 Active ostomy supplies [facility] OSTOMY SUPPLIES (COLOPLAST BARRIER RING) [facility] Coloplast elastic barrier strips #[id number] 2 boxes per month--30 per box Refills [...] 30 min. 90 tablet 1 4 Active torsemide (DEMADEX) 20 mg tablet Take 1 tablet (20 mg total) by mouth 1 (one) time each day. 90 tablet 1 5 Active warfarin (COUMADIN) 2.5 mg tablet Take 1-3 tablets (2.5-7.5 mg total) by mouth 1 (one) time each day. Managed by [facility] Coumadin [facility] 270 tablet 1 5 Active levothyroxine (SYNTHROID, LEVOTHROID) 25 mcg tablet Take 1 tablet (25 mcg total) by mouth 1 (one) time each day. 90 tablet 3 5 Active metoprolol succinate (TOPROL-XL) 25 mg 24 hr tablet Take 0.5 tablets (12.5 mg total) by mouth 1 (one) time each day. Do not crush or chew. 90 each 1 5 02/05/20 26 Active Farxiga 10 mg tablet Take 1 tablet (10 mg total) by mouth 1 (one) time each day. 90 tablet 1 5 Active spironolactone (ALDACTONE) 25 mg tablet Take 1 tablet (25 mg total) by mouth 1 (one) time each day. 90 each 1 5 02/18/20 26 Active ferrous sulfate 324 mg (65 mg elemental iron) EC tablet Take 1 tablet (324 mg total) by mouth 1 (one) time each day. 90 tablet 1 5 Active ferrous sulfate 325 mg (65 mg iron) EC tablet Take 1 tablet (325 mg total) by mouth 1 (one) time each day. Do not crush, chew, or split. 90 tablet 1 5 06/03/20 25 Discontinu ed(Duplica te order) Active Problems Problem Noted Date Diagnosed Date Prediabetes 05/29/2025 Orthostatic hypotension 12/06/2023 Vitamin D deficiency 03/02/2023 [...] kidney disease) stage 3, GFR 30-59 ml/min ([facility] V24, [facility] V28) 04/19/2020 Parastomal hernia without obstruction or gangren e 09/09/[address] ([facility] V24, [facility] V28) Colovesical fistula 08/15/2018 Chronic diarrhea 05/27/2018 Diverticulitis of large inte josephine with perforation and abscess without bleeding 02/18/2018 (HFpEF) heart failure with p reserved ejection fraction ([facility] V24, [facility] V28) 06/17/2014 Overview (11/05/2024): On 09/23/2024 patient had an echocardiogram at [facility] while hospitalized. This revealed the left [...] Of note she had ran out of [place] and had not taken it for several [...] week. PFO (patent foramen ovale) 06/17/2014 Cardiomyopathy ([facility] [place], [facility] [place]) 2012 Osteoporosis 10/29/2008 Overview (06/24/2024): 10/2008: T-1.1 spine -1.1 hip 04/06 T score spine -1.1 hip -1.4 FRAX 14% 04/09 T score spine -1.8 hip -1.7 femoral neck -3.0 12/11 T score spine -0.9 hip -2.8 06/14 T score spine -1.1 hip -2.8 08/2021: T-score lumbar (-0.6); hip (-3.9) Atrial fibrillation ([facility] [place], [facility] [place]) 0 12/15/2005 Assessment & Plan (02/17/2025 [...] Patient should remain anticoagulated due to elevated [id number] score. Orders: ECG 12 lead Hypertension 12/15/2005 [...] Encounters Date Type Department Care Team Description 06/18/2025 1:40 PM EDT Clinical Support [address] [phone] Longstanding persistent atrial fibrillation (CMS/HCC V24, CMS/HCC V28) (Primary Dx) 06/03/2025 Results Follow-Up Adult [address] [phone] Maureen Winston PA 05/28/2025 1:40 PM EDT [facility] [address] [phone] Longstanding persistent atrial fibrillation (CMS/HCC V24, CMS/HCC V28) (Primary Dx) 05/12/2025 1:50 PM EDT Anticoagulation - Warfarin Visit [address] [phone] Longstanding persistent atrial fibrillation (CMS/HCC V24, CMS/HCC V28) (Primary Dx) 05/05/2025 1:50 PM EDT Anticoagulation - Warfarin Visit [address] [phone] Longstanding persistent atrial fibrillation (CMS/HCC V24, CMS/HCC V28) (Primary Dx) 04/07/2025 1:40 PM EDT Anticoagulation - Warfarin Visit [address] [phone] Longstanding persistent atrial fibrillation (CMS/HCC V24, CMS/HCC V28) (Primary Dx) from Last 3 Months Immunizations Immunization Administration [...] History Medical History Date Comments Atrial fibrillation ([facility] [place], [facility] V28) Ostium secundum type atrial septal defect Essential hypertension, benign Obesity, unspecified Diverticulitis 05/21/[address] [place] [place], [facility] V28) 09/30/2018 Orthostatic hypotension 12/06/2023 (HFpEF) heart failure with p reserved ejection fraction ([facility] [place], [facility] [place]) 06/17/2014 Cardiomyopathy ([facility] [place], [facility] V28) 05/02/2013 Chronic diarrhea 05/27/2018 CKD (chronic kidney disease) stage 3, GFR 30-59 ml/min ([facility] [place], [facility] V28) 04/19/2020 Colovesical fistula [...] Care Team (Late st Contact Info) Description 07/16/2025 1:30 PM EST Clinical Support Coumadin [address] [phone] 09/17/2025 12:45 PM EST Office Visit Adult Medicine [address] [phone] Eloisa Veronica MD [address] [place] [address] 11/02/2025 10:40 AM EDT Office Visit [facility] [address] [facility] [address] [place] [address] Darian Vazquez NP [address] [place] [address] [place] [phone] Health Maintenance Due Date Last Done Comments [...] Additional history exists Cholesterol Screening (Lipid Panel) 06/02/2030 06/02/2025, 06/20/2024, 06/20/2024 DTaP,Tdap,and Td Vaccines (4 - [...] Diagnosis Comments POC PROTIME INR BLOOD Routine 06/18/2025 1:27 PM EDT Longstanding persistent atrial fibrillation (CMS/HCC V24, CMS/HCC V28) MICROALBUMIN CREATININE URINE RATIO Routine 06/09/2025 1:24 PM EDT Prediabetes VITAMIN D 25 HYDROXY Routine 06/02/2025 2:13 PM EDT Vitamin D deficiency Osteoporosis, unspecified osteoporosis type, unspecified pathological fracture presence HEMOGLOBIN A1C Routine 06/02/2025 2:13 PM EDT Prediabetes IRON AND TIBC Routine 06/02/2025 2:13 PM EDT Low hemoglobin and low hematocrit FERRITIN Routine 06/02/2025 2:13 PM EDT Low hemoglobin and low hematocrit COMPLETE BLOOD COUNT Routine 06/02/2025 2:13 PM EDT Low hemoglobin and low hematocrit LIPID PANEL WITH REFLEX TO DIRECT LDL Routine 06/02/2025 2:13 PM EDT Lipid screening POC PROTIME INR BLOOD Routine 05/28/2025 1:40 PM EDT Longstanding persistent atrial fibrillation (CMS/HCC V24, CMS/HCC V28) POC PROTIME INR BLOOD Routine 05/12/2025 Longstanding persistent atrial fibrillation (CMS/HCC V24, CMS/HCC V28) POC PROTIME INR BLOOD Routine 05/05/2025 [...] unspecified Age-related osteoporosis without current pathological fracture from Last 3 Months or Most Recently Relevant to Health Maintenance Results * POC Protime INR Blood (06/18/2025 1:27 PM EDT) Only the most recent of5 resultswithin the time period is included. Lot Number INR POC 2.9 Prothrombin Time POC Exp Date Blood 06/18/2025 1:27 PM EDT us Eloisa Veronica MD POINT OF CARE TEST ENTER/EDIT OR DERABLES Final Result * (ABNORMAL) Microalbumin creatinine urine ratio (06/09/2025 1:24 PM EDT) Creatinine, Urine 86.0 mg/dL LAB CHEMISTRY METHOD 06/09/2025 7:[address] [facility] Microalb, Ur 27.4 0.0 - 29.0 mg/L LAB CHEMISTRY METHOD 06/09/2025 7:[address] [facility] Microalb/Creat Ratio 32(H) <30 mg/g creat LAB CHEMISTRY METHOD 06/09/2025 7:[address] [facility] Urine Urine specimen from urethra / Unknown Non-blood Collection / Unknown 06/09/2025 1:24 PM EDT 06/09/2025 1:24 PM EDT us Maureen GIFFORD LAB URINE ORDERABLES Final Re sult [facility] [address] [place] [address], [place] [phone] * Lipid panel with reflex to direct LDL (06/02/2025 2:13 PM EDT) Cholesterol 157 0 - 200 mg/dL LAB CHEMISTRY METHOD 06/02/2025 5:[address] [facility] Triglycerides 81 0 - 150 mg/dL LAB CHEMISTRY METHOD 06/02/2025 5:[address] [facility] HDL 91 >=40 mg/dL LAB CHEMISTRY METHOD 06/02/2025 5:[address] [facility] LDL Calculated 50 0 - 100 mg/dL LAB CHEMISTRY METHOD 06/02/2025 5:[address] [facility] Comment:Estimated LDL Calcul ated using equation: Total cholesterol - HDL cholesterol - (Triglycerides/5) VLDL Cholesterol Jagjit 16.2 mg/dL LAB CHEMISTRY METHOD 06/02/2025 5:[address] [facility] Non HDL Chol. (LDL+VLDL) 66 <145 mg/dL LAB CHEMISTRY METHOD 06/02/2025 5:[address] [facility] Chol/HDL Ratio 1.7 0.0 - 4.4 LAB CHEMISTRY METHOD 06/02/2025 5:[address] [facility] Blood Venous blood specimen / Unknown Venipuncture / Unknown 06/02/2025 2:13 PM EDT 06/02/2025 2:13 PM EDT us Maureen GIFFORD LAB BLOOD ORDERABLES Final Re sult [facility] [address] [place] [address], * Iron and TIBC (06/02/2025 2:13 PM EDT) Iron 63 40 - 150 mcg/dL LAB CHEMISTRY METHOD 06/02/2025 5:[address] [facility] TIBC 374 250 - 450 mcg/dL LAB CHEMISTRY METHOD 06/02/2025 5:[address] [facility] Iron Saturation 17 15 - 50 % LAB CHEMISTRY METHOD 06/02/2025 5:[address] [facility] Blood Venous blood specimen / Unknown Venipuncture / Unknown 06/02/2025 2:13 PM EDT 06/02/2025 2:13 PM EDT us Maureen GIFFORD LAB BLOOD ORDERABLES Final Re sult Performing Organization Address [facility]/ZIP Co de Phone Number [facility] [address] [place] [address], [place] [phone] * Vitamin D 25 hydroxy (06/02/2025 2:13 PM EDT) [facility] Vit D, 25-Hydroxy 45.8 30.0 - 80.0 ng/mL LAB CHEMISTRY METHOD 06/02/2025 6:[address] [facility] Blood Venous blood specimen / Unknown Venipuncture / Unknown 06/02/2025 2:13 PM EDT 06/02/2025 2:13 PM EDT us Maureen GIFFORD LAB BLOOD ORDERABLES Final Re sult Performing Organization Address [facility]/ZIP Co de Phone Number [facility] [address] [place] [address], [place] [phone] * (ABNORMAL) Complete blood count (06/02/2025 2:13 PM EDT) [facility] WBC 4.3(L) 4.8 - 10.8 K/[facility] LAB HEMETOLOGY METHOD 06/02/2025 5:[address] [facility] RBC 4.70 3.80 - 4.80 M/[facility] LAB HEMETOLOGY METHOD 06/02/2025 5:[address] [facility] Hemoglobin 13.5 11.5 - 16.0 g/dL LAB HEMETOLOGY METHOD 06/02/2025 5:[address] [facility] Hematocrit 42.0 35.0 - 47.0 % LAB HEMETOLOGY METHOD 06/02/2025 5:[address] [facility] MCV 88.6 79.0 - 98.0 FL LAB HEMETOLOGY METHOD 06/02/2025 5:[address] [facility] MCH 28.5 27.0 - 32.0 pcg LAB HEMETOLOGY METHOD 06/02/2025 5:[address] [facility] MCHC 32.1 32.0 - 37.0 g/dL LAB HEMETOLOGY METHOD 06/02/2025 5:[address] [facility] RDW 14.6 11.0 - 15.0 % LAB HEMETOLOGY METHOD 06/02/2025 5:[address] [facility] Platelets 216 130 - 400 K/mcL LAB HEMETOLOGY METHOD 06/02/2025 5:[address] [facility] MPV 9.9 7.0 - 11.0 FL LAB HEMETOLOGY METHOD 06/02/2025 5:[address] [facility] NRBC 0.0 <1.0 % LAB HEMETOLOGY METHOD 06/02/2025 5:[address] [facility] NRBC Absolute 0.00 <0.10 K/mcL LAB HEMETOLOGY METHOD 06/02/2025 5:[address] [facility] Blood Venous blood specimen / Unknown Venipuncture / Unknown 06/02/2025 2:13 PM EDT 06/02/2025 2:13 PM EDT us Marueen GIFFORD LAB BLOOD ORDERABLES Final Re sult [facility] [address] [place] [address], * Hemoglobin A1c (06/02/2025 2:13 PM EDT) Hemoglobin A1C 5.4 <6.5 % LAB CHEMISTRY METHOD 06/02/2025 8:[address] [facility] Mean Bld Glu Estim. 108 mg/dL LAB CHEMISTRY METHOD 06/02/2025 8:[address] [facility] Blood Venous blood specimen / Unknown Venipuncture / Unknown 06/02/2025 2:13 PM EDT 06/02/2025 2:13 PM EDT us Maureen GIFFORD LAB BLOOD ORDERABLES Final Re sult Performing Organization Address City/[facility]/ZIP Co de Phone Number [facility] [address] [place] [address], [place] [phone] * Ferritin (06/02/2025 2:13 PM EDT) [facility] Ferritin 37 8 - 252 ng/mL LAB CHEMISTRY METHOD 06/02/2025 5:[address] [facility] Blood Venous blood specimen / Unknown Venipuncture / Unknown 06/02/2025 2:13 PM EDT 06/02/2025 2:13 PM EDT us Maureen GIFFORD LAB BLOOD ORDERABLES Final Re sult Performing Organization Address [facility]/ZIP Co de Phone Number [facility] [address] [place] [address], [place] [phone] * (ABNORMAL) Basic metabolic panel (02/26/2025 1:32 PM EDT) [facility] Sodium 142 133 - 145 mmol/L LAB CHEMISTRY METHOD 02/26/2025 4:[address] [facility] Potassium 3.5 3.5 - 5.5 mmol/L LAB CHEMISTRY METHOD 02/26/2025 4:[address] [facility] Chloride 103 96 - 110 mmol/L LAB CHEMISTRY METHOD 02/26/2025 4:[address] [facility] CO2 32 21 - 32 mmol/L LAB CHEMISTRY METHOD 02/26/2025 4:53 PM [facility] Anion Gap 7 3 - 11 LAB CHEMISTRY METHOD 02/26/2025 4:53 PM [facility] Glucose 83 70 - 100 mg/dL LAB CHEMISTRY METHOD 02/26/2025 4:53 PM [facility] BUN 24 5 - 25 mg/dL LAB CHEMISTRY METHOD 02/26/2025 4:53 PM [facility] Creatinine 1.02 0.50 - 1.10 mg/dL LAB CHEMISTRY METHOD 02/26/2025 4:53 PM [facility] eGFR 55(L) >=60 mL/min/1. 73m2 LAB CHEMISTRY METHOD 02/26/2025 4:53 PM [facility] Comment:Calculation based on the Chronic Kidney Disease Epidemiology Collaboration (CKD-EPI) equation refit without adjustment for race. BUN/Creatinine Ratio 23.5 LAB CHEMISTRY METHOD 02/26/2025 4:53 PM [facility] Calcium 9.4 8.5 - 10.5 mg/dL LAB CHEMISTRY METHOD 02/26/2025 4:53 PM [facility] Blood Venous blood specimen / Unknown Venipuncture / Unknown 02/26/2025 1:32 PM EDT 02/26/2025 1:32 PM EDT us Darian Vazquez NP LAB BLOOD ORDERABLES Final Resul t [facility] [address] [place] [address], * BD Bone Density DXA Axial Skeleton (08/05/2024 1:44 PM EST) Anatomical Region Laterality Modality Wrist, Hip, L-spine Bone Densito metry 08/05/2024 2:15 PM EST Impressions 08/05/2024 2:17 PM EST Impression: This patient is considered to have osteoporosis by WHO criteria. The [facility] Department of Internal Medicine recommends using [...] alternative screening schedule based on frankie Jara., [facility] September 14, 2011 for patients with [...] Signed Date: 08/05/2024 14:17 ET Workstation ID: [id number] Transcribed By: Self Edit Transcribed Date: 08/05/2024 [...] to have osteoporosis by WHO criteria. [facility] Department of Internal Medicine recommendsusing National [...] alternative screening schedule based on frankie Jara., [facility] for patients with osteopenia (based [...] Signed Date: 08/05/2024 14:17 ET Workstation ID: [id number] Transcribed By: Self Edit Transcribed Date: 08/05/2024 14:15 ET us Maureen GIFFORD IMG DXA PROCEDURES Final Resu lt from Last 3 Months or Most Recently Relevant to Health Maintenance Insurance [facility] Care Teams Fuel Efficient Aircraft Designer Relationship Specialty Start Date End Date Eloisa Veronica MD [address] [place] [address] PCP - General 05/26/04
--- OUTSIDE RECORDS SUMMARY | 2025-07-02 11:54 | XMS_ITS | Encounter Summary ---
Author Organization [facility] Address [address] [place] [address] Care Team Providers Care Keysmith Name Role Phone Eloisa Veronica MD Primary Care Provider Reason for Visit * Reason Comments [facility] HEALTH CERT Encounter Details Date Type Department Care Team (Late Contact Info) Description 10/15/2024 Billing Patient Not Present [address] [phone] Eliosa Veronica MD [address] [place] [address] Other pancytopenia (CMS/HCC V24, CMS/HCC V28) (Primary [...] Department Care Team (Late Contact Info) Description 07/16/2025 1:30 PM EST Clinical Support Coumadin [address] [phone] 09/17/2025 12:45 PM EST Office Visit Adult [address] [phone] Eloisa Veronica MD [address] [place], [place] 11/02/2025 10:40 AM EDT Office Visit [facility] - [address] [facility] [address] [place] [phone] Darian Vazquez NP [address] [place] [address] [place] [phone] documented as of this encounter Visit Diagnoses Diagnosis Other pancytopenia (CMS/HCC V24, CMS/HCC V28)- Primary Other pancytopenia documented in this encounter Care Teams Keysmith Relationship Specialty Start Date End Date Eloisa Veronica MD [address] [place], [place] PCP - General 05/26/04 documented as of this encounter
--- OUTSIDE RECORDS SUMMARY | 2025-07-02 11:54 | XMS_ITS | Encounter Summary ---
Author Organization [facility] Address [address] [place] [address] Care Team Providers Care Stunt Person Name Role Phone Eloisa Veronica MD Primary Care Provider [phone] Encounter Details Date Type Department Care Team (Late Contact Info) Description 10/22/2024 Billing Patient Not Present Adult Medicine [address] [phone] Eloisa Veronica MD [address] [place] [address] Social History Tobacco Use Types Packs/Day Years [...] 07/16/2025 1:30 PM EST Clinical Support Coumadin [address] [phone] 09/17/2025 12:45 PM EST Office Visit Adult Medicine [address] [phone] Eloisa Veronica MD [address] [place] [address] 11/02/2025 10:40 AM EDT Office Visit [facility] - [address] [facility] [address] [place] [phone] Darian Vazquez NP [address] [place] [address] [place] [phone] documented as of this encounter Visit Diagnoses Not on filedocumented in this encounter Care Teams Stunt Person Relationship Specialty Start Date End Date Eloisa Veronica MD [address] [place], [place] PCP - General 05/26/04 documented as of this encounter
--- OUTSIDE RECORDS SUMMARY | 2025-07-02 11:54 | XMS_ITS | Encounter Summary ---
Author Organization [facility] Address [address] [place] [address] Care Team Providers Care Dye Reel Operator Helper Name Role Phone Eloisa Veronica MD Primary Care Provider [phone] Encounter Details Date Type Department Care Team ([facility] Contact Info) Description 06/03/2025 Results Follow-Up Adult [address] [phone] Maureen Winston PA [address] [place] [address] Social History Tobacco Use Types Packs/Day Years [...] Upcoming Encounters Date Type Department Care Team ([facility] Contact Info) Description 07/16/2025 1:30 PM EST Clinical Support Coumadin [address] [phone] 09/17/2025 12:45 PM EST Office Visit Adult [address] [phone] Eloisa Veronica MD [address] [place] [address] 11/02/2025 10:40 AM EDT Office Visit [facility] - [address] [facility] [address] [place] [phone] Darian Vazquez, STEVE [address] [place] [address] [place] [phone] documented as of this encounter Visit Diagnoses Not on filedocumented in this encounter Care Teams Dye Reel Operator Helper Relationship Specialty Start Date End Date Eloisa Veronica MD [address] [place], [place] PCP - General 05/26/04 documented as of this encounter
--- OUTSIDE RECORDS SUMMARY | 2025-07-02 11:54 | XMS_ITS | Encounter Summary ---
Author Organization [facility] Address [address] [place] [address] Care Team Providers Care Senior Market Intelligence Consultant Name Role Phone Eloisa Veronica MD Primary Care Provider [phone] Encounter Details Date Type Department Care Team (Late Contact Info) Description 10/23/2024 Billing Patient Not Present Adult Medicine [address] [phone] Eloisa Veronica MD [address] [place] [address] Social History Tobacco Use Types Packs/Day Years [...] 07/16/2025 1:30 PM EST Clinical Support Coumadin [address] [phone] 09/17/2025 12:45 PM EST Office Visit Adult Medicine [address] [phone] Eloisa Veronica MD [address] [place] [address] 11/02/2025 10:40 AM EDT Office Visit [facility] - [address] [facility] [address] [place] [phone] Darian Vazquez NP [address] [place] [address] [place] [phone] documented as of this encounter Visit Diagnoses Not on filedocumented in this encounter Care Teams Senior Market Intelligence Consultant Relationship Specialty Start Date End Date Eloisa Veronica MD [address] [place], [place] PCP - General 05/26/04 documented as of this encounter
--- OUTSIDE RECORDS SUMMARY | 2025-07-02 11:54 | XMS_ITS | Encounter Summary ---
Author Organization [facility] Address [address] [place] [address] Care Team Providers Care Surgical Manager Name Role Phone Eloisa Veronica MD Primary Care Provider [phone] Encounter Details Date Type Department Care Team (Late Contact Info) Description 10/21/2024 Billing Patient Not Present Adult Medicine [address] [phone] Eloisa Veronica MD [address] [place] [address] Social History Tobacco Use Types Packs/Day Years [...] 07/16/2025 1:30 PM EST Clinical Support Coumadin [address] [phone] 09/17/2025 12:45 PM EST Office Visit Adult Medicine [address] [phone] Eloisa Veronica MD [address] [place] [address] 11/02/2025 10:40 AM EDT Office Visit [facility] - [address] [facility] [address] [place] [phone] Darian Vazquez NP [address] [place] [address] [place] [phone] documented as of this encounter Visit Diagnoses Not on filedocumented in this encounter Care Teams Surgical Manager Relationship Specialty Start Date End Date Eloisa Veronica MD [address] [place], [place] PCP - General 05/26/04 documented as of this encounter
[2025-07-02 12:56] LABS: MANUAL DIFF FLAG NO
[2025-07-02 12:59] LABS: Hematocrit 43.2 % (37.0-47.0); Hemoglobin 14.1 g/dl (12.0-16.0); Imm Gran Abs Auto 0.02 X10*3/uL (0.00-0.03); Imm Gran Pct Auto 0.4 % (0.0-0.4); Lymphocytes Absolute Auto 0.6 X10*3/uL (1.2-4.9); Mean Corpuscular HGB Conc 32.6 g/dl (31.0-35.0); Mean Corpuscular Hemoglobin 28.6 pg (27.0-33.0); Mean Corpuscular Volume 87.6 fL (80.0-98.0); NRBC Abs Auto 0.000 X10*3/uL (0.0-0.012); NRBC Pct Auto 0.0 /100WBC (0.0-0.2); Platelet Count 199 X10*3/uL (160-400); Red Blood Count 4.93 X10*6/uL (4.20-5.50); White Blood Count 5.6 X10*3/uL (4.8-10.8)
[2025-07-02 13:01] LABS: INTERNATIONAL NORM RATIO 3.0 (0.9-1.1); Prothrombin Time 36.0 SEC (11.2-13.5)
[2025-07-02 13:11] LABS: Alanine Aminotransferase 12 U/L (0-31); Albumin Level 3.9 g/dL (3.5-5.0); Alkaline Phosphatase 65 U/L (39-117); Anion Gap 11 (12-20); Aspartate Amino Transferase 31 U/L (5-31); Blood Urea Nitrogen 24 mg/dL (9-16); Calcium 9.5 mg/dL (8.4-10.2); Carbon Dioxide 27 mmol/L (22-29); Chloride 107 mmol/L (96-108); Creatinine Clr Calc Pharmacy 49.6; Estimated Glomerular Filt Rate > 60; Magnesium 1.9 mg/dL (1.6-2.6); Potassium 4.1 mmol/L (3.3-5.1); Sodium 141 mmol/L (135-145); Total Protein 7.5 g/dL (6.5-8.0)
[2025-07-02] MEDS: Cocaine HCl 4 % 4 ML SOLUTION TOPICAL (13:27)
[2025-07-02] MEDS: Silver Nitrate Applicator STICK..EA. 1 APPL TOPICAL (15:30)
== END 2025-07-02 17:29 | disposition home or self-care (01) ==
PROVIDERS: Emergency Provider Emergency Medicine; PCP Internal Medicine
DX: R04.0 Epistaxis (principal); I48.91 Unspecified atrial fibrillation; Z79.01 Long term (current) use of anticoagulants; I10 Essential (primary) hypertension; E78.5 Hyperlipidemia, unspecified; Z79.899 Other long term (current) drug therapy
CPT/HCPCS: 36415; 80053; 83735; 85025; 85610; 99284; C9143